=== PATIENT | male | born 1940 | race Caucasian/White ===

== ENCOUNTER 2017-02-03 05:20 | Inpatient (IN) | payer MEDICARE ==
[~2017-02-03] VITALS: Ht 172.7 cm; Wt 83.3 kg
[2017-02-03] VITALS (19 sets, daily range): BP systolic 92–137; BP diastolic 51–78; PULSE 80–165; RESP 16–36; TEMP 97.7–102.8; O2SAT 93–100
[~2017-02-03 05:20] MED LIST: ACET325S8 PEG; ALBU0.63 NEB; ARIC10TA G-TUBE; CLAR10TA7 GT; ENOX30P SQ; MUPI2%T TOP; MYCO200S GT; NAME10TA GT; NYSTT TOPICAL; PRED20 PO; PROBCAP4 G-TUBE; PYRI60 GT; RANI150 GT; RANI150UDC PO; TAB-TAB G-TUBE; TERB1%T TOP; VIMP200T PEG; VITA500C G-TUBE
[2017-02-03] MEDS ORDERED: SODIUM CHLOR 0.9% 1000 ML INJ 1,000 ML IV ONE ×3 (05:26)
[2017-02-03] MEDS ORDERED: VANCOMYCIN INJ 1,500 MG in SODIUM CHLORID 0.9% 500 ML INJ 500 ML IV STA (05:26)
[2017-02-03] MEDS ORDERED: CEFEPIME INJ 2,000 MG in SODIUM CHLORIDE 0.9% INJ 100 ML IV STA (05:26)
--- NOTE | 2017-02-03 05:43 | PD ---
HPI Chief Complaint: Respiratory Symptoms Time Seen by Provider: 05:26 Travel History International Travel<30 days: No Contact w/Intl Traveler<30days: No Traveled to known affect area: No History of Present Illness HPI 76 yo M arrives by EMS 2/2 dyspnea. EMS notes tachycardia and fever. Patient has a history of myasthenia gravis, dementia, seizure disorder, chronic pain, and has a tracheostomy and PEG tube. Upon arrival to the ER a pulse of 160 with a blood pressure 130/80, respiratory rate of 30 with some dyspnea observed. Sepsis workup initiated. The patient has a DNR. [facility] Past Medical History Arthritis: Yes (back) Asthma: No Autoimmune Disease: Yes (MYASTHENIA GRAVIS) Anxiety: No Depression: No Heart Rhythm Problems: No Cancer: No Cardiovascular Problems: Yes High Cholesterol: No Chemotherapy: No Chest Pain: No Congestive Heart Failure: No COPD: No Cerebrovascular Accident: No Dementia: Yes (APHASIA DEMENTIA) Diabetes: No Diminished Hearing: No Endocrine: No GERD: Yes Genitourinary: Yes (RECURRENT UTI) Hiatal Hernia: Yes Hypertension: Yes Immune Disorder: No Implanted Vascular Access Dvce: No Kidney Stones: No Musculoskeletal: Yes (SPINAL FX-CHRONIC, BROKEN RIGHT FEMUR) Neurologic: Yes (MYASTHENIA GRAVIS, DEMENTIA, SEIZURES) Reproductive: No Respiratory: Yes (TRACH) Migraines: No Pneumonia: Yes Radiation Therapy: No Renal Failure: No Seizures: Yes Sickle Cell Disease: No Sleep Apnea: Yes Thyroid Disease: No Ulcer: No Past Surgical History Abdominal Surgery: Yes (Hernia, PEG TUBE PLACEMENT) AICD: No Arteriovenous Shunt: No Body Medical Devices: PEG TUBE Cardiac Surgery: No Ear Surgery: No Endocrine Surgery: No Eye Surgery: No Genitourinary Surgery: No Insulin Pump: No Joint Replacement: No Oral Surgery: Yes (Tooth extractions) Pacemaker: No Thoracic Surgery: No Tonsillectomy: Yes Other Surgery: Yes (HIP REPAIR 2013, HERNIA REPAIR 1955, SKIN GRAFTING CHILD ) Social History Alcohol Use: No Tobacco Use: No Substance Use: No Allergies-Medications (Allergen,Severity, Reaction): Coded Allergies: acetaminophen (Unverified Allergy, Severe, SENDS PT INTO MYASTHNIA GRAVIS CRISIS, 02/03/17) hydrocodone (Unverified Allergy, Severe, SENDS PT INTO MYASTHNIA GRAVIS CRISIS, 02/03/17) thiopental (Unverified Allergy, Severe, Shortness of Breath, 02/03/17) SODIUM PENTOTHAL diatrizoate meglumine (Unverified Allergy, Unknown, 02/03/17) gadobenic acid (Unverified Allergy, Unknown, 02/03/17) gadodiamide (Unverified Allergy, Unknown, 02/03/17) gadoteridol (Unverified Allergy, Unknown, 02/03/17) haloperidol (Unverified Allergy, Unknown, 02/03/17) iodixanol (Unverified Allergy, Unknown, 02/03/17) iohexol (Unverified Allergy, Unknown, 02/03/17) onion (Unverified Allergy, Unknown, 02/03/17) risperidone (Unverified Allergy, Unknown, 02/03/17) Iodinated Contrast- Oral and IV Dye (Unverified Adverse Reaction, Severe, Anaphylaxis, 02/03/17) bee venom protein (honey bee) (Unverified Adverse Reaction, Severe, Anaphylaxis, 02/03/17) ciprofloxacin (Unverified Adverse Reaction, Severe, Anaphylaxis, 02/03/17) neomycin (Unverified Adverse Reaction, Severe, Anaphylaxis, 02/03/17) phenytoin (Unverified Adverse Reaction, Severe, Anaphylaxis, 02/03/17) tobramycin (Unverified Adverse Reaction, Severe, Respiratory Failure, ) *MDRO Multi-Drug Resistant Organism (Unverified Adverse Reaction, Unknown , 08/22/15) MRSA (sputum) - 08/10/14 & 08/04/15. ESBL+Klebsiella Pneu (sputum-08/2015) gentamicin (Unverified Adverse Reaction, Unknown, 02/03/17) lithium (Unverified Adverse Reaction, Unknown, 02/03/17) onabotulinumtoxinA (Unverified Adverse Reaction, Unknown, 02/03/17) timolol (Unverified Adverse Reaction, Unknown, 02/03/17) verapamil (Unverified Adverse Reaction, Unknown, 02/03/17) Reported Meds & Prescriptions Reported Meds & Active Scripts Active Reported Zinc Oxide (Zinc Oxide (Topical)) 20 % Oin 10 % Tylenol (Acetaminophen) 325 Mg Tab 650 Mg PO Q6H PRN Tylenol (Acetaminophen) 325 Mg Tab 650 Mg G-TUBE Q6H PRN Triamcinolone Topical (Triamcinolone Acetonide) 0.1 % Oint 1 Applic TOPICAL BID Pyridostigmine (Pyridostigmine [place]) 60 Mg Tab 60 Mg PO Q6HR Multiple Vitamin 1 Tab 1 Tab G-TUBE DAILY Namenda (Memantine) 10 Mg Tab 10 Mg G-TUBE BID Mycophenolate Liq (Mycophenolate Mofetil) 200 Mg/Ml Susp 500 Mg PO TID Miconazole Topical 2% Cream 1 Applic TOPICAL BID Allergy Relief (Loratadine) 10 Mg Tab 10 Mg G-TUBE DAILY Levsin-SL (Hyoscyamine Sulfate) 0.125 Mg Subl 0.125 Mg SL Q4H Levothyroxine (Levothyroxine Sodium) 50 Mcg Tab 50 Mcg G-TUBE DAILY Vimpat (Lacosamide) 200 Mg Tab 200 Mg G-TUBE DAILY Duoneb (Ipratropium-Albuterol Neb) 0.5-2.5 Mg/3 Ml Neb 1 Nebule INH Q4HR NEB Famotidine 10 Mg Tab 10 Mg PO DAILY Duoneb (Ipratropium-Albuterol Neb) 0.5-2.5 Mg/3 Ml Neb 1 Nebule INH Q6HR NEB Chlorhexidine Gluconate (Mouth) Liq (Chlorhexidine Gluconate) 0.12% Soln 15 Ml SWISH-SPIT BID Artificial Tears Opth Oint (White Petrolatum-Mineral Oil Opth Oint 83-15%) 83-15 % Oint 1 Applic EACH EYE Q6HR Pull down lower eyelid & apply 1/4 inch to inside of eyelid. Aricept (Donepezil) 23 Mg Tab 10 Mg G-TUBE HS Do not split, crushed or chewed. Review of Systems ROS Limitations: Clinical Condition Physical Exam Narrative GENERAL: 76-year-old male chronically ill unresponsive margins very distress SKIN: The lower back and sacrum is clean and intact without evidence of pressure wound. The heels are clean and intact. HEAD: Atraumatic. Normocephalic. EYES: Pupils equal and round. No scleral icterus. No injection or drainage. ENT: These membranes are dry. NECK: Trachea midline. No JVD. Tracheostomy in place no cellulitis about site of insertion. CARDIOVASCULAR: Tachycardia. Rate about 160 RESPIRATORY: Tracheostomy. Minimal dyspnea. Lung sounds are present bilaterally GASTROINTESTINAL: Abdomen is soft. There is a PEG tube without signs of infection. MUSCULOSKELETAL: Extremities without clubbing, cyanosis, or edema. No obvious deformities. NEUROLOGICAL: Patient is nonverbal. There is some grimacing to noxious stimulus however neuro status is otherwise poor PSYCHIATRIC: Unable to assess. Data Data Last Documented VS Vital Signs Date Time Temp Pulse Resp B/P (MAP) Pulse Ox O2 Delivery O2 Flow Rate FiO2 02/03/17 06:50 97 50 02/03/17 06:46 99.1 36 T-piece 15.00 02/03/17 06:01 80 Orders Orders Sepsis Workup Initiated (02/03/17 ) Electrocardiogram (02/03/17 05:26) Complete Blood Count With Diff (02/03/17 05:) Comprehensive Metabolic Panel (02/03/17 05:) Prothrombin Time / Inr (Pt) (02/03/17 05:26) Act Partial Throm Time (Ptt) (02/03/17 05:26) Lactic Acid Sepsis Protocol (02/03/17 05:26) Magnesium (Mg) (02/03/17 05:26) Phosphorus (Po4) (02/03/17 05:26) Ckmb (Isoenzyme) Profile (02/03/17 05:26) Troponin I (02/03/17 05:26) Urinalysis - C+S If Indicated (02/03/17 05:26) Blood Culture (02/03/17 05:26) Sputum Culture And Gram Stain (02/03/17 05:26) Chest, Single Ap (02/03/17 05:26) Arterial Blood Gas (Abg) (02/03/17 05:26) Blood Glucose (02/03/17 05:26) Ecg Monitoring (02/03/17 05:26) Iv Access Insert/Monitor (02/03/17 05:26) Cath For Specimen (02/03/17 05:26) Oximetry (02/03/17 05:26) Oxygen Administration (02/03/17 05:26) Vancomycin Inj (Vancomycin Inj) (02/03/17 05:26) Cefepime Inj (Maxipime Inj) (02/03/17 05:26) Azithromycin Inj (Zithromax Inj) (02/03/17 05:26) Sodium Chlor 0.9% 1000 Ml Inj (Ns 1000 M (02/03/17 05:26) Sodium Chlor 0.9% 1000 Ml Inj (Ns 1000 M (02/03/17 05:26) Sodium Chlor 0.9% 1000 Ml Inj (Ns 1000 M (02/03/17 05:26) Diltiazem Inj (Cardizem Inj) (02/03/17 05:45) Albuterol-Ipratropium Neb (Duoneb Neb) (02/03/17 06:15) Methylprednisolone So Succ Inj (Solumedr (02/03/17 06:15) CKMB (02/03/17 05:39) CKMB% (02/03/17 05:39) Piperacil-Tazo 3.375 Gm Premix (Zosyn 3. (02/03/17 06:45) Resp Ventilation- Volume (02/03/17 ) Admit Order (Ed Use Only) (02/03/17 ) Aids Nurse / Telemetry ANI.Q8H (02/03/17 07:07) Vital Signs (Adult) Q4H (02/03/17 07:07) Diet Npo (02/03/17 Breakfast) Activity Bed Rest (02/03/17 07:07) Notify Dr: Other (02/03/17 07:07) Labs Laboratory Tests Test 02/03/17 05:39 02/03/17 05:50 02/03/17 05:55 02/03/17 06:25 Blood Urea Nitrogen 34 MG/DL Creatinine 1.65 MG/DL Random Glucose 99 MG/DL Total Protein 7.8 GM/DL Albumin 3.0 GM/DL Calcium Level 9.1 MG/DL Phosphorus Level 2.2 MG/DL Magnesium Level 2.6 MG/DL Alkaline Phosphatase 165 U/L Aspartate Amino Transf (AST/SGOT) 24 U/L Alanine Aminotransferase (ALT/SGPT) 25 U/L Total Bilirubin 0.4 MG/DL Sodium Level 147 MEQ/L Potassium Level 4.8 MEQ/L Chloride Level 113 MEQ/L Carbon Dioxide Level 26.6 MEQ/L Anion Gap 7 MEQ/L Estimat Glomerular Filtration Rate 41 ML/MIN Lactic Acid Level 2.6 mmol/L Total Creatine Kinase 230 U/L Creatine Kinase MB 1.9 NG/ML Troponin I 0.61 NG/ML Urine Color YELLOW Urine Turbidity CLEAR Urine pH 6.0 Urine Specific [place] 1.025 Urine Protein 100 mg/dL Urine Glucose (UA) NEG mg/dL Urine Ketones NEG mg/dL Urine Occult Blood TRACE Urine Nitrite NEG Urine Bilirubin NEG Urine Urobilinogen LESS THAN 2.0 MG/DL Urine Leukocyte Esterase NEG Urine RBC 16 /hpf Urine WBC 3 /hpf Urine Squamous Epithelial Cells 1 /hpf Urine Hyaline Casts 3 /lpf Urine Mucus FEW /lpf Microscopic Urinalysis Comment CATH-CULT NOT IND Blood Gas Puncture Site LT FOOT Blood Gas Patient Temperature 98.6 Blood Gas HCO3 26 mmol/L Blood Gas Base Excess 1.7 mmol/L Blood Gas Oxygen Saturation 91 % Arterial Blood pH 7.43 Arterial Blood Partial Pressure CO2 39 mmHg Arterial Blood Partial Pressure O2 63 mmHG Arterial Blood Oxygen Content 17.4 Vol % Arterial Blood Carboxyhemoglobin 1.7 % Arterial Blood Methemoglobin 0.4 % Blood Gas Hemoglobin 13.6 G/DL Oxygen Delivery Device T-TUBE Blood Gas Inspired Oxygen 50 % White Blood Count 17.6 TH/MM3 Red Blood Count 4.90 MIL/MM3 Hemoglobin 12.8 GM/DL Hematocrit 40.6 % Mean Corpuscular Volume 83.0 FL Mean Corpuscular Hemoglobin 26.1 PG Mean Corpuscular Hemoglobin Concent 31.4 % Red Cell Distribution Width 18.5 % Platelet Count 280 TH/MM3 Mean Platelet Volume 10.7 FL Neutrophils (%) (Auto) 80.8 % Lymphocytes (%) (Auto) 8.8 % Monocytes (%) (Auto) 9.1 % Eosinophils (%) (Auto) 0.6 % Basophils (%) (Auto) 0.7 % Neutrophils # (Auto) 14.2 TH/MM3 Lymphocytes # (Auto) 1.5 TH/MM3 Monocytes # (Auto) 1.6 TH/MM3 Eosinophils # (Auto) 0.1 TH/MM3 Basophils # (Auto) 0.1 TH/MM3 CBC Comment DIFF FINAL Differential Comment Prothrombin Time 12.0 SEC Prothromb Time International Ratio 1.1 RATIO Activated Partial Thromboplast Time 35.5 SEC [facility] Medical Decision Making Medical Screen Exam Complete: Yes Emergency Medical Condition: Yes Medical Record Reviewed: Yes Differential Diagnosis Sepsis, severe sepsis, myasthenic crisis, multiorgan failure, metabolic disarray Narrative Course Sepsis workup started with 3 L saline transfused. Troponin of 0.65 is noted and considered most in keeping with tachycardia at a rate of 160. The patient received 20 mg of IV diltiazem and HR decreased from 160 to 80s. The arrived and the ensuing conversation revealed that yesterday the patient was normal yesterday until noon at which time she left. She received a phone call this morning stating that he had a fast heart rate and difficulty breathing and for that reason was sent to the ER. CBC & BMP Diagram 02/03/17 05:39 Total Protein 7.8, Albumin 3.0 L, Calcium Level 9.1, Phosphorus Level 2.2 L, Magnesium Level 2.6 H, Alkaline Phosphatase 165 H, Aspartate Amino Transf (AST/ SGOT) 24, Alanine Aminotransferase (ALT/SGPT) 25, Total Bilirubin 0.4 02/03/17 06:25 IM admission septic shock. Zosyn started 3L NS started PT is DNI/DNR however requests vent at bedside which has been started, she states no CPR if asystole d/w Dr Quiles for record changer assembler service Critical Care Narrative Aggregate critical care time was 40 minutes. Time to perform other separately billable procedures was not included in the critical care time. My time did not include minutes spent treating any other patients simultaneously or on activities that did not directly contribute to the patient's treatment. The services I provided to this patient were to treat and/or prevent clinically significant deterioration that could result in: Septic shock, cardiopulmonary arrest I provided critical care services requiring my management, as noted below: Chart data review, documentation time, medication orders and management, vital sign assessments/reviewing monitor data, ordering and reviewing lab tests, ordering and interpreting/reviewing x-rays and diagnostic studies, care of the patient and discussion of the patient with the admitting physicians. Sepsis Criteria SIRS Criteria (2 or more): Temp > 100.9 or < 96.8, WBC > 22434, < 4000 or > 10 % bands Severe Sepsis (+one): Lactate >2 Diagnosis Primary Impression: Pneumonia Qualified Codes: J18.9 - Pneumonia, unspecified organism Additional Impression: Severe sepsis Admitting Information Admitting Physician Requests: it Mark Morris MD Feb 03, 2017 05:43
[2017-02-03] MEDS ORDERED: DILTIAZEM HCL 25 MG/5 ML VIAL IV ONE (05:45)
[2017-02-03] MEDS: AZITHROMYCIN INJ 500 MG in SODIUM CHLOR 0.9% 250 ML INJ 250 ML IV STA ×2 (05:46→06:30)
[2017-02-03 06:07] LABS: BLOOD GAS BASE EXCESS 1.7 mmol/L (-2-2); BLOOD GAS CARBOXYHEMOGLOBIN 1.7 % (0-4); BLOOD GAS HCO3 26 mmol/L (22-26); BLOOD GAS METHEMOGLOBIN 0.4 % (0-2); BLOOD GAS O2 HGB SATURATION 91 % (90-100); BLOOD GAS OXYGEN CONTENT 17.4 Vol % (12.0-20.0); BLOOD GAS PCO2 39 mmHg (38-42); BLOOD GAS PO2 63 mmHG (61-120); BLOOD GAS TOTAL HGB 13.6 G/DL (12.0-16.0); CRITICAL VALUE NO; FIO2 50 %; OXYGEN DEVICE T-TUBE; TEMP CORR TO 98.6
[2017-02-03 06:08] LABS: DRAW SITE LT FOOT; NUMBER OF ARTERIAL PUNCTURES 1; STAT YES
--- NOTE | 2017-02-03 06:13 | RADRPT ---
EXAM DATE/TIME: 02/03/2017 05:55 [facility] COMPARISON: CHEST SINGLE AP, August 24, 2015, 3:02. INDICATIONS : Shortness of breath. MEDICAL HISTORY : Hypertension. SURGICAL HISTORY : Tracheostomy. ENCOUNTER: Initial ACUITY: 1 day PAIN SCORE: 0/10 LOCATION: Bilateral chest FINDINGS: Patchy air space opacities are seen of the left lung. Right lung appears reasonably clear. No large e ffusion seen on either side. No pneumothorax. Heart size stable, upper limits of normal. Tracheostomy tube again noted. CONCLUSION: Patchy pneumonia on the left. Gabo Meza MD on February 03, 2017 at 6:10 Board Certified Radiologist. This report was verified electronically.
[2017-02-03] MEDS ORDERED: methylPREDNISolone SOD SUCC 125 MG/2 ML VIAL IV PUSH ONE (06:15)
[2017-02-03] MEDS ORDERED: RESP: ALBUTEROL 2.5 MG/IPRATROPIUM 0.5 MG NEB (SCH) INH ONE (06:15)
[2017-02-03 06:19] LABS: BLOOD, URINE TRACE (NEG); COMMENT (UR) CATH-CULT NOT IND; CULTURE IF INDICATED CATH CULTURE NOT IND; GLUCOSE,URINE NEG (NEG); HYALINE CAST, URINE 3 /lpf (RARE); KETONE, URINE NEG (NEG); MUCUS URINE FEW /lpf (OCC); NITRITE,URINE NEG (NEG); SQUAMOUS EPITHELIAL CELL URINE 1 /hpf (0-5); URINE COLOR YELLOW (YELLW/STRAW)
[2017-02-03 06:29] LABS: ALKALINE PHOSPHATASE 165 U/L (45-117); CREATINE KINASE 230 U/L (39-308); TOTAL BILIRUBIN ADULT 0.4 MG/DL (0.2-1.0)
[2017-02-03 06:31] LABS: ALT (GPT) 25 U/L (12-78); ANION GAP 7 MEQ/L (5-15); AST (GOT) 24 U/L (15-37); BICARBONATE 26.6 MEQ/L (21.0-32.0); BLOOD UREA NITROGEN 34 MG/DL (7-18); CHLORIDE 113 MEQ/L (98-107); GLOMERULAR FILTRATION RATE 41 ML/MIN (>89); MAGNESIUM 2.6 MG/DL (1.5-2.5); POTASSIUM 4.8 MEQ/L (3.5-5.1); SODIUM (NA) 147 MEQ/L (136-145)
[2017-02-03] MEDS ORDERED: PIPERACIL-TAZO 3.375 GM PREMIX 50 ML IV ONE (06:45)
[2017-02-03 06:47] LABS: AUTOMATED NEUTROPHIL # 14.2 TH/MM3 (1.8-7.7); BASOPHIL # 0.1 TH/MM3 (0-0.2); BASOPHIL % 0.7 % (0.0-2.0); EOSINOPHIL # 0.1 TH/MM3 (0-0.4); EOSINOPHIL % 0.6 % (0.0-4.0); HEMATOCRIT 40.6 % (39.0-51.0); HEMO FLAGS DIFF FINAL; LYMPH % 8.8 % (9.0-44.0); LYMPHOCYTE # 1.5 TH/MM3 (1.0-4.8); MEAN CORPUSCULAR HEMOGLOBIN 26.1 PG (27.0-34.0); MEAN CORPUSCULAR HGB CONC 31.4 % (32.0-36.0); MONO % 9.1 % (0.0-8.0); NEUT % 80.8 % (16.0-70.0); PLATELET COUNT 280 TH/MM3 (150-450); RED CELL DISTRIBUTION WIDTH 18.5 % (11.6-17.2); WHITE BLOOD COUNT 17.6 TH/MM3 (4.0-11.0)
[2017-02-03 06:48] LABS: CKMB 1.9 NG/ML (0.5-3.6)
[2017-02-03 06:59] LABS: APTT (PATIENT) 35.5 SEC (24.3-30.1); INTERNATIONAL NORMALIZED RATIO 1.1 RATIO
[2017-02-03] MEDS ORDERED: MYCO1SUS PO (07:08)
[2017-02-03] MEDS ORDERED: TRIAM.1%T TOPICAL (07:08)
[2017-02-03] MEDS ORDERED: LORA-650 G-TUBE (07:08)
[2017-02-03] MEDS ORDERED: WHIT15OI EACH EYE (07:08)
[2017-02-03] MEDS ORDERED: LEVS0.124 SL (07:08)
[2017-02-03] MEDS ORDERED: PYRI60 PO (07:08)
[2017-02-03] MEDS ORDERED: ZINC20OI (07:08)
[2017-02-03] MEDS ORDERED: LEVO50TA4 G-TUBE (07:08)
[2017-02-03] MEDS ORDERED: MULTTAB67 G-TUBE (07:08)
[2017-02-03] MEDS ORDERED: NAME10TA G-TUBE (07:08)
[2017-02-03] MEDS ORDERED: FAMO1TAB30 PO (07:08)
[2017-02-03] MEDS ORDERED: VIMP200T G-TUBE (07:08)
[2017-02-03] MEDS ORDERED: MICO2CRE34 TOPICAL (07:08)
[2017-02-03] MEDS ORDERED: CHLO.12%30 SWISH-SPIT (07:08)
[2017-02-03] MEDS ORDERED: IPRASOL INH ×2 (07:08)
[2017-02-03] MEDS ORDERED: TYLE325T PO (07:08)
[2017-02-03] MEDS ORDERED: TYLE325T G-TUBE (07:08)
[2017-02-03] MEDS ORDERED: ARIC23TA G-TUBE (07:08)
[2017-02-03] MEDS: INSULIN NovoLIN REGULAR SUPPLEMENTAL SCALE SQ SCH ×5 (07:15→23:15)
[2017-02-03] MEDS ORDERED: GLUCAGON 1 MG/ML VIAL OTHER PRN (07:15)
[2017-02-03] MEDS ORDERED: CHLORHEXIDINE GLUCONATE 2 % 1 PACK (2 CLOTHS) TOP PRN (07:15)
[2017-02-03] MEDS ORDERED: ASPIRIN 325 MG TAB PO ONE (07:15)
[2017-02-03] MEDS ORDERED: MISCELLANEOUS NURSING INFORMATION XX SCH (07:15)
[2017-02-03] MEDS ORDERED: DEXTROSE 50% IN WATER 50 ML VIAL(D50) IV PUSH PRN (07:15)
[2017-02-03] MEDS ORDERED: RESP: ALBUTEROL 2.5 MG/IPRATROPIUM 0.5 MG NEB (PRN) INH (07:15)
[2017-02-03 07:56] LABS: LACTIC ACID GHOST NOT REPORTABLE
[2017-02-03] MEDS: DEXT 5%-NACL 0.9% 1000 ML INJ 1,000 ML IV SCH ×2 (08:22→18:53)
[2017-02-03] MEDS: HEPARIN SODIUM - SQ 10,000 UNITS/ML VIAL SQ SCH ×2 (08:23→20:44)
[2017-02-03] MEDS: FAMOTIDINE 20 MG/2 ML VIAL IV PUSH SCH ×2 (09:00→20:44)
[2017-02-03] MEDS: LEVOTHYROXINE SODIUM 50 MCG TAB G-TUBE SCH (09:15)
[2017-02-03] MEDS ORDERED: LINEZOLID 600 MG PREMIX 300 ML IV SCH (09:30)
[2017-02-03] MEDS: LINEZOLID 600 MG PREMIX 300 ML IV SCH ×2 (10:00→20:44)
--- NOTE | 2017-02-03 11:02 | MH ---
cc: GLENDA FAULKNER M.D. DATE OF ADMISSION: 02/03/2017 DATE OF : 1940 ADMITTING DIAGNOSIS: The patient is a 76 year old male with past medical history of myasthenia gravis, dementia, seizure disorder, chronic respiratory failure with previous tracheostomy and percutaneous endoscopic gastrostomy placement. The patient presented to [facility] from local nursing facility for tachycardia and fevers. On arrival he had a temperature of 102.8, in addition the patient was tachycardic and tachypneic. His laboratory data was significant for leukocytosis with a white blood count of 17.6 mild lactic acidemia, lactic acid level 2.6 and acute kidney injury with creatinine level of 1.65. Chest x-ray in the emergency room showed patchy pneumonia on the left. In the emergency department the patient was given three liters of crystalloids in addition to cefepime, Solu-Medrol, bronchodilator treatment. Arterial blood gas was preformed on TP's. Which showed a pH of 7.43, co2 39, pao2 63, bicarbonate 26-91%. He was placed on electrical and radio mock up mechanic ventilation. Most of the history was obtained by reviewing the medical records as the patient is nonverbal. He also has history of methicillin-resistant Staphylococcus aureus and pseudomonas and pneumonia last year. The patient was do not resuscitate from local [facility]. PAST MEDICAL HISTORY: Significant for myasthenia Gravis with dementia, fever disorder, chronic respiratory failure. PAST SURGICAL HISTORY: Previous percutaneous endoscopic gastrostomy tube placement. Previous hip repair 2013. SOCIAL HISTORY: Nonsmoker, nondrinker, he is a resident of nursing facility. ALLERGIES VERAPAMIL VANCOMYCIN ATENOLOL GENTAMICIN LITHIUM RISPERIDONE [place] MEDICATIONS: Reported medications include 1. Aricept 2. Pyridostigmine 3. Duoneb 4. Namenda 5. Levothyroxine 6. Zinc oxide 7. Multivitamins REVIEW OF SYSTEMS As per history of present illness, the rest of the review of systems is unobtainable as the patient is nonverbal. PHYSICAL EXAMINATION: IN GENERAL: A 76 year-old male with chronic respiratory failure, on mechanical ventilation. VITAL SIGNS: Temperature 102.8, pulse 91, blood pressure 153/63. Saturation 98%. Vent setting assist control ventilation with 14, tidal volume 500, PEEP of 8, 100% FIO2. HEAD, EYES, EARS, NOSE, AND THROAT: Atraumatic, normocephalic, Pupils equal, round, reactive to light and accommodation, extraocular muscles intact. Conjunctiva is pink, nonicteric, sclera. Oral mucosa is within normal limits. NECK: Supple, no jugular venous distention, adenopathy, or thyromegaly, trachea is in place. CARDIOVASCULAR SYSTEM: Regular rate and rhythm, normal S1, S2, no murmurs, rubs or gallops noted. PULMONARY: Bilateral equal entry with coarse breath sound at the left base. ABDOMEN: The abdomen is soft, nontender, no distention, positive bowel sounds, percutaneous endoscopic gastrostomy tube in place. EXTREMITIES: No clubbing, cyanosis or edema. NEUROLOGIC: Nonverbal. LABORATORY DATA: Sodium 147, potassium 4.8, chloride 113, co2 26, blood urea nitrogen 34, creatinine 1.65, glucose 99, lactic acid 2.6, total bilirubin 0.4, aspartate aminotransferase 24, ALT 25, alkaline phosphatase 165, troponin 0.61, with total creatine kinase 230. Albumin 3, white blood count 17.6, hemoglobin 12.8, hematocrit 40, platelet count of 280, INR 1.1 PT 12.0, PTT 35. RADIOGRAPHIC STUDIES: Chest x-ray in the emergency department showed patchy pneumonia on the left. Electrocardiogram; showed questionable supraventricular tachycardia at a rate of 165 beats per minute. IMPRESSION: 1. Acute on chronic respiratory failure. 2. Left sided pneumonia. 3. Leukocytosis. 4. Acute kidney injury. 5. Non-elevated troponin. 6. Mild lactic acidemia. 7. Previous trachea and percutaneous endoscopic gastrostomy tube placement. 8. History of Methicillin-resistant Staphylococcus aureus and pseudomonas pneumonia. 9. Dementia/seizure disorder. 10. History of myasthenia gravis. RECOMMENDATIONS: 1. Fentanyl infusion if needed for sedation. We will continue with Aricept 10 mg daily. 2. Pyridostigmine 60 mg q six hours. 3. Namenda 10 mg twice a day. 4. Monitor neurostatus closely. 5. Continue with ventilator support and maintain saturations above 92%. 6. Bronchodilators in the form of Duoneb q six hours. 7. <<8:11>> bundle. 8. Pulmonary toilet and tracheostomy. 9. Decreased FIO2 as tolerated. Check arterial blood gas. 10. Monitor heart rate and blood pressure closely and maintain MAP greater than 65 mmHg. The patient received three liters of crystalloids in the emergency department. Lactic acid level measured at 2.6. 11. Continue with IV fluids in the form of D5 and NS 84 ml per hour. We will monitor cardiac enzymes with troponins and we will obtain a 2 Dimensional echocardiogram to evaluate left ventricular function. We will give aspirin 325 mg p.o. times one. 12. Monitor renal function, intake and output, avoid nephrotoxins. Electrolyte replacement as needed. 13. IV fluids as stated above. 14. Place on Pepcid 20 mg IV q 12 hour for gastrointestinal prophylaxis. 15. Start tube feeds via percutaneous endoscopic gastrostomy tube Glucerna 1.5 with good rate of 45 ml per hour. 16. Continue with antibiotics in the form of Zosyn and add Zyvox. 17. Monitor for signs of infections which include fever and white blood count. Follow up on blood cultures and sputum culture which was preformed in the emergency department. We will obtain strep pneumonia and legionella urinary antigen. 18. Monitor CBC. 19. Sliding scale insulin with Accuchecks for glycemic control. We will check baseline thyroid stimulating hormone level and continue with Synthroid 50 mcg daily. 20. Gastrointestinal prophylaxis with Pepcid 20 mg q 12 hours and deep venous thrombosis prophylaxis with sequential compression devices and heparin subcutaneously. 21. We will place central line if indicated. 22.Further recommendations will be based on the hospital course. Critical care time 40 minutes excluding procedures. MD CARLTON Petersen/mark /9:11 AM /9:26 AM
[2017-02-03] MEDS: PIPERACIL-TAZO 3.375 GM PREMIX 50 ML IV SCH ×2 (13:50→18:29)
[2017-02-03] MEDS: PYRIDOSTIGMINE BROMIDE 60 MG TAB PO SCH ×2 (13:50→18:29)
[2017-02-03] MEDS: MEMANTINE HCL 10 MG TAB G-TUBE SCH ×2 (13:50→20:44)
[2017-02-03 15:30] LABS: BLOOD GAS BASE EXCESS -0.6 mmol/L (-2-2); BLOOD GAS CARBOXYHEMOGLOBIN 1.1 % (0-4); BLOOD GAS HCO3 24 mmol/L (22-26); BLOOD GAS METHEMOGLOBIN 0.9 % (0-2); BLOOD GAS O2 HGB SATURATION 96 % (90-100); BLOOD GAS OXYGEN CONTENT 16.8 Vol % (12.0-20.0); BLOOD GAS PCO2 39 mmHg (38-42); BLOOD GAS PO2 112 mmHg (61-120); BLOOD GAS TOTAL HGB 12.4 G/DL (12.0-16.0); CRITICAL VALUE NO; OXYGEN DEVICE VENTILATOR; TEMP CORR TO 98.6
[2017-02-03 15:35] LABS: DRAW SITE RT RADIAL; FIO2 50 %; NUMBER OF ARTERIAL PUNCTURES 1; STAT NO; ULNAR PULSE PRESENT; VENT SETTINGS AC14/500/PEEP8
[2017-02-03] MEDS: RESP: ALBUTEROL 2.5 MG/IPRATROPIUM 0.5 MG NEB (SCH) INH ×2 (17:16→20:00)
--- NOTE | 2017-02-03 18:32 | EKG ---
Date Performed: 02/03/2017 Time Performed: 05:32:37 PTAGE: 76 years EKG: Supraventricular tachycardia Abnormal R-wave progression, similar to the prior tracing PREVIOUS TRACING 08/04/15 Supraventricular tachycardia is new from the prior tracing. Cli nical correlation needed. DOCTOR: Vinod Garcia Interpretating Date/Time 02/03/2017 18:30:45
[2017-02-03] MEDS: DONEPEZIL HCL 5 MG TAB PO SCH (20:44)
[2017-02-04] VITALS (16 sets, daily range): BP systolic 101–164; BP diastolic 56–72; PULSE 81–96; RESP 12–20; TEMP 97–98; O2SAT 94–100
[2017-02-04] MEDS: PIPERACIL-TAZO 3.375 GM PREMIX 50 ML IV SCH ×4 (01:07→18:46)
[2017-02-04] MEDS: PYRIDOSTIGMINE BROMIDE 60 MG TAB PO SCH ×4 (01:07→18:45)
[2017-02-04] MEDS: INSULIN NovoLIN REGULAR SUPPLEMENTAL SCALE SQ SCH ×6 (03:15→23:15)
[2017-02-04] MEDS: RESP: ALBUTEROL 2.5 MG/IPRATROPIUM 0.5 MG NEB (SCH) INH ×2 (03:57→08:58)
[2017-02-04] MEDS: CHLORHEXIDINE GLUCONATE 2 % 1 PACK (2 CLOTHS) TOP SCH (04:00)
[2017-02-04] MEDS: LEVOTHYROXINE SODIUM 50 MCG TAB G-TUBE SCH (05:25)
[2017-02-04] MEDS: DEXT 5%-NACL 0.9% 1000 ML INJ 1,000 ML IV SCH (05:25)
[2017-02-04 05:50] LABS: AUTOMATED NEUTROPHIL # 11.4 TH/MM3 (1.8-7.7); BASOPHIL % 0.1 % (0.0-2.0); HEMATOCRIT 36.6 % (39.0-51.0); HEMO FLAGS DIFF FINAL; LYMPH % 5.6 % (9.0-44.0); LYMPHOCYTE # 0.7 TH/MM3 (1.0-4.8); MEAN CELL VOLUME 83.6 FL (80.0-100.0); MEAN CORPUSCULAR HEMOGLOBIN 26.1 PG (27.0-34.0); MEAN CORPUSCULAR HGB CONC 31.2 % (32.0-36.0); MONO % 6.9 % (0.0-8.0); NEUT % 87.4 % (16.0-70.0); PLATELET COUNT 205 TH/MM3 (150-450); RED BLOOD COUNT 4.38 MIL/MM3 (4.50-5.90); RED CELL DISTRIBUTION WIDTH 17.9 % (11.6-17.2)
[2017-02-04 06:16] LABS: ALKALINE PHOSPHATASE 100 U/L (45-117); ALT (GPT) 13 U/L (12-78); ANION GAP 8 MEQ/L (5-15); AST (GOT) 22 U/L (15-37); BICARBONATE 21.4 MEQ/L (21.0-32.0); BLOOD UREA NITROGEN 32 MG/DL (7-18); CHLORIDE 119 MEQ/L (98-107); GLOMERULAR FILTRATION RATE 55 ML/MIN (>89); POTASSIUM 3.9 MEQ/L (3.5-5.1); SODIUM (NA) 148 MEQ/L (136-145); TOTAL BILIRUBIN ADULT 0.3 MG/DL (0.2-1.0)
[2017-02-04] MEDS: HEPARIN SODIUM - SQ 10,000 UNITS/ML VIAL SQ SCH ×2 (07:43→20:00)
[2017-02-04] MEDS ORDERED: MAGNESIUM SULFATE INJ 2 GM in SODIUM CHLORIDE 0.9% INJ 96 ML IV PRN (07:45)
[2017-02-04] MEDS ORDERED: POTASSIUM CHLOR 20 MEQ PREMIX 100 ML IV PRN ×2 (07:45)
[2017-02-04] MEDS ORDERED: POTASSIUM PHOSPHATE INJ 30 MMOL in SODIUM CHLOR 0.9% 250 ML INJ 250 ML IV PRN (07:45)
[2017-02-04] MEDS ORDERED: POTASSIUM PHOSPHATE MONOBASIC 500 MG TAB PO PRN (07:45)
[2017-02-04] MEDS ORDERED: POTASSIUM PHOSPHATE MONOBASIC 500 MG TAB PO/TUBE PRN (07:45)
[2017-02-04] MEDS ORDERED: POTASSIUM CHLORIDE 25 MEQ EFFERVESCENT TAB PO PRN (07:45)
[2017-02-04] MEDS ORDERED: MAGNESIUM OXIDE 400 MG TAB PO PRN (07:45)
[2017-02-04] MEDS ORDERED: POTASSIUM CHLOR 40 MEQ PREMIX 100 ML IV-CENTRAL PRN ×2 (07:45)
[2017-02-04] MEDS ORDERED: MAGNESIUM SULFATE INJ 4 GM in SODIUM CHLORIDE 0.9% INJ 92 ML IV PRN (07:45)
--- NOTE | 2017-02-04 07:52 | HHI.CCPN ---
Subjective Remarks/Hospital Course The patient is a 76 year old male with past medical history of myasthenia gravis , dementia, seizure disorder, chronic respiratory failure with previous tracheostomy and percutaneous endoscopic gastrostomy placement. The patient presented to [facility] from local nursing facility for tachycardia and fevers. On arrival he had a temperature of 102.8, in addition the patient was tachycardic and tachypneic. His laboratory data was significant for leukocytosis with a white blood count of 17.6 mild lactic acidemia, lactic acid level 2.6 and acute kidney injury with creatinine level of 1.65. Chest x-ray in the emergency room showed patchy pneumonia on the left. In the emergency department the patient was given three liters of crystalloids in addition to cefepime, Solu-Medrol, bronchodilator treatment. Arterial blood gas was preformed on TP's. Which showed a pH of 7.43, co2 39, pao2 63, bicarbonate 26-91%. He was placed on mechanical repair worker ventilation. Most of the history was obtained by reviewing the medical records as the patient is nonverbal. He also has history of methicillin-resistant Staphylococcus aureus and pseudomonas and pneumonia last year. The patient was do not resuscitate from local [facility]. 02/04 No events overnight. On ventilator via trach. Afebrile. Objective Vital Signs Date Time Temp Pulse Resp B/P (MAP) Pulse Ox O2 Delivery O2 Flow Rate FiO2 02/04/17 04:22 100 40 02/04/17 03:08 98.0 85 20 105/57 (73) 02/03/17 07:54 CPAP 02/03/17 06:46 15.00 Intake and Output 02/04/17 02/04/17 02/05/17 08:00 16:00 00:00 Intake Total 1412 ml Output Total 400 ml Balance 1012 ml Result Diagram: 02/04/17 0453 02/04/17 0453 Other Results Laboratory Tests Test 02/03/17 09:15 02/03/17 09:52 02/03/17 13:16 02/03/17 15:22 Nasal Screen MRSA (PCR) MRSA NOT DETECTED Lactic Acid Level 2.8 mmol/L Troponin I 0.41 NG/ML Blood Gas Puncture Site RT RADIAL Blood Gas Patient Temperature 98.6 Blood Gas HCO3 24 mmol/L Blood Gas Base Excess -0.6 mmol/L Blood Gas Oxygen Saturation 96 % Arterial Blood pH 7.40 Arterial Blood Partial Pressure CO2 39 mmHg Arterial Blood Partial Pressure O2 112 mmHg Arterial Blood Oxygen Content 16.8 Vol % Arterial Blood Carboxyhemoglobin 1.1 % Arterial Blood Methemoglobin 0.9 % Blood Gas Hemoglobin 12.4 G/DL Oxygen Delivery Device VENTILATOR Blood Gas Ventilator Setting AC14/500/PEEP8 Blood Gas Inspired Oxygen 50 % Test 02/03/17 20:36 02/04/17 04:53 Troponin I 0.23 NG/ML White Blood Count 13.0 TH/MM3 Red Blood Count 4.38 MIL/MM3 Hemoglobin 11.4 GM/DL Hematocrit 36.6 % Mean Corpuscular Volume 83.6 FL Mean Corpuscular Hemoglobin 26.1 PG Mean Corpuscular Hemoglobin Concent 31.2 % Red Cell Distribution Width 17.9 % Platelet Count 205 TH/MM3 Mean Platelet Volume 10.6 FL Neutrophils (%) (Auto) 87.4 % Lymphocytes (%) (Auto) 5.6 % Monocytes (%) (Auto) 6.9 % Eosinophils (%) (Auto) 0.0 % Basophils (%) (Auto) 0.1 % Neutrophils # (Auto) 11.4 TH/MM3 Lymphocytes # (Auto) 0.7 TH/MM3 Monocytes # (Auto) 0.9 TH/MM3 Eosinophils # (Auto) 0.0 TH/MM3 Basophils # (Auto) 0.0 TH/MM3 CBC Comment DIFF FINAL Differential Comment Blood Urea Nitrogen 32 MG/DL Creatinine 1.27 MG/DL Random Glucose 110 MG/DL Total Protein 5.9 GM/DL Albumin 2.2 GM/DL Calcium Level 8.1 MG/DL Alkaline Phosphatase 100 U/L Aspartate Amino Transf (AST/SGOT) 22 U/L Alanine Aminotransferase (ALT/SGPT) 13 U/L Total Bilirubin 0.3 MG/DL Sodium Level 148 MEQ/L Potassium Level 3.9 MEQ/L Chloride Level 119 MEQ/L Carbon Dioxide Level 21.4 MEQ/L Anion Gap 8 MEQ/L Estimat Glomerular Filtration Rate 55 ML/MIN Imaging Last Impressions Chest X-Ray 02/03/17 0565 Signed Impressions: Service Date/Time: Friday, February 03, 2017 05:55 - CONCLUSION: Patchy pneumonia on the left. Gabo Meza MD Objective Remarks GENERAL: Patient remains on ventilator via trach. SKIN: Warm and dry. HEAD: Normocephalic. EYES: No scleral icterus. No injection or drainage. NECK: Supple, trachea midline. No JVD or lymphadenopathy. Trach in place CARDIOVASCULAR: Regular rate and rhythm without murmurs, gallops, or rubs. RESPIRATORY: Breath sounds equal bilaterally. No accessory muscle use. GASTROINTESTINAL: Abdomen soft, non-tender, nondistended. MUSCULOSKELETAL: No cyanosis, or edema. Contracted Neuro: On no sedation. Doesn't follow commands. A/P Assessment and Plan 1. Acute on chronic respiratory failure. 2. Left sided pneumonia. 3. Leukocytosis. 4. Acute kidney injury. 5. Mild-elevated troponin. 6. Mild lactic acidemia. 7. Previous trachea and percutaneous endoscopic gastrostomy tube placement. 8. History of Methicillin-resistant Staphylococcus aureus and pseudomonas pneumonia. 9. Dementia/seizure disorder. 10. History of myasthenia gravis. Plan Neuro: Fentanyl infusion if needed for sedation. On Aricept 10 mg daily., Pyridostigmine 60 mg q six hours. Namenda 10 mg twice a day. Monitor neurostatus closely. Consult neuro- Patient is known to Dr. Lazaro Wright: Continue with ventilator support and maintain sats >92%. Bronchodilators, ICU vent bundle. Pulmonary toilet and trach care CV: Monitor HR and BP and maintain MAP > 65 mmHg. Lactic acid level measured at 2.6. For 2D echo, mild elevated trop likely stress mediated . : Monitor renal function, intake and output, avoid nephrotoxins. Electrolyte replacement as needed. Change IVF D5W @75ml/hr, add Free water 250ml Q8 monitor sodium level. GI: On Pepcid 20 mg IV q 12 hour for Gl prophylaxis. Tube feeds via PEG tube- Glucerna 1.5 with gool rate of 45 ml per hour. ID: Continue abx ( Zyvox, Zosyn) Monitor for signs of infection( fever and WBC) WBC is trending down Follow up on blood and sputum culture Strep pneumonia and legionella urinary antigen negative Heme: Monitor CBC. Endo: SSI with Accuchecks for glycemic control. On Synthroid 50 mcg daily. TSH: 4.5 GI prophylaxis with Pepcid 20 mg q 12 hours and DVT s prophylaxis with SCDs and heparin SQ. Discussed with patient's yesterday 02/03 with patient's nurse (Rodriguez) re code status and she requested to make patient Alternate code( intubation only) She does not want and CPR/chest compression or cardiac resuscitation in case of cardiac arrest. [facility] also [facility] at the [facility] Level 3 Jose Cruz Ansari MD Feb 04, 2017 07:52
[2017-02-04] MEDS: LINEZOLID 600 MG PREMIX 300 ML IV SCH ×2 (09:28→22:00)
[2017-02-04] MEDS: MEMANTINE HCL 10 MG TAB G-TUBE SCH ×2 (09:28→21:00)
[2017-02-04] MEDS: FAMOTIDINE 20 MG/2 ML VIAL IV PUSH SCH ×2 (09:28→21:00)
[2017-02-04] MEDS: FREE WATER G-TUBE SCH ×3 (09:28→22:00)
[2017-02-04] MEDS: DEXTROSE 5% IN WATE 1000ML INJ 1,000 ML IV SCH ×2 (09:29→22:20)
[2017-02-04] MEDS: MYCOPHENOLATE MOFETIL 200 MG/ML 175 ML BOTTLE PO SCH ×3 (11:14→18:45)
--- NOTE | 2017-02-04 12:16 | ECHRPT ---
Indication: evaluate LV funcation CONCLUSIONS The left ventricular systolic function is normal with an estimated ejection fraction in the range of 55-60%. Wall thickness is measured at the upper limits of normal. Normal left ventricular size. There is trace tricuspid valve regurgitation. The estimated pulmonary arterial pressure is 22.8 mmHg. BP: 137 / 78 HR: 91 Rhythm: Sinus MEASUREMENTS (Male / Female) Normal Values Technical Quality:Technically difficult study 2D ECHO LV Diastolic Diameter PLAX 4.7 cm 4.2 - 5.9 / 3.9 - 5.3 cm LV Systolic Diameter PLAX 3.6 cm IVS Diastolic Thickness 1.1 cm 0.6 - 1.0 / 0.6 - 0.9 cm LVPW Diastolic Thickness 1.1 cm 0.6 - 1.0 / 0.6 - 0.9 cm LV Relative Wall Thickness 0.5 LVOT Diameter 1.8 cm M-MODE Aortic Root Diameter MM 2.9 cm LA Systolic Diameter MM 3.4 cm LA Ao Ratio MM 1.2 AV Cusp Separation MM 1.6 cm DOPPLER AV Peak Velocity 140.0 cm/s AV Peak Gradient 7.8 mmHg LVOT Peak Velocity 90.8 cm/s LVOT Peak Gradient 3.3 mmHg AV Area Cont Eq pk 1.7 cm Mitral E Point Velocity 67.1 cm/s Mitral A Point Velocity 78.0 cm/s Mitral E to A Ratio 0.9 LV E' Lateral Velocity 7.1 cm/s Mitral E to LV E' Lateral Ratio 9.4 LV E' Septal Velocity 6.7 cm/s Mitral E to LV E' Septal Ratio 10.0 TR Peak Velocity 179.0 cm/s TR Peak Gradient 12.8 mmHg Right Atrial Pressure 10.0 mmHg Pulmonary Artery Systolic Pressu 22.8 mmHg Right Ventricular Systolic Press 22.8 mmHg PV Peak Velocity 107.0 cm/s PV Peak Gradient 4.6 mmHg FINDINGS LEFT VENTRICLE The left ventricular systolic function is normal with an estimated ejection fraction in the range of 55-60%. Wall thickness is measured at the upper limits of normal. Normal left ventricular size. RIGHT VENTRICLE Normal right ventricular size and systolic function. LEFT ATRIUM The left atrial size is normal. RIGHT ATRIUM The right atrial size is normal. ATRIAL SEPTUM Normal atrial septal thickness without atrial level shunting by limited color doppler interrogation. AORTA The aortic root and proximal ascending aorta are normal in size on limited imaging. MITRAL VALVE Structurally normal mitral valve. No mitral valve stenosis or regurgitation. AORTIC VALVE Trileaflet aortic valve. No aortic valve stenosis or regurgitation. TRICUSPID VALVE There is trace tricuspid valve regurgitation. The estimated pulmonary arterial pressure is 22.8 mmHg. PULMONARY VALVE No pulmonary valve regurgitation or stenosis. VESSELS The inferior vena cava is normal in size. PERICARDIUM No pericardial effusion. Roldan Bolden MD, FACC (Electronically Signed) Final Date:04 February 2017 12:15
[2017-02-04] MEDS: RESP: ALBUTEROL 2.5 MG/IPRATROPIUM 0.5 MG NEB (SCH) NEB ×2 (15:24→19:55)
--- NOTE | 2017-02-04 16:04 | PD.CONS ---
History of Present Illness Service Neurology Consult Requested By [facility] Reason for Consult neuro eval Primary Care Physician Jose Mcpherson MD History of Present Illness 76 yo M admitted for resp distress. in the icu and found to have left pneumonia. he lives in a nh and is largely bedridden. has trach/peg. has severe dementia. pt unable to give any hx obtained from medical chart. The patient has a DNR. [facility] Past Medical History Arthritis: Yes (back) Asthma: No Autoimmune Disease: Yes (MYASTHENIA GRAVIS) Anxiety: No Depression: No Heart Rhythm Problems: No Cancer: No Cardiovascular Problems: Yes High Cholesterol: No Chemotherapy: No Chest Pain: No Congestive Heart Failure: No COPD: No Cerebrovascular Accident: No Dementia: Yes (APHASIA DEMENTIA) Diabetes: No Diminished Hearing: No Endocrine: No GERD: Yes Genitourinary: Yes (RECURRENT UTI) Hiatal Hernia: Yes Hypertension: Yes Immune Disorder: No Implanted Vascular Access Dvce: No Kidney Stones: No Musculoskeletal: Yes (SPINAL FX-CHRONIC, BROKEN RIGHT FEMUR) Neurologic: Yes (MYASTHENIA GRAVIS, DEMENTIA, SEIZURES) Reproductive: No Respiratory: Yes (TRACH) Migraines: No Pneumonia: Yes Radiation Therapy: No Renal Failure: No Seizures: Yes Sickle Cell Disease: No Sleep Apnea: Yes Thyroid Disease: No Ulcer: No Past Surgical History Abdominal Surgery: Yes (Hernia, PEG TUBE PLACEMENT) AICD: No Arteriovenous Shunt: No Body Medical Devices: PEG TUBE Cardiac Surgery: No Ear Surgery: No Endocrine Surgery: No Eye Surgery: No Genitourinary Surgery: No Insulin Pump: No Joint Replacement: No Oral Surgery: Yes (Tooth extractions) Pacemaker: No Thoracic Surgery: No Tonsillectomy: Yes Other Surgery: Yes (HIP REPAIR 2013, HERNIA REPAIR 1955, SKIN GRAFTING CHILD ) Social History Alcohol Use: No Tobacco Use: No Substance Use: No Allergies-Medications (Allergen,Severity, Reaction): Coded Allergies: acetaminophen (Unverified Allergy, Severe, SENDS PT INTO MYASTHNIA GRAVIS CRISIS, 02/03/17) hydrocodone (Unverified Allergy, Severe, SENDS PT INTO MYASTHNIA GRAVIS CRISIS, 02/03/17) thiopental (Unverified Allergy, Severe, Shortness of Breath, 02/03/17) SODIUM PENTOTHAL diatrizoate meglumine (Unverified Allergy, Unknown, 02/03/17) gadobenic acid (Unverified Allergy, Unknown, 02/03/17) gadodiamide (Unverified Allergy, Unknown, 02/03/17) gadoteridol (Unverified Allergy, Unknown, 02/03/17) haloperidol (Unverified Allergy, Unknown, 02/03/17) iodixanol (Unverified Allergy, Unknown, 02/03/17) iohexol (Unverified Allergy, Unknown, 02/03/17) onion (Unverified Allergy, Unknown, 02/03/17) risperidone (Unverified Allergy, Unknown, 02/03/17) Iodinated Contrast- Oral and IV Dye (Unverified Adverse Reaction, Severe, Anaphylaxis, 02/03/17) bee venom protein (honey bee) (Unverified Adverse Reaction, Severe, Anaphylaxis, 02/03/17) ciprofloxacin (Unverified Adverse Reaction, Severe, Anaphylaxis, 02/03/17) neomycin (Unverified Adverse Reaction, Severe, Anaphylaxis, 02/03/17) phenytoin (Unverified Adverse Reaction, Severe, Anaphylaxis, 02/03/17) tobramycin (Unverified Adverse Reaction, Severe, Respiratory Failure, ) *MDRO Multi-Drug Resistant Organism (Unverified Adverse Reaction, Unknown , 08/22/15) MRSA (sputum) - 08/10/14 & 08/04/15. ESBL+Klebsiella Pneu (sputum-08/2015) gentamicin (Unverified Adverse Reaction, Unknown, 02/03/17) lithium (Unverified Adverse Reaction, Unknown, 02/03/17) onabotulinumtoxinA (Unverified Adverse Reaction, Unknown, 02/03/17) timolol (Unverified Adverse Reaction, Unknown, 02/03/17) verapamil (Unverified Adverse Reaction, Unknown, 02/03/17) Reported Meds & Prescriptions Reported Meds & Active Scripts Active Reported Zinc Oxide (Zinc Oxide (Topical)) 20 % Oin 10 % Tylenol (Acetaminophen) 325 Mg Tab 650 Mg PO Q6H PRN Tylenol (Acetaminophen) 325 Mg Tab 650 Mg G-TUBE Q6H PRN Triamcinolone Topical (Triamcinolone Acetonide) 0.1 % Oint 1 Applic TOPICAL BID Pyridostigmine (Pyridostigmine [place]) 60 Mg Tab 60 Mg PO Q6HR Multiple Vitamin 1 Tab 1 Tab G-TUBE DAILY Namenda (Memantine) 10 Mg Tab 10 Mg G-TUBE BID Mycophenolate Liq (Mycophenolate Mofetil) 200 Mg/Ml Susp 500 Mg PO TID Miconazole Topical 2% Cream 1 Applic TOPICAL BID Allergy Relief (Loratadine) 10 Mg Tab 10 Mg G-TUBE DAILY Levsin-SL (Hyoscyamine Sulfate) 0.125 Mg Subl 0.125 Mg SL Q4H Levothyroxine (Levothyroxine Sodium) 50 Mcg Tab 50 Mcg G-TUBE DAILY Vimpat (Lacosamide) 200 Mg Tab 200 Mg G-TUBE DAILY Duoneb (Ipratropium-Albuterol Neb) 0.5-2.5 Mg/3 Ml Neb 1 Nebule INH Q4HR NEB Famotidine 10 Mg Tab 10 Mg PO DAILY Duoneb (Ipratropium-Albuterol Neb) 0.5-2.5 Mg/3 Ml Neb 1 Nebule INH Q6HR NEB Chlorhexidine Gluconate (Mouth) Liq (Chlorhexidine Gluconate) 0.12% Soln 15 Ml SWISH-SPIT BID Artificial Tears Opth Oint (White Petrolatum-Mineral Oil Opth Oint 83-15%) 83-15 % Oint 1 Applic EACH EYE Q6HR Pull down lower eyelid & apply 1/4 inch to inside of eyelid. Aricept (Donepezil) 23 Mg Tab 10 Mg G-TUBE HS Do not split, crushed or chewed. Review of Systems ROS Limitations: Clinical Condition Review of Systems All other ROS: ROS reviewed as documented in chart Past Family Social History Allergies: Coded Allergies: acetaminophen (Unverified Allergy, Severe, SENDS PT INTO MYASTHNIA GRAVIS CRISIS, 02/03/17) hydrocodone (Unverified Allergy, Severe, SENDS PT INTO MYASTHNIA GRAVIS CRISIS, 02/03/17) thiopental (Unverified Allergy, Severe, Shortness of Breath, 02/03/17) SODIUM PENTOTHAL diatrizoate meglumine (Unverified Allergy, Unknown, 02/03/17) gadobenic acid (Unverified Allergy, Unknown, 02/03/17) gadodiamide (Unverified Allergy, Unknown, 02/03/17) gadoteridol (Unverified Allergy, Unknown, 02/03/17) haloperidol (Unverified Allergy, Unknown, 02/03/17) iodixanol (Unverified Allergy, Unknown, 02/03/17) iohexol (Unverified Allergy, Unknown, 02/03/17) onion (Unverified Allergy, Unknown, 02/03/17) risperidone (Unverified Allergy, Unknown, 02/03/17) Iodinated Contrast- Oral and IV Dye (Unverified Adverse Reaction, Severe, Anaphylaxis, 02/03/17) bee venom protein (honey bee) (Unverified Adverse Reaction, Severe, Anaphylaxis, 02/03/17) ciprofloxacin (Unverified Adverse Reaction, Severe, Anaphylaxis, 02/03/17) neomycin (Unverified Adverse Reaction, Severe, Anaphylaxis, 02/03/17) phenytoin (Unverified Adverse Reaction, Severe, Anaphylaxis, 02/03/17) tobramycin (Unverified Adverse Reaction, Severe, Respiratory Failure, ) gentamicin (Unverified Adverse Reaction, Unknown, 02/03/17) lithium (Unverified Adverse Reaction, Unknown, 02/03/17) onabotulinumtoxinA (Unverified Adverse Reaction, Unknown, 02/03/17) timolol (Unverified Adverse Reaction, Unknown, 02/03/17) vancomycin (Unverified Adverse Reaction, Unknown, 02/03/17) verapamil (Unverified Adverse Reaction, Unknown, 02/03/17) Active Ordered Medications Current Medications Medications (Trade) Dose Ordered Sig/Maddie Route Start Time Stop Time Status Last Admin (Pepcid Inj) 10 mg Q12HR IV PUSH 02/03/17 09:00 02/04/17 09:28 (Duoneb Neb) 1 ampule Q2HR NEB PRN INH 02/03/17 07:15 (Heparin Inj) 5,000 units Q12H SQ 02/03/17 08:00 02/04/17 07:43 Miscellaneous Information 1 Q361D XX 02/03/17 07:15 (Chlorhexidine 2% Cloth) 3 pack Taper DAILY@04 TOP 02/04/17 04:00 01/31/18 03:59 02/04/17 04:00 (Chlorhexidine 2% Cloth) 3 pack UNSCH PRN TOP 02/03/17 07:15 Piperacillin Sod/ Tazobactam Sod 50 ml @ 100 mls/hr Q6H IV 02/03/17 13:00 02/04/17 13:29 (D50w (Vial) Inj) 50 ml UNSCH PRN IV PUSH 02/03/17 07:15 (Glucagon Inj) 1 mg UNSCH PRN OTHER 02/03/17 07:15 (NovoLIN R SUPPLEMENTAL SCALE) 1 Q4H SQ 02/03/17 07:15 02/03/17 15:15 Linezolid 300 ml @ 300 mls/hr Q12H IV 02/03/17 10:00 02/04/17 09:28 (Synthroid) 50 mcg DAILY@0600 G-TUBE 02/03/17 09:15 02/04/17 05:25 (Namenda) 10 mg BID G-TUBE 02/03/17 09:15 02/04/17 09:28 (Mestinon) 60 mg Q6HR PO 02/03/17 12:00 02/04/17 11:13 (Aricept) 10 mg HS PO 02/03/17 21:00 02/03/17 20:44 (Free Water) 250 ml Q8HR G-TUBE 02/04/17 09:30 02/04/17 13:29 Dextrose 1,000 ml @ 75 mls/hr [id number] IV 02/04/17 09:00 02/04/17 09:29 (Cellcept Liq) 500 mg TID PO 02/04/17 10:00 02/04/17 11:14 Potassium Chloride 100 ml @ 50 mls/hr Q2H PRN IV-CENTRAL 02/04/17 07:45 Potassium Chloride 100 ml @ 50 mls/hr Q2H PRN IV 02/04/17 07:45 (K-Lyte Cl Eff) 50 meq UNSCH PRN PO 02/04/17 07:45 Potassium Chloride 100 ml @ 25 mls/hr UNSCH PRN IV-CENTRAL 02/04/17 07:45 Potassium Chloride 100 ml @ 50 mls/hr Q2H PRN IV 02/04/17 07:45 Magnesium Sulfate 4 gm/Sodium Chloride 100 ml @ 50 mls/hr UNSCH PRN IV 02/04/17 07:45 (Mag-Ox) 800 mg UNSCH PRN PO 02/04/17 07:45 Magnesium Sulfate 2 gm/Sodium Chloride 100 ml @ 50 mls/hr UNSCH PRN IV 02/04/17 07:45 (K-Phos) 2,000 mg Q4H PRN PO 02/04/17 07:45 Sodium Phosphate 30 mmol/Sodium Chloride 250 ml @ 42 mls/hr UNSCH PRN IV 02/04/17 07:45 (K-Phos) 2,000 mg UNSCH PRN PO/TUBE 02/04/17 07:45 Potassium Phosphate 30 mmol/ Sodium Chloride 260 ml @ 42 mls/hr UNSCH PRN IV 02/04/17 07:45 (Duoneb Neb) 1 ampule Q6HR WHILE AWAKE NEB NEB 02/04/17 14:00 02/04/17 15:24 Exam I&O / VS 02/04/17 02/04/17 02/05/17 15:00 23:00 07:00 Intake Total 296 ml Balance 296 ml IV Total 296 ml Vital Signs Date Time Temp Pulse Resp B/P (MAP) Pulse Ox O2 Delivery O2 Flow Rate FiO2 02/04/17 15:53 97.4 85 14 108/56 (73) 100 02/04/17 15:32 100 40 02/04/17 12:00 97.0 91 12 101/57 (72) 94 02/04/17 10:59 96 40 02/04/17 10:59 40 02/04/17 09:05 100 40 02/04/17 04:22 100 40 02/04/17 03:08 98.0 85 20 105/57 (73) 100 02/04/17 01:19 100 40 02/03/17 23:08 98.0 94 20 95/51 (66) 02/03/17 23:00 92 02/03/17 20:00 93 40 02/03/17 19:08 97.8 84 21 118/66 (83) 94 02/03/17 17:49 100 40 02/03/17 17:16 100 50 General: Mild distress Cardiology: Normal rate Neurologic: Alert Exam Comments global aphasia, not following, trach ni place , eomi, generalized weakness but localizes to tactile, atrophy in distal limbs Review/Management Diagnosis/Plan: (1) Acute and chronic respiratory failure ICD Codes: J96.20 - Acute and chronic respiratory failure, unspecified whether with hypoxia or hypercapnia Status: Acute (2) Dementia ICD Codes: F03.90 - Dementia Status: Acute Plan: advanced bedridden status poor qol Dr. Willis will follow as needed over long weekend d/w ccm (3) Bilateral pulmonary infiltrates on chest x-ray ICD Codes: R91.8 - Bilateral pulmonary infiltrates on chest x-ray Status: Acute (4) Anxiety ICD Codes: F41.9 - Anxiety Status: Acute (5) Myasthenia gravis ICD Codes: G70.00 - Myasthenia gravis without (acute) exacerbation Status: Chronic Plan: on cellcept, mestinon Problem Qualifiers (1) Dementia: Edinson Uribe MD Feb 04, 2017 16:03
[2017-02-04] MEDS: DONEPEZIL HCL 5 MG TAB PO SCH (21:00)
[2017-02-05] VITALS (25 sets, daily range): BP systolic 96–134; BP diastolic 53–73; PULSE 75–93; RESP 0–25; TEMP 98.2–98.5; O2SAT 40–100
[2017-02-05] MEDS: PIPERACIL-TAZO 3.375 GM PREMIX 50 ML IV SCH ×4 (01:00→17:46)
[2017-02-05] MEDS: INSULIN NovoLIN REGULAR SUPPLEMENTAL SCALE SQ SCH ×6 (01:54→23:15)
[2017-02-05] MEDS: CHLORHEXIDINE GLUCONATE 2 % 1 PACK (2 CLOTHS) TOP SCH (04:00)
[2017-02-05] MEDS: FREE WATER G-TUBE SCH ×3 (04:55→22:00)
[2017-02-05] MEDS: LEVOTHYROXINE SODIUM 50 MCG TAB G-TUBE SCH (04:56)
[2017-02-05] MEDS: PYRIDOSTIGMINE BROMIDE 60 MG TAB PO SCH ×5 (04:56→22:55)
[2017-02-05 05:24] LABS: AUTOMATED NEUTROPHIL # 7.1 TH/MM3 (1.8-7.7); BASOPHIL # 0.1 TH/MM3 (0-0.2); BASOPHIL % 0.6 % (0.0-2.0); EOSINOPHIL # 0.1 TH/MM3 (0-0.4); HEMATOCRIT 33.9 % (39.0-51.0); HEMO FLAGS DIFF FINAL; LYMPH % 12.1 % (9.0-44.0); LYMPHOCYTE # 1.1 TH/MM3 (1.0-4.8); MEAN CELL VOLUME 81.7 FL (80.0-100.0); MEAN CORPUSCULAR HEMOGLOBIN 25.7 PG (27.0-34.0); MEAN CORPUSCULAR HGB CONC 31.5 % (32.0-36.0); NEUT % 80.3 % (16.0-70.0); PLATELET COUNT 209 TH/MM3 (150-450); RED BLOOD COUNT 4.14 MIL/MM3 (4.50-5.90); RED CELL DISTRIBUTION WIDTH 18.2 % (11.6-17.2); WHITE BLOOD COUNT 8.9 TH/MM3 (4.0-11.0)
[2017-02-05 05:49] LABS: BICARBONATE 25.7 MEQ/L (21.0-32.0); POTASSIUM 3.2 MEQ/L (3.5-5.1)
[2017-02-05] MEDS: RESP: ALBUTEROL 2.5 MG/IPRATROPIUM 0.5 MG NEB (SCH) NEB ×3 (08:31→20:17)
--- NOTE | 2017-02-05 08:35 | HHI.CCPN ---
Subjective Remarks/Hospital Course The patient is a 76 year old male with past medical history of myasthenia gravis , dementia, seizure disorder, chronic respiratory failure with previous tracheostomy and percutaneous endoscopic gastrostomy placement. The patient presented to [facility] from local nursing facility for tachycardia and fevers. On arrival he had a temperature of 102.8, in addition the patient was tachycardic and tachypneic. His laboratory data was significant for leukocytosis with a white blood count of 17.6 mild lactic acidemia, lactic acid level 2.6 and acute kidney injury with creatinine level of 1.65. Chest x-ray in the emergency room showed patchy pneumonia on the left. In the emergency department the patient was given three liters of crystalloids in addition to cefepime, Solu-Medrol, bronchodilator treatment. Arterial blood gas was preformed on TP's. Which showed a pH of 7.43, co2 39, pao2 63, bicarbonate 26-91%. He was placed on ambulance mechanic ventilation. Most of the history was obtained by reviewing the medical records as the patient is nonverbal. He also has history of methicillin-resistant Staphylococcus aureus and pseudomonas and pneumonia last year. The patient was do not resuscitate from local longterm. 02/04 No events overnight. On ventilator via trach. Afebrile. 02/05 Patient remains on ventilator via trach. Afebrile. On no sedation. Objective Vital Signs Date Time Temp Pulse Resp B/P (MAP) Pulse Ox O2 Delivery O2 Flow Rate FiO2 02/05/17 06:00 86 02/05/17 04:32 97 40 02/05/17 04:00 98.2 14 100/59 (73) 02/03/17 07:54 CPAP 02/03/17 06:46 15.00 Intake and Output 02/05/17 02/05/17 02/06/17 08:00 16:00 00:00 Intake Total 2012 ml Output Total 450 ml Balance 1562 ml Result Diagram: 02/05/17 0417 02/05/17 0417 Other Results Laboratory Tests Test 02/05/17 04:17 White Blood Count 8.9 TH/MM3 Red Blood Count 4.14 MIL/MM3 Hemoglobin 10.7 GM/DL Hematocrit 33.9 % Mean Corpuscular Volume 81.7 FL Mean Corpuscular Hemoglobin 25.7 PG Mean Corpuscular Hemoglobin Concent 31.5 % Red Cell Distribution Width 18.2 % Platelet Count 209 TH/MM3 Mean Platelet Volume 10.4 FL Neutrophils (%) (Auto) 80.3 % Lymphocytes (%) (Auto) 12.1 % Monocytes (%) (Auto) 6.0 % Eosinophils (%) (Auto) 1.0 % Basophils (%) (Auto) 0.6 % Neutrophils # (Auto) 7.1 TH/MM3 Lymphocytes # (Auto) 1.1 TH/MM3 Monocytes # (Auto) 0.5 TH/MM3 Eosinophils # (Auto) 0.1 TH/MM3 Basophils # (Auto) 0.1 TH/MM3 CBC Comment DIFF FINAL Differential Comment Blood Urea Nitrogen 24 MG/DL Creatinine 1.14 MG/DL Random Glucose 88 MG/DL Calcium Level 7.8 MG/DL Sodium Level 143 MEQ/L Potassium Level 3.2 MEQ/L Chloride Level 112 MEQ/L Carbon Dioxide Level 25.7 MEQ/L Anion Gap 5 MEQ/L Estimat Glomerular Filtration Rate 63 ML/MIN Imaging Last Impressions Chest X-Ray 02/03/17 0526 Signed Impressions: Service Date/Time: Friday, February 03, 2017 05:55 - CONCLUSION: Patchy pneumonia on the left. Gabo eMza MD Objective Remarks GENERAL: Patient remains on ventilator via trach. SKIN: Warm and dry. HEAD: Normocephalic. EYES: No scleral icterus. No injection or drainage. NECK: Supple, trachea midline. No JVD or lymphadenopathy. Trach in place CARDIOVASCULAR: Regular rate and rhythm without murmurs, gallops, or rubs. RESPIRATORY: Breath sounds equal bilaterally. No accessory muscle use. GASTROINTESTINAL: Abdomen soft, non-tender, nondistended. MUSCULOSKELETAL: No cyanosis, or edema. Contracted Neuro: On no sedation. Doesn't follow commands. A/P Assessment and Plan 1. Acute on chronic respiratory failure. 2. Left sided pneumonia. 3. Leukocytosis. 4. Acute kidney injury. 5. Mild-elevated troponin. 6. Mild lactic acidemia. 7. Previous trachea and percutaneous endoscopic gastrostomy tube placement. 8. History of Methicillin-resistant Staphylococcus aureus and pseudomonas pneumonia. 9. Dementia/seizure disorder. 10. History of myasthenia gravis. Plan Neuro: Fentanyl infusion if needed for sedation. On Aricept 10 mg daily., Pyridostigmine 60 mg q six hours. Namenda 10 mg twice a day, Cellcept Monitor neurostatus closely. Neuro is following- Dr. Longoria Pulm: Continue with ventilator support and maintain sats >92%. Bronchodilators, ICU vent bundle. Pulmonary toilet and trach care. SBT daily as cally. CV: Monitor HR and BP and maintain MAP > 65 mmHg. Lactic acid level measured at 2.6. Echo showed EF 55-60% : Monitor renal function, intake and output, avoid nephrotoxins. Electrolyte replacement as needed. On Free water 250ml Q8 monitor sodium level. d/c IVF. Will need K replacement. Check Mag, Phos levels. GI: On Pepcid 20 mg IV q 12 hour for Gl prophylaxis. Tube feeds via PEG tube- Glucerna 1.5 with gool rate of 45 ml per hour. ID: Continue abx ( Zyvox, Zosyn) . Monitor for signs of infection( fever and WBC ) WBC is trending down BC 02/03 Staph Epi, GPC.. likely contaminant. 02/04 BC: NGTD Follow up on blood and sputum culture Strep pneumonia and legionella urinary antigen negative Heme: Monitor CBC. Endo: SSI with Accuchecks for glycemic control. On Synthroid 50 mcg daily. TSH: 4.5 GI prophylaxis with Pepcid 20 mg q 12 hours and DVT s prophylaxis with SCDs and heparin SQ. Discussed with patient's yesterday 02/03 with patient's nurse (Rodriguez) re code status and she requested to make patient Alternate code( intubation only) She does not want and CPR/chest compression or cardiac resuscitation in case of cardiac arrest. Patient was also DNR at the longterm. Level 3 Jose Cruz Ansari MD Feb 05, 2017 08:35
[2017-02-05] MEDS: LINEZOLID 600 MG PREMIX 300 ML IV SCH ×2 (08:40→22:55)
[2017-02-05] MEDS: HEPARIN SODIUM - SQ 10,000 UNITS/ML VIAL SQ SCH ×2 (08:40→20:03)
[2017-02-05] MEDS: MEMANTINE HCL 10 MG TAB G-TUBE SCH ×2 (08:40→20:02)
[2017-02-05] MEDS: MYCOPHENOLATE MOFETIL 200 MG/ML 175 ML BOTTLE PO SCH ×3 (08:40→17:45)
[2017-02-05] MEDS: FAMOTIDINE 20 MG/2 ML VIAL IV PUSH SCH ×2 (08:40→20:03)
--- NOTE | 2017-02-05 08:51 | HHI.PR ---
Review/Management Diagnosis/Plan: (1) Acute and chronic respiratory failure ICD Codes: J96.20 - Acute and chronic respiratory failure, unspecified whether with hypoxia or hypercapnia Status: Acute Plan: on iv abx tx ccm following ?palliative care (2) Dementia ICD Codes: F03.90 - Dementia Status: Acute Plan: advanced bedridden status poor qol d/w ccm (3) Bilateral pulmonary infiltrates on chest x-ray ICD Codes: R91.8 - Bilateral pulmonary infiltrates on chest x-ray Status: Acute (4) Anxiety ICD Codes: F41.9 - Anxiety Status: Acute (5) Myasthenia gravis ICD Codes: G70.00 - Myasthenia gravis without (acute) exacerbation Status: Chronic Plan: on cellcept, mestinon pt is bedbound and demented at baseline. was asking about ivig. i told her i did not think it would help. call Dr. Willis if needed over weekend; otherwise neuro sign off poor QOL x years for this patient Subjective Subjective Comments No acute events reported Active Medications Current Medications Medications (Trade) Dose Ordered Sig/Maddie Route Start Time Stop Time Status Last Admin (Pepcid Inj) 10 mg Q12HR IV PUSH 02/03/17 09:00 02/05/17 08:40 (Duoneb Neb) 1 ampule Q2HR NEB PRN INH 02/03/17 07:15 (Heparin Inj) 5,000 units Q12H SQ 02/03/17 08:00 02/05/17 08:40 Miscellaneous Information 1 Q361D XX 02/03/17 07:15 (Chlorhexidine 2% Cloth) 3 pack Taper DAILY@04 TOP 02/04/17 04:00 01/31/18 03:59 02/05/17 04:00 (Chlorhexidine 2% Cloth) 3 pack UNSCH PRN TOP 02/03/17 07:15 Piperacillin Sod/ Tazobactam Sod 50 ml @ 100 mls/hr Q6H IV 02/03/17 13:00 02/05/17 04:58 (D50w (Vial) Inj) 50 ml UNSCH PRN IV PUSH 02/03/17 07:15 (Glucagon Inj) 1 mg UNSCH PRN OTHER 02/03/17 07:15 (NovoLIN R SUPPLEMENTAL SCALE) 1 Q4H SQ 02/03/17 07:15 02/03/17 15:15 Linezolid 300 ml @ 300 mls/hr Q12H IV 02/03/17 10:00 02/05/17 08:40 (Synthroid) 50 mcg DAILY@0600 G-TUBE 02/03/17 09:15 02/05/17 04:56 (Namenda) 10 mg BID G-TUBE 02/03/17 09:15 02/05/17 08:40 (Mestinon) 60 mg Q6HR PO 02/03/17 12:00 02/05/17 04:56 (Aricept) 10 mg HS PO 02/03/17 21:00 02/04/17 21:00 (Free Water) 250 ml Q8HR G-TUBE 02/04/17 09:30 02/05/17 04:55 (Cellcept Liq) 500 mg TID PO 02/04/17 10:00 02/05/17 08:40 Potassium Chloride 100 ml @ 50 mls/hr Q2H PRN IV-CENTRAL 02/04/17 07:45 Potassium Chloride 100 ml @ 50 mls/hr Q2H PRN IV 02/04/17 07:45 (K-Lyte Cl Eff) 50 meq UNSCH PRN PO 02/04/17 07:45 Potassium Chloride 100 ml @ 25 mls/hr UNSCH PRN IV-CENTRAL 02/04/17 07:45 Potassium Chloride 100 ml @ 50 mls/hr Q2H PRN IV 02/04/17 07:45 Magnesium Sulfate 4 gm/Sodium Chloride 100 ml @ 50 mls/hr UNSCH PRN IV 02/04/17 07:45 (Mag-Ox) 800 mg UNSCH PRN PO 02/04/17 07:45 Magnesium Sulfate 2 gm/Sodium Chloride 100 ml @ 50 mls/hr UNSCH PRN IV 02/04/17 07:45 (K-Phos) 2,000 mg Q4H PRN PO 02/04/17 07:45 Sodium Phosphate 30 mmol/Sodium Chloride 250 ml @ 42 mls/hr UNSCH PRN IV 02/04/17 07:45 (K-Phos) 2,000 mg UNSCH PRN PO/TUBE 02/04/17 07:45 Potassium Phosphate 30 mmol/ Sodium Chloride 260 ml @ 42 mls/hr UNSCH PRN IV 02/04/17 07:45 (Duoneb Neb) 1 ampule Q6HR WHILE AWAKE [facility] 02/04/17 14:00 02/05/17 08:31 Allergies Allergies Coded Allergies acetaminophen (Unverified Allergy, Severe, SENDS PT INTO MYASTHNIA GRAVIS CRISIS, 02/03/17) hydrocodone (Unverified Allergy, Severe, SENDS PT INTO MYASTHNIA GRAVIS CRISIS , 02/03/17) thiopental (Unverified Allergy, Severe, Shortness of Breath, 02/03/17) diatrizoate meglumine (Unverified Allergy, Unknown, 02/03/17) gadobenic acid (Unverified Allergy, Unknown, 02/03/17) gadodiamide (Unverified Allergy, Unknown, 02/03/17) gadoteridol (Unverified Allergy, Unknown, 02/03/17) haloperidol (Unverified Allergy, Unknown, 02/03/17) iodixanol (Unverified Allergy, Unknown, 02/03/17) iohexol (Unverified Allergy, Unknown, 02/03/17) onion (Unverified Allergy, Unknown, 02/03/17) risperidone (Unverified Allergy, Unknown, 02/03/17) Iodinated Contrast- Oral and IV Dye (Unverified Adverse Reaction, Severe, Anaphylaxis, 02/03/17) bee venom protein (honey bee) (Unverified Adverse Reaction, Severe, Anaphylaxis, 02/03/17) ciprofloxacin (Unverified Adverse Reaction, Severe, Anaphylaxis, 02/03/17) neomycin (Unverified Adverse Reaction, Severe, Anaphylaxis, 02/03/17) phenytoin (Unverified Adverse Reaction, Severe, Anaphylaxis, 02/03/17) tobramycin (Unverified Adverse Reaction, Severe, Respiratory Failure, 02/03/17 ) gentamicin (Unverified Adverse Reaction, Unknown, 02/03/17) lithium (Unverified Adverse Reaction, Unknown, 02/03/17) onabotulinumtoxinA (Unverified Adverse Reaction, Unknown, 02/03/17) timolol (Unverified Adverse Reaction, Unknown, 02/03/17) vancomycin (Unverified Adverse Reaction, Unknown, 02/03/17) verapamil (Unverified Adverse Reaction, Unknown, 02/03/17) Review of Systems All other ROS: ROS reviewed as documented in chart Exam I&O / VS 02/05/17 02/05/17 02/06/17 15:00 23:00 07:00 Intake Total 243 ml Balance 243 ml IV Total 243 ml Vital Signs Date Time Temp Pulse Resp B/P (MAP) Pulse Ox O2 Delivery O2 Flow Rate FiO2 02/05/17 08:31 95 40 02/05/17 06:00 86 02/05/17 04:32 97 40 02/05/17 04:00 76 02/05/17 04:00 98.2 76 14 100/59 (73) 97 02/05/17 02:00 83 02/05/17 01:12 100 40 02/05/17 00:00 98.2 84 14 111/62 (78) 97 02/05/17 00:00 84 02/04/17 22:00 84 02/04/17 20:00 88 02/04/17 20:00 97.7 88 17 114/60 (78) 94 02/04/17 19:56 94 40 02/04/17 18:00 96 02/04/17 16:00 97.4 92 15 164/72 (102) 100 02/04/17 16:00 92 02/04/17 15:53 97.4 85 14 108/56 (73) 100 02/04/17 15:32 100 40 02/04/17 14:00 93 02/04/17 12:00 91 02/04/17 12:00 97.0 91 12 101/57 (72) 94 02/04/17 10:59 96 40 02/04/17 10:59 40 02/04/17 10:00 81 02/04/17 09:05 100 40 General: Mild distress Cardiology: Normal rate Neurologic: Alert Exam Comments global aphasia, not following, trach in place , eomi, generalized weakness with minimal withdrawal, atrophy in distal limbs Objective Micro and Labs Laboratory Tests Test 02/05/17 04:17 White Blood Count 8.9 Red Blood Count 4.14 Hemoglobin 10.7 Hematocrit 33.9 Mean Corpuscular Volume 81.7 Mean Corpuscular Hemoglobin 25.7 Mean Corpuscular Hemoglobin Concent 31.5 Red Cell Distribution Width 18.2 Platelet Count 209 Mean Platelet Volume 10.4 Neutrophils (%) (Auto) 80.3 Lymphocytes (%) (Auto) 12.1 Monocytes (%) (Auto) 6.0 Eosinophils (%) (Auto) 1.0 Basophils (%) (Auto) 0.6 Neutrophils # (Auto) 7.1 Lymphocytes # (Auto) 1.1 Monocytes # (Auto) 0.5 Eosinophils # (Auto) 0.1 Basophils # (Auto) 0.1 CBC Comment DIFF FINAL Differential Comment Blood Urea Nitrogen 24 Creatinine 1.14 Random Glucose 88 Calcium Level 7.8 Sodium Level 143 Potassium Level 3.2 Chloride Level 112 Carbon Dioxide Level 25.7 Anion Gap 5 Estimat Glomerular Filtration Rate 63 Date/Time Source Procedure Growth Status 02/04/17 11:25 Blood Peripheral Aerobic Blood Culture Pending Received 02/04/17 11:25 Blood Peripheral Anaerobic Blood Culture Pending Received 02/03/17 05:39 Sputum Endotracheal Gram Stain - Final Resulted 02/03/17 05:39 Sputum Endotracheal Sputum Culture - Preliminary IMMATURE GROWTH - REINCUBATE Resulted 02/03/17 05:50 Urine Catheterized Urine Legionella Antigen - Final PRESUMPTIVE NEGATIVE FOR LEGIONELLA P... Complete 02/03/17 05:50 Urine Catheterized Urine Streptococcus pneumoniae Antigen (M - Final PRESUMPTIVE NEGATIVE FOR STREPTOCOCCU... Complete Problem Qualifiers (1) Dementia: Edinson Uribe MD Feb 05, 2017 08:51
--- NOTE | 2017-02-05 11:39 | MB ---
cc: Carol GRIFFIN M.D. DATE OF CONSULTATION: 02/04/2017 REASON FOR CONSULTATION Respiratory failure and tracheostomy management. HISTORY OF PRESENT ILLNESS This is a 76-year-old man with a prior history of myasthenia gravis, has had multiple admissions to the hospital and has had a chronic trache in place. The patient has a history of seizure disorder, chronic respiratory failure, dementia, myasthenia and [facility]% FIO2. He was having some fevers up to 102 degrees, tachypneic, tachycardic and thus was brought to the emergency room. In the ER he was noted to be having an elevated white count and a lactic acid level with a creatinine of over 1.5 and a chest x-ray showed a patchy infiltrate in the left lung field. He was admitted to the ICU and was placed on ventilator support and IV Solu-Medrol as well as antibiotic therapy including cefepime IV and Levaquin IV. The patient is presently down to PEEP of 8 and FIO2 of 40% and he is awake and mildly tachypneic and his O2 sats are around 95%. Tracheal secretions were yellowish. There was no bleeding from the trache site and his fever has subsided. PAST MEDICAL HISTORY Past history has included history of: 1. Dementia. 2. Chronic respiratory failure. 3. Myasthenia gravis. 4. Respiratory failure with tracheostomy placement and PEG tube placement. 5. Hip repair in 2013. HABITS The patient does not smoke. No history of alcohol use. He lives at [facility]. ALLERGIES VANCOMYCIN, VERAPAMIL, GENTAMICIN, LITHIUM, RISPERIDONE, HALDOL, ATENOLOL. MEDICATIONS Med list included: 1. Aricept. 2. DuoNeb Nebs q.i.d. 3. Levothyroxine. 4. Namenda. 5. Multivitamins. 6. Pyridostigmine. REVIEW OF SYSTEMS The patient is on ventilator support and has dementia. FAMILY HISTORY Noncontributory. PHYSICAL EXAMINATION GENERAL: This is an elderly man, moderately obese, laying flat. He is awake but does not respond to any commands. His face is flushed. VITAL SIGNS: His blood pressure is 148/70, pulse is 90, respirations are 22, temperature 99.5. HEENT: Head is normocephalic. Pupils are reactive. Sclerae are clear. Tongue was coated. Throat has few secretions. Nose and ears have no inflammation. NECK: Supple. No venous distension. Trache site has a few secretions. No lymphadenopathy. CHEST: Decreased excursions with occasional crackles over the left lower lung field and wheezes scattered. HEART: Heart sounds are regular, S1-S2. No murmur. No S3. ABDOMEN: The abdomen is obese, protuberant with a PEG tube in place. Bowel sounds are active. EXTREMITIES: Contracture of the extremities, edema and skin wound in dependent areas. Peripheral pulses are diminished. The patient does not move his extremities voluntarily. RECTAL: Exam is deferred. IMPRESSION 1. Acute respiratory failure. 2. Sepsis with pneumonia. 3. Acute kidney injury with dehydration. 4. Dementia. 5. History of myasthenia gravis. 6. History of MRSA and Pseudomonas pneumonias. 7. Status post tracheostomy and PEG tube placement. PLAN The patient will be weaned down to PEEP of 5 and FIO2 of 35% and a pressure support of 10. The patient will be continued on antibiotic coverage including cefepime and Levaquin and Zyvox, nebulized DuoNeb solution added q.6 hours. Pulmonary toilet with tracheal suctioning and lavage to be done to clear secretions. The cultures from the trache, blood and urine are pending. The patient will be continued on IV fluids for hydration and tube feedings have been started to goal rate of 55 ccs. The patient will have a repeat chest x-ray performed. If he is clinically stable on C-PAP in the a.m., attempts will be made to wean him to T-bar at 40%. Thank you Dr. Ansari for this consultation. Gabo Griffin MD JSTAS/CORINA /10:35 AM /11:07 AM
[2017-02-05] MEDS: DONEPEZIL HCL 5 MG TAB PO SCH (20:02)
[2017-02-05 20:16] LABS: POTASSIUM 3.9 MEQ/L (3.5-5.1)
[2017-02-06] VITALS (25 sets, daily range): BP systolic 91–114; BP diastolic 56–70; PULSE 80–89; RESP 14–24; TEMP 98–99.8; O2SAT 90–99
[2017-02-06] MEDS: PIPERACIL-TAZO 3.375 GM PREMIX 50 ML IV SCH ×5 (02:49→23:19)
[2017-02-06] MEDS: CHLORHEXIDINE GLUCONATE 2 % 1 PACK (2 CLOTHS) TOP SCH (02:49)
[2017-02-06] MEDS: INSULIN NovoLIN REGULAR SUPPLEMENTAL SCALE SQ SCH ×4 (03:15→19:00)
[2017-02-06] MEDS: LEVOTHYROXINE SODIUM 50 MCG TAB G-TUBE SCH (05:52)
[2017-02-06] MEDS: PYRIDOSTIGMINE BROMIDE 60 MG TAB PO SCH ×4 (05:52→23:19)
[2017-02-06] MEDS: FREE WATER G-TUBE SCH ×3 (06:00→20:23)
--- NOTE | 2017-02-06 07:27 | HHI.CCPN ---
Subjective Remarks/Hospital Course The patient is a 76 year old male with past medical history of myasthenia gravis , dementia, seizure disorder, chronic respiratory failure with previous tracheostomy and percutaneous endoscopic gastrostomy placement. The patient presented to [facility] from local nursing facility for tachycardia and fevers. On arrival he had a temperature of 102.8, in addition the patient was tachycardic and tachypneic. His laboratory data was significant for leukocytosis with a white blood count of 17.6 mild lactic acidemia, lactic acid level 2.6 and acute kidney injury with creatinine level of 1.65. Chest x-ray in the emergency room showed patchy pneumonia on the left. In the emergency department the patient was given three liters of crystalloids in addition to cefepime, Solu-Medrol, bronchodilator treatment. Arterial blood gas was preformed on TP's. Which showed a pH of 7.43, co2 39, pao2 63, bicarbonate 26-91%. He was placed on superintendent mechanical ventilation. Most of the history was obtained by reviewing the medical records as the patient is nonverbal. He also has history of methicillin-resistant Staphylococcus aureus and pseudomonas and pneumonia last year. The patient was do not resuscitate from local half-way. 02/04 No events overnight. On ventilator via trach. Afebrile. 02/05 Patient remains on ventilator via trach. Afebrile. On no sedation. 02/06 No events overnight. Afebrile. Tolerated CPAP all day yesterday. Objective Vital Signs Date Time Temp Pulse Resp B/P (MAP) Pulse Ox O2 Delivery O2 Flow Rate FiO2 02/06/17 04:00 40 02/06/17 03:41 93 02/06/17 02:00 84 02/06/17 00:00 98.8 21 102/59 (73) 02/03/17 07:54 CPAP 02/03/17 06:46 15.00 Intake and Output 02/06/17 02/06/17 02/06/17 07:59 15:59 23:59 Intake Total 1452 ml Output Total 1600 ml Balance -148 ml Result Diagram: 02/05/177 02/05/171924 Other Results Laboratory Tests Test 02/05/17 19:25 Potassium Level 3.9 MEQ/L Phosphorus Level 2.1 MG/DL Imaging Last Impressions Chest X-Ray 02/03/17 0567 Signed Impressions: Service Date/Time: Friday, February 03, 2017 05:55 - CONCLUSION: Patchy pneumonia on the left. Gabo Meza MD Objective Remarks GENERAL: Patient remains on ventilator via trach. SKIN: Warm and dry. HEAD: Normocephalic. EYES: No scleral icterus. No injection or drainage. NECK: Supple, trachea midline. No JVD or lymphadenopathy. Trach in place CARDIOVASCULAR: Regular rate and rhythm without murmurs, gallops, or rubs. RESPIRATORY: Breath sounds equal bilaterally. No accessory muscle use. GASTROINTESTINAL: Abdomen soft, non-tender, nondistended. MUSCULOSKELETAL: No cyanosis, or edema. Contracted Neuro: On no sedation. Doesn't follow commands. A/P Assessment and Plan 1. Acute on chronic respiratory failure. 2. Left sided pneumonia. 3. Leukocytosis. 4. Acute kidney injury. 5. Mild-elevated troponin. 6. Mild lactic acidemia. 7. Previous trachea and percutaneous endoscopic gastrostomy tube placement. 8. History of Methicillin-resistant Staphylococcus aureus and pseudomonas pneumonia. 9. Dementia/seizure disorder. 10. History of myasthenia gravis. Plan Neuro: Fentanyl infusion if needed for sedation. On Aricept 10 mg daily., Pyridostigmine 60 mg q six hours. Namenda 10 mg twice a day, Cellcept Monitor neurostatus closely. Neuro is following- Dr. Longoria Pulm: Continue with ventilator support and maintain sats >92%. Bronchodilators, ICU vent bundle.Check CXR Pulmonary toilet and trach care. SBT/TP's daily as cally. CV: Monitor HR and BP and maintain MAP > 65 mmHg. Lactic acid level measured at 2.6. Echo showed EF 55-60% : Monitor renal function, intake and output, avoid nephrotoxins. Electrolyte replacement as needed. On Free water 250ml Q8 monitor sodium level. Follow up on labs GI: On Pepcid 20 mg IV q 12 hour for Gl prophylaxis. Tube feeds via PEG tube- Glucerna 1.5 @ 45 ml per hour. ID: Continue abx ( Zyvox, Zosyn) . Monitor for signs of infection( fever and WBC ) WBC is trending down Sputum cx: Pseudomonas species, Beta strep not Group A. BC 02/03 Staph Epi, GPC.. likely contaminant. 02/04 BC: NGTD Strep pneumonia and legionella urinary antigen negative Heme: Monitor CBC. Endo: SSI with Accuchecks for glycemic control. On Synthroid 50 mcg daily. TSH: 4.5 GI prophylaxis with Pepcid 20 mg q 12 hours and DVT s prophylaxis with SCDs and heparin SQ. Discussed with patient's yesterday 02/03 with patient's nurse (Rodriguez) re code status and she requested to make patient Alternate code( intubation only) She does not want and CPR/chest compression or cardiac resuscitation in case of cardiac arrest. Patient was also DNR at the half-way. Level 3 Jose Cruz Ansari MD Feb 06, 2017 07:27
[2017-02-06 07:58] LABS: AUTOMATED NEUTROPHIL # 6.6 TH/MM3 (1.8-7.7); BASOPHIL # 0.1 TH/MM3 (0-0.2); BASOPHIL % 0.7 % (0.0-2.0); EOSINOPHIL # 0.5 TH/MM3 (0-0.4); EOSINOPHIL % 5.1 % (0.0-4.0); HEMATOCRIT 35.7 % (39.0-51.0); HEMO FLAGS DIFF FINAL; LYMPH % 11.9 % (9.0-44.0); LYMPHOCYTE # 1.1 TH/MM3 (1.0-4.8); MEAN CELL VOLUME 81.7 FL (80.0-100.0); MEAN CORPUSCULAR HEMOGLOBIN 25.8 PG (27.0-34.0); MEAN CORPUSCULAR HGB CONC 31.6 % (32.0-36.0); MONO % 7.6 % (0.0-8.0); NEUT % 74.7 % (16.0-70.0); PLATELET COUNT 213 TH/MM3 (150-450); RED BLOOD COUNT 4.37 MIL/MM3 (4.50-5.90); RED CELL DISTRIBUTION WIDTH 18.4 % (11.6-17.2); WHITE BLOOD COUNT 8.9 TH/MM3 (4.0-11.0)
--- NOTE | 2017-02-06 08:03 | RADRPT ---
EXAM DATE/TIME: 02/06/2017 07:38 [place] COMPARISON: CHEST SINGLE AP, February 03, 2017, 5:55. INDICATIONS : Short of breath. MEDICAL HISTORY : Hypertension. SURGICAL HISTORY : Tracheostomy. ENCOUNTER: Subsequent ACUITY: 4 - 6 days PAIN SCORE: 0/10 LOCATION: Bilateral chest FINDINGS: Stable tracheostomy with continued low lung volumes. Persistent airspace disease in the left lower mitali ng zone. Cardiomediastinal contours are stable. Remainder of exam is unchanged. CONCLUSION: 1. Continued low lung volumes with stable left lower lobe airspace disease. Joni Reina MD on February 06, 2017 at 8:01 Board Certified Radiologist. This report was verified electronically.
[2017-02-06 08:26] LABS: MAGNESIUM 2.1 MG/DL (1.5-2.5); POTASSIUM 3.8 MEQ/L (3.5-5.1)
[2017-02-06] MEDS: LINEZOLID 600 MG PREMIX 300 ML IV SCH ×2 (08:46→20:22)
[2017-02-06] MEDS: FAMOTIDINE 20 MG/2 ML VIAL IV PUSH SCH ×2 (08:46→20:23)
[2017-02-06] MEDS: HEPARIN SODIUM - SQ 10,000 UNITS/ML VIAL SQ SCH ×2 (08:46→20:22)
[2017-02-06] MEDS: MYCOPHENOLATE MOFETIL 200 MG/ML 175 ML BOTTLE PO SCH ×3 (08:46→17:14)
[2017-02-06] MEDS: MEMANTINE HCL 10 MG TAB G-TUBE SCH ×2 (08:46→20:23)
[2017-02-06] MEDS: RESP: ALBUTEROL 2.5 MG/IPRATROPIUM 0.5 MG NEB (SCH) NEB ×3 (09:03→19:31)
[2017-02-06] MEDS: SODIUM PHOSPHATE INJ 30 MMOL in SODIUM CHLOR 0.9% 250 ML INJ 240 ML IV PRN (10:26)
[2017-02-06] MEDS: DONEPEZIL HCL 5 MG TAB PO SCH (20:23)
[2017-02-07] VITALS (26 sets, daily range): BP systolic 89–135; BP diastolic 54–72; PULSE 81–101; RESP 12–34; TEMP 97.4–99.8; O2SAT 88–98
[2017-02-07] MEDS: INSULIN NovoLIN REGULAR SUPPLEMENTAL SCALE SQ SCH ×4 (01:01→17:52)
[2017-02-07] MEDS: CHLORHEXIDINE GLUCONATE 2 % 1 PACK (2 CLOTHS) TOP SCH (03:39)
[2017-02-07] MEDS: PIPERACIL-TAZO 3.375 GM PREMIX 50 ML IV SCH ×2 (05:51→12:07)
[2017-02-07] MEDS: PYRIDOSTIGMINE BROMIDE 60 MG TAB PO SCH ×3 (05:52→17:18)
[2017-02-07] MEDS: LEVOTHYROXINE SODIUM 50 MCG TAB G-TUBE SCH (05:52)
[2017-02-07] MEDS: FREE WATER G-TUBE SCH (05:52)
[2017-02-07 06:45] LABS: AUTOMATED NEUTROPHIL # 10.1 TH/MM3 (1.8-7.7); BASOPHIL # 0.1 TH/MM3 (0-0.2); BASOPHIL % 0.5 % (0.0-2.0); EOSINOPHIL # 0.5 TH/MM3 (0-0.4); HEMATOCRIT 35.1 % (39.0-51.0); HEMO FLAGS DIFF FINAL; LYMPH % 6.7 % (9.0-44.0); LYMPHOCYTE # 0.8 TH/MM3 (1.0-4.8); MEAN CELL VOLUME 81.8 FL (80.0-100.0); MEAN CORPUSCULAR HGB CONC 31.8 % (32.0-36.0); MONO % 5.2 % (0.0-8.0); NEUT % 83.6 % (16.0-70.0); PLATELET COUNT 190 TH/MM3 (150-450); RED CELL DISTRIBUTION WIDTH 18.5 % (11.6-17.2); WHITE BLOOD COUNT 12.1 TH/MM3 (4.0-11.0)
[2017-02-07 07:16] LABS: POTASSIUM 3.8 MEQ/L (3.5-5.1)
[2017-02-07] MEDS: RESP: ALBUTEROL 2.5 MG/IPRATROPIUM 0.5 MG NEB (SCH) NEB ×3 (08:05→20:51)
[2017-02-07] MEDS: MYCOPHENOLATE MOFETIL 200 MG/ML 175 ML BOTTLE PO SCH ×3 (08:41→17:18)
[2017-02-07] MEDS: HEPARIN SODIUM - SQ 10,000 UNITS/ML VIAL SQ SCH (08:41)
[2017-02-07] MEDS: MEMANTINE HCL 10 MG TAB G-TUBE SCH (08:41)
[2017-02-07] MEDS: FAMOTIDINE 20 MG/2 ML VIAL IV PUSH SCH (08:41)
--- NOTE | 2017-02-07 08:52 | HHI.CCPN ---
Subjective Remarks/Hospital Course The patient is a 76 year old male with past medical history of myasthenia gravis , dementia, seizure disorder, chronic respiratory failure with previous tracheostomy and percutaneous endoscopic gastrostomy placement. The patient presented to [facility] from local nursing facility for tachycardia and fevers. On arrival he had a temperature of 102.8, in addition the patient was tachycardic and tachypneic. His laboratory data was significant for leukocytosis with a white blood count of 17.6 mild lactic acidemia, lactic acid level 2.6 and acute kidney injury with creatinine level of 1.65. Chest x-ray in the emergency room showed patchy pneumonia on the left. In the emergency department the patient was given three liters of crystalloids in addition to cefepime, Solu-Medrol, bronchodilator treatment. Arterial blood gas was preformed on TP's. Which showed a pH of 7.43, co2 39, pao2 63, bicarbonate 26-91%. He was placed on lead mechanic ventilation. Most of the history was obtained by reviewing the medical records as the patient is nonverbal. He also has history of methicillin-resistant Staphylococcus aureus and pseudomonas and pneumonia last year. The patient was do not resuscitate from local detention. 02/04 No events overnight. On ventilator via trach. Afebrile. 02/05 Patient remains on ventilator via trach. Afebrile. On no sedation. 02/06 No events overnight. Afebrile. Tolerated CPAP all day yesterday. 02/07 No events overnight. Afebrile. Objective Vital Signs Date Time Temp Pulse Resp B/P (MAP) Pulse Ox O2 Delivery O2 Flow Rate FiO2 02/07/17 08:06 91 60 02/07/17 04:00 97.4 99 14 97/54 (68) 02/03/17 07:54 CPAP Intake and Output 02/07/17 02/07/17 02/08/17 08:00 16:00 00:00 Intake Total 746 ml Output Total 875 ml Balance -129 ml Result Diagram: 02/07/17 0500 02/07/17 0500 Other Results Laboratory Tests Test 02/07/17 05:00 White Blood Count 12.1 TH/MM3 Red Blood Count 4.30 MIL/MM3 Hemoglobin 11.2 GM/DL Hematocrit 35.1 % Mean Corpuscular Volume 81.8 FL Mean Corpuscular Hemoglobin 26.0 PG Mean Corpuscular Hemoglobin Concent 31.8 % Red Cell Distribution Width 18.5 % Platelet Count 190 TH/MM3 Mean Platelet Volume 10.8 FL Neutrophils (%) (Auto) 83.6 % Lymphocytes (%) (Auto) 6.7 % Monocytes (%) (Auto) 5.2 % Eosinophils (%) (Auto) 4.0 % Basophils (%) (Auto) 0.5 % Neutrophils # (Auto) 10.1 TH/MM3 Lymphocytes # (Auto) 0.8 TH/MM3 Monocytes # (Auto) 0.6 TH/MM3 Eosinophils # (Auto) 0.5 TH/MM3 Basophils # (Auto) 0.1 TH/MM3 CBC Comment DIFF FINAL Differential Comment Blood Urea Nitrogen 17 MG/DL Creatinine 1.25 MG/DL Random Glucose 81 MG/DL Calcium Level 8.0 MG/DL Phosphorus Level 1.7 MG/DL Magnesium Level 2.0 MG/DL Sodium Level 141 MEQ/L Potassium Level 3.8 MEQ/L Chloride Level 110 MEQ/L Carbon Dioxide Level 26.0 MEQ/L Anion Gap 5 MEQ/L Estimat Glomerular Filtration Rate 56 ML/MIN Imaging Last Impressions Chest X-Ray 02/06/17 0000 Signed Impressions: Service Date/Time: Monday, February 06, 2017 07:38 - CONCLUSION: 1. Continued low lung volumes with stable left lower lobe airspace disease. Joni Reina MD Objective Remarks GENERAL: Patient remains on ventilator via trach. SKIN: Warm and dry. HEAD: Normocephalic. EYES: No scleral icterus. No injection or drainage. NECK: Supple, trachea midline. No JVD or lymphadenopathy. Trach in place CARDIOVASCULAR: Regular rate and rhythm without murmurs, gallops, or rubs. RESPIRATORY: Breath sounds equal bilaterally. No accessory muscle use. GASTROINTESTINAL: Abdomen soft, non-tender, nondistended. MUSCULOSKELETAL: No cyanosis, or edema. Contracted Neuro: On no sedation. Doesn't follow commands. A/P Assessment and Plan 1. Acute on chronic respiratory failure. 2. Left sided pneumonia. 3. Leukocytosis. 4. Acute kidney injury. 5. Mild-elevated troponin. 6. Mild lactic acidemia. 7. Previous trachea and percutaneous endoscopic gastrostomy tube placement. 8. History of Methicillin-resistant Staphylococcus aureus and pseudomonas pneumonia. 9. Dementia/seizure disorder. 10. History of myasthenia gravis. Plan Neuro: Fentanyl infusion if needed for sedation. On Aricept 10 mg daily., Pyridostigmine 60 mg q six hours. Namenda 10 mg twice a day, CellCept Monitor neurostatus closely. Neuro is following- Dr. Longoria Pulm: Continue with ventilator support and maintain sats >92%. Bronchodilators, ICU vent bundle Pulmonary toilet and trach care. SBT/TP's daily as cally. CV: Monitor HR and BP and maintain MAP > 65 mmHg. Lactic acid level measured at 2.6. Echo showed EF 55-60% : Monitor renal function, intake and output, avoid nephrotoxins. Electrolyte replacement as needed. Will need Phos replacement today . GI: On Pepcid 20 mg IV q 12 hour for Gl prophylaxis. Tube feeds via PEG tube- Glucerna 1.5 @ 45 ml per hour. ID: Continue abx ( Zyvox, Zosyn) . Monitor for signs of infection( fever and WBC ) ID eval. Sputum cx 02/03 : Pseudomonas species, Beta strep not Group A. Sputum cx: 02/05: Pseudomonas BC 02/03 Staph Epi, GPC.. likely contaminant. 02/04 BC: NGTD Strep pneumonia and legionella urinary antigen negative Heme: Monitor CBC. Endo: SSI with Accuchecks for glycemic control. On Synthroid 50 mcg daily. TSH: 4.5 GI prophylaxis with Pepcid 20 mg q 12 hours and DVT s prophylaxis with SCDs and heparin SQ. Discussed with patient's yesterday 02/03 with patient's nurse (Rodriguez) re code status and she requested to make patient Alternate code( intubation only) She does not want and CPR/chest compression or cardiac resuscitation in case of cardiac arrest. Patient was also DNR at the detention. Level 3 Jose Cruz Ansari MD Feb 07, 2017 08:52
[2017-02-07] MEDS: SODIUM PHOSPHATE INJ 30 MMOL in SODIUM CHLOR 0.9% 250 ML INJ 240 ML IV PRN (08:55)
[2017-02-07] MEDS: LINEZOLID 600 MG PREMIX 300 ML IV SCH (11:13)
--- NOTE | 2017-02-07 16:11 | MB ---
cc: GIUSEPPE TURPIN MD DATE OF CONSULTATION 02/07/[address] Ansari REASON FOR CONSULTATION Pneumonia. Chronic respiratory failure. HISTORY OF PRESENT ILLNESS This is a 76-year-old white male with history of myasthenia gravis. The patient was seen in the emergency department after he was brought in with fever and tachycardia. He was intubated and is currently on the ventilator. The patient has a tracheostomy and also PEG. He had mild lactic acidemia on admission. Cultures of the sputum grew Pseudomonas aeruginosa and beta strep not group A on 02/03. Blood cultures had two different coag-negative staph. The patient is on IV antibiotics. Repeat culture of the sputum was performed on 02/05 and came back with Pseudomonas aeruginosa. The patient is currently not verbally responsive. He is somnolent. His is at bedside. She reports to me that he looks better than when he came in. The patient has not been ambulatory because of myasthenia gravis. He has not ambulated for the past year and a half. He is afebrile. His white blood cell count is 12.1 today. Admission white count was 17.6. He is not currently coughing and he has a small amount of light sputum suctioned. Information is obtained from the medical record and the patient's since the patient is not able to communicate. He is currently on the ventilator. PAST MEDICAL HISTORY Dementia, chronic respiratory failure. Myasthenia gravis, history of tracheostomy, history of hip repair. Multiple antibiotic allergies. Seizure disorder, history of tonsillectomy, history of hernia repair. ALLERGIES CIPROFLOXACIN, TOBRAMYCIN, DILANTIN, NEOMYCIN, LITHIUM, BOTULINUM TOXIN A, TIMOLOL, VANCOMYCIN, VERAPAMIL, RISPERIDONE, IOHEXOL, IODIXANOL, HALOPERIDOL, GADOTERIDOL, GADODIAMIDE, DIATRIZOATE MEGLUMINE, THIOPENTAL, HYDROCODONE, ACETAMINOPHEN IODINATED CONTRAST. MEDICATIONS 1. Piperacillin/tazobactam. 2. Linezolid. 3. Mestinon. 4. Aricept. 5. Synthroid. 6. Namenda. 7. Potassium. 8. Magnesium Oxide. 9. Pepcid. 10. CellCept. 11. Insulin. SOCIAL HISTORY The patient is . No tobacco. No alcohol. No illicit drugs. FAMILY HISTORY Noncontributory. REVIEW OF SYSTEMS The review of systems unable to obtain. PHYSICAL EXAMINATION GENERAL: This is a well-developed male who is resting in bed and appears comfortable. He is somnolent. No acute distress. VITALS: Temperature 97.9. BP 135/72, heart rate 86, respirations per ventilator. HEENT: The head is atraumatic. The extraocular movements cannot be fully assessed and the patient cannot cooperate. The sclerae without icterus. Oropharynx slightly dry mucosa without lesions. NECK: Supple. No adenopathy. Tracheostomy in place. HEART: Regular S1-S2 without murmurs. LUNGS: Rhonchi at both bases. ABDOMEN: Bowel sounds diminished, soft, no tenderness appreciated. RECTAL: Not performed. EXTREMITIES: No clubbing or cyanosis or edema. SKIN: No rash. NEURO: Unable to fully assess. LABORATORY DATA WBC 12.1, platelets 190, hemoglobin 11.2, 83% neutrophils, creatinine 1.25, BUN 17, sodium 141. IMAGING STUDIES Chest x-ray shows stable left lower lobe airspace disease. Previous chest x-ray on February 03 showed patchy pneumonia on the left. IMPRESSION 1. Pneumonia due to Pseudomonas. 2. Previous blood cultures with coag negative staph likely contaminant. 3. Myasthenia gravis. 4. Chronic respiratory failure. 5. Multiple antibiotic allergies. RECOMMENDATIONS 1. Continue piperacillin/tazobactam. 2. Discontinue linezolid. 3. Follow up on the sputum culture, bacterial identification and sensitivity. 4. Monitor temperature. 5. Monitor white blood cell count. 6. Monitor clinical status. Thank you for this consultation. I will follow the patient's progress and will make further recommendations upon followup if necessary. Giuseppe Turpin MD FD/MARCELO /2:35 PM /3:54 PM BARRY
[2017-02-07] MEDS: PIPERACIL-TAZO 4.5 GM PREMIX 100 ML IV SCH (17:43)
[2017-02-08] VITALS (22 sets, daily range): BP systolic 94–117; BP diastolic 53–69; PULSE 78–98; RESP 13–29; TEMP 98.6–100; O2SAT 91–97
[2017-02-08] MEDS: INSULIN NovoLIN REGULAR SUPPLEMENTAL SCALE SQ SCH ×4 (01:15→18:32)
[2017-02-08] MEDS: PIPERACIL-TAZO 4.5 GM PREMIX 100 ML IV SCH ×4 (01:49→17:26)
[2017-02-08] MEDS: DONEPEZIL HCL 5 MG TAB PO SCH ×2 (01:50→20:17)
[2017-02-08] MEDS: PYRIDOSTIGMINE BROMIDE 60 MG TAB PO SCH ×4 (01:50→17:26)
[2017-02-08] MEDS: MEMANTINE HCL 10 MG TAB G-TUBE SCH ×3 (01:50→20:18)
[2017-02-08] MEDS: FAMOTIDINE 20 MG/2 ML VIAL IV PUSH SCH ×3 (01:51→20:17)
[2017-02-08] MEDS: CHLORHEXIDINE GLUCONATE 2 % 1 PACK (2 CLOTHS) TOP SCH (01:51)
[2017-02-08] MEDS: HEPARIN SODIUM - SQ 10,000 UNITS/ML VIAL SQ SCH ×3 (01:51→20:17)
[2017-02-08] MEDS: LEVOTHYROXINE SODIUM 50 MCG TAB G-TUBE SCH (06:16)
[2017-02-08 06:56] LABS: AUTOMATED NEUTROPHIL # 10.6 TH/MM3 (1.8-7.7); BASOPHIL % 0.3 % (0.0-2.0); EOSINOPHIL # 0.6 TH/MM3 (0-0.4); EOSINOPHIL % 4.7 % (0.0-4.0); HEMATOCRIT 35.2 % (39.0-51.0); HEMO FLAGS DIFF FINAL; LYMPH % 6.5 % (9.0-44.0); LYMPHOCYTE # 0.8 TH/MM3 (1.0-4.8); MEAN CELL VOLUME 82.3 FL (80.0-100.0); MEAN CORPUSCULAR HEMOGLOBIN 26.1 PG (27.0-34.0); MEAN CORPUSCULAR HGB CONC 31.7 % (32.0-36.0); MONO % 5.8 % (0.0-8.0); NEUT % 82.7 % (16.0-70.0); PLATELET COUNT 213 TH/MM3 (150-450); RED BLOOD COUNT 4.27 MIL/MM3 (4.50-5.90); WHITE BLOOD COUNT 12.8 TH/MM3 (4.0-11.0)
[2017-02-08 07:02] LABS: BICARBONATE 24.9 MEQ/L (21.0-32.0); MAGNESIUM 2.3 MG/DL (1.5-2.5)
[2017-02-08] MEDS: RESP: ALBUTEROL 2.5 MG/IPRATROPIUM 0.5 MG NEB (SCH) NEB ×3 (07:21→19:47)
[2017-02-08] MEDS: MYCOPHENOLATE MOFETIL 200 MG/ML 175 ML BOTTLE PO SCH ×3 (08:09→17:26)
[2017-02-08] MEDS: SODIUM PHOSPHATE INJ 30 MMOL in SODIUM CHLOR 0.9% 250 ML INJ 240 ML IV PRN (09:01)
[2017-02-08] MEDS ORDERED: BUMETANIDE INJ 1 MG/4 ML VIAL IV PUSH ONE (10:15)
--- NOTE | 2017-02-08 10:21 | HHI.CCPN ---
Subjective Remarks/Hospital Course The patient is a 76 year old male with past medical history of myasthenia gravis , dementia, seizure disorder, chronic respiratory failure with previous tracheostomy and percutaneous endoscopic gastrostomy placement. The patient presented to [facility] from local nursing facility for tachycardia and fevers. On arrival he had a temperature of 102.8, in addition the patient was tachycardic and tachypneic. His laboratory data was significant for leukocytosis with a white blood count of 17.6 mild lactic acidemia, lactic acid level 2.6 and acute kidney injury with creatinine level of 1.65. Chest x-ray in the emergency room showed patchy pneumonia on the left. In the emergency department the patient was given three liters of crystalloids in addition to cefepime, Solu-Medrol, bronchodilator treatment. Arterial blood gas was preformed on TP's. Which showed a pH of 7.43, co2 39, pao2 63, bicarbonate 26-91%. He was placed on scale mechanic ventilation. Most of the history was obtained by reviewing the medical records as the patient is nonverbal. He also has history of methicillin-resistant Staphylococcus aureus and pseudomonas and pneumonia last year. The patient was do not resuscitate from local detention. 02/04 No events overnight. On ventilator via trach. Afebrile. 02/05 Patient remains on ventilator via trach. Afebrile. On no sedation. 02/06 No events overnight. Afebrile. Tolerated CPAP all day yesterday. 02/07 No events overnight. Afebrile. 02/08 No events overnight. T;100.0 at 8 am. Having liquid stools. Objective Vital Signs Date Time Temp Pulse Resp B/P (MAP) Pulse Ox O2 Delivery O2 Flow Rate FiO2 02/08/17 10:00 92 02/08/17 09:00 13 112/64 (80) 95 02/08/17 08:00 55 02/08/17 08:00 100.0 Intake and Output 02/08/17 02/08/17 02/09/17 08:00 16:00 00:00 Intake Total 700 ml Output Total 600 ml Balance 100 ml Result Diagram: 02/08/1717 02/08/1717 Other Results Laboratory Tests Test 02/08/17 05:17 White Blood Count 12.8 TH/MM3 Red Blood Count 4.27 MIL/MM3 Hemoglobin 11.1 GM/DL Hematocrit 35.2 % Mean Corpuscular Volume 82.3 FL Mean Corpuscular Hemoglobin 26.1 PG Mean Corpuscular Hemoglobin Concent 31.7 % Red Cell Distribution Width 18.0 % Platelet Count 213 TH/MM3 Mean Platelet Volume 11.2 FL Neutrophils (%) (Auto) 82.7 % Lymphocytes (%) (Auto) 6.5 % Monocytes (%) (Auto) 5.8 % Eosinophils (%) (Auto) 4.7 % Basophils (%) (Auto) 0.3 % Neutrophils # (Auto) 10.6 TH/MM3 Lymphocytes # (Auto) 0.8 TH/MM3 Monocytes # (Auto) 0.7 TH/MM3 Eosinophils # (Auto) 0.6 TH/MM3 Basophils # (Auto) 0.0 TH/MM3 CBC Comment DIFF FINAL Differential Comment Blood Urea Nitrogen 16 MG/DL Creatinine 1.21 MG/DL Random Glucose 81 MG/DL Calcium Level 8.3 MG/DL Phosphorus Level 2.2 MG/DL Magnesium Level 2.3 MG/DL Sodium Level 141 MEQ/L Potassium Level 4.0 MEQ/L Chloride Level 109 MEQ/L Carbon Dioxide Level 24.9 MEQ/L Anion Gap 7 MEQ/L Estimat Glomerular Filtration Rate 58 ML/MIN Imaging Last Impressions Chest X-Ray 02/06/17 0000 Signed Impressions: Service Date/Time: Monday, February 06, 2017 07:38 - CONCLUSION: 1. Continued low lung volumes with stable left lower lobe airspace disease. Joni Reina MD Objective Remarks GENERAL: Patient remains on ventilator via trach. SKIN: Warm and dry. HEAD: Normocephalic. EYES: No scleral icterus. No injection or drainage. NECK: Supple, trachea midline. No JVD or lymphadenopathy. Trach in place CARDIOVASCULAR: Regular rate and rhythm without murmurs, gallops, or rubs. RESPIRATORY: Breath sounds equal bilaterally. No accessory muscle use. GASTROINTESTINAL: Abdomen soft, non-tender, nondistended. MUSCULOSKELETAL: No cyanosis, or edema. Contracted Neuro: On no sedation. Doesn't follow commands. A/P Assessment and Plan 1. Acute on chronic respiratory failure. 2. Left sided pneumonia. 3. Leukocytosis. 4. Acute kidney injury. 5. Mild-elevated troponin. 6. Mild lactic acidemia. 7. Previous trachea and percutaneous endoscopic gastrostomy tube placement. 8. History of Methicillin-resistant Staphylococcus aureus and pseudomonas pneumonia. 9. Dementia/seizure disorder. 10. History of myasthenia gravis. Plan Neuro: Fentanyl infusion if needed for sedation. On Aricept 10 mg daily., Pyridostigmine 60 mg q six hours. Namenda 10 mg twice a day, CellCept Monitor neurostatus closely. Neuro is following- Dr. Longoria Pulm: Continue with ventilator support and maintain sats >92%. Bronchodilators, ICU vent bundle Pulmonary toilet and trach care. SBT/TP's daily as cally. CV: Monitor HR and BP and maintain MAP > 65 mmHg. Lactic acid level measured at 2.6. Echo showed EF 55-60% : Monitor renal function, intake and output, avoid nephrotoxins. Electrolyte replacement as needed. Diurese with Bumex 1mg x1. needs Phos replacement. . GI: On Pepcid 20 mg IV q 12 hour for Gl prophylaxis. Tube feeds via PEG tube- Change TF- Jevity 1.5 with goal rate 45 ml per hour. ID: Continue abx ( Zosyn) . Monitor for signs of infection( fever and WBC) ID is following Check C-diff PCR Sputum cx 02/03 : Pseudomonas species, Beta strep not Group A. Sputum cx: 02/05: Pseudomonas BC 02/03 Staph Epi, GPC.. likely contaminant. 02/04 BC: NGTD Strep pneumonia and legionella urinary antigen negative Heme: Monitor CBC. Endo: SSI with Accuchecks for glycemic control. On Synthroid 50 mcg daily. TSH: 4.5 GI prophylaxis with Pepcid 20 mg q 12 hours and DVT s prophylaxis with SCDs and heparin SQ. Discussed with patient's yesterday 02/03 with patient's nurse (Rodriguez) re code status and she requested to make patient Alternate code( intubation only) She does not want and CPR/chest compression or cardiac resuscitation in case of cardiac arrest. Patient was also DNR at the detention. Level 3 Jose Cruz Ansari MD Feb 08, 2017 10:21
--- NOTE | 2017-02-08 11:33 | HHI.IDPN ---
Note Infectious Disease Note Patient has eyes open. Appears alert. Non verbal. On CPAP. Afebrile. RN reports thick green secretions. RN reports diarrhea. New sputum culture has Resistant pseudomonas. (S) to Levaquin and aminoglycosides. reports that he cannot take many antibiotics because of effects on diaphragm muscles and affecting breathing. 76-year-old white male with history of myasthenia gravis. The patient was seen in the emergency department after he was brought in with fever and tachycardia. He was intubated and is currently on the ventilator. The patient has a tracheostomy and also PEG. He had mild lactic acidemia on admission. Cultures of the sputum grew Pseudomonas aeruginosa and beta strep not group A on 02/03. PAST MEDICAL HISTORY Dementia, chronic respiratory failure. Myasthenia gravis, history of tracheostomy, history of hip repair. Multiple antibiotic allergies. Seizure disorder, history of tonsillectomy, history of hernia repair. ALLERGIES CIPROFLOXACIN, TOBRAMYCIN, DILANTIN, NEOMYCIN, LITHIUM, BOTULINUM TOXIN A, TIMOLOL, VANCOMYCIN, VERAPAMIL, RISPERIDONE, IOHEXOL, IODIXANOL, HALOPERIDOL, GADOTERIDOL, GADODIAMIDE, DIATRIZOATE MEGLUMINE, THIOPENTAL, HYDROCODONE, ACETAMINOPHEN IODINATED CONTRAST. MEDICATIONS Piperacillin/tazobactam. Current Medications Medications (Trade) Dose Ordered Sig/Maddie Route PRN Reason Start Time Stop Time Status Last Admin Dose Admin Albuterol/ Ipratropium (Duoneb Neb) 1 ampule Q2HR NEB PRN INH WHEEZING 02/03/17 07:15 Heparin Sodium (Porcine) (Heparin Inj) 5,000 units Q12H SQ 02/03/17 08:00 02/08/17 08:09 Miscellaneous Information 1 Q361D XX 02/03/17 07:15 Chlorhexidine Gluconate (Chlorhexidine 2% Cloth) 3 pack Taper DAILY@04 TOP 02/04/17 04:00 01/31/18 03:59 02/08/17 01:51 Chlorhexidine Gluconate (Chlorhexidine 2% Cloth) 3 pack UNSCH PRN [facility] 02/03/17 07:15 Dextrose (D50w (Vial) Inj) 50 ml UNSCH PRN IV PUSH HYPOGLYCEMIA-SEE COMMENTS 02/03/17 07:15 Glucagon (Glucagon Inj) 1 mg UNSCH PRN OTHER HYPOGLYCEMIA-SEE COMMENTS 02/03/17 07:15 Levothyroxine Sodium (Synthroid) 50 mcg DAILY@0600 G-TUBE 02/03/17 09:15 02/08/17 06:16 Memantine (Namenda) 10 mg BID G-TUBE 02/03/17 09:15 02/08/17 08:09 Pyridostigmine [place] (Mestinon) 60 mg Q6HR PO 02/03/17 12:00 02/08/17 06:16 Donepezil HCl (Aricept) 10 mg HS PO 02/03/17 21:00 02/08/17 01:50 Mycophenolate Mofetil (Cellcept Liq) 500 mg TID PO 02/04/17 10:00 02/08/17 08:09 Potassium Chloride 100 ml @ 50 mls/hr Q2H PRN IV-CENTRAL For Potassium 2.8 - 3.2 mEq/L 02/04/17 07:45 Potassium Chloride 100 ml @ 50 mls/hr Q2H PRN IV For Potassium 2.8 - 3.2 mEq/L 02/04/17 07:45 Potassium Bicarb/ Potassium Chloride (K-Lyte Cl Eff) 50 meq UNSCH PRN PO For Potassium 3.3 - 3.5 mEq/L 02/04/17 07:45 Potassium Chloride 100 ml @ 25 mls/hr UNSCH PRN IV-CENTRAL For Potassium 3.3 - 3.5 mEq/L 02/04/17 07:45 Potassium Chloride 100 ml @ 50 mls/hr Q2H PRN IV For Potassium 3.3 - 3.5 mEq/L 02/04/17 07:45 Magnesium Sulfate 4 gm/Sodium Chloride 100 ml @ 50 mls/hr UNSCH PRN IV For Magnesium 0.9 - 1.1 mg/dL 02/04/17 07:45 Magnesium Oxide (Mag-Ox) 800 mg UNSCH PRN PO For Magnesium 1.2 - 1.6 mg/dL 02/04/17 07:45 Magnesium Sulfate 2 gm/Sodium Chloride 100 ml @ 50 mls/hr UNSCH PRN IV For Magnesium 1.2 - 1.6 mg/dL 02/04/17 07:45 Potassium Phosphate (K-Phos) 2,000 mg Q4H PRN PO For Phosphorus < 2.5 mg/dL 02/04/17 07:45 Sodium Phosphate 30 mmol/Sodium Chloride 250 ml @ 42 mls/hr UNSCH PRN IV For Phosphorus < 2.5 mg/dL 02/04/17 07:45 02/08/17 09:01 Potassium Phosphate (K-Phos) 2,000 mg UNSCH PRN PO/TUBE SEE LABEL COMMENTS 02/04/17 07:45 Potassium Phosphate 30 mmol/ Sodium Chloride 260 ml @ 42 mls/hr UNSCH PRN IV SEE LABEL COMMENTS 02/04/17 07:45 02/05/17 09:29 Albuterol/ Ipratropium (Duoneb Neb) 1 ampule Q6HR WHILE AWAKE NEB NEB 02/04/17 14:00 02/08/17 07:21 Famotidine (Pepcid Inj) 20 mg Q12HR IV PUSH 02/05/17 21:00 02/08/17 08:09 Insulin Human Regular (NovoLIN R SUPPLEMENTAL SCALE) 1 Q6H SQ 02/06/17 13:15 Piperacillin Sod/ Tazobactam Sod 100 ml @ 200 mls/hr Q6H IV 02/07/17 18:00 02/08/17 06:16 SOCIAL HISTORY The patient is . No tobacco. No alcohol. No illicit drugs. OBJECTIVE: Vital Signs Date Time Temp Pulse Resp B/P (MAP) Pulse Ox O2 Delivery O2 Flow Rate FiO2 02/08/17 10:00 92 02/08/17 09:00 90 13 112/64 (80) 95 02/08/17 08:00 55 02/08/17 08:00 100.0 90 14 108/56 (73) 92 02/08/17 08:00 90 02/08/17 07:22 55 02/08/17 07:22 92 55 02/08/17 07:20 55 02/08/17 07:00 98 27 115/62 (79) 96 02/08/17 06:00 78 02/08/17 04:28 94 60 02/08/17 04:00 89 02/08/17 04:00 60 02/08/17 04:00 98.9 89 24 107/60 (76) 95 02/08/17 02:00 86 02/08/17 00:00 81 02/08/17 00:00 60 02/08/17 00:00 98.6 81 18 99/56 (70) 94 02/07/17 23:34 94 60 02/07/17 22:00 90 02/07/17 20:52 94 60 02/07/17 20:00 98.8 84 22 99/56 (70) 94 02/07/17 20:00 84 02/07/17 20:00 60 02/07/17 18:16 86 02/07/17 16:33 87 02/07/17 16:33 50 02/07/17 16:28 99.8 96 31 111/62 (78) 91 02/07/17 16:00 92 31 89/62 (71) 90 02/07/17 15:14 93 50 02/07/17 15:00 88 33 100/55 (70) 89 02/07/17 14:00 97 32 135/72 (93) 97 02/07/17 14:00 82 02/07/17 13:06 93 55 02/07/17 13:00 85 25 101/56 (71) 88 02/07/17 12:08 97.9 02/07/17 12:00 55 02/07/17 12:00 101 34 109/60 (76) 93 02/07/17 12:00 81 Laboratory Tests Test 02/07/17 05:00 02/08/17 05:17 White Blood Count 12.1 TH/MM3 12.8 TH/MM3 Red Blood Count 4.30 MIL/MM3 4.27 MIL/MM3 Hemoglobin 11.2 GM/DL 11.1 GM/DL Hematocrit 35.1 % 35.2 % Mean Corpuscular Volume 81.8 FL 82.3 FL Mean Corpuscular Hemoglobin 26.0 PG 26.1 PG Mean Corpuscular Hemoglobin Concent 31.8 % 31.7 % Red Cell Distribution Width 18.5 % 18.0 % Platelet Count 190 TH/MM3 213 TH/MM3 Mean Platelet Volume 10.8 FL 11.2 FL Neutrophils (%) (Auto) 83.6 % 82.7 % Lymphocytes (%) (Auto) 6.7 % 6.5 % Monocytes (%) (Auto) 5.2 % 5.8 % Eosinophils (%) (Auto) 4.0 % 4.7 % Basophils (%) (Auto) 0.5 % 0.3 % Neutrophils # (Auto) 10.1 TH/MM3 10.6 TH/MM3 Lymphocytes # (Auto) 0.8 TH/MM3 0.8 TH/MM3 Monocytes # (Auto) 0.6 TH/MM3 0.7 TH/MM3 Eosinophils # (Auto) 0.5 TH/MM3 0.6 TH/MM3 Basophils # (Auto) 0.1 TH/MM3 0.0 TH/MM3 CBC Comment DIFF FINAL DIFF FINAL Differential Comment Laboratory Tests Test 02/07/17 05:00 02/08/17 05:17 Blood Urea Nitrogen 17 MG/DL 16 MG/DL Creatinine 1.25 MG/DL 1.21 MG/DL Random Glucose 81 MG/DL 81 MG/DL Calcium Level 8.0 MG/DL 8.3 MG/DL Phosphorus Level 1.7 MG/DL 2.2 MG/DL Magnesium Level 2.0 MG/DL 2.3 MG/DL Sodium Level 141 MEQ/L 141 MEQ/L Potassium Level 3.8 MEQ/L 4.0 MEQ/L Chloride Level 110 MEQ/L 109 MEQ/L Carbon Dioxide Level 26.0 MEQ/L 24.9 MEQ/L Anion Gap 5 MEQ/L 7 MEQ/L Estimat Glomerular Filtration Rate 56 ML/MIN 58 ML/MIN Chest X-Ray 02/06/17 0000 Signed Impressions: Service Date/Time: Monday, February 06, 2017 07:38 - CONCLUSION: 1. Continued low lung volumes with stable left lower lobe airspace disease. Joni Reina MD PHYSICAL EXAMINATION GENERAL: No acute distress. HEENT: The head is atraumatic. The extraocular movements cannot be fully assessed and the patient cannot cooperate. The sclerae without icterus. Oropharynx slightly dry mucosa without lesions. NECK: Supple. No adenopathy. Tracheostomy in place. HEART: Regular S1-S2 without murmurs. LUNGS: Bilateral rhonchi. ABDOMEN: Bowel sounds diminished, soft, no tenderness appreciated. EXTREMITIES: No clubbing or cyanosis or edema. SKIN: No rash. NEURO: Unable to fully assess. IMPRESSION 1. Pneumonia due to Pseudomonas. Fairly resistant organism. 2. Previous blood cultures with coag negative staph likely contaminant. 3. Myasthenia gravis. 4. Chronic respiratory failure. 5. Multiple antibiotic allergies. RECOMMENDATIONS 1. Continue piperacillin/tazobactam. 2. Start Levaquin IV and monitor clinical status and ventilation. Patient already on the vent and therefore can be monitored. I have asked the micro lab to test additional antibiotics for sensitivity. 3. Monitor temperature. 4. Monitor white blood cell count. 5. Monitor c diff PCR which has been sent. 6. Monitor clinical status. D/W RN. Christopher Livingston MD Feb 08, 2017 11:33
[2017-02-08 12:45] LABS: C. DIFF EPI 027 PRESUMPTIVE NEGATIVE (NEGATIVE)
[2017-02-08] MEDS: LEVOFLOXACIN 750 MG PREMIX INJ 150 ML IV SCH (12:45)
[2017-02-09] VITALS (18 sets, daily range): BP systolic 95–134; BP diastolic 54–68; PULSE 73–89; RESP 4–31; TEMP 98.3–98.9; O2SAT 92–99
[2017-02-09] MEDS: PYRIDOSTIGMINE BROMIDE 60 MG TAB PO SCH ×4 (00:57→17:36)
[2017-02-09] MEDS: PIPERACIL-TAZO 4.5 GM PREMIX 100 ML IV SCH ×4 (00:57→17:36)
[2017-02-09] MEDS: INSULIN NovoLIN REGULAR SUPPLEMENTAL SCALE SQ SCH ×4 (01:15→19:15)
[2017-02-09] MEDS: CHLORHEXIDINE GLUCONATE 2 % 1 PACK (2 CLOTHS) TOP SCH (04:00)
[2017-02-09] MEDS: LEVOTHYROXINE SODIUM 50 MCG TAB G-TUBE SCH (04:37)
[2017-02-09 06:43] LABS: AUTOMATED NEUTROPHIL # 8.4 TH/MM3 (1.8-7.7); BASOPHIL # 0.1 TH/MM3 (0-0.2); BASOPHIL % 0.6 % (0.0-2.0); EOSINOPHIL # 0.7 TH/MM3 (0-0.4); EOSINOPHIL % 6.2 % (0.0-4.0); HEMATOCRIT 36.1 % (39.0-51.0); HEMO FLAGS DIFF FINAL; LYMPH % 7.8 % (9.0-44.0); LYMPHOCYTE # 0.8 TH/MM3 (1.0-4.8); MEAN CELL VOLUME 82.5 FL (80.0-100.0); MEAN CORPUSCULAR HEMOGLOBIN 26.3 PG (27.0-34.0); MEAN CORPUSCULAR HGB CONC 31.8 % (32.0-36.0); MONO % 7.7 % (0.0-8.0); NEUT % 77.7 % (16.0-70.0); PLATELET COUNT 218 TH/MM3 (150-450); RED BLOOD COUNT 4.37 MIL/MM3 (4.50-5.90); WHITE BLOOD COUNT 10.8 TH/MM3 (4.0-11.0)
[2017-02-09 06:55] LABS: BICARBONATE 29.7 MEQ/L (21.0-32.0); POTASSIUM 3.8 MEQ/L (3.5-5.1)
[2017-02-09] MEDS: HEPARIN SODIUM - SQ 10,000 UNITS/ML VIAL SQ SCH ×2 (08:45→21:57)
[2017-02-09] MEDS: MEMANTINE HCL 10 MG TAB G-TUBE SCH ×2 (08:45→21:58)
[2017-02-09] MEDS: MYCOPHENOLATE MOFETIL 200 MG/ML 175 ML BOTTLE PO SCH ×3 (08:45→17:37)
[2017-02-09] MEDS: FAMOTIDINE 20 MG/2 ML VIAL IV PUSH SCH ×2 (08:45→21:58)
[2017-02-09] MEDS: RESP: ALBUTEROL 2.5 MG/IPRATROPIUM 0.5 MG NEB (SCH) NEB ×3 (09:15→20:18)
--- NOTE | 2017-02-09 09:47 | HHI.CCPN ---
Subjective Remarks/Hospital Course The patient is a 76 year old male with past medical history of myasthenia gravis , dementia, seizure disorder, chronic respiratory failure with previous tracheostomy and percutaneous endoscopic gastrostomy placement. The patient presented to [facility] from local nursing facility for tachycardia and fevers. On arrival he had a temperature of 102.8, in addition the patient was tachycardic and tachypneic. His laboratory data was significant for leukocytosis with a white blood count of 17.6 mild lactic acidemia, lactic acid level 2.6 and acute kidney injury with creatinine level of 1.65. Chest x-ray in the emergency room showed patchy pneumonia on the left. In the emergency department the patient was given three liters of crystalloids in addition to cefepime, Solu-Medrol, bronchodilator treatment. Arterial blood gas was preformed on TP's. Which showed a pH of 7.43, co2 39, pao2 63, bicarbonate 26-91%. He was placed on computer mechanic ventilation. Most of the history was obtained by reviewing the medical records as the patient is nonverbal. He also has history of methicillin-resistant Staphylococcus aureus and pseudomonas and pneumonia last year. The patient was do not resuscitate from local halfway. 02/04 No events overnight. On ventilator via trach. Afebrile. 02/05 Patient remains on ventilator via trach. Afebrile. On no sedation. 02/06 No events overnight. Afebrile. Tolerated CPAP all day yesterday. 02/07 No events overnight. Afebrile. 02/08 No events overnight. T;100.0 at 8 am. Having liquid stools. 02/09 Patient remains on ventilator via trach. T:100.0 yesterday Objective Vital Signs Date Time Temp Pulse Resp B/P (MAP) Pulse Ox O2 Delivery O2 Flow Rate FiO2 02/09/17 06:00 80 02/09/17 04:58 92 55 02/09/17 04:00 98.6 31 134/68 (90) 02/08/17 21:00 Bi-Pap Intake and Output 02/09/17 02/09/17 02/10/17 08:00 16:00 00:00 Intake Total 960 ml Output Total 700 ml Balance 260 ml Result Diagram: 02/09/17 0540 02/09/17 0540 Other Results Laboratory Tests Test 02/08/17 11:00 02/09/17 05:40 Stool C. difficile Toxin (PCR) NEGATIVE Stl C. difficile Toxin Epiderm 027 PRESUMPTIVE NEGATIVE White Blood Count 10.8 TH/MM3 Red Blood Count 4.37 MIL/MM3 Hemoglobin 11.5 GM/DL Hematocrit 36.1 % Mean Corpuscular Volume 82.5 FL Mean Corpuscular Hemoglobin 26.3 PG Mean Corpuscular Hemoglobin Concent 31.8 % Red Cell Distribution Width 18.0 % Platelet Count 218 TH/MM3 Mean Platelet Volume 10.6 FL Neutrophils (%) (Auto) 77.7 % Lymphocytes (%) (Auto) 7.8 % Monocytes (%) (Auto) 7.7 % Eosinophils (%) (Auto) 6.2 % Basophils (%) (Auto) 0.6 % Neutrophils # (Auto) 8.4 TH/MM3 Lymphocytes # (Auto) 0.8 TH/MM3 Monocytes # (Auto) 0.8 TH/MM3 Eosinophils # (Auto) 0.7 TH/MM3 Basophils # (Auto) 0.1 TH/MM3 CBC Comment DIFF FINAL Differential Comment Blood Urea Nitrogen 15 MG/DL Creatinine 1.27 MG/DL Random Glucose 83 MG/DL Calcium Level 8.2 MG/DL Phosphorus Level 1.9 MG/DL Sodium Level 141 MEQ/L Potassium Level 3.8 MEQ/L Chloride Level 107 MEQ/L Carbon Dioxide Level 29.7 MEQ/L Anion Gap 4 MEQ/L Estimat Glomerular Filtration Rate 55 ML/MIN Imaging Last Impressions Chest X-Ray 02/06/17 0000 Signed Impressions: Service Date/Time: Monday, February 06, 2017 07:38 - CONCLUSION: 1. Continued low lung volumes with stable left lower lobe airspace disease. Joni Reina MD Objective Remarks GENERAL: Patient remains on ventilator via trach. SKIN: Warm and dry. HEAD: Normocephalic. EYES: No scleral icterus. No injection or drainage. NECK: Supple, trachea midline. No JVD or lymphadenopathy. Trach in place CARDIOVASCULAR: Regular rate and rhythm without murmurs, gallops, or rubs. RESPIRATORY: Breath sounds equal bilaterally. No accessory muscle use. GASTROINTESTINAL: Abdomen soft, non-tender, nondistended. MUSCULOSKELETAL: No cyanosis, or edema. Contracted Neuro: On no sedation. Doesn't follow commands. A/P Assessment and Plan 1. Acute on chronic respiratory failure. 2. Left sided pneumonia. 3. Leukocytosis. 4. Acute kidney injury. 5. Mild-elevated troponin. 6. Mild lactic acidemia. 7. Previous trachea and percutaneous endoscopic gastrostomy tube placement. 8. History of Methicillin-resistant Staphylococcus aureus and pseudomonas pneumonia. 9. Dementia/seizure disorder. 10. History of myasthenia gravis. Plan Neuro:On Aricept 10 mg daily., Pyridostigmine 60 mg q six hours. Namenda 10 mg twice a day, CellCept Monitor neuro status closely. Neuro is following- Dr. Longoria Pulm: Continue with ventilator support and maintain sats >92%. Bronchodilators, ICU vent bundle. Check CXR Pulmonary toilet and trach care. SBT/TP's daily as cally. CV: Monitor HR and BP and maintain MAP > 65 mmHg. Lactic acid level measured at 2.6. Echo showed EF 55-60% : Monitor renal function, intake and output, avoid nephrotoxins. Electrolyte replacement as needed. Will need Phos replacement. . GI: On Pepcid 20 mg IV q 12 hour for Gl prophylaxis. Tube feeds via PEG tube- Change TF- Jevity 1.5 with goal rate 45 ml per hour. ID: Continue abx ( Zosyn, Levaquin) . Monitor for signs of infection( fever and WBC) ID is following C-diff PCR negative 02/08 Sputum cx 02/03 : Pseudomonas species, Beta strep not Group A. Sputum cx: 02/05: Pseudomonas BC 02/03 Staph Epi, GPC.. likely contaminant. 02/04 BC: NGTD Strep pneumonia and legionella urinary antigen negative Heme: Monitor CBC. Endo: SSI with Accuchecks for glycemic control. On Synthroid 50 mcg daily. TSH: 4.5 GI prophylaxis with Pepcid 20 mg q 12 hours and DVT s prophylaxis with SCDs and heparin SQ. Discussed with patient's yesterday 02/03 with patient's nurse (Rodriguez) re code status and she requested to make patient Alternate code( intubation only) She does not want and CPR/chest compression or cardiac resuscitation in case of cardiac arrest. Patient was also DNR at the halfway. Level 3 Jose Cruz Ansari MD Feb 09, 2017 09:47
--- NOTE | 2017-02-09 10:58 | RADRPT ---
EXAM DATE/TIME: 02/09/2017 10:33 [facility] COMPARISON: CHEST SINGLE AP, February 06, 2017, 7:38. INDICATIONS : Short of breath. MEDICAL HISTORY : Hypertension. SURGICAL HISTORY : Tracheostomy. ENCOUNTER: Subsequent ACUITY: 1 week PAIN SCORE: Non-responsive. LOCATION: Bilateral chest FINDINGS: Increasing consolidation is left base. Right lung clear. Compensated cardiomegaly. CONCLUSION: Increasing consolidative changes left base. Jorje Chi MD FACR on February 09, 2017 at 10:56 Board Certified Radiologist. This report was verified electronically.
[2017-02-09] MEDS: LEVOFLOXACIN 750 MG PREMIX INJ 150 ML IV SCH (12:27)
--- NOTE | 2017-02-09 12:54 | HHI.IDPN ---
Note Infectious Disease Note Patient has eyes open. Appears alert. Non verbal. Remains on CPAP. Afebrile. RN reports thick plasencia secretions. RN reports diarrhea. C. difficile negative. New sputum culture has Resistant pseudomonas. (S) to Levaquin and aminoglycosides. reports that he cannot take many antibiotics because of effects on diaphragm muscles and affecting breathing. 76-year-old white male with history of myasthenia gravis. The patient was seen in the emergency department after he was brought in with fever and tachycardia. He was intubated and is currently on the ventilator. The patient has a tracheostomy and also PEG. He had mild lactic acidemia on admission. Cultures of the sputum grew Pseudomonas aeruginosa and beta strep not group A on 02/03. PAST MEDICAL HISTORY Dementia, chronic respiratory failure. Myasthenia gravis, history of tracheostomy, history of hip repair. Multiple antibiotic allergies. Seizure disorder, history of tonsillectomy, history of hernia repair. ALLERGIES CIPROFLOXACIN, TOBRAMYCIN, DILANTIN, NEOMYCIN, LITHIUM, BOTULINUM TOXIN A, TIMOLOL, VANCOMYCIN, VERAPAMIL, RISPERIDONE, IOHEXOL, IODIXANOL, HALOPERIDOL, GADOTERIDOL, GADODIAMIDE, DIATRIZOATE MEGLUMINE, THIOPENTAL, HYDROCODONE, ACETAMINOPHEN IODINATED CONTRAST. MEDICATIONS Piperacillin/tazobactam. Levaquin SOCIAL HISTORY The patient is . No tobacco. No alcohol. No illicit drugs. OBJECTIVE: Vital Signs Date Time Temp Pulse Resp B/P (MAP) Pulse Ox O2 Delivery O2 Flow Rate FiO2 02/08/17 10:00 92 02/08/17 09:00 90 13 112/64 (80) 95 02/08/17 08:00 55 02/08/17 08:00 100.0 90 14 108/56 (73) 92 02/08/17 08:00 90 02/08/17 07:22 55 02/08/17 07:22 92 55 02/08/17 07:20 55 02/08/17 07:00 98 27 115/62 (79) 96 02/08/17 06:00 78 02/08/17 04:28 94 60 02/08/17 04:00 89 02/08/17 04:00 60 02/08/17 04:00 98.9 89 24 107/60 (76) 95 02/08/17 02:00 86 02/08/17 00:00 81 02/08/17 00:00 60 02/08/17 00:00 98.6 81 18 99/56 (70) 94 02/07/17 23:34 94 60 02/07/17 22:00 90 02/07/17 20:52 94 60 02/07/17 20:00 98.8 84 22 99/56 (70) 94 02/07/17 20:00 84 02/07/17 20:00 60 02/07/17 18:16 86 02/07/17 16:33 87 02/07/17 16:33 50 02/07/17 16:28 99.8 96 31 111/62 (78) 91 02/07/17 16:00 92 31 89/62 (71) 90 02/07/17 15:14 93 50 02/07/17 15:00 88 33 100/55 (70) 89 02/07/17 14:00 97 32 135/72 (93) 97 02/07/17 14:00 82 02/07/17 13:06 93 55 02/07/17 13:00 85 25 101/56 (71) 88 02/07/17 12:08 97.9 02/07/17 12:00 55 02/07/17 12:00 101 34 109/60 (76) 93 02/07/17 12:00 81 Laboratory Tests Test 02/08/17 05:17 02/09/17 05:40 White Blood Count 12.8 TH/MM3 10.8 TH/MM3 Red Blood Count 4.27 MIL/MM3 4.37 MIL/MM3 Hemoglobin 11.1 GM/DL 11.5 GM/DL Hematocrit 35.2 % 36.1 % Mean Corpuscular Volume 82.3 FL 82.5 FL Mean Corpuscular Hemoglobin 26.1 PG 26.3 PG Mean Corpuscular Hemoglobin Concent 31.7 % 31.8 % Red Cell Distribution Width 18.0 % 18.0 % Platelet Count 213 TH/MM3 218 TH/MM3 Mean Platelet Volume 11.2 FL 10.6 FL Neutrophils (%) (Auto) 82.7 % 77.7 % Lymphocytes (%) (Auto) 6.5 % 7.8 % Monocytes (%) (Auto) 5.8 % 7.7 % Eosinophils (%) (Auto) 4.7 % 6.2 % Basophils (%) (Auto) 0.3 % 0.6 % Neutrophils # (Auto) 10.6 TH/MM3 8.4 TH/MM3 Lymphocytes # (Auto) 0.8 TH/MM3 0.8 TH/MM3 Monocytes # (Auto) 0.7 TH/MM3 0.8 TH/MM3 Eosinophils # (Auto) 0.6 TH/MM3 0.7 TH/MM3 Basophils # (Auto) 0.0 TH/MM3 0.1 TH/MM3 CBC Comment DIFF FINAL DIFF FINAL Differential Comment Laboratory Tests Test 02/08/17 05:17 02/09/17 05:40 Blood Urea Nitrogen 16 MG/DL 15 MG/DL Creatinine 1.21 MG/DL 1.27 MG/DL Random Glucose 81 MG/DL 83 MG/DL Calcium Level 8.3 MG/DL 8.2 MG/DL Phosphorus Level 2.2 MG/DL 1.9 MG/DL Magnesium Level 2.3 MG/DL Sodium Level 141 MEQ/L 141 MEQ/L Potassium Level 4.0 MEQ/L 3.8 MEQ/L Chloride Level 109 MEQ/L 107 MEQ/L Carbon Dioxide Level 24.9 MEQ/L 29.7 MEQ/L Anion Gap 7 MEQ/L 4 MEQ/L Estimat Glomerular Filtration Rate 58 ML/MIN 55 ML/MIN Chest X-Ray 02/06/17 0000 Signed Impressions: Service Date/Time: Monday, February 06, 2017 07:38 - CONCLUSION: 1. Continued low lung volumes with stable left lower lobe airspace disease. Joni Reina MD PHYSICAL EXAMINATION GENERAL: No acute distress. HEENT: The head is atraumatic. No icterus. Oropharynx slightly dry mucosa without lesions. NECK: Supple. No adenopathy. Tracheostomy in place. HEART: Regular S1-S2 without murmurs. LUNGS: Basilar rhonchi. Decreased breath sounds. ABDOMEN: Bowel sounds diminished, soft, no tenderness appreciated. EXTREMITIES: No clubbing or cyanosis or edema. SKIN: No rash. NEURO: Unable to fully assess. IMPRESSION 1. Pneumonia due to Pseudomonas. Fairly resistant organism. 2. Previous blood cultures with coag negative staph likely contaminant. 3. Myasthenia gravis. 4. Chronic respiratory failure. 5. Multiple antibiotic allergies. RECOMMENDATIONS 1. Continue piperacillin/tazobactam. 2. Continue Levaquin IV and monitor clinical status and ventilation. Patient already on the vent and therefore can be monitored. I have asked the micro lab to test additional antibiotics for sensitivity. 3. Monitor temperature. 4. Monitor white blood cell count. 5. Monitor clinical status. D/W RN and . Christopher Livingston MD Feb 09, 2017 12:54
--- NOTE | 2017-02-09 15:46 | RADRPT ---
EXAM DATE/TIME: 02/09/2017 14:59 [facility] COMPARISON: US ARM LEFT VENOUS DOPPLER, August 11, 2014, 12:54. INDICATIONS : Left pleural effusion. MEDICAL HISTORY : Myashtenia gravis. Dementia. Seizures. Hernia. Cardiac disorders. SURGICAL HISTORY : Tonsillectomy. PEG tube placement. Hip surgery. Hernia repair. ENCOUNTER: [facility] ACUITY: 1 day PAIN SCORE: Nonresponsive. LOCATION: Left chest MEASUREMENTS: SKIN TO PARIETAL PLEURA: Inadequate fluid SKIN TO MAX SAFE DEPTH: Inadequate fluid ESTIMATED FLUID VOLUME: 0 cc FLUID COMPOSITION: Inadequate fluid FINDINGS: No marking was performed. CONCLUSION: There is no left pleural effusion. Mark Chi MD on February 09, 2017 at 15:44 Board Certified Radiologist. This report was verified electronically.
--- NOTE | 2017-02-09 18:42 | HHI.PR ---
Subjective Remarks Awake and on A/C rate 14, FIO2 50 %. Was more SOB last PM. Objective Vital Signs Date Time Temp Pulse Resp B/P (MAP) Pulse Ox O2 Delivery O2 Flow Rate FiO2 02/09/17 18:00 77 02/09/17 16:00 50 02/09/17 16:00 76 02/09/17 16:00 98.7 76 7 96/54 (68) 94 02/09/17 15:54 97 50 02/09/17 14:00 73 02/09/17 12:00 98.9 79 10 98/57 (71) 96 02/09/17 12:00 79 02/09/17 12:00 50 02/09/17 11:54 98 50 02/09/17 10:00 84 02/09/17 08:00 84 02/09/17 08:00 98.3 84 25 110/62 (78) 93 02/09/17 08:00 55 02/09/17 06:00 80 02/09/17 04:58 92 55 02/09/17 04:00 55 02/09/17 04:00 89 02/09/17 04:00 98.6 89 31 134/68 (90) 92 02/09/17 02:00 80 02/09/17 00:29 97 55 02/09/17 00:00 98.4 83 22 95/56 (69) 94 02/09/17 00:00 55 02/09/17 00:00 83 02/08/17 22:00 83 02/08/17 21:00 89 Bi-Pap 55 02/08/17 20:00 86 02/08/17 20:00 55 02/08/17 20:00 98.6 86 22 94/53 (67) 94 02/08/17 19:47 94 55 I/O 02/08/17 02/08/17 02/08/17 02/09/17 02/09/17 02/09/17 07:00 15:00 23:00 07:00 15:00 23:00 Intake Total 600 ml 350 ml 587 ml 960 ml Output Total 600 ml 1800 ml 700 ml Balance 0 ml 350 ml -1213 ml 260 ml IV Total 100 ml 350 ml 200 ml Tube Feeding 500 ml 487 ml 510 ml Other 100 ml 250 ml Output Urine Total 600 ml 1800 ml 700 ml # Bowel Movements 3 4 1 Result Diagram: 02/09/17 0540 02/09/1740 Objective Remarks GENERAL: This is an elderly man, moderately obese, laying flat. He is awake but does not respond to any commands. HEENT: Head is normocephalic. Pupils are reactive. Sclerae are clear. Tongue was coated. Throat has secretions. Nose and ears have no inflammation. NECK: Supple. No venous distension. Trache site has a few secretions. No lymphadenopathy. CHEST: Decreased excursions with occasional crackles over the left lower lung field and wheezes scattered. HEART: Heart sounds are regular, S1-S2. No murmur. No S3. ABDOMEN: The abdomen is obese, protuberant with a PEG tube in place. Bowel sounds are active. EXTREMITIES: Contracture of the extremities, edema and skin wound in dependent areas. Peripheral pulses are diminished. The patient does not move his extremities voluntarily. RECTAL: Exam is deferred. Assessment and Plan Assessment and Plan IMPRESSION 1. Acute respiratory failure. 2. Sepsis with pneumonia. 3. Acute kidney injury with dehydration. 4. Dementia. 5. History of myasthenia gravis. 6. History of MRSA and Pseudomonas pneumonias. 7. Status post tracheostomy and PEG tube placement. Plan : 1. Wean Fio2 t 45 %, A/C to 12. 2. Continue antibiotics for Sepsis. 3. Nebs qid , Duoneb. 4. Tube feeds at 50 CC. 5. CXR,CBC,BMP in am. 6. Will try on CPAP if stable in am. Carol Griffin MD Feb 09, 2017 18:42
[2017-02-09] MEDS: SODIUM PHOSPHATE INJ 30 MMOL in SODIUM CHLOR 0.9% 250 ML INJ 240 ML IV PRN (18:52)
[2017-02-09] MEDS: DONEPEZIL HCL 5 MG TAB PO SCH (21:00)
[2017-02-10] VITALS (17 sets, daily range): BP systolic 110–121; BP diastolic 60–78; PULSE 82–95; RESP 12–26; TEMP 98.4–99.2; O2SAT 92–98
[2017-02-10] MEDS: INSULIN NovoLIN REGULAR SUPPLEMENTAL SCALE SQ SCH ×4 (01:15→19:15)
[2017-02-10] MEDS: PIPERACIL-TAZO 4.5 GM PREMIX 100 ML IV SCH ×4 (01:17→17:17)
[2017-02-10] MEDS: PYRIDOSTIGMINE BROMIDE 60 MG TAB PO SCH ×4 (01:17→17:17)
[2017-02-10] MEDS: CHLORHEXIDINE GLUCONATE 2 % 1 PACK (2 CLOTHS) TOP SCH (05:00)
[2017-02-10 05:19] LABS: AUTOMATED NEUTROPHIL # 6.5 TH/MM3 (1.8-7.7); BASOPHIL # 0.1 TH/MM3 (0-0.2); BASOPHIL % 0.6 % (0.0-2.0); EOSINOPHIL # 0.5 TH/MM3 (0-0.4); EOSINOPHIL % 5.7 % (0.0-4.0); HEMO FLAGS DIFF FINAL; LYMPH % 10.4 % (9.0-44.0); LYMPHOCYTE # 0.9 TH/MM3 (1.0-4.8); MEAN CELL VOLUME 81.2 FL (80.0-100.0); MEAN CORPUSCULAR HEMOGLOBIN 26.4 PG (27.0-34.0); MEAN CORPUSCULAR HGB CONC 32.5 % (32.0-36.0); NEUT % 74.3 % (16.0-70.0); PLATELET COUNT 216 TH/MM3 (150-450); RED BLOOD COUNT 4.32 MIL/MM3 (4.50-5.90); RED CELL DISTRIBUTION WIDTH 18.5 % (11.6-17.2); WHITE BLOOD COUNT 8.8 TH/MM3 (4.0-11.0)
[2017-02-10 05:45] LABS: BICARBONATE 27.5 MEQ/L (21.0-32.0); MAGNESIUM 2.2 MG/DL (1.5-2.5); POTASSIUM 3.8 MEQ/L (3.5-5.1)
[2017-02-10] MEDS: LEVOTHYROXINE SODIUM 50 MCG TAB G-TUBE SCH (06:08)
[2017-02-10] MEDS: SODIUM PHOSPHATE INJ 30 MMOL in SODIUM CHLOR 0.9% 250 ML INJ 240 ML IV PRN (06:08)
[2017-02-10] MEDS: RESP: ALBUTEROL 2.5 MG/IPRATROPIUM 0.5 MG NEB (SCH) NEB ×3 (07:54→20:28)
--- NOTE | 2017-02-10 08:42 | HHI.CCPN ---
Subjective Remarks/Hospital Course The patient is a 76 year old male with past medical history of myasthenia gravis , dementia, seizure disorder, chronic respiratory failure with previous tracheostomy and percutaneous endoscopic gastrostomy placement. The patient presented to [facility] from local nursing facility for tachycardia and fevers. On arrival he had a temperature of 102.8, in addition the patient was tachycardic and tachypneic. His laboratory data was significant for leukocytosis with a white blood count of 17.6 mild lactic acidemia, lactic acid level 2.6 and acute kidney injury with creatinine level of 1.65. Chest x-ray in the emergency room showed patchy pneumonia on the left. In the emergency department the patient was given three liters of crystalloids in addition to cefepime, Solu-Medrol, bronchodilator treatment. Arterial blood gas was preformed on TP's. Which showed a pH of 7.43, co2 39, pao2 63, bicarbonate 26-91%. He was placed on electrical line mechanic ventilation. Most of the history was obtained by reviewing the medical records as the patient is nonverbal. He also has history of methicillin-resistant Staphylococcus aureus and pseudomonas and pneumonia last year. The patient was do not resuscitate from local senior living. 02/04 No events overnight. On ventilator via trach. Afebrile. 02/05 Patient remains on ventilator via trach. Afebrile. On no sedation. 02/06 No events overnight. Afebrile. Tolerated CPAP all day yesterday. 02/07 No events overnight. Afebrile. 02/08 No events overnight. T;100.0 at 8 am. Having liquid stools. 02/09 Patient remains on ventilator via trach. T:100.0 yesterday 02/10 No events overnight. Afebrile. Objective Vital Signs Date Time Temp Pulse Resp B/P (MAP) Pulse Ox O2 Delivery O2 Flow Rate FiO2 02/10/17 07:55 93 45 02/10/17 06:00 87 02/10/17 04:00 98.6 26 121/69 (86) 02/08/17 21:00 Bi-Pap Intake and Output 02/10/17 02/10/17 02/11/17 08:00 16:00 00:00 Intake Total 758 ml Output Total 925 ml Balance -167 ml Result Diagram: 02/10/17 0435 02/10/17 0435 Other Results Laboratory Tests Test 02/10/17 04:35 White Blood Count 8.8 TH/MM3 Red Blood Count 4.32 MIL/MM3 Hemoglobin 11.4 GM/DL Hematocrit 35.0 % Mean Corpuscular Volume 81.2 FL Mean Corpuscular Hemoglobin 26.4 PG Mean Corpuscular Hemoglobin Concent 32.5 % Red Cell Distribution Width 18.5 % Platelet Count 216 TH/MM3 Mean Platelet Volume 10.0 FL Neutrophils (%) (Auto) 74.3 % Lymphocytes (%) (Auto) 10.4 % Monocytes (%) (Auto) 9.0 % Eosinophils (%) (Auto) 5.7 % Basophils (%) (Auto) 0.6 % Neutrophils # (Auto) 6.5 TH/MM3 Lymphocytes # (Auto) 0.9 TH/MM3 Monocytes # (Auto) 0.8 TH/MM3 Eosinophils # (Auto) 0.5 TH/MM3 Basophils # (Auto) 0.1 TH/MM3 CBC Comment DIFF FINAL Differential Comment Blood Urea Nitrogen 13 MG/DL Creatinine 1.32 MG/DL Random Glucose 103 MG/DL Calcium Level 8.3 MG/DL Phosphorus Level 2.6 MG/DL Magnesium Level 2.2 MG/DL Sodium Level 143 MEQ/L Potassium Level 3.8 MEQ/L Chloride Level 109 MEQ/L Carbon Dioxide Level 27.5 MEQ/L Anion Gap 7 MEQ/L Estimat Glomerular Filtration Rate 53 ML/MIN Imaging Last Impressions Chest X-Ray 02/09/17 0000 Signed Impressions: Service Date/Time: Thursday, February 09, 2017 10:33 - CONCLUSION: Increasing consolidative changes left base. Jorje Chi MD FACR Chest Ultrasound 02/09/17 0000 Signed Impressions: Service Date/Time: Thursday, February 09, 2017 14:59 - CONCLUSION: There is no left pleural effusion. Mark Chi MD Objective Remarks GENERAL: Patient remains on ventilator via trach. SKIN: Warm and dry. HEAD: Normocephalic. EYES: No scleral icterus. No injection or drainage. NECK: Supple, trachea midline. No JVD or lymphadenopathy. Trach in place CARDIOVASCULAR: Regular rate and rhythm without murmurs, gallops, or rubs. RESPIRATORY: Breath sounds equal bilaterally. No accessory muscle use. GASTROINTESTINAL: Abdomen soft, non-tender, nondistended. MUSCULOSKELETAL: No cyanosis, or edema. Contracted Neuro: On no sedation. Doesn't follow commands. A/P Assessment and Plan 1. Acute on chronic respiratory failure. 2. Left sided pneumonia. 3. Leukocytosis. 4. Acute kidney injury. 5. Mild-elevated troponin. 6. Mild lactic acidemia. 7. Previous trachea and percutaneous endoscopic gastrostomy tube placement. 8. History of Methicillin-resistant Staphylococcus aureus and pseudomonas pneumonia. 9. Dementia/seizure disorder. 10. History of myasthenia gravis. Plan Neuro:On Aricept 10 mg daily., Pyridostigmine 60 mg q six hours. Namenda 10 mg twice a day, CellCept Monitor neuro status closely. Neuro is following- Dr. Longoria Pulm: Continue with ventilator support and maintain sats >92%. Bronchodilators, ICU vent bundle. Pulmonary toilet and trach care. SBT/TP's daily as cally. CV: Monitor HR and BP and maintain MAP > 65 mmHg. Lactic acid level measured at 2.6. Echo showed EF 55-60% : Monitor renal function, intake and output, avoid nephrotoxins. Electrolyte replacement as needed. . GI: On Pepcid 20 mg IV q 12 hour for Gl prophylaxis. Tube feeds via PEG tube- TF- Jevity 1.5 @ 45 ml per hour. ID: Continue abx ( Zosyn, Levaquin) . Monitor for signs of infection( fever and WBC) ID is following, check sputum cx today C-diff PCR negative 02/08 Sputum cx 02/03 : Pseudomonas species, Beta strep not Group A. Sputum cx: 02/05: Pseudomonas - resistant org BC 02/03 Staph Epi, GPC.. likely contaminant. 02/04 BC: NGTD Strep pneumonia and legionella urinary antigen negative Heme: Monitor CBC. Endo: SSI with Accuchecks for glycemic control. On Synthroid 50 mcg daily. TSH: 4.5 GI prophylaxis with Pepcid 20 mg q 12 hours and DVT s prophylaxis with SCDs and heparin SQ. Discussed with patient's on 02/03 with patient's nurse (Rodriguez) re code status and she requested to make patient Alternate code( intubation only) She does not want and CPR/chest compression or cardiac resuscitation in case of cardiac arrest. Patient was also DNR at the senior living. Level 3 Jose Cruz Ansari MD Feb 10, 2017 08:42
[2017-02-10] MEDS: MYCOPHENOLATE MOFETIL 200 MG/ML 175 ML BOTTLE PO SCH ×3 (08:46→17:18)
[2017-02-10] MEDS: HEPARIN SODIUM - SQ 10,000 UNITS/ML VIAL SQ SCH ×2 (08:46→20:58)
[2017-02-10] MEDS: MEMANTINE HCL 10 MG TAB G-TUBE SCH ×2 (08:47→20:58)
--- NOTE | 2017-02-10 11:11 | HHI.IDPN ---
Note Infectious Disease Note Patient has eyes open. Non verbal. On Ventilator. Afebrile. RN reports thick green secretions. C diff negative. Tolerating Levaquin. Repeat sputum culture pending. 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 (S) to Levaquin and aminoglycosides. reports that he cannot take many antibiotics because of effects on diaphragm muscles and affecting breathing. 76-year-old white male with history of myasthenia gravis. The patient was seen in the emergency department after he was brought in with fever and tachycardia. He was intubated and is currently on the ventilator. The patient has a tracheostomy and also PEG. He had mild lactic acidemia on admission. Cultures of the sputum grew Pseudomonas aeruginosa and beta strep not group A on 02/03. PAST MEDICAL HISTORY Dementia, chronic respiratory failure. Myasthenia gravis, history of tracheostomy, history of hip repair. Multiple antibiotic allergies. Seizure disorder, history of tonsillectomy, history of hernia repair. ALLERGIES CIPROFLOXACIN, TOBRAMYCIN, DILANTIN, NEOMYCIN, LITHIUM, BOTULINUM TOXIN A, TIMOLOL, VANCOMYCIN, VERAPAMIL, RISPERIDONE, IOHEXOL, IODIXANOL, HALOPERIDOL, GADOTERIDOL, GADODIAMIDE, DIATRIZOATE MEGLUMINE, THIOPENTAL, HYDROCODONE, ACETAMINOPHEN IODINATED CONTRAST. MEDICATIONS Piperacillin/tazobactam. Levaquin. Current Medications Medications (Trade) Dose Ordered Sig/Maddie Route PRN Reason Start Time Stop Time Status Last Admin Dose Admin Albuterol/ Ipratropium (Duoneb Neb) 1 ampule Q2HR NEB PRN INH WHEEZING 02/03/17 07:15 Heparin Sodium (Porcine) (Heparin Inj) 5,000 units Q12H SQ 02/03/17 08:00 02/10/17 08:46 Miscellaneous Information 1 Q361D XX 02/03/17 07:15 Chlorhexidine Gluconate (Chlorhexidine 2% Cloth) Taper DAILY@04 TOP 02/04/17 04:00 01/31/18 03:59 02/10/17 05:00 Chlorhexidine Gluconate (Chlorhexidine 2% Cloth) 3 pack UNSCH PRN [facility] 02/03/17 07:15 Dextrose (D50w (Vial) Inj) 50 ml UNSCH PRN IV PUSH HYPOGLYCEMIA-SEE COMMENTS 02/03/17 07:15 Glucagon (Glucagon Inj) 1 mg UNSCH PRN OTHER HYPOGLYCEMIA-SEE COMMENTS 02/03/17 07:15 Levothyroxine Sodium (Synthroid) 50 mcg DAILY@0600 G-TUBE 02/03/17 09:15 02/10/17 06:08 Memantine (Namenda) 10 mg BID G-TUBE 02/03/17 09:15 02/10/17 08:47 Pyridostigmine [place] (Mestinon) 60 mg Q6HR PO 02/03/17 12:00 02/10/17 06:08 Mycophenolate Mofetil (Cellcept Liq) 500 mg TID PO 02/04/17 10:00 02/10/17 08:46 Potassium Chloride 100 ml @ 50 mls/hr Q2H PRN IV-CENTRAL For Potassium 2.8 - 3.2 mEq/L 02/04/17 07:45 Potassium Chloride 100 ml @ 50 mls/hr Q2H PRN IV For Potassium 2.8 - 3.2 mEq/L 02/04/17 07:45 Potassium Bicarb/ Potassium Chloride (K-Lyte Cl Eff) 50 meq UNSCH PRN PO For Potassium 3.3 - 3.5 mEq/L 02/04/17 07:45 Potassium Chloride 100 ml @ 25 mls/hr UNSCH PRN IV-CENTRAL For Potassium 3.3 - 3.5 mEq/L 02/04/17 07:45 Potassium Chloride 100 ml @ 50 mls/hr Q2H PRN IV For Potassium 3.3 - 3.5 mEq/L 02/04/17 07:45 Magnesium Sulfate 4 gm/Sodium Chloride 100 ml @ 50 mls/hr UNSCH PRN IV For Magnesium 0.9 - 1.1 mg/dL 02/04/17 07:45 Magnesium Oxide (Mag-Ox) 800 mg UNSCH PRN PO For Magnesium 1.2 - 1.6 mg/dL 02/04/17 07:45 Magnesium Sulfate 2 gm/Sodium Chloride 100 ml @ 50 mls/hr UNSCH PRN IV For Magnesium 1.2 - 1.6 mg/dL 02/04/17 07:45 Potassium Phosphate (K-Phos) 2,000 mg Q4H PRN PO For Phosphorus < 2.5 mg/dL 02/04/17 07:45 Sodium Phosphate 30 mmol/Sodium Chloride 250 ml @ 42 mls/hr UNSCH PRN IV For Phosphorus < 2.5 mg/dL 02/04/17 07:45 02/09/17 18:52 Potassium Phosphate (K-Phos) 2,000 mg UNSCH PRN PO/TUBE SEE LABEL COMMENTS 02/04/17 07:45 Potassium Phosphate 30 mmol/ Sodium Chloride 260 ml @ 42 mls/hr UNSCH PRN IV SEE LABEL COMMENTS 02/04/17 07:45 02/05/17 09:29 Famotidine (Pepcid Inj) 20 mg Q12HR IV PUSH 02/05/17 21:00 02/09/17 21:58 Insulin Human Regular (NovoLIN R SUPPLEMENTAL SCALE) 1 Q6H SQ 02/06/17 13:15 Piperacillin Sod/ Tazobactam Sod 100 ml @ 200 mls/hr Q6H IV 02/07/17 18:00 02/10/17 06:08 Levofloxacin/ Dextrose 150 ml @ 100 mls/hr Q24H IV 02/08/17 13:00 02/09/17 12:27 Albuterol/ Ipratropium (Duoneb Neb) 1 ampule Q6HR WHILE AWAKE NEB NEB 02/08/17 14:00 02/10/17 07:54 SOCIAL HISTORY The patient is . No tobacco. No alcohol. No illicit drugs. OBJECTIVE: Vital Signs Date Time Temp Pulse Resp B/P (MAP) Pulse Ox O2 Delivery O2 Flow Rate FiO2 02/10/17 09:12 45 02/10/17 08:00 99.2 90 25 113/62 (79) 98 02/10/17 08:00 50 02/10/17 07:55 93 45 02/10/17 06:00 87 02/10/17 04:37 95 50 02/10/17 04:00 88 02/10/17 04:00 98.6 88 26 121/69 (86) 95 02/10/17 04:00 50 02/10/17 02:00 90 02/10/17 00:00 82 02/10/17 00:00 50 02/10/17 00:00 98.5 82 12 113/63 (80) 95 02/09/17 23:48 99 50 02/09/17 22:00 79 02/09/17 20:19 93 50 02/09/17 20:00 50 02/09/17 20:00 98.7 76 4 106/61 (76) 95 02/09/17 20:00 76 02/09/17 18:00 77 02/09/17 16:00 50 02/09/17 16:00 76 02/09/17 16:00 98.7 76 7 96/54 (68) 94 02/09/17 15:54 97 50 02/09/17 14:00 73 02/09/17 12:00 98.9 79 10 98/57 (71) 96 02/09/17 12:00 79 02/09/17 12:00 50 02/09/17 11:54 98 50 Laboratory Tests Test 02/09/17 05:40 02/10/17 04:35 White Blood Count 10.8 TH/MM3 8.8 TH/MM3 Red Blood Count 4.37 MIL/MM3 4.32 MIL/MM3 Hemoglobin 11.5 GM/DL 11.4 GM/DL Hematocrit 36.1 % 35.0 % Mean Corpuscular Volume 82.5 FL 81.2 FL Mean Corpuscular Hemoglobin 26.3 PG 26.4 PG Mean Corpuscular Hemoglobin Concent 31.8 % 32.5 % Red Cell Distribution Width 18.0 % 18.5 % Platelet Count 218 TH/MM3 216 TH/MM3 Mean Platelet Volume 10.6 FL 10.0 FL Neutrophils (%) (Auto) 77.7 % 74.3 % Lymphocytes (%) (Auto) 7.8 % 10.4 % Monocytes (%) (Auto) 7.7 % 9.0 % Eosinophils (%) (Auto) 6.2 % 5.7 % Basophils (%) (Auto) 0.6 % 0.6 % Neutrophils # (Auto) 8.4 TH/MM3 6.5 TH/MM3 Lymphocytes # (Auto) 0.8 TH/MM3 0.9 TH/MM3 Monocytes # (Auto) 0.8 TH/MM3 0.8 TH/MM3 Eosinophils # (Auto) 0.7 TH/MM3 0.5 TH/MM3 Basophils # (Auto) 0.1 TH/MM3 0.1 TH/MM3 CBC Comment DIFF FINAL DIFF FINAL Differential Comment Laboratory Tests Test 02/09/17 05:40 02/10/17 04:35 Blood Urea Nitrogen 15 MG/DL 13 MG/DL Creatinine 1.27 MG/DL 1.32 MG/DL Random Glucose 83 MG/DL 103 MG/DL Calcium Level 8.2 MG/DL 8.3 MG/DL Phosphorus Level 1.9 MG/DL 2.6 MG/DL Sodium Level 141 MEQ/L 143 MEQ/L Potassium Level 3.8 MEQ/L 3.8 MEQ/L Chloride Level 107 MEQ/L 109 MEQ/L Carbon Dioxide Level 29.7 MEQ/L 27.5 MEQ/L Anion Gap 4 MEQ/L 7 MEQ/L Estimat Glomerular Filtration Rate 55 ML/MIN 53 ML/MIN Magnesium Level 2.2 MG/DL Microbiology Date/Time Source Procedure Growth Status 02/10/17 09:00 Sputum Endotracheal Gram Stain Pending Received 02/10/17 09:00 Sputum Endotracheal Sputum Culture Pending Received IMAGING: Chest X-Ray 02/09/17 0000 Signed Impressions: Service Date/Time: Thursday, February 09, 2017 10:33 - CONCLUSION: Increasing consolidative changes left base. Jorje Chi MD FACR Chest Ultrasound 02/09/17 0000 Signed Impressions: Service Date/Time: Thursday, February 09, 2017 14:59 - CONCLUSION: There is no left pleural effusion. Mark Chi MD Chest X-Ray 02/06/17 0000 Signed Impressions: Service Date/Time: Monday, February 06, 2017 07:38 - CONCLUSION: 1. Continued low lung volumes with stable left lower lobe airspace disease. Joni Reina MD PHYSICAL EXAMINATION GENERAL: No acute distress. HEENT: The head is atraumatic. The extraocular movements cannot be fully assessed and the patient cannot cooperate. The sclerae without icterus. Oropharynx slightly dry mucosa without lesions. NECK: Supple. No adenopathy. Tracheostomy in place. HEART: Regular S1-S2 without murmurs. LUNGS: Bilateral rhonchi. ABDOMEN: Bowel sounds diminished, soft, no tenderness. EXTREMITIES: No clubbing or cyanosis or edema. SKIN: No rash. NEURO: Unable to fully assess. IMPRESSION 1. Pneumonia due to Pseudomonas. Fairly resistant organism. Repeat sputum culture pending. 2. Previous blood cultures with coag negative staph likely contaminant. 3. Myasthenia gravis. 4. Chronic respiratory failure. 5. Multiple antibiotic allergies. RECOMMENDATIONS 1. Continue piperacillin/tazobactam. 2. Continue Levaquin IV and monitor clinical status and ventilation. Patient already on the vent and therefore can be monitored.Will await new sputum culture result before making antibiotic changes. 3. Monitor temperature. 4. Monitor white blood cell count. 5. Monitor clinical status. D/W RN. Christopher Livingston MD Feb 10, 2017 11:11
--- NOTE | 2017-02-10 11:51 | HHI.PR ---
Subjective Remarks Awake and on A/C rate 12, FIO2 50 %. Tolerates feeds. On Antibiotics per ID. Objective Vital Signs Date Time Temp Pulse Resp B/P (MAP) Pulse Ox O2 Delivery O2 Flow Rate FiO2 02/10/17 09:12 45 02/10/17 08:00 99.2 90 25 113/62 (79) 98 02/10/17 08:00 50 02/10/17 07:55 93 45 02/10/17 06:00 87 02/10/17 04:37 95 50 02/10/17 04:00 88 02/10/17 04:00 98.6 88 26 121/69 (86) 95 02/10/17 04:00 50 02/10/17 02:00 90 02/10/17 00:00 82 02/10/17 00:00 50 02/10/17 00:00 98.5 82 12 113/63 (80) 95 02/09/17 23:48 99 50 02/09/17 22:00 79 02/09/17 20:19 93 50 02/09/17 20:00 50 02/09/17 20:00 98.7 76 4 106/61 (76) 95 02/09/17 20:00 76 02/09/17 18:00 77 02/09/17 16:00 50 02/09/17 16:00 76 02/09/17 16:00 98.7 76 7 96/54 (68) 94 02/09/17 15:54 97 50 02/09/17 14:00 73 02/09/17 12:00 98.9 79 10 98/57 (71) 96 02/09/17 12:00 79 02/09/17 12:00 50 02/09/17 11:54 98 50 I/O 02/09/17 02/09/17 02/09/17 02/10/17 02/10/17 02/10/17 07:00 15:00 23:00 07:00 15:00 23:00 Intake Total 960 ml 250 ml 850 ml 758 ml Output Total 700 ml 900 ml 925 ml Balance 260 ml 250 ml -50 ml -167 ml IV Total 200 ml 250 ml 100 ml Tube Feeding 510 ml 500 ml 508 ml Other 250 ml 250 ml 250 ml Output Urine Total 700 ml 900 ml 925 ml # Bowel Movements 1 2 1 Result Diagram: 02/10/175 02/10/17 0435 Objective Remarks GENERAL: This is an elderly man, moderately obese, laying flat. He is awake but does not respond to any commands. HEENT: Head is normocephalic. Pupils are reactive. Sclerae are clear. Tongue was coated. Throat has secretions. Nose and ears have no inflammation. NECK: Supple. No venous distension. Trach site has a few secretions. No lymphadenopathy. CHEST: Decreased excursions with occasional crackles over the left lower lung field and wheezes scattered. HEART: Heart sounds are regular, S1-S2. No murmur. No S3. ABDOMEN: The abdomen is obese, protuberant with a PEG tube in place. Bowel sounds are active. EXTREMITIES: Contracture of the extremities,1 + edema and skin wounds in dependent areas. Peripheral pulses are diminished. The patient does not move his extremities voluntarily. RECTAL: Exam is deferred. Assessment and Plan Assessment and Plan IMPRESSION 1. Acute respiratory failure. 2. Sepsis with pneumonia. 3. Acute kidney injury with dehydration. 4. Dementia. 5. History of myasthenia gravis. 6. History of MRSA and Pseudomonas pneumonias. 7. Status post tracheostomy and PEG tube placement. Plan : 1. Wean Fio2 to 45 %, A/C at rate 12. 2. Continue antibiotics for Sepsis. 3. Nebs qid , Duoneb. 4. Tube feeds at 50 CC. 5. CBC,BMP in am. 6. Will try on CPAP daily. 7. PT evaluation. Carol Griffin MD Feb 10, 2017 11:51
[2017-02-10] MEDS: FAMOTIDINE 20 MG/2 ML VIAL IV PUSH SCH ×2 (11:54→20:58)
[2017-02-10] MEDS: LEVOFLOXACIN 750 MG PREMIX INJ 150 ML IV SCH (11:57)
[2017-02-11] VITALS (20 sets, daily range): BP systolic 103–142; BP diastolic 55–97; PULSE 74–101; RESP 12–26; TEMP 98–100.1; O2SAT 90–96
[2017-02-11] MEDS: PIPERACIL-TAZO 4.5 GM PREMIX 100 ML IV SCH ×3 (00:51→11:34)
[2017-02-11] MEDS: PYRIDOSTIGMINE BROMIDE 60 MG TAB PO SCH ×4 (00:51→18:29)
[2017-02-11] MEDS: INSULIN NovoLIN REGULAR SUPPLEMENTAL SCALE SQ SCH ×4 (01:15→19:15)
[2017-02-11] MEDS: CHLORHEXIDINE GLUCONATE 2 % 1 PACK (2 CLOTHS) TOP SCH (04:49)
[2017-02-11] MEDS: LEVOTHYROXINE SODIUM 50 MCG TAB G-TUBE SCH (06:26)
[2017-02-11 06:54] LABS: AUTOMATED NEUTROPHIL # 6.6 TH/MM3 (1.8-7.7); BASOPHIL % 0.5 % (0.0-2.0); EOSINOPHIL # 0.4 TH/MM3 (0-0.4); EOSINOPHIL % 4.7 % (0.0-4.0); HEMO FLAGS DIFF FINAL; LYMPH % 10.5 % (9.0-44.0); LYMPHOCYTE # 0.9 TH/MM3 (1.0-4.8); MEAN CELL VOLUME 82.2 FL (80.0-100.0); MEAN CORPUSCULAR HEMOGLOBIN 26.5 PG (27.0-34.0); MEAN CORPUSCULAR HGB CONC 32.2 % (32.0-36.0); MONO % 9.1 % (0.0-8.0); NEUT % 75.2 % (16.0-70.0); PLATELET COUNT 237 TH/MM3 (150-450); RED BLOOD COUNT 4.37 MIL/MM3 (4.50-5.90); RED CELL DISTRIBUTION WIDTH 18.6 % (11.6-17.2); WHITE BLOOD COUNT 8.7 TH/MM3 (4.0-11.0)
[2017-02-11 07:15] LABS: BICARBONATE 24.6 MEQ/L (21.0-32.0); POTASSIUM 3.8 MEQ/L (3.5-5.1)
[2017-02-11] MEDS: RESP: ALBUTEROL 2.5 MG/IPRATROPIUM 0.5 MG NEB (SCH) NEB ×3 (07:47→20:20)
[2017-02-11] MEDS: MYCOPHENOLATE MOFETIL 200 MG/ML 175 ML BOTTLE PO SCH ×3 (09:18→18:00)
[2017-02-11] MEDS: MEMANTINE HCL 10 MG TAB G-TUBE SCH ×2 (09:18→21:43)
[2017-02-11] MEDS: FAMOTIDINE 20 MG/2 ML VIAL IV PUSH SCH ×2 (09:19→21:43)
[2017-02-11] MEDS: HEPARIN SODIUM - SQ 10,000 UNITS/ML VIAL SQ SCH ×2 (09:19→21:43)
--- NOTE | 2017-02-11 11:43 | HHI.IDPN ---
Note Infectious Disease Note Patient had 2 hours of CPAP today and became tachycardic. Non verbal. On Ventilator. Temp of 100. RN reports thick green secretions. Repeat sputum culture pending. 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 (S) to Levaquin and aminoglycosides. reports that he cannot take many antibiotics because of effects on diaphragm muscles and affecting breathing. 76-year-old white male with history of myasthenia gravis. The patient was seen in the emergency department after he was brought in with fever and tachycardia. He was intubated and is currently on the ventilator. The patient has a tracheostomy and also PEG. He had mild lactic acidemia on admission. Cultures of the sputum grew Pseudomonas aeruginosa and beta strep not group A on 02/03. PAST MEDICAL HISTORY Dementia, chronic respiratory failure. Myasthenia gravis, history of tracheostomy, history of hip repair. Multiple antibiotic allergies. Seizure disorder, history of tonsillectomy, history of hernia repair. ALLERGIES CIPROFLOXACIN, TOBRAMYCIN, DILANTIN, NEOMYCIN, LITHIUM, BOTULINUM TOXIN A, TIMOLOL, VANCOMYCIN, VERAPAMIL, RISPERIDONE, IOHEXOL, IODIXANOL, HALOPERIDOL, GADOTERIDOL, GADODIAMIDE, DIATRIZOATE MEGLUMINE, THIOPENTAL, HYDROCODONE, ACETAMINOPHEN IODINATED CONTRAST. MEDICATIONS Current Medications Medications (Trade) Dose Ordered Sig/Maddie Route PRN Reason Start Time Stop Time Status Last Admin Dose Admin Albuterol/ Ipratropium (Duoneb Neb) 1 ampule Q2HR NEB PRN INH WHEEZING 02/03/17 07:15 Heparin Sodium (Porcine) (Heparin Inj) 5,000 units Q12H SQ 02/03/17 08:00 02/11/17 09:19 Miscellaneous Information 1 Q361D XX 02/03/17 07:15 Chlorhexidine Gluconate (Chlorhexidine 2% Cloth) Taper DAILY@04 TOP 02/04/17 04:00 01/31/18 03:59 02/11/17 04:49 Chlorhexidine Gluconate (Chlorhexidine 2% Cloth) 3 pack UNSCH PRN [facility] 02/03/17 07:15 Dextrose (D50w (Vial) Inj) 50 ml UNSCH PRN IV PUSH HYPOGLYCEMIA-SEE COMMENTS 02/03/17 07:15 Glucagon (Glucagon Inj) 1 mg UNSCH PRN OTHER HYPOGLYCEMIA-SEE COMMENTS 02/03/17 07:15 Levothyroxine Sodium (Synthroid) 50 mcg DAILY@0600 G-TUBE 02/03/17 09:15 02/11/17 06:26 Memantine (Namenda) 10 mg BID G-TUBE 02/03/17 09:15 02/11/17 09:18 Pyridostigmine [place] (Mestinon) 60 mg Q6HR PO 02/03/17 12:00 02/11/17 06:26 Mycophenolate Mofetil (Cellcept Liq) 500 mg TID PO 02/04/17 10:00 02/11/17 09:18 Potassium Chloride 100 ml @ 50 mls/hr Q2H PRN IV-CENTRAL For Potassium 2.8 - 3.2 mEq/L 02/04/17 07:45 Potassium Chloride 100 ml @ 50 mls/hr Q2H PRN IV For Potassium 2.8 - 3.2 mEq/L 02/04/17 07:45 Potassium Bicarb/ Potassium Chloride (K-Lyte Cl Eff) 50 meq UNSCH PRN PO For Potassium 3.3 - 3.5 mEq/L 02/04/17 07:45 Potassium Chloride 100 ml @ 25 mls/hr UNSCH PRN IV-CENTRAL For Potassium 3.3 - 3.5 mEq/L 02/04/17 07:45 Potassium Chloride 100 ml @ 50 mls/hr Q2H PRN IV For Potassium 3.3 - 3.5 mEq/L 02/04/17 07:45 Magnesium Sulfate 4 gm/Sodium Chloride 100 ml @ 50 mls/hr UNSCH PRN IV For Magnesium 0.9 - 1.1 mg/dL 02/04/17 07:45 Magnesium Oxide (Mag-Ox) 800 mg UNSCH PRN PO For Magnesium 1.2 - 1.6 mg/dL 02/04/17 07:45 Magnesium Sulfate 2 gm/Sodium Chloride 100 ml @ 50 mls/hr UNSCH PRN IV For Magnesium 1.2 - 1.6 mg/dL 02/04/17 07:45 Potassium Phosphate (K-Phos) 2,000 mg Q4H PRN PO For Phosphorus < 2.5 mg/dL 02/04/17 07:45 Sodium Phosphate 30 mmol/Sodium Chloride 250 ml @ 42 mls/hr UNSCH PRN IV For Phosphorus < 2.5 mg/dL 02/04/17 07:45 02/09/17 18:52 Potassium Phosphate (K-Phos) 2,000 mg UNSCH PRN PO/TUBE SEE LABEL COMMENTS 02/04/17 07:45 Potassium Phosphate 30 mmol/ Sodium Chloride 260 ml @ 42 mls/hr UNSCH PRN IV SEE LABEL COMMENTS 02/04/17 07:45 02/05/17 09:29 Famotidine (Pepcid Inj) 20 mg Q12HR IV PUSH 02/05/17 21:00 02/11/17 09:19 Insulin Human Regular (NovoLIN R SUPPLEMENTAL SCALE) 1 Q6H SQ 02/06/17 13:15 Piperacillin Sod/ Tazobactam Sod 100 ml @ 200 mls/hr Q6H IV 02/07/17 18:00 02/11/17 06:26 Levofloxacin/ Dextrose 150 ml @ 100 mls/hr Q24H IV 02/08/17 13:00 02/10/17 11:57 Albuterol/ Ipratropium (Duoneb Neb) 1 ampule Q6HR WHILE AWAKE NEB NEB 02/08/17 14:00 02/11/17 07:47 SOCIAL HISTORY The patient is . No tobacco. No alcohol. No illicit drugs. OBJECTIVE: Vital Signs Date Time Temp Pulse Resp B/P (MAP) Pulse Ox O2 Delivery O2 Flow Rate FiO2 02/11/17 11:19 92 45 02/11/17 11:00 91 02/11/17 11:00 91 13 112/64 (80) 95 02/11/17 10:00 89 13 110/59 (76) 92 02/11/17 10:00 89 02/11/17 09:00 101 26 142/97 (112) 96 02/11/17 09:00 101 02/11/17 08:00 89 02/11/17 08:00 45 02/11/17 08:00 100.1 89 18 115/62 (79) 90 02/11/17 07:45 93 45 02/11/17 06:00 86 02/11/17 04:22 93 50 02/11/17 04:00 50 02/11/17 04:00 99.0 88 20 108/62 (77) 93 02/11/17 04:00 88 02/11/17 02:00 91 02/11/17 00:38 95 50 02/11/17 00:00 50 02/11/17 00:00 94 02/11/17 00:00 98.6 94 23 127/69 (88) 93 02/10/17 22:00 95 02/10/17 20:32 94 50 02/10/17 20:00 90 02/10/17 20:00 50 02/10/17 20:00 98.7 90 21 110/60 (77) 92 02/10/17 18:00 92 02/10/17 16:00 98.4 90 17 120/66 (84) 94 02/10/17 16:00 50 02/10/17 16:00 90 02/10/17 15:41 96 50 02/10/17 14:00 91 02/10/17 12:19 93 50 02/10/17 12:00 99.1 93 26 110/78 (89) 95 02/10/17 12:00 50 02/10/17 12:00 93 Laboratory Tests Test 02/10/17 04:35 02/11/17 05:22 White Blood Count 8.8 TH/MM3 8.7 TH/MM3 Red Blood Count 4.32 MIL/MM3 4.37 MIL/MM3 Hemoglobin 11.4 GM/DL 11.6 GM/DL Hematocrit 35.0 % 36.0 % Mean Corpuscular Volume 81.2 FL 82.2 FL Mean Corpuscular Hemoglobin 26.4 PG 26.5 PG Mean Corpuscular Hemoglobin Concent 32.5 % 32.2 % Red Cell Distribution Width 18.5 % 18.6 % Platelet Count 216 TH/MM3 237 TH/MM3 Mean Platelet Volume 10.0 FL 9.8 FL Neutrophils (%) (Auto) 74.3 % 75.2 % Lymphocytes (%) (Auto) 10.4 % 10.5 % Monocytes (%) (Auto) 9.0 % 9.1 % Eosinophils (%) (Auto) 5.7 % 4.7 % Basophils (%) (Auto) 0.6 % 0.5 % Neutrophils # (Auto) 6.5 TH/MM3 6.6 TH/MM3 Lymphocytes # (Auto) 0.9 TH/MM3 0.9 TH/MM3 Monocytes # (Auto) 0.8 TH/MM3 0.8 TH/MM3 Eosinophils # (Auto) 0.5 TH/MM3 0.4 TH/MM3 Basophils # (Auto) 0.1 TH/MM3 0.0 TH/MM3 CBC Comment DIFF FINAL DIFF FINAL Differential Comment Laboratory Tests Test 02/10/17 04:35 02/11/17 05:32 Blood Urea Nitrogen 13 MG/DL 13 MG/DL Creatinine 1.32 MG/DL 1.34 MG/DL Random Glucose 103 MG/DL 101 MG/DL Calcium Level 8.3 MG/DL 8.6 MG/DL Phosphorus Level 2.6 MG/DL Magnesium Level 2.2 MG/DL Sodium Level 143 MEQ/L 142 MEQ/L Potassium Level 3.8 MEQ/L 3.8 MEQ/L Chloride Level 109 MEQ/L 110 MEQ/L Carbon Dioxide Level 27.5 MEQ/L 24.6 MEQ/L Anion Gap 7 MEQ/L 7 MEQ/L Estimat Glomerular Filtration Rate 53 ML/MIN 52 ML/MIN Microbiology Date/Time Source Procedure Growth Status 02/10/17 09:00 Sputum Endotracheal Gram Stain - Final Resulted 02/10/17 09:00 Sputum Endotracheal Sputum Culture Pending Resulted Microbiology Date/Time Source Procedure Growth Status 02/10/17 09:00 Sputum Endotracheal Gram Stain Pending Received 02/10/17 09:00 Sputum Endotracheal Sputum Culture Pending Received IMAGING: Chest X-Ray 02/09/17 0000 Signed Impressions: Service Date/Time: Thursday, February 09, 2017 10:33 - CONCLUSION: Increasing consolidative changes left base. Jorje Chi MD FACR Chest Ultrasound 02/09/17 0000 Signed Impressions: Service Date/Time: Thursday, February 09, 2017 14:59 - CONCLUSION: There is no left pleural effusion. Mark Chi MD Chest X-Ray 02/06/17 0000 Signed Impressions: Service Date/Time: Monday, February 06, 2017 07:38 - CONCLUSION: 1. Continued low lung volumes with stable left lower lobe airspace disease. Joni Reina MD PHYSICAL EXAMINATION GENERAL: No acute distress. HEENT: The head is atraumatic. The extraocular movements cannot be fully assessed and the patient cannot cooperate. The sclerae without icterus. Oropharynx slightly dry mucosa without lesions. NECK: Supple. No adenopathy. Tracheostomy in place. HEART: Regular S1-S2 without murmurs. LUNGS: Bilateral rhonchi same. ABDOMEN: Bowel sounds diminished, soft, no tenderness. EXTREMITIES: No clubbing or cyanosis or edema. SKIN: No rash. NEURO: Unable to fully assess. IMPRESSION 1. Pneumonia due to Pseudomonas. Fairly resistant organism. Repeat sputum culture pending. Per discussion with micro the organism has appearance of pseudomonas. 2. Previous blood cultures with coag negative staph likely contaminant. 3. Myasthenia gravis. 4. Chronic respiratory failure. 5. Multiple antibiotic allergies. RECOMMENDATIONS 1. Stop piperacillin/tazobactam. 2. Stop Levaquin. ? wether it is affecting his respiratory status. 3. Start Avycaz. Previous organism tested sensitive to Avycaz. 4. Follow the sputum culture. 4. Monitor temperature. 5. Monitor white blood cell count. 6. Monitor clinical status. D/W RN. Christopher Livingston MD Feb 11, 2017 11:43
--- NOTE | 2017-02-11 13:15 | HHI.CCPN ---
Subjective Remarks/Hospital Course The patient is a 76 year old male with past medical history of myasthenia gravis , dementia, seizure disorder, chronic respiratory failure with previous tracheostomy and percutaneous endoscopic gastrostomy placement. The patient presented to [facility] from local nursing facility for tachycardia and fevers. On arrival he had a temperature of 102.8, in addition the patient was tachycardic and tachypneic. His laboratory data was significant for leukocytosis with a white blood count of 17.6 mild lactic acidemia, lactic acid level 2.6 and acute kidney injury with creatinine level of 1.65. Chest x-ray in the emergency room showed patchy pneumonia on the left. In the emergency department the patient was given three liters of crystalloids in addition to cefepime, Solu-Medrol, bronchodilator treatment. Arterial blood gas was preformed on TP's. Which showed a pH of 7.43, co2 39, pao2 63, bicarbonate 26-91%. 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 Most of the history was obtained by reviewing the medical records as the patient is nonverbal. He also has history of methicillin-resistant Staphylococcus aureus and pseudomonas and pneumonia last year. The patient was do not resuscitate from local half-way. 02/04 No events overnight. On ventilator via trach. Afebrile. 02/05 Patient remains on ventilator via trach. Afebrile. On no sedation. 02/06 No events overnight. Afebrile. Tolerated CPAP all day yesterday. 02/07 No events overnight. Afebrile. 02/08 No events overnight. T;100.0 at 8 am. Having liquid stools. 02/09 Patient remains on ventilator via trach. T:100.0 yesterday 02/10 No events overnight. Afebrile. 02/11: On full vent support now. Low grade fever. On Avycaz per ID. at bedside Objective Vital Signs Date Time Temp Pulse Resp B/P (MAP) Pulse Ox O2 Delivery O2 Flow Rate FiO2 02/11/17 11:19 92 45 02/11/17 11:00 91 02/11/17 11:00 13 112/64 (80) 02/11/17 08:00 100.1 02/08/17 21:00 Bi-Pap Intake and Output 02/11/17 02/11/17 02/12/17 08:00 16:00 00:00 Intake Total 655 ml Output Total 200 ml Balance 455 ml Result Diagram: 02/11/17 0522 02/11/17 0532 Imaging Last Impressions Chest X-Ray 02/09/17 0000 Signed Impressions: Service Date/Time: Thursday, February 09, 2017 10:33 - CONCLUSION: Increasing consolidative changes left base. Jorje Chi MD FACR Chest Ultrasound 02/09/17 0000 Signed Impressions: Service Date/Time: Thursday, February 09, 2017 14:59 - CONCLUSION: There is no left pleural effusion. Mark Chi MD Objective Remarks GENERAL: Patient remains on ventilator via trach. SKIN: Warm and dry. HEAD: Normocephalic. EYES: No scleral icterus. No injection or drainage. NECK: Supple, trachea midline. No JVD or lymphadenopathy. Trach in place CARDIOVASCULAR: Regular rate and rhythm without murmurs, gallops, or rubs. RESPIRATORY: Breath sounds equal bilaterally. No accessory muscle use. GASTROINTESTINAL: Abdomen soft, non-tender, nondistended. MUSCULOSKELETAL: No cyanosis, or edema. Contracted Neuro: On no sedation. Doesn't follow commands. A/P Assessment and Plan 1. Acute on chronic respiratory failure. 2. Left sided pneumonia. 3. Leukocytosis. 4. Acute kidney injury. 5. Mild-elevated troponin. 6. Mild lactic acidemia. 7. Previous trachea and percutaneous endoscopic gastrostomy tube placement. 8. History of Methicillin-resistant Staphylococcus aureus and pseudomonas pneumonia. 9. Dementia/seizure disorder. 10. History of myasthenia gravis. Plan Neuro: On Aricept 10 mg daily., Pyridostigmine 60 mg q six hours. Namenda 10 mg twice a day, CellCept Monitor neuro status closely. Neuro is following- Dr. Longoria Pulm: Continue with ventilator support and maintain sats >92%. Bronchodilators, ICU vent bundle. Pulmonary toilet and trach care. SBT/TP's daily as cally. CV: Monitor HR and BP and maintain MAP > 65 mmHg. Lactic acid level measured at 2.6. Echo showed EF 55-60% : Monitor renal function, intake and output, avoid nephrotoxins. Electrolyte replacement as needed. GI: On Pepcid 20 mg IV q 12 hour for Gl prophylaxis. Tube feeds via PEG tube- TF- Jevity 1.5 @ 45 ml per hour. ID: Continue abx ( Avycaz per ID) . Monitor for signs of infection( fever and WBC) ID is following, check sputum cx today C-diff PCR negative 02/08 Sputum cx 02/03 : Pseudomonas species, Beta strep not Group A. Sputum cx: 02/05: Pseudomonas - resistant org BC 02/03 Staph Epi, GPC.. likely contaminant. 02/04 BC: NGTD Strep pneumonia and legionella urinary antigen negative Heme: Monitor CBC. Endo: SSI with Accuchecks for glycemic control. On Synthroid 50 mcg daily. TSH: 4.5 GI prophylaxis with Pepcid 20 mg q 12 hours and DVT s prophylaxis with SCDs and heparin SQ. Discussed with patient's on 02/03 with patient's nurse (Rodriguez) re code status and she requested to make patient Alternate code( intubation only) She does not want and CPR/chest compression or cardiac resuscitation in case of cardiac arrest. Patient was also DNR at the half-way. Level2 Patience Ayon MD Feb 11, 2017 13:14
[2017-02-11] MEDS: cefTAZidime/AVIBACTAM INJ 2.5 GM in SODIUM CHLORIDE 0.9% INJ 50 ML IV SCH ×2 (14:02→21:43)
--- NOTE | 2017-02-11 17:18 | HHI.PR ---
Subjective Remarks Awake and on A/C rate 12, FIO2 45 %. Has some edema of arms. Tolerates feeds. On Antibiotics per ID. Objective Vital Signs Date Time Temp Pulse Resp B/P (MAP) Pulse Ox O2 Delivery O2 Flow Rate FiO2 02/11/17 16:00 45 02/11/17 16:00 84 02/11/17 16:00 84 24 103/61 (75) 91 02/11/17 15:02 93 45 02/11/17 14:00 91 02/11/17 13:00 90 02/11/17 13:00 90 12 108/55 (72) 92 02/11/17 12:00 45 02/11/17 12:00 93 02/11/17 12:00 98.8 93 23 118/58 (78) 92 02/11/17 11:19 92 45 02/11/17 11:00 91 02/11/17 11:00 91 13 112/64 (80) 95 02/11/17 10:00 89 13 110/59 (76) 92 02/11/17 10:00 89 02/11/17 09:00 101 26 142/97 (112) 96 02/11/17 09:00 101 02/11/17 08:00 89 02/11/17 08:00 45 02/11/17 08:00 100.1 89 18 115/62 (79) 90 02/11/17 07:45 93 45 02/11/17 06:00 86 02/11/17 04:22 93 50 02/11/17 04:00 50 02/11/17 04:00 99.0 88 20 108/62 (77) 93 02/11/17 04:00 88 02/11/17 02:00 91 02/11/17 00:38 95 50 02/11/17 00:00 50 02/11/17 00:00 94 02/11/17 00:00 98.6 94 23 127/69 (88) 93 02/10/17 22:00 95 02/10/17 20:32 94 50 02/10/17 20:00 90 02/10/17 20:00 50 02/10/17 20:00 98.7 90 21 110/60 (77) 92 02/10/17 18:00 92 I/O 11/28/17 11/28/02/10/17 02/11/17 02/11/17 02/11/17 07:00 15:00 23:00 07:00 15:00 23:00 Intake Total 758 ml 250 ml 761 ml 655 ml 100 ml Output Total 925 ml 775 ml 200 ml Balance -167 ml 250 ml -14 ml 455 ml 100 ml IV Total 250 ml 100 ml 100 ml 100 ml Tube Feeding 508 ml 411 ml 555 ml Other 250 ml 250 ml Output Urine Total 925 ml 775 ml 200 ml # Voids 1 # Bowel Movements 1 0 1 Result Diagram: 02/11/1752102/11/17 0532 Objective Remarks GENERAL: This is an elderly man, moderately obese, laying flat. He is awake but does not respond to any commands. HEENT: Head is normocephalic. Pupils are reactive. Sclerae are clear. Tongue was coated. Throat has secretions. Nose and ears have no inflammation. NECK: Supple. No venous distension. Trach site has a few secretions. No lymphadenopathy. CHEST: Decreased excursions with occasional crackles over the lower lung fuetnes and wheezes scattered. HEART: Heart sounds are regular, S1-S2. No murmur. No S3. ABDOMEN: The abdomen is obese, protuberant with a PEG tube in place. Bowel sounds are active. EXTREMITIES: Contracture of the extremities,1 + edema and skin wounds in dependent areas. Peripheral pulses are diminished. 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 RECTAL: Exam is deferred. Assessment and Plan Assessment and Plan IMPRESSION 1. Acute respiratory failure. 2. Sepsis with pneumonia. 3. Acute kidney injury with dehydration. 4. Dementia. 5. History of myasthenia gravis. 6. History of MRSA and Pseudomonas pneumonias. 7. Status post tracheostomy and PEG tube placement. Plan : 1. Wean Fio2 to 40 %, A/C at rate 12. 2. Continue antibiotics for Sepsis. 3. Nebs qid , Duoneb. 4. Tube feeds at 50 CC. 5. CBC,CXR BMP in am. 6. Cont to try on CPAP daily. 7. PT evaluation. Carol Griffin MD Feb 11, 2017 17:18
[2017-02-12] VITALS (23 sets, daily range): BP systolic 114–150; BP diastolic 58–78; PULSE 68–111; RESP 17–28; TEMP 97.9–99.5; O2SAT 88–97
[2017-02-12] MEDS: PYRIDOSTIGMINE BROMIDE 60 MG TAB PO SCH ×4 (01:40→18:11)
[2017-02-12] MEDS: CHLORHEXIDINE GLUCONATE 2 % 1 PACK (2 CLOTHS) TOP SCH (04:00)
--- NOTE | 2017-02-12 05:40 | RADRPT ---
EXAM DATE/TIME: 02/12/2017 03:57 [place] COMPARISON: CHEST SINGLE AP, February 09, 2017, 10:33. INDICATIONS : Shortness of breath, possible pulmonary disease. MEDICAL HISTORY : Hypertension. Dementia SURGICAL HISTORY : Tracheostomy ENCOUNTER: Subsequent ACUITY: 1 week PAIN SCORE: Non-responsive. LOCATION: Bilateral chest FINDINGS: The tracheostomy tube is in good position. There is increased density at the left base. There is silh ouetting the left hemidiaphragm. The right lung is grossly clear. The left heart border is silhouette d. CONCLUSION: Left base consolidation or atelectasis. Gabo Davis MD on February 12, 2017 at 5:38 Board Certified Radiologist. This report was verified electronically.
[2017-02-12] MEDS: cefTAZidime/AVIBACTAM INJ 2.5 GM in SODIUM CHLORIDE 0.9% INJ 50 ML IV SCH ×3 (05:44→15:22)
[2017-02-12] MEDS: LEVOTHYROXINE SODIUM 50 MCG TAB G-TUBE SCH (05:44)
[2017-02-12 06:54] LABS: AUTOMATED NEUTROPHIL # 6.7 TH/MM3 (1.8-7.7); BASOPHIL % 0.4 % (0.0-2.0); EOSINOPHIL # 0.4 TH/MM3 (0-0.4); EOSINOPHIL % 4.5 % (0.0-4.0); HEMATOCRIT 36.1 % (39.0-51.0); HEMO FLAGS DIFF FINAL; LYMPHOCYTE # 0.9 TH/MM3 (1.0-4.8); MEAN CELL VOLUME 81.9 FL (80.0-100.0); MEAN CORPUSCULAR HEMOGLOBIN 26.3 PG (27.0-34.0); MEAN CORPUSCULAR HGB CONC 32.1 % (32.0-36.0); MONO % 7.9 % (0.0-8.0); NEUT % 77.2 % (16.0-70.0); PLATELET COUNT 237 TH/MM3 (150-450); RED BLOOD COUNT 4.41 MIL/MM3 (4.50-5.90); RED CELL DISTRIBUTION WIDTH 18.6 % (11.6-17.2); WHITE BLOOD COUNT 8.7 TH/MM3 (4.0-11.0)
[2017-02-12 07:12] LABS: ANION GAP 4 MEQ/L (5-15); AST (GOT) 10 U/L (15-37); BICARBONATE 28.2 MEQ/L (21.0-32.0); BLOOD UREA NITROGEN 14 MG/DL (7-18); CHLORIDE 110 MEQ/L (98-107); GLOMERULAR FILTRATION RATE 58 ML/MIN (>89); POTASSIUM 4.2 MEQ/L (3.5-5.1); SODIUM (NA) 142 MEQ/L (136-145)
[2017-02-12] MEDS: INSULIN NovoLIN REGULAR SUPPLEMENTAL SCALE SQ SCH ×3 (07:15→19:15)
[2017-02-12 07:17] LABS: ALKALINE PHOSPHATASE 69 U/L (45-117); ALT (GPT) 15 U/L (12-78); TOTAL BILIRUBIN ADULT 0.2 MG/DL (0.2-1.0)
[2017-02-12] MEDS: RESP: ALBUTEROL 2.5 MG/IPRATROPIUM 0.5 MG NEB (SCH) NEB ×2 (07:50→12:10)
[2017-02-12] MEDS: HEPARIN SODIUM - SQ 10,000 UNITS/ML VIAL SQ SCH (08:00)
[2017-02-12] MEDS: MYCOPHENOLATE MOFETIL 200 MG/ML 175 ML BOTTLE PO SCH ×3 (08:23→18:00)
[2017-02-12] MEDS: MEMANTINE HCL 10 MG TAB G-TUBE SCH ×2 (08:23→21:15)
[2017-02-12] MEDS: FAMOTIDINE 20 MG/2 ML VIAL IV PUSH SCH ×2 (08:23→21:15)
--- NOTE | 2017-02-12 11:23 | HHI.IDPN ---
Note Infectious Disease Note Patient on the vent. Non verbal. Afebrile. New sputum culture has pseudomonas. reports that he cannot take many antibiotics because of effects on diaphragm muscles and affecting breathing. 76-year-old white male with history of myasthenia gravis. The patient was seen in the emergency department after he was brought in with fever and tachycardia. He was intubated and is currently on the ventilator. The patient has a tracheostomy and also PEG. He had mild lactic acidemia on admission. Cultures of the sputum grew Pseudomonas aeruginosa and beta strep not group A on 02/03. PAST MEDICAL HISTORY Dementia, chronic respiratory failure. Myasthenia gravis, history of tracheostomy, history of hip repair. Multiple antibiotic allergies. Seizure disorder, history of tonsillectomy, history of hernia repair. ALLERGIES CIPROFLOXACIN, TOBRAMYCIN, DILANTIN, NEOMYCIN, LITHIUM, BOTULINUM TOXIN A, TIMOLOL, VANCOMYCIN, VERAPAMIL, RISPERIDONE, IOHEXOL, IODIXANOL, HALOPERIDOL, GADOTERIDOL, GADODIAMIDE, DIATRIZOATE MEGLUMINE, THIOPENTAL, HYDROCODONE, ACETAMINOPHEN IODINATED CONTRAST. MEDICATIONS Current Medications Medications (Trade) Dose Ordered Sig/Maddie Route PRN Reason Start Time Stop Time Status Last Admin Dose Admin Albuterol/ Ipratropium (Duoneb Neb) 1 ampule Q2HR NEB PRN INH WHEEZING 02/03/17 07:15 Heparin Sodium (Porcine) (Heparin Inj) 5,000 units Q12H SQ 02/03/17 08:00 02/11/17 21:43 Miscellaneous Information 1 Q361D XX 02/03/17 07:15 Chlorhexidine Gluconate (Chlorhexidine 2% Cloth) Taper DAILY@04 TOP 02/04/17 04:00 01/31/18 03:59 02/11/17 04:49 Chlorhexidine Gluconate (Chlorhexidine 2% Cloth) 3 pack UNSCH PRN TOP HYGIENIC CARE 02/03/17 07:15 Dextrose (D50w (Vial) Inj) 50 ml UNSCH PRN IV PUSH HYPOGLYCEMIA-SEE COMMENTS 02/03/17 07:15 Glucagon (Glucagon Inj) 1 mg UNSCH PRN OTHER HYPOGLYCEMIA-SEE COMMENTS 02/03/17 07:15 Levothyroxine Sodium (Synthroid) 50 mcg DAILY@0600 G-TUBE 02/03/17 09:15 02/12/17 05:44 Memantine (Namenda) 10 mg BID G-TUBE 02/03/17 09:15 02/12/17 08:23 Pyridostigmine [place] (Mestinon) 60 mg Q6HR PO 02/03/17 12:00 02/12/17 05:44 Mycophenolate Mofetil (Cellcept Liq) 500 mg TID PO 02/04/17 10:00 02/12/17 08:23 Potassium Chloride 100 ml @ 50 mls/hr Q2H PRN IV-CENTRAL For Potassium 2.8 - 3.2 mEq/L 02/04/17 07:45 Potassium Chloride 100 ml @ 50 mls/hr Q2H PRN IV For Potassium 2.8 - 3.2 mEq/L 02/04/17 07:45 Potassium Bicarb/ Potassium Chloride (K-Lyte Cl Eff) 50 meq UNSCH PRN PO For Potassium 3.3 - 3.5 mEq/L 02/04/17 07:45 Potassium Chloride 100 ml @ 25 mls/hr UNSCH PRN IV-CENTRAL For Potassium 3.3 - 3.5 mEq/L 02/04/17 07:45 Potassium Chloride 100 ml @ 50 mls/hr Q2H PRN IV For Potassium 3.3 - 3.5 mEq/L 02/04/17 07:45 Magnesium Sulfate 4 gm/Sodium Chloride 100 ml @ 50 mls/hr UNSCH PRN IV For Magnesium 0.9 - 1.1 mg/dL 02/04/17 07:45 Magnesium Oxide (Mag-Ox) 800 mg UNSCH PRN PO For Magnesium 1.2 - 1.6 mg/dL 02/04/17 07:45 Magnesium Sulfate 2 gm/Sodium Chloride 100 ml @ 50 mls/hr UNSCH PRN IV For Magnesium 1.2 - 1.6 mg/dL 02/04/17 07:45 Potassium Phosphate (K-Phos) 2,000 mg Q4H PRN PO For Phosphorus < 2.5 mg/dL 02/04/17 07:45 Sodium Phosphate 30 mmol/Sodium Chloride 250 ml @ 42 mls/hr UNSCH PRN IV For Phosphorus < 2.5 mg/dL 02/04/17 07:45 02/09/17 18:52 Potassium Phosphate (K-Phos) 2,000 mg UNSCH PRN PO/TUBE SEE LABEL COMMENTS 02/04/17 07:45 Potassium Phosphate 30 mmol/ Sodium Chloride 260 ml @ 42 mls/hr UNSCH PRN IV SEE LABEL COMMENTS 02/04/17 07:45 02/05/17 09:29 Famotidine (Pepcid Inj) 20 mg Q12HR IV PUSH 02/05/17 21:00 02/12/17 08:23 Insulin Human Regular (NovoLIN R SUPPLEMENTAL SCALE) 1 Q6H SQ 02/06/17 13:15 Albuterol/ Ipratropium (Duoneb Neb) 1 ampule Q6HR WHILE AWAKE NEB NEB 02/08/17 14:00 02/12/17 07:50 Ceftazidime/ Avibactam 2.5 gm/ Sodium Chloride 50 ml @ 25 mls/hr Q8H IV 02/11/17 13:00 02/12/17 16:00 02/12/17 05:44 Ceftolozane/ Tazobactam 1500 mg/Sodium Chloride 100 ml @ 100 mls/hr Q8H IV 02/12/17 21:00 SOCIAL HISTORY The patient is . No tobacco. No alcohol. No illicit drugs. OBJECTIVE: Vital Signs Date Time Temp Pulse Resp B/P (MAP) Pulse Ox O2 Delivery O2 Flow Rate FiO2 02/11/17 11:19 92 45 02/11/17 11:00 91 02/11/17 11:00 91 13 112/64 (80) 95 02/11/17 10:00 89 13 110/59 (76) 92 02/11/17 10:00 89 02/11/17 09:00 101 26 142/97 (112) 96 02/11/17 09:00 101 02/11/17 08:00 89 02/11/17 08:00 45 02/11/17 08:00 100.1 89 18 115/62 (79) 90 02/11/17 07:45 93 45 02/11/17 06:00 86 02/11/17 04:22 93 50 02/11/17 04:00 50 02/11/17 04:00 99.0 88 20 108/62 (77) 93 02/11/17 04:00 88 02/11/17 02:00 91 02/11/17 00:38 95 50 02/11/17 00:00 50 02/11/17 00:00 94 02/11/17 00:00 98.6 94 23 127/69 (88) 93 02/10/17 22:00 95 02/10/17 20:32 94 50 02/10/17 20:00 90 02/10/17 20:00 50 02/10/17 20:00 98.7 90 21 110/60 (77) 92 02/10/17 18:00 92 02/10/17 16:00 98.4 90 17 120/66 (84) 94 02/10/17 16:00 50 02/10/17 16:00 90 02/10/17 15:41 96 50 02/10/17 14:00 91 02/10/17 12:19 93 50 02/10/17 12:00 99.1 93 26 110/78 (89) 95 02/10/17 12:00 50 02/10/17 12:00 93 Laboratory Tests Test 02/11/17 05:22 02/12/17 06:13 White Blood Count 8.7 TH/MM3 8.7 TH/MM3 Red Blood Count 4.37 MIL/MM3 4.41 MIL/MM3 Hemoglobin 11.6 GM/DL 11.6 GM/DL Hematocrit 36.0 % 36.1 % Mean Corpuscular Volume 82.2 FL 81.9 FL Mean Corpuscular Hemoglobin 26.5 PG 26.3 PG Mean Corpuscular Hemoglobin Concent 32.2 % 32.1 % Red Cell Distribution Width 18.6 % 18.6 % Platelet Count 237 TH/MM3 237 TH/MM3 Mean Platelet Volume 9.8 FL 9.2 FL Neutrophils (%) (Auto) 75.2 % 77.2 % Lymphocytes (%) (Auto) 10.5 % 10.0 % Monocytes (%) (Auto) 9.1 % 7.9 % Eosinophils (%) (Auto) 4.7 % 4.5 % Basophils (%) (Auto) 0.5 % 0.4 % Neutrophils # (Auto) 6.6 TH/MM3 6.7 TH/MM3 Lymphocytes # (Auto) 0.9 TH/MM3 0.9 TH/MM3 Monocytes # (Auto) 0.8 TH/MM3 0.7 TH/MM3 Eosinophils # (Auto) 0.4 TH/MM3 0.4 TH/MM3 Basophils # (Auto) 0.0 TH/MM3 0.0 TH/MM3 CBC Comment DIFF FINAL DIFF FINAL Differential Comment Laboratory Tests Test 02/11/17 05:32 02/12/17 06:13 Blood Urea Nitrogen 13 MG/DL 14 MG/DL Creatinine 1.34 MG/DL 1.21 MG/DL Random Glucose 101 MG/DL 90 MG/DL Calcium Level 8.6 MG/DL 8.5 MG/DL Sodium Level 142 MEQ/L 142 MEQ/L Potassium Level 3.8 MEQ/L 4.2 MEQ/L Chloride Level 110 MEQ/L 110 MEQ/L Carbon Dioxide Level 24.6 MEQ/L 28.2 MEQ/L Anion Gap 7 MEQ/L 4 MEQ/L Estimat Glomerular Filtration Rate 52 ML/MIN 58 ML/MIN Total Protein 6.2 GM/DL Albumin 2.3 GM/DL Alkaline Phosphatase 69 U/L Aspartate Amino Transf (AST/SGOT) 10 U/L Alanine Aminotransferase (ALT/SGPT) 15 U/L Total Bilirubin 0.2 MG/DL Microbiology Date/Time Source Procedure Growth Status 02/10/17 09:00 Sputum Endotracheal Gram Stain - Final Resulted 02/10/17 09:00 Sputum Culture - Preliminary Pseudomonas Species Resulted IMAGING: Chest X-Ray 02/12/17 0600 Signed Impressions: Service Date/Time: January 03:57 - CONCLUSION: Left base consolidation or atelectasis. Gabo Davis MD Chest X-Ray 02/09/17 0000 Signed Impressions: Service Date/Time: Thursday, February 09, 2017 10:33 - CONCLUSION: Increasing consolidative changes left base. Jorje Chi MD FACR Chest Ultrasound 02/09/17 0000 Signed Impressions: Service Date/Time: Thursday, February 09, 2017 14:59 - CONCLUSION: There is no left pleural effusion. Mark Chi MD Chest X-Ray 02/06/17 0000 Signed Impressions: Service Date/Time: Monday, February 06, 2017 07:38 - CONCLUSION: 1. Continued low lung volumes with stable left lower lobe airspace disease. Joni Reina MD PHYSICAL EXAMINATION GENERAL: No acute distress. HEENT: The head is atraumatic. The extraocular movements cannot be fully assessed and the patient cannot cooperate. No icterus. Oropharynx slightly dry mucosa without lesions. NECK: Supple. No adenopathy. Tracheostomy in place. HEART: Regular S1-S2 without murmurs. LUNGS: Bilateral rhonchi. ABDOMEN: (+) Bowel sounds, soft, no tenderness. EXTREMITIES: No clubbing or cyanosis or edema. SKIN: No rash. NEURO: Unable to fully assess. IMPRESSION 1. Pneumonia due to Pseudomonas. Fairly resistant organism. Repeat sputum culture has pseudomonas. Sensitivity pending. 2. Previous blood cultures with coag negative staph likely contaminant. 3. Myasthenia gravis. 4. Chronic respiratory failure. 5. Multiple antibiotic allergies. RECOMMENDATIONS 1. Continue Zerbaxa. Started today. 2. Stop Avycaz. (Per ASP less effective.) 3. Follow the sputum culture. 4. Monitor temperature. 5. Monitor clinical status. Christopher Livingston MD Feb 12, 2017 11:23
--- NOTE | 2017-02-12 13:01 | HHI.PR ---
Subjective Remarks Awake and on A/C rate 12, FIO2 50 %. Was congested this am. Tolerates feeds. On Antibiotics per ID. Objective Vital Signs Date Time Temp Pulse Resp B/P (MAP) Pulse Ox O2 Delivery O2 Flow Rate FiO2 02/12/17 12:07 95 55 02/12/17 12:00 45 02/12/17 12:00 97 27 93 02/12/17 10:00 109 27 89 02/12/17 10:00 109 02/12/17 09:24 107 02/12/17 09:24 107 28 114/58 (76) 88 02/12/17 09:00 99 17 93 02/12/17 09:00 99 02/12/17 08:00 45 02/12/17 08:00 73 02/12/17 08:00 97.9 73 21 116/59 (78) 93 02/12/17 07:50 92 45 02/12/17 06:00 84 02/12/17 06:00 45 02/12/17 04:00 98.9 84 27 141/78 (99) 97 02/12/17 04:00 94 45 02/12/17 02:00 68 02/12/17 00:15 94 45 02/12/17 00:00 45 02/12/17 00:00 99.5 81 18 150/71 (97) 93 02/12/17 00:00 81 02/11/17 20:16 93 45 02/11/17 20:00 98.0 74 15 108/65 (79) 02/11/17 20:00 45 02/11/17 18:00 80 02/11/17 16:00 45 02/11/17 16:00 84 02/11/17 16:00 84 24 103/61 (75) 91 02/11/17 15:02 93 45 02/11/17 14:00 91 I/O 02/11/17 02/11/17 02/11/17 02/12/17 02/12/17 02/12/17 07:00 15:00 23:00 07:00 15:00 23:00 Intake Total 655 ml 100 ml 885 ml 53 ml Output Total 200 ml 400 ml Balance 455 ml 100 ml 485 ml 53 ml IV Total 100 ml 100 ml 105 ml 53 ml Tube Feeding 555 ml 480 ml Other 300 ml Output Urine Total 200 ml 400 ml # Voids 1 3 # Bowel Movements 1 4 Result Diagram: 02/12/1761202/12/17612 Objective Remarks GENERAL: This is an elderly man, moderately obese, laying flat. He is awake but does not respond to any commands. HEENT: Head is normocephalic. Pupils are reactive. Sclerae are clear. Tongue was coated. Throat has secretions. Nose and ears have no inflammation. NECK: Supple. No venous distension. Trach site clear No lymphadenopathy. CHEST: Decreased excursions with occasional crackles over the lower lung fuentes and wheezes scattered. HEART: Heart sounds are regular, S1-S2. No murmur. No S3. ABDOMEN: The abdomen is obese, protuberant with a PEG tube in place. Bowel sounds are active. EXTREMITIES: Contracture of the extremities,1 + edema and skin wounds in dependent areas. Peripheral pulses are diminished. 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 RECTAL: Exam is deferred. Assessment and Plan Assessment and Plan IMPRESSION 1. Acute respiratory failure. 2. Sepsis with pneumonia. 3. Acute kidney injury with dehydration. 4. Dementia. 5. History of myasthenia gravis. 6. History of MRSA and Pseudomonas pneumonias. 7. Status post tracheostomy and PEG tube placement. Plan : 1. Wean Fio2 to 40 %, A/C at rate 12. 2. Continue antibiotics for Sepsis. 3. Nebs qid , Duoneb. 4. Tube feeds at 55 CC. 5. CBC, BMP in am. 6. Cont to try on CPAP for 2 hrs daily. 7. PT evaluation. Carol Griffin MD Feb 12, 2017 13:01
--- NOTE | 2017-02-12 14:01 | HHI.CCPN ---
Subjective Remarks/Hospital Course The patient is a 76 year old male with past medical history of myasthenia gravis , dementia, seizure disorder, chronic respiratory failure with previous tracheostomy and percutaneous endoscopic gastrostomy placement. The patient presented to [facility] from local nursing facility for tachycardia and fevers. On arrival he had a temperature of 102.8, in addition the patient was tachycardic and tachypneic. His laboratory data was significant for leukocytosis with a white blood count of 17.6 mild lactic acidemia, lactic acid level 2.6 and acute kidney injury with creatinine level of 1.65. Chest x-ray in the emergency room showed patchy pneumonia on the left. In the emergency department the patient was given three liters of crystalloids in addition to cefepime, Solu-Medrol, bronchodilator treatment. Arterial blood gas was preformed on TP's. Which showed a pH of 7.43, co2 39, pao2 63, bicarbonate 26-91%. 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 Most of the history was obtained by reviewing the medical records as the patient is nonverbal. He also has history of methicillin-resistant Staphylococcus aureus and pseudomonas and pneumonia last year. The patient was do not resuscitate from local [facility]. 02/04 No events overnight. On ventilator via trach. Afebrile. 02/05 Patient remains on ventilator via trach. Afebrile. On no sedation. 02/06 No events overnight. Afebrile. Tolerated CPAP all day yesterday. 02/07 No events overnight. Afebrile. 02/08 No events overnight. T;100.0 at 8 am. Having liquid stools. 02/09 Patient remains on ventilator via trach. T:100.0 yesterday 02/10 No events overnight. Afebrile. 02/11: On full vent support now. Low grade fever. On Avycaz per ID. at bedside 02/12: Clinically worsening with increasing oxygen requirement desaturating with 55% FiO2. I have increase PEEP to 10 and titrate oxygen as needed. The sputum Pseudomonas resistant to cefepime and Zosyn, ID has started Zerbaxa today Objective Vital Signs Date Time Temp Pulse Resp B/P (MAP) Pulse Ox O2 Delivery O2 Flow Rate FiO2 02/12/17 12:07 95 55 02/12/17 12:00 97 27 02/12/17 09:24 114/58 (76) 02/12/17 08:00 97.9 02/08/17 21:00 Bi-Pap Intake and Output 02/12/17 02/12/17 02/13/17 08:00 16:00 00:00 Intake Total 53 ml Balance 53 ml Result Diagram: 02/12/17 0613 02/12/17 0613 Imaging Last Impressions Chest X-Ray 02/09/17 0000 Signed Impressions: Service Date/Time: Thursday, February 09, 2017 10:33 - CONCLUSION: Increasing consolidative changes left base. Jorje Chi MD FACR Chest Ultrasound 02/09/17 0000 Signed Impressions: Service Date/Time: Thursday, February 09, 2017 14:59 - CONCLUSION: There is no left pleural effusion. Mark Chi MD Objective Remarks GENERAL: Patient remains on ventilator via trach. Increasing oxygen requirement SKIN: Warm and dry. HEAD: Normocephalic. EYES: No scleral icterus. No injection or drainage. NECK: Supple, trachea midline. No JVD or lymphadenopathy. Trach in place CARDIOVASCULAR: Regular rate and rhythm without murmurs, gallops, or rubs. RESPIRATORY: Breath sounds equal bilaterally, diminished at the bases. No accessory muscle use. GASTROINTESTINAL: Abdomen soft, non-tender, nondistended. MUSCULOSKELETAL: No cyanosis, or edema. Contracted Neuro: On no sedation. Doesn't follow commands. No Spontaneous moments noted A/P Assessment and Plan 1. Acute on chronic respiratory failure. 2. Left sided pneumonia with resistant Pseudomonas 3. Severe sepsis 4. Acute kidney injury. 5. Mild-elevated troponin. 6. Mild lactic acidemia. 7. Previous trachea and percutaneous endoscopic gastrostomy tube placement. 8. History of Methicillin-resistant Staphylococcus aureus and pseudomonas pneumonia. 9. Dementia/seizure disorder. 10. History of myasthenia gravis. Plan Neuro: On Aricept 10 mg daily., Pyridostigmine 60 mg q six hours. Namenda 10 mg twice a day, CellCept Monitor neuro status closely. Neuro is following- Dr. Longoria Pulm: Continue with ventilator support and maintain sats >92%. Bronchodilators, ICU vent bundle. PEEP Increased attempted to maintain oxygen saturation. Severe hypoxia is due to multidrug-resistant Pseudomonas pneumonia Pulmonary toilet and trach care. SBT/TP's daily as cally. CV: Monitor HR and BP and maintain MAP > 65 mmHg. Lactic acid level measured at 2.6. Echo showed EF 55-60% : Monitor renal function, intake and output, avoid nephrotoxins. Electrolyte replacement as needed. GI: On Pepcid 20 mg IV q 12 hour for Gl prophylaxis. Tube feeds via PEG tube- TF- Jevity 1.5 @ 45 ml per hour. ID: Avycaz DCd and Zerbaxa started per ID antibiogram C-diff PCR negative 02/08 Sputum cx 02/03 : Pseudomonas species, Beta strep not Group A. Sputum cx: 02/05: Pseudomonas - resistant org Sputum 02/10 Pseudomonas sensitivities pending BC 02/03 Staph Epi, Staph hominis. likely contaminant. 02/04 BC: NGTD Strep pneumonia and legionella urinary antigen negative Heme: Monitor CBC. Endo: SSI with Accuchecks for glycemic control. On Synthroid 50 mcg daily. TSH: 4.5 GI prophylaxis with Pepcid 20 mg q 12 hours and DVT s prophylaxis with SCDs and heparin SQ. Discussed with patient's on 02/03 with patient's nurse (Rodriguez) re code status and she requested to make patient Alternate code( intubation only) She does not want and CPR/chest compression or cardiac resuscitation in case of cardiac arrest. Patient was also DNR at the prison. CCT 35: Patients clinical condition is worsening with severe hypoxemic respiratory failure. FiO2 was increased to 55% and PEEP increased to 10. Worsening seems to be secondary to persistent Pseudomonas pneumonia Patience Ayon MD Feb 12, 2017 14:01
[2017-02-12] MEDS: CEFTOLOZANE TAZOBACTAM IV SCH ×2 (21:16)
[2017-02-12] MEDS: NS IV SCH ×2 (21:16)
[2017-02-13] VITALS (17 sets, daily range): BP systolic 108–128; BP diastolic 55–68; PULSE 60–84; RESP 15–26; TEMP 98–100; O2SAT 90–98
[2017-02-13] MEDS: INSULIN NovoLIN REGULAR SUPPLEMENTAL SCALE SQ SCH ×4 (01:15→20:43)
[2017-02-13] MEDS: PYRIDOSTIGMINE BROMIDE 60 MG TAB PO SCH ×4 (01:54→17:24)
--- NOTE | 2017-02-13 03:43 | RADRPT ---
EXAM DATE/TIME: 02/13/2017 02:22 [facility] COMPARISON: CHEST SINGLE AP, February 09, 2017, 10:33CHEST SINGLE AP, February 12, 2017, 3:57. INDICATIONS : Evaluate for pneumonia- Respiratopry failure MEDICAL HISTORY : Hypertension. SURGICAL HISTORY : Tracheostomy ENCOUNTER: Subsequent ACUITY: 2 days PAIN SCORE: Non-responsive. LOCATION: Bilateral chest FINDINGS: Portable AP view of the chest demonstrates a normal-sized cardiac silhouette. Tracheostomy remains pr esent. Patient is rotated and underinflated and there is airspace consolidation at the left lung base . No pneumothorax or definite effusion is identified. Bones and soft tissues demonstrate no acute fin ding. CONCLUSION: Stable chest x-ray with left basilar opacity likely representing airspace consolidation. Gabo Kirby MD on February 13, 2017 at 3:40 Board Certified Radiologist. This report was verified electronically.
[2017-02-13] MEDS: CHLORHEXIDINE GLUCONATE 2 % 1 PACK (2 CLOTHS) TOP SCH (04:00)
[2017-02-13] MEDS: NS IV SCH ×6 (06:11→20:43)
[2017-02-13] MEDS: CEFTOLOZANE TAZOBACTAM IV SCH ×6 (06:11→20:43)
[2017-02-13] MEDS: LEVOTHYROXINE SODIUM 50 MCG TAB G-TUBE SCH (06:12)
[2017-02-13] MEDS: MYCOPHENOLATE MOFETIL 200 MG/ML 175 ML BOTTLE PO SCH ×3 (07:59→17:24)
[2017-02-13] MEDS: MEMANTINE HCL 10 MG TAB G-TUBE SCH ×2 (08:00→20:43)
[2017-02-13] MEDS: FAMOTIDINE 20 MG/2 ML VIAL IV PUSH SCH (08:00)
[2017-02-13] MEDS: HEPARIN SODIUM - SQ 10,000 UNITS/ML VIAL SQ SCH ×2 (12:21→20:43)
--- NOTE | 2017-02-13 16:14 | HHI.IDPN ---
Subjective Subjective Remarks ID x cover for Dr Streeter chart was reviewed 76 yo male with myastenia gravis and chronic resp failure, dementia he has MDRO PSAE Antibiotics Zerbaxa Allergies: Coded Allergies: hydrocodone (Unverified Allergy, Severe, SENDS PT INTO MYASTHNIA GRAVIS CRISIS, 02/03/17) thiopental (Unverified Allergy, Severe, Shortness of Breath, 02/03/17) SODIUM PENTOTHAL diatrizoate meglumine (Unverified Allergy, Unknown, 02/03/17) gadobenic acid (Unverified Allergy, Unknown, 02/03/17) gadodiamide (Unverified Allergy, Unknown, 02/03/17) gadoteridol (Unverified Allergy, Unknown, 02/03/17) haloperidol (Unverified Allergy, Unknown, 02/03/17) iodixanol (Unverified Allergy, Unknown, 02/03/17) iohexol (Unverified Allergy, Unknown, 02/03/17) onion (Unverified Allergy, Unknown, 02/03/17) risperidone (Unverified Allergy, Unknown, 02/03/17) Iodinated Contrast- Oral and IV Dye (Unverified Adverse Reaction, Severe, Anaphylaxis, 02/03/17) bee venom protein (honey bee) (Unverified Adverse Reaction, Severe, Anaphylaxis, 02/03/17) ciprofloxacin (Unverified Adverse Reaction, Severe, Anaphylaxis, 02/03/17) neomycin (Unverified Adverse Reaction, Severe, Anaphylaxis, 02/03/17) phenytoin (Unverified Adverse Reaction, Severe, Anaphylaxis, 02/03/17) tobramycin (Unverified Adverse Reaction, Severe, Respiratory Failure, ) acetaminophen (Unverified Adverse Reaction, Unknown, SENDS PT INTO MYASTHNIA GRAVIS CRISIS, 02/08/17) gentamicin (Unverified Adverse Reaction, Unknown, 02/03/17) lithium (Unverified Adverse Reaction, Unknown, 02/03/17) onabotulinumtoxinA (Unverified Adverse Reaction, Unknown, 02/03/17) timolol (Unverified Adverse Reaction, Unknown, 02/03/17) vancomycin (Unverified Adverse Reaction, Unknown, 02/03/17) verapamil (Unverified Adverse Reaction, Unknown, 02/03/17) Objective . Vital Signs Date Time Temp Pulse Resp B/P (MAP) Pulse Ox O2 Delivery O2 Flow Rate FiO2 02/13/17 14:00 75 02/13/17 12:13 91 50 02/13/17 12:00 98.8 80 17 111/55 (73) 92 02/13/17 12:00 50 02/13/17 12:00 80 02/13/17 10:00 82 02/13/17 08:00 50 02/13/17 08:00 80 02/13/17 08:00 100.0 80 20 124/68 (86) 90 02/13/17 07:32 90 50 02/13/17 06:00 78 02/13/17 04:15 97 50 02/13/17 04:00 79 02/13/17 04:00 99.2 79 20 117/64 (81) 92 02/13/17 04:00 50 02/13/17 02:00 75 02/13/17 00:00 50 02/13/17 00:00 76 02/13/17 00:00 99.5 76 26 116/60 (78) 98 02/12/17 23:37 96 50 02/12/17 22:00 88 02/12/17 20:00 88 02/12/17 20:00 98.1 70 18 130/68 (88) 97 02/12/17 20:00 50 02/12/17 19:02 95 50 02/12/17 18:06 101 02/12/17 18:00 101 . Laboratory Tests Test 02/12/17 06:13 White Blood Count 8.7 TH/MM3 Red Blood Count 4.41 MIL/MM3 Hemoglobin 11.6 GM/DL Hematocrit 36.1 % Mean Corpuscular Volume 81.9 FL Mean Corpuscular Hemoglobin 26.3 PG Mean Corpuscular Hemoglobin Concent 32.1 % Red Cell Distribution Width 18.6 % Platelet Count 237 TH/MM3 Mean Platelet Volume 9.2 FL Neutrophils (%) (Auto) 77.2 % Lymphocytes (%) (Auto) 10.0 % Monocytes (%) (Auto) 7.9 % Eosinophils (%) (Auto) 4.5 % Basophils (%) (Auto) 0.4 % Neutrophils # (Auto) 6.7 TH/MM3 Lymphocytes # (Auto) 0.9 TH/MM3 Monocytes # (Auto) 0.7 TH/MM3 Eosinophils # (Auto) 0.4 TH/MM3 Basophils # (Auto) 0.0 TH/MM3 CBC Comment DIFF FINAL Differential Comment Laboratory Tests Test 02/12/17 06:13 Blood Urea Nitrogen 14 MG/DL Creatinine 1.21 MG/DL Random Glucose 90 MG/DL Total Protein 6.2 GM/DL Albumin 2.3 GM/DL Calcium Level 8.5 MG/DL Alkaline Phosphatase 69 U/L Aspartate Amino Transf (AST/SGOT) 10 U/L Alanine Aminotransferase (ALT/SGPT) 15 U/L Total Bilirubin 0.2 MG/DL Sodium Level 142 MEQ/L Potassium Level 4.2 MEQ/L Chloride Level 110 MEQ/L Carbon Dioxide Level 28.2 MEQ/L Anion Gap 4 MEQ/L Estimat Glomerular Filtration Rate 58 ML/MIN Imaging Last Impressions Chest X-Ray 02/13/17 0600 Signed Impressions: Service Date/Time: Monday, February 13, 2017 02:22 - CONCLUSION: Stable chest x-ray with left basilar opacity likely representing airspace consolidation. Gabo Kirby MD Chest Ultrasound 02/09/17 0000 Signed Impressions: Service Date/Time: Thursday, February 09, 2017 14:59 - CONCLUSION: There is no left pleural effusion. Mark Chi MD Physical Exam GENERAL: No acute distress. HEENT: The head is atraumatic. The extraocular movements cannot be fully assessed and the patient cannot cooperate. No icterus. Oropharynx slightly dry mucosa without lesions. NECK: Supple. No adenopathy. Tracheostomy in place with some sputum in it HEART: Regular S1-S2 without murmurs. LUNGS: Bilateral rhonchi. ABDOMEN: (+) Bowel sounds, soft, no tenderness. EXTREMITIES: No clubbing or cyanosis or edema. SKIN: No rash. NEURO: opens eyes; not following commands, not moving spontaneously Assessment & Plan Remarks IMPRESSION 1. Pneumonia due to Pseudomonas, MDRO growing 2nd GNB - Zerbaxa ADRIAN is < 2 Repeat sputum culture has pseudomonas. Sensitivity pending. 2. Previous blood cultures with coag negative staph likely contaminant. 3. Myasthenia gravis. 4. Chronic respiratory failure. 5. Multiple antibiotic allergies. RECOMMENDATIONS 1. Continue Zerbaxa. Started today. 2. Follow the sputum culture, 2nd GNB Hilda Cerda RN, MD Feb 13, 2017 16:14
--- NOTE | 2017-02-13 16:50 | HHI.CCPN ---
Subjective Remarks/Hospital Course The patient is a 76 year old male with past medical history of myasthenia gravis , dementia, seizure disorder, chronic respiratory failure with previous tracheostomy and percutaneous endoscopic gastrostomy placement. The patient presented to [facility] from local nursing facility for tachycardia and fevers. On arrival he had a temperature of 102.8, in addition the patient was tachycardic and tachypneic. His laboratory data was significant for leukocytosis with a white blood count of 17.6 mild lactic acidemia, lactic acid level 2.6 and acute kidney injury with creatinine level of 1.65. Chest x-ray in the emergency room showed patchy pneumonia on the left. In the emergency department the patient was given three liters of crystalloids in addition to cefepime, Solu-Medrol, bronchodilator treatment. Arterial blood gas was preformed on TP's. Which showed a pH of 7.43, co2 39, pao2 63, bicarbonate 26-91%. 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 Most of the history was obtained by reviewing the medical records as the patient is nonverbal. He also has history of methicillin-resistant Staphylococcus aureus and pseudomonas and pneumonia last year. The patient was do not res[facility]citate from local [facility]. 02/04 No events overnight. On ventilator via trach. Afebrile. 02/05 Patient remains on ventilator via trach. Afebrile. On no sedation. 02/06 No events overnight. Afebrile. Tolerated CPAP all day yesterday. 02/07 No events overnight. Afebrile. 02/08 No events overnight. T;100.0 at 8 am. Having liquid stools. 02/09 Patient remains on ventilator via trach. T:100.0 yesterday 02/10 No events overnight. Afebrile. 02/11: On full vent support now. Low grade fever. On Avycaz per ID. at bedside 02/12: Clinically worsening with increasing oxygen requirement desaturating with 55% FiO2. I have increase PEEP to 10 and titrate oxygen as needed. The sputum Pseudomonas resistant to cefepime and Zosyn, ID has started Zerbaxa today Subjective 02/13: Currently appears comfortable. On FiO2 55%. PEEP of 10. Timing tube feeds. Positive BM off bowel regimen. Squeezes left hand to command. Tmax 100. Objective Vital Signs Date Time Temp Pulse Resp B/P (MAP) Pulse Ox O2 Delivery O2 Flow Rate FiO2 02/13/17 16:00 50 02/13/17 16:00 75 02/13/17 12:13 91 02/13/17 12:00 98.8 17 111/55 (73) Intake and Output 02/13/17 02/13/17 02/14/17 08:00 16:00 00:00 Intake Total 700 ml 100 ml Balance 700 ml 100 ml Result Diagram: 02/12/17 0613 02/12/17 0613 Other Results Microbiology Date/Time Source Procedure Growth Status 02/04/17 11:25 Blood Peripheral Aerobic Blood Culture - Final NO GROWTH IN 5 DAYS Complete 02/04/17 11:25 Blood Peripheral Anaerobic Blood Culture - Final NO GROWTH IN 5 DAYS Complete 02/10/17 09:00 Sputum Endotracheal Gram Stain - Final Resulted 02/10/17 09:00 Sputum Culture - Preliminary Pseudomonas Aeruginosa Gram Negative Marcos Resulted 02/03/17 05:50 Urine Catheterized Urine Legionella Antigen - Final PRESUMPTIVE NEGATIVE FOR LEGIONELLA P... Complete 02/03/17 05:50 Urine Catheterized Urine Streptococcus pneumoniae Antigen (M - Final PRESUMPTIVE NEGATIVE FOR STREPTOCOCCU... Complete Imaging Last Impressions Chest X-Ray 02/13/17 0600 Signed Impressions: Service Date/Time: Monday, February 13, 2017 02:22 - CONCLUSION: Stable chest x-ray with left basilar opacity likely representing airspace consolidation. Gabo Kirby MD Chest Ultrasound 02/09/17 0000 Signed Impressions: Service Date/Time: Thursday, February 09, 2017 14:59 - CONCLUSION: There is no left pleural effusion. Mark Chi MD Objective Remarks GENERAL: 36-year-old male, critically ill currently on ventilator via tracheostomy SKIN: Warm and dry. HEAD: Normocephalic. EYES: No scleral icterus. No injection or drainage. NECK: Supple, trachea midline. No JVD or lymphadenopathy. Trach in place seen dry and intact CARDIOVASCULAR: Regular rate and rhythm without murmurs, gallops, or rubs. RESPIRATORY: Breath sounds equal bilaterally, diminished at the bases. No accessory muscle use. GASTROINTESTINAL: Abdomen soft, non-tender, nondistended. MUSCULOSKELETAL: No cyanosis, or edema. Contracted Neuro: On no sedation. Doesn't follow commands. No Spontaneous moments noted A/P Assessment and Plan Neuro/Psych: Myasthenia gravis Dementia Seizure disorder NOS On Pyridostigmine 60 mg q six hours. memantine 10 mg twice a day, mycophenolate mofetil 500 mg 3 times Monitor neuro status closely. Neuro is following- Dr. Longoria Pulm: Acute on chronic respiratory failure. Left sided pneumonia with multidrug resistant Pseudomonas aeruginosa PRVC 16/550/1.2/ Ventilator bundle Albuterol/ipratropium aerosols every 6 hours with albuterol aerosols every 2 hours. Dyspnea No spontaneous breathing trials until PEEP decreased Follow-up on chest x-ray in a.m. Dr. Griffin, pulmonology following CV: Mild-elevated troponin. Resolved lactic acidemia. Monitor HR and BP and maintain MAP > 65 mmHg. Lactic acid level measured at 2.6. Echo showed EF 55-60% /FEN/RENAL: Monitor renal function, intake and output, avoid nephrotoxins. Electrolyte replacement as needed. GI: On lansoprazole resolved 30 mg every 24 hour for Gl prophylaxis. Tube feeds via PEG tube- TF- Jevity 1.5 @ 65 ml per hour. ID: Pseudomonas pneumonia Avycaz DCd and ceftolozane/tazobactam 50 mg every 8 hours started per ID antibiogram C-diff PCR negative 02/08 Sputum cx 02/03 : Pseudomonas species, Beta strep not Group A. Sputum cx: 02/05: Pseudomonas - resistant org Sputum 02/10 Pseudomonas sensitivities pending BC 02/03 Staph Epi, Staph hominis. likely contaminant. 02/04 BC: NGTD Strep pneumonia and legionella urinary antigen negative Heme: Does not meet requirements for blood transfusion Monitor CBC. Endo: Hypothyroidism SSI with Accuchecks for glycemic control twice a day. On levothyroxine 50 mcg daily. TSH: 4.5 MSK History of spinal fracture/fracture of hip PT evaluate to for contractures GI prophylaxis with lansoprazole resolved 30 mg daily and DVT s prophylaxis with SCDs and heparin SQ. Level II follow-up Erlin Zuleta MD Feb 13, 2017 16:50
--- NOTE | 2017-02-13 18:01 | HHI.PR ---
Subjective Remarks Awake and on A/C rate 12, FIO2 50 %. Has less secretions and no fever. Tolerates feeds. On Antibiotics per ID. 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 Objective Vital Signs Date Time Temp Pulse Resp B/P (MAP) Pulse Ox O2 Delivery O2 Flow Rate FiO2 02/13/17 16:53 91 55 02/13/17 16:00 50 02/13/17 16:00 75 02/13/17 14:00 75 02/13/17 12:13 91 50 02/13/17 12:00 98.8 80 17 111/55 (73) 92 02/13/17 12:00 50 02/13/17 12:00 80 02/13/17 10:00 82 02/13/17 08:00 50 02/13/17 08:00 80 02/13/17 08:00 100.0 80 20 124/68 (86) 90 02/13/17 07:32 90 50 02/13/17 06:00 78 02/13/17 04:15 97 50 02/13/17 04:00 79 02/13/17 04:00 99.2 79 20 117/64 (81) 92 02/13/17 04:00 50 02/13/17 02:00 75 02/13/17 00:00 50 02/13/17 00:00 76 02/13/17 00:00 99.5 76 26 116/60 (78) 98 02/12/17 23:37 96 50 02/12/17 22:00 88 02/12/17 20:00 88 02/12/17 20:00 98.1 70 18 130/68 (88) 97 02/12/17 20:00 50 02/12/17 19:02 95 50 02/12/17 18:06 101 02/12/17 18:00 101 I/O 02/12/17 02/12/17 02/12/17 02/13/17 02/13/17 02/13/17 07:00 15:00 23:00 07:00 15:00 23:00 Intake Total 53 ml 100 ml 600 ml 200 ml Balance 53 ml 100 ml 600 ml 200 ml IV Total 53 ml 100 ml 100 ml 200 ml Tube Feeding 500 ml # Voids 2 # Bowel Movements 1 Result Diagram: 02/12/1761202/12/17612 Objective Remarks GENERAL: This is an elderly man, moderately obese, awake but does not respond to any commands. HEENT: Head is normocephalic. Pupils are reactive. Sclerae are clear. Tongue was coated. Throat clear. Nose and ears have no inflammation. NECK: Supple. No venous distension. Trach site clear No lymphadenopathy. CHEST: Decreased excursions with occasional crackles over the lower lung fuentes and wheezes scattered. HEART: Heart sounds are regular, S1-S2. No murmur. No S3. ABDOMEN: The abdomen is obese, protuberant with a PEG tube in place. Bowel sounds are active. EXTREMITIES: Contracture of the extremities,1 + edema . Peripheral pulses are diminished. 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 RECTAL: Exam is deferred. Assessment and Plan Assessment and Plan IMPRESSION 1. Acute respiratory failure. 2. Sepsis with pneumonia. 3. Acute kidney injury with dehydration. 4. Dementia. 5. History of myasthenia gravis. 6. History of MRSA and Pseudomonas pneumonias. 7. Status post tracheostomy and PEG tube placement. Plan : 1. Wean Fio2 to 50 %, A/C at PEEP to +8, rate 12. 2. Continue antibiotics for Sepsis. 3. Nebs qid , Duoneb. 4. Tube feeds at 55 CC. 5. Chest X ray in am 6. Cont to try on CPAP for 2 hrs daily. 7. PT evaluation. Carol Griffin MD Feb 13, 2017 18:01
[2017-02-13] MEDS: RESP: ALBUTEROL 2.5 MG/IPRATROPIUM 0.5 MG NEB (SCH) NEB (19:50)
[2017-02-14] VITALS (17 sets, daily range): BP systolic 104–133; BP diastolic 57–73; PULSE 62–91; RESP 16–19; TEMP 97.9–99.6; O2SAT 91–96
[2017-02-14] MEDS: PYRIDOSTIGMINE BROMIDE 60 MG TAB PO SCH ×4 (00:40→18:17)
[2017-02-14] MEDS: CHLORHEXIDINE GLUCONATE 2 % 1 PACK (2 CLOTHS) TOP SCH (04:00)
[2017-02-14] MEDS: RESP: ALBUTEROL 2.5 MG/IPRATROPIUM 0.5 MG NEB (SCH) NEB ×4 (04:00→21:06)
[2017-02-14 05:13] LABS: AUTOMATED NEUTROPHIL # 6.8 TH/MM3 (1.8-7.7); BASOPHIL # 0.1 TH/MM3 (0-0.2); BASOPHIL % 0.6 % (0.0-2.0); EOSINOPHIL # 0.4 TH/MM3 (0-0.4); HEMATOCRIT 35.2 % (39.0-51.0); HEMO FLAGS DIFF FINAL; LYMPH % 13.9 % (9.0-44.0); LYMPHOCYTE # 1.3 TH/MM3 (1.0-4.8); MEAN CELL VOLUME 82.4 FL (80.0-100.0); MEAN CORPUSCULAR HEMOGLOBIN 26.2 PG (27.0-34.0); MEAN CORPUSCULAR HGB CONC 31.8 % (32.0-36.0); MONO % 8.1 % (0.0-8.0); NEUT % 73.4 % (16.0-70.0); PLATELET COUNT 222 TH/MM3 (150-450); RED BLOOD COUNT 4.27 MIL/MM3 (4.50-5.90); RED CELL DISTRIBUTION WIDTH 18.2 % (11.6-17.2); WHITE BLOOD COUNT 9.3 TH/MM3 (4.0-11.0)
[2017-02-14] MEDS: CEFTOLOZANE TAZOBACTAM IV SCH ×6 (05:15→20:13)
[2017-02-14] MEDS: NS IV SCH ×6 (05:15→20:13)
[2017-02-14] MEDS: LEVOTHYROXINE SODIUM 50 MCG TAB G-TUBE SCH (05:15)
[2017-02-14 05:37] LABS: ANION GAP 6 MEQ/L (5-15); AST (GOT) 12 U/L (15-37); BICARBONATE 28.3 MEQ/L (21.0-32.0); BLOOD UREA NITROGEN 16 MG/DL (7-18); CHLORIDE 109 MEQ/L (98-107); GLOMERULAR FILTRATION RATE 61 ML/MIN (>89); MAGNESIUM 2.3 MG/DL (1.5-2.5); POTASSIUM 4.2 MEQ/L (3.5-5.1); SODIUM (NA) 143 MEQ/L (136-145)
[2017-02-14 05:38] LABS: ALT (GPT) 10 U/L (12-78)
[2017-02-14 05:40] LABS: ALKALINE PHOSPHATASE 72 U/L (45-117); TOTAL BILIRUBIN ADULT 0.2 MG/DL (0.2-1.0)
[2017-02-14 05:42] LABS: CREATINE KINASE 38 U/L (39-308)
--- NOTE | 2017-02-14 06:34 | RADRPT ---
EXAM DATE/TIME: 02/14/2017 03:57 [facility] COMPARISON: CHEST SINGLE AP, February 13, 2017, 2:22. INDICATIONS : Shortness of breath, possible pulmonary disease. MEDICAL HISTORY : Hypertension. SURGICAL HISTORY : Tracheostomy ENCOUNTER: Subsequent ACUITY: 1 week PAIN SCORE: Non-responsive. LOCATION: Bilateral chest FINDINGS: Portable AP view of the chest demonstrates a normal-sized cardiac silhouette. Tracheostomy is present . Lungs are underinflated. There is airspace consolidation in the left lower lung zone. No pneumothor ax or pleural effusion is appreciated. CONCLUSION: Stable chest x-ray with left basilar airspace consolidation. Gabo Kirby MD on February 14, 2017 at 6:32 Board Certified Radiologist. This report was verified electronically.
[2017-02-14] MEDS: INSULIN NovoLIN REGULAR SUPPLEMENTAL SCALE SQ SCH ×2 (08:54→20:14)
[2017-02-14] MEDS: HEPARIN SODIUM - SQ 10,000 UNITS/ML VIAL SQ SCH ×2 (08:55→20:14)
[2017-02-14] MEDS: MEMANTINE HCL 10 MG TAB G-TUBE SCH ×2 (08:55→20:14)
[2017-02-14] MEDS: LANSOPRAZOLE SOLUTAB 30 MG TAB NG SCH (08:55)
--- NOTE | 2017-02-14 10:55 | HHI.CCPN ---
Subjective Remarks/Hospital Course The patient is a 76 year old male with past medical history of myasthenia gravis , dementia, seizure disorder, chronic respiratory failure with previous tracheostomy and percutaneous endoscopic gastrostomy placement. The patient presented to [facility] from local nursing facility for tachycardia and fevers. On arrival he had a temperature of 102.8, in addition the patient was tachycardic and tachypneic. His laboratory data was significant for leukocytosis with a white blood count of 17.6 mild lactic acidemia, lactic acid level 2.6 and acute kidney injury with creatinine level of 1.65. Chest x-ray in the emergency room showed patchy pneumonia on the left. In the emergency department the patient was given three liters of crystalloids in addition to cefepime, Solu-Medrol, bronchodilator treatment. Arterial blood gas was preformed on TP's. Which showed a pH of 7.43, co2 39, pao2 63, bicarbonate 26-91%. He was placed on toll mechanic ventilation. Most of the history was obtained by reviewing the medical records as the patient is nonverbal. He also has history of methicillin-resistant Staphylococcus aureus and pseudomonas and pneumonia last year. The patient was do not resuscitate from local senior care. 02/04 No events overnight. On ventilator via trach. Afebrile. 02/05 Patient remains on ventilator via trach. Afebrile. On no sedation. 02/06 No events overnight. Afebrile. Tolerated CPAP all day yesterday. 02/07 No events overnight. Afebrile. 02/08 No events overnight. T;100.0 at 8 am. Having liquid stools. 02/09 Patient remains on ventilator via trach. T:100.0 yesterday 02/10 No events overnight. Afebrile. 02/11: On full vent support now. Low grade fever. On Avycaz per ID. at bedside 02/12: Clinically worsening with increasing oxygen requirement desaturating with 55% FiO2. I have increase PEEP to 10 and titrate oxygen as needed. The sputum Pseudomonas resistant to cefepime and Zosyn, ID has started Zerbaxa today 02/13: Currently appears comfortable. On FiO2 55%. PEEP of 10. Timing tube feeds. Positive BM off bowel regimen. Squeezes left hand to command. Tmax 100. Subjective 02/14: FiO2 up to 60%. PEEP of 10. Tube feeds at 50 Cc an hour. Positive BM. requesting holding mycophenolate as "Dr. Willis always holds this "while hospitalized. Objective Vital Signs Date Time Temp Pulse Resp B/P (MAP) Pulse Ox O2 Delivery O2 Flow Rate FiO2 02/14/17 08:00 88 02/14/17 08:00 99.6 19 123/66 (85) 91 02/14/17 08:00 70 Intake and Output 02/14/17 02/14/17 02/15/17 08:00 16:00 00:00 Intake Total 627 ml Output Total 450 ml Balance 177 ml Result Diagram: 02/14/17 0440 02/14/17 0440 Other Results Microbiology Date/Time Source Procedure Growth Status 02/04/17 11:25 Blood Peripheral Aerobic Blood Culture - Final NO GROWTH IN 5 DAYS Complete 02/04/17 11:25 Blood Peripheral Anaerobic Blood Culture - Final NO GROWTH IN 5 DAYS Complete 02/10/17 09:00 Sputum Endotracheal Gram Stain - Final Resulted 02/10/17 09:00 Sputum Culture - Preliminary Pseudomonas Aeruginosa Gram Negative Marcos Resulted 02/03/17 05:50 Urine Catheterized Urine Legionella Antigen - Final PRESUMPTIVE NEGATIVE FOR LEGIONELLA P... Complete 02/03/17 05:50 Urine Catheterized Urine Streptococcus pneumoniae Antigen (M - Final PRESUMPTIVE NEGATIVE FOR STREPTOCOCCU... Complete Imaging Last Impressions Chest X-Ray 02/14/17 0600 Signed Impressions: Service Date/Time: Tuesday, February 14, 2017 03:57 - CONCLUSION: Stable chest x-ray with left basilar airspace consolidation. Gabo Kirby MD Chest Ultrasound 02/09/17 0000 Signed Impressions: Service Date/Time: Thursday, February 09, 2017 14:59 - CONCLUSION: There is no left pleural effusion. Mark Chi MD Objective Remarks GENERAL: 36-year-old male, critically ill currently on ventilator via tracheostomy SKIN: Warm and dry. HEAD: Normocephalic. EYES: No scleral icterus. No injection or drainage. NECK: Supple, trachea midline. No JVD or lymphadenopathy. Trach in place seen dry and intact CARDIOVASCULAR: Regular rate and rhythm without murmurs, gallops, or rubs. RESPIRATORY: Breath sounds equal bilaterally, diminished at the bases. No accessory muscle use. GASTROINTESTINAL: Abdomen soft, non-tender, nondistended. PEG tube is clean dry and intact.erythema MUSCULOSKELETAL: Trace bilateral lower extremity edema. Contracted Neuro: On no sedation. Doesn't follow commands. Squeezes hand especially left hand not to command A/P Assessment and Plan Neuro/Psych: Myasthenia gravis Dementia Seizure disorder NOS On Pyridostigmine 60 mg q six hours. memantine 10 mg twice a day, mycophenolate mofetil 500 mg 3 times Holding mycophenolate for 's request temporarily Monitor neuro status closely. Neuro is following- Dr. Longoria Pulm: Acute on chronic respiratory failure. Left sided pneumonia with multidrug resistant Pseudomonas aeruginosa [facility] 16/550/1.2/ Ventilator bundle Albuterol/ipratropium aerosols every 6 hours with albuterol aerosols every 2 hours. Dyspnea No spontaneous breathing trials until PEEP decreased Follow-up on chest x-ray in a.m. revealed stable left lower lobe infiltrate 02/14 Dr. Griffin, pulmonology following CV: Mild-elevated troponin. Resolved lactic acidemia. Monitor HR and BP and maintain MAP > 65 mmHg. Lactic acid level measured at 2.6. Echo showed EF 55-60% /FEN/RENAL: Monitor renal function, intake and output, avoid nephrotoxins. Electrolyte replacement as needed. GI: Hypoalbuminemia On lansoprazole 30 mg every 24 hour for Gl prophylaxis. Tube feeds via PEG tube- TF- Jevity 1.5 @ 65 ml per hour. Currently at 50 cc an hour ID: Pseudomonas pneumonia Avycaz DCd and ceftolozane/tazobactam 1500 mg every 8 hours started per ID antibiogram C-diff PCR negative 02/08 Sputum cx 02/03 : Pseudomonas species, Beta strep not Group A. Sputum cx: 02/05: Pseudomonas - resistant org Sputum 02/10 Pseudomonas sensitivities pending BC 02/03 Staph Epi, Staph hominis. likely contaminant. 02/04 BC: NGTD Strep pneumonia and legionella urinary antigen negative Heme: Normocytic anemia Does not meet requirements for blood transfusion Monitor CBC. Endo: Hypothyroidism SSI with Accuchecks for glycemic control twice a day. On levothyroxine 50 mcg daily. TSH: 4.5 MSK History of spinal fracture/fracture of hip PT evaluate to for contractures GI prophylaxis with lansoprazole resolved 30 mg daily and DVT s prophylaxis with SCDs and heparin SQ. Level II follow-up Erlin Zuleta MD Feb 14, 2017 10:55
[2017-02-14 11:00] LABS: BLOOD GAS BASE EXCESS 3.3 mmol/L (-2-2); BLOOD GAS CARBOXYHEMOGLOBIN 0.9 % (0-4); BLOOD GAS HCO3 27 mmol/L (22-26); BLOOD GAS O2 HGB SATURATION 93 % (90-100); BLOOD GAS OXYGEN CONTENT 14.4 Vol % (12.0-20.0); BLOOD GAS PCO2 41 mmHg (38-42); BLOOD GAS PO2 71 mmHg (61-120); CRITICAL VALUE NO; OXYGEN DEVICE VENTILATOR; TEMP CORR TO 98.6
[2017-02-14] MEDS ORDERED: FUROSEMIDE 20 MG/2 ML VIAL IV PUSH ONE (11:00)
[2017-02-14] MEDS ORDERED: POTASSIUM PHOSPHATE INJ 15 MMOL in SODIUM CHLORIDE 0.9% INJ 150 ML IV ONE (11:00)
[2017-02-14 11:01] LABS: DRAW SITE RT RADIAL; FIO2 70 %; NUMBER OF ARTERIAL PUNCTURES 1; STAT NO; ULNAR PULSE PRESENT; VENT SETTINGS PRVC/AC
[2017-02-14] MEDS: RESP: SODIUM CHLORIDE 3% 4 ML NEB NEB SCH ×2 (15:52→21:07)
[2017-02-14] MEDS: ACETAMINOPHEN 325 MG/10.15 ML UDC PEG PRN (16:20)
--- NOTE | 2017-02-14 17:23 | HHI.PR ---
Subjective Remarks alert requires fio2 70% was 40% yesterdayCXRAY UNCHANGED fio2 Objective Vital Signs Date Time Temp Pulse Resp B/P (MAP) Pulse Ox O2 Delivery O2 Flow Rate FiO2 02/14/17 16:00 70 02/14/17 16:00 99.6 70 16 124/57 (79) 92 02/14/17 16:00 92 70 02/14/17 16:00 91 02/14/17 14:00 73 02/14/17 13:10 70 02/14/17 12:18 92 70 02/14/17 12:00 70 02/14/17 12:00 99.3 85 17 133/73 (93) 92 02/14/17 12:00 85 02/14/17 10:00 84 02/14/17 08:00 88 02/14/17 08:00 99.6 88 19 123/66 (85) 91 02/14/17 08:00 70 02/14/17 07:28 94 70 02/14/17 06:00 89 02/14/17 04:01 91 65 02/14/17 04:00 98.6 89 16 113/58 (76) 91 02/14/17 04:00 77 02/14/17 04:00 65 02/14/17 02:00 62 02/14/17 01:11 93 65 02/14/17 00:00 97.9 86 17 120/57 (78) 95 02/14/17 00:00 86 02/14/17 00:00 65 02/13/17 22:00 84 02/13/17 20:00 76 02/13/17 20:00 65 02/13/17 20:00 98.0 76 16 128/68 (88) 90 02/13/17 19:50 90 55 02/13/17 18:00 74 I/O 02/13/17 02/13/17 02/13/17 02/14/17 02/14/17 02/14/17 07:00 15:00 23:00 07:00 15:00 23:00 Intake Total 600 ml 200 ml 672 ml 627 ml Output Total 450 ml Balance 600 ml 200 ml 672 ml 177 ml IV Total 100 ml 200 ml 100 ml 100 ml Tube Feeding 500 ml 332 ml 447 ml Other 240 ml 80 ml Output Urine Total 450 ml # Voids 2 2 # Bowel Movements 1 2 1 Result Diagram: 02/14/1743902/14/17439 Objective Remarks GENERAL: SKIN: Warm and dry. HEAD: Atraumatic. Normocephalic. EYES: Pupils equal and round. No scleral icterus. No injection or drainage. ENT: No nasal bleeding or discharge. Mucous membranes pink and moist. NECK: Trachea midline. No JVD. TRACH IN PLACE CARDIOVASCULAR: Regular rate and rhythm. RESPIRATORY: No accessory muscle use. Clear to auscultation. Breath sounds equal bilaterally. GASTROINTESTINAL: Abdomen soft, non-tender, nondistended. Hepatic and splenic margins not palpable. MUSCULOSKELETAL: Extremities without clubbing, cyanosis, or edema. No obvious deformities. NEUROLOGICAL: Awake and alert. No obvious cranial nerve deficits. Motor grossly within normal limits. Five out of 5 muscle strength in the arms and legs. Normal speech. PSYCHIATRIC: Appropriate mood and affect; insight and judgment normal. Assessment and Plan Assessment and Plan RESPIRATORY FAILURE PNEUMONIA MYASTHENIA GRAVIS PLAN O2 NEEDED CTA CHEST R/O PE FOR WORSENING HYPOXIA CONTINUE ANTIBX PULM TOILET BRONCHOSCOPY IF NEEDED Gloria Castro MD Feb 14, 2017 17:23
--- NOTE | 2017-02-14 22:04 | RADRPT ---
EXAM DATE/TIME: 02/14/2017 19:44 [facility] COMPARISON: No previous studies available for comparison. INDICATIONS : Bilateral leg swelling. MEDICAL HISTORY : Hypertension. Glasses. Dementia. Seizures. Syncope. Sleep apnea. Hiatal hernia. Urinary tract infec tion. Arthritis. C-diff. MRSA. SURGICAL HISTORY : Tonsillectomy. Tooth extractions. PEG tube placement. Hip surgery. ENCOUNTER: Initial ACUITY: 1 day PAIN SCORE: Non-responsive LOCATION: Bilateral legs. TECHNIQUE: Venous ultrasound of the left and right leg was performed from the inguinal ligament to the proximal calf. Real-time, color Doppler and spectral tracing, compression and augmentation techniques were us ed. FINDINGS: RIGHT LEG: There is normal compressibility of the deep venous system from the inguinal region to the proximal ca lf. No echogenic clot is seen in the lumen of the common femoral, femoral, popliteal, and posterior tibial veins. There is a normal response of the venous system to proximal and distal augmentation an d respiration. LEFT LEG: There is normal compressibility of the deep venous system from the inguinal region to the proximal ca lf. No echogenic clot is seen in the lumen of the common femoral, femoral, popliteal, and posterior tibial veins. There is a normal response of the venous system to proximal and distal augmentation an d respiration. CONCLUSION: No venous thrombosis of either lower extremity. Gabo Meza MD on February 14, 2017 at 22:02 Board Certified Radiologist. This report was verified electronically.
[2017-02-15] VITALS (19 sets, daily range): BP systolic 107–116; BP diastolic 61–67; PULSE 82–92; RESP 16–17; TEMP 98.5–100; O2SAT 91–96
[2017-02-15] MEDS: PYRIDOSTIGMINE BROMIDE 60 MG TAB PO SCH ×5 (00:06→23:01)
[2017-02-15] MEDS: CHLORHEXIDINE GLUCONATE 2 % 1 PACK (2 CLOTHS) TOP SCH (04:00)
[2017-02-15] MEDS: CEFTOLOZANE TAZOBACTAM IV SCH ×6 (04:40→21:09)
[2017-02-15] MEDS: NS IV SCH ×6 (04:40→21:09)
[2017-02-15] MEDS: LEVOTHYROXINE SODIUM 50 MCG TAB G-TUBE SCH (04:41)
[2017-02-15] MEDS: RESP: ALBUTEROL 2.5 MG/IPRATROPIUM 0.5 MG NEB (SCH) NEB ×4 (05:25→21:47)
[2017-02-15] MEDS: RESP: SODIUM CHLORIDE 3% 4 ML NEB NEB SCH ×4 (05:25→21:47)
--- NOTE | 2017-02-15 05:28 | RADRPT ---
EXAM DATE/TIME: 02/15/2017 04:17 [facility] COMPARISON: CHEST SINGLE AP, February 14, 2017, 3:57. INDICATIONS : Shortness of breath, possible pulmonary disease. MEDICAL HISTORY : Hypertension. SURGICAL HISTORY : Tracheostomy ENCOUNTER: Subsequent ACUITY: 1 week PAIN SCORE: Non-responsive. LOCATION: Bilateral chest FINDINGS: Portable AP view of the chest demonstrates a normal-sized cardiac silhouette. A tracheostomy is prese nt. There is a stable left basilar pleural-parenchymal opacity. No pneumothorax is visualized. There is atelectasis at the right lung base. CONCLUSION: Stable chest x-ray with left basilar airspace opacity and possible small effusion. Gabo Kirby MD on February 15, 2017 at 5:26 Board Certified Radiologist. This report was verified electronically.
[2017-02-15 06:22] LABS: AUTOMATED NEUTROPHIL # 10.1 TH/MM3 (1.8-7.7); BASOPHIL % 0.3 % (0.0-2.0); EOSINOPHIL # 0.3 TH/MM3 (0-0.4); EOSINOPHIL % 2.4 % (0.0-4.0); HEMATOCRIT 34.3 % (39.0-51.0); HEMO FLAGS DIFF FINAL; LYMPH % 8.6 % (9.0-44.0); MEAN CELL VOLUME 81.6 FL (80.0-100.0); MEAN CORPUSCULAR HEMOGLOBIN 25.8 PG (27.0-34.0); MEAN CORPUSCULAR HGB CONC 31.6 % (32.0-36.0); MONO % 5.7 % (0.0-8.0); PLATELET COUNT 252 TH/MM3 (150-450); RED BLOOD COUNT 4.21 MIL/MM3 (4.50-5.90); RED CELL DISTRIBUTION WIDTH 18.4 % (11.6-17.2); WHITE BLOOD COUNT 12.1 TH/MM3 (4.0-11.0)
[2017-02-15 06:59] LABS: ALT (GPT) 13 U/L (12-78); ANION GAP 8 MEQ/L (5-15); AST (GOT) 7 U/L (15-37); BICARBONATE 26.1 MEQ/L (21.0-32.0); BLOOD UREA NITROGEN 17 MG/DL (7-18); CHLORIDE 110 MEQ/L (98-107); GLOMERULAR FILTRATION RATE 65 ML/MIN (>89); MAGNESIUM 2.2 MG/DL (1.5-2.5); POTASSIUM 3.9 MEQ/L (3.5-5.1); SODIUM (NA) 144 MEQ/L (136-145)
[2017-02-15 07:02] LABS: ALKALINE PHOSPHATASE 80 U/L (45-117); TOTAL BILIRUBIN ADULT 0.2 MG/DL (0.2-1.0)
[2017-02-15] MEDS: INSULIN NovoLIN REGULAR SUPPLEMENTAL SCALE SQ SCH ×2 (07:58→21:00)
[2017-02-15] MEDS: LANSOPRAZOLE SOLUTAB 30 MG TAB NG SCH (07:58)
[2017-02-15] MEDS: HEPARIN SODIUM - SQ 10,000 UNITS/ML VIAL SQ SCH ×2 (07:59→21:09)
[2017-02-15] MEDS: MEMANTINE HCL 10 MG TAB G-TUBE SCH ×2 (07:59→21:09)
--- NOTE | 2017-02-15 13:34 | HHI.PR ---
Subjective Remarks alert NO DISTRESS FIO2 O.5 fio2 Objective Vital Signs Date Time Temp Pulse Resp B/P (MAP) Pulse Ox O2 Delivery O2 Flow Rate FiO2 02/15/17 12:56 94 50 02/15/17 12:00 50 02/15/17 12:00 82 02/15/17 12:00 99.6 85 16 107/61 (76) 93 02/15/17 10:32 95 50 02/15/17 10:00 88 02/15/17 08:39 93 50 02/15/17 08:00 50 02/15/17 08:00 100.0 92 16 109/63 (78) 96 02/15/17 08:00 92 02/15/17 06:00 87 02/15/17 05:25 92 50 02/15/17 04:00 99.1 89 17 114/63 (80) 95 02/15/17 04:00 89 02/15/17 04:00 50 02/15/17 02:00 85 02/15/17 01:21 92 50 02/15/17 00:00 50 02/15/17 00:00 82 02/15/17 00:00 98.5 82 16 107/62 (77) 94 02/14/17 22:00 81 02/14/17 21:07 93 50 02/14/17 20:00 98.8 64 16 104/57 (73) 96 02/14/17 20:00 50 02/14/17 20:00 64 02/14/17 18:00 84 02/14/17 16:00 70 02/14/17 16:00 99.6 70 16 124/57 (79) 92 02/14/17 16:00 92 70 02/14/17 16:00 91 02/14/17 14:00 73 I/O 02/14/17 02/14/17 02/14/17 02/15/17 02/15/17 02/15/17 07:00 15:00 23:00 07:00 15:00 23:00 Intake Total 627 ml 100 ml 764 ml 566 ml Output Total 450 ml Balance 177 ml 100 ml 764 ml 566 ml IV Total 100 ml 100 ml 155 ml Tube Feeding 447 ml 509 ml 486 ml Other 80 ml 100 ml 80 ml Output Urine Total 450 ml # Voids 4 3 # Bowel Movements 1 2 2 Result Diagram: 02/15/17 0506 02/15/17 0506 Objective Remarks GENERAL: SKIN: Warm and dry. HEAD: Atraumatic. Normocephalic. EYES: Pupils equal and round. No scleral icterus. No injection or drainage. ENT: No nasal bleeding or discharge. Mucous membranes pink and moist. NECK: Trachea midline. No JVD. TRACH IN PLACE CARDIOVASCULAR: Regular rate and rhythm. RESPIRATORY: No accessory muscle use. Clear to auscultation. Breath sounds equal bilaterally. GASTROINTESTINAL: Abdomen soft, non-tender, nondistended. Hepatic and splenic margins not palpable. MUSCULOSKELETAL: Extremities without clubbing, cyanosis, or edema. No obvious deformities. NEUROLOGICAL: Awake and alert. No obvious cranial nerve deficits. Motor grossly within normal limits. Five out of 5 muscle strength in the arms and legs. Normal speech. PSYCHIATRIC: Appropriate mood and affect; insight and judgment normal. Assessment and Plan Assessment and Plan RESPIRATORY FAILURE PNEUMONIA MYASTHENIA GRAVIS PLAN O2 NEEDED CTA CHEST CANCELLED , LOW SAT TECHNICAL CONTINUE ANTIBX PULM TOILET BRONCHOSCOPY IF NEEDED Gloria Castro MD Feb 15, 2017 13:34
[2017-02-15] MEDS: ACETAMINOPHEN 325 MG/10.15 ML UDC PEG PRN (14:51)
--- NOTE | 2017-02-15 15:08 | HHI.IDPN ---
Subjective Subjective Remarks ID x cover for Dr Streeter chart was reviewed 76 yo male with myastenia gravis and chronic resp failure, dementia he has MDRO PSAE pt remains on vent + having low grade fever, WBC up to 12 K mycophenolic acid on hold Antibiotics Zerbaxa Allergies: Coded Allergies: hydrocodone (Unverified Allergy, Severe, SENDS PT INTO MYASTHNIA GRAVIS CRISIS, 02/03/17) thiopental (Unverified Allergy, Severe, Shortness of Breath, 02/03/17) SODIUM PENTOTHAL diatrizoate meglumine (Unverified Allergy, Unknown, 02/03/17) gadobenic acid (Unverified Allergy, Unknown, 02/03/17) gadodiamide (Unverified Allergy, Unknown, 02/03/17) gadoteridol (Unverified Allergy, Unknown, 02/03/17) haloperidol (Unverified Allergy, Unknown, 02/03/17) iodixanol (Unverified Allergy, Unknown, 02/03/17) iohexol (Unverified Allergy, Unknown, 02/03/17) onion (Unverified Allergy, Unknown, 02/03/17) risperidone (Unverified Allergy, Unknown, 02/03/17) Iodinated Contrast- Oral and IV Dye (Unverified Adverse Reaction, Severe, Anaphylaxis, 02/03/17) bee venom protein (honey bee) (Unverified Adverse Reaction, Severe, Anaphylaxis, 02/03/17) ciprofloxacin (Unverified Adverse Reaction, Severe, Anaphylaxis, 02/03/17) neomycin (Unverified Adverse Reaction, Severe, Anaphylaxis, 02/03/17) phenytoin (Unverified Adverse Reaction, Severe, Anaphylaxis, 02/03/17) tobramycin (Unverified Adverse Reaction, Severe, Respiratory Failure, ) acetaminophen (Unverified Adverse Reaction, Unknown, SENDS PT INTO MYASTHNIA GRAVIS CRISIS, 02/08/17) gentamicin (Unverified Adverse Reaction, Unknown, 02/03/17) lithium (Unverified Adverse Reaction, Unknown, 02/03/17) onabotulinumtoxinA (Unverified Adverse Reaction, Unknown, 02/03/17) timolol (Unverified Adverse Reaction, Unknown, 02/03/17) vancomycin (Unverified Adverse Reaction, Unknown, 02/03/17) verapamil (Unverified Adverse Reaction, Unknown, 02/03/17) Objective . Vital Signs Date Time Temp Pulse Resp B/P (MAP) Pulse Ox O2 Delivery O2 Flow Rate FiO2 02/15/17 12:56 94 50 02/15/17 12:00 50 02/15/17 12:00 82 02/15/17 12:00 99.6 85 16 107/61 (76) 93 02/15/17 10:32 95 50 02/15/17 10:00 88 02/15/17 08:39 93 50 02/15/17 08:00 50 02/15/17 08:00 100.0 92 16 109/63 (78) 96 02/15/17 08:00 92 02/15/17 06:00 87 02/15/17 05:25 92 50 02/15/17 04:00 99.1 89 17 114/63 (80) 95 02/15/17 04:00 89 02/15/17 04:00 50 02/15/17 02:00 85 02/15/17 01:21 92 50 02/15/17 00:00 50 02/15/17 00:00 82 02/15/17 00:00 98.5 82 16 107/62 (77) 94 02/14/17 22:00 81 02/14/17 21:07 93 50 02/14/17 20:00 98.8 64 16 104/57 (73) 96 02/14/17 20:00 50 02/14/17 20:00 64 02/14/17 18:00 84 02/14/17 16:00 70 02/14/17 16:00 99.6 70 16 124/57 (79) 92 02/14/17 16:00 92 70 02/14/17 16:00 91 . Laboratory Tests Test 02/14/17 04:40 02/15/17 05:06 White Blood Count 9.3 TH/MM3 12.1 TH/MM3 Red Blood Count 4.27 MIL/MM3 4.21 MIL/MM3 Hemoglobin 11.2 GM/DL 10.9 GM/DL Hematocrit 35.2 % 34.3 % Mean Corpuscular Volume 82.4 FL 81.6 FL Mean Corpuscular Hemoglobin 26.2 PG 25.8 PG Mean Corpuscular Hemoglobin Concent 31.8 % 31.6 % Red Cell Distribution Width 18.2 % 18.4 % Platelet Count 222 TH/MM3 252 TH/MM3 Mean Platelet Volume 9.2 FL 9.4 FL Neutrophils (%) (Auto) 73.4 % 83.0 % Lymphocytes (%) (Auto) 13.9 % 8.6 % Monocytes (%) (Auto) 8.1 % 5.7 % Eosinophils (%) (Auto) 4.0 % 2.4 % Basophils (%) (Auto) 0.6 % 0.3 % Neutrophils # (Auto) 6.8 TH/MM3 10.1 TH/MM3 Lymphocytes # (Auto) 1.3 TH/MM3 1.0 TH/MM3 Monocytes # (Auto) 0.7 TH/MM3 0.7 TH/MM3 Eosinophils # (Auto) 0.4 TH/MM3 0.3 TH/MM3 Basophils # (Auto) 0.1 TH/MM3 0.0 TH/MM3 CBC Comment DIFF FINAL DIFF FINAL Differential Comment Laboratory Tests Test 02/14/17 04:40 02/15/17 05:06 Blood Urea Nitrogen 16 MG/DL 17 MG/DL Creatinine 1.17 MG/DL 1.10 MG/DL Random Glucose 101 MG/DL 77 MG/DL Total Protein 6.2 GM/DL 6.6 GM/DL Albumin 2.2 GM/DL 2.3 GM/DL Calcium Level 8.6 MG/DL 8.5 MG/DL Phosphorus Level 1.9 MG/DL 2.2 MG/DL Magnesium Level 2.3 MG/DL 2.2 MG/DL Alkaline Phosphatase 72 U/L 80 U/L Aspartate Amino Transf (AST/SGOT) 12 U/L 7 U/L Alanine Aminotransferase (ALT/SGPT) 10 U/L 13 U/L Total Bilirubin 0.2 MG/DL 0.2 MG/DL Sodium Level 143 MEQ/L 144 MEQ/L Potassium Level 4.2 MEQ/L 3.9 MEQ/L Chloride Level 109 MEQ/L 110 MEQ/L Carbon Dioxide Level 28.3 MEQ/L 26.1 MEQ/L Anion Gap 6 MEQ/L 8 MEQ/L Estimat Glomerular Filtration Rate 61 ML/MIN 65 ML/MIN Total Creatine Kinase 38 U/L Imaging Last Impressions Chest X-Ray 02/15/17 0600 Signed Impressions: Service Date/Time: Wednesday, February 15, 2017 04:17 - CONCLUSION: Stable chest x-ray with left basilar airspace opacity and possible small effusion. Gabo Kirby MD Lower Extremity Ultrasound 02/14/17 0000 Signed Impressions: Service Date/Time: Tuesday, February 14, 2017 19:44 - CONCLUSION: No venous thrombosis of either lower extremity. Gabo Meza MD Chest Ultrasound 02/09/17 0000 Signed Impressions: Service Date/Time: Thursday, February 09, 2017 14:59 - CONCLUSION: There is no left pleural effusion. Mark Chi MD Physical Exam GENERAL: No acute distress. HEENT: The head is atraumatic. The extraocular movements cannot be fully assessed and the patient cannot cooperate. No icterus. Oropharynx slightly dry mucosa without lesions. NECK: Supple. No adenopathy. Tracheostomy in place with some sputum in it HEART: Regular S1-S2 without murmurs. LUNGS: Bilateral rhonchi. ABDOMEN: (+) Bowel sounds, soft, no tenderness. EXTREMITIES: No clubbing or cyanosis or edema. SKIN: No rash. NEURO: opens eyes; not following commands, not moving spontaneously Assessment & Plan Remarks IMPRESSION 1. Pneumonia due to Pseudomonas, MDRO growing 2nd GNB: Steno malt - not a candidate for levaquin 2/2 miastenia and R to ceftaz - Zerbaxa ADRIAN is < 2 Repeat sputum culture has pseudomonas. Sensitivity pending. 2. Previous blood cultures with coag negative staph likely contaminant. 3. Myasthenia gravis. Immunosuppresed - just got of mycopheolic acid 4. Chronic respiratory failure. 5. Multiple antibiotic allergies. RECOMMENDATIONS 1. Continue Zerbaxa. 2. add Bactrim 15 mg/kg daily of TMP component dw Hilda Russo MD Feb 15, 2017 15:08
--- NOTE | 2017-02-15 17:53 | HHI.CCPN ---
Subjective Remarks/Hospital Course The patient is a 76 year old male with past medical history of myasthenia gravis , dementia, seizure disorder, chronic respiratory failure with previous tracheostomy and percutaneous endoscopic gastrostomy placement. The patient presented to [facility] from local nursing facility for tachycardia and fevers. On arrival he had a temperature of 102.8, in addition the patient was tachycardic and tachypneic. His laboratory data was significant for leukocytosis with a white blood count of 17.6 mild lactic acidemia, lactic acid level 2.6 and acute kidney injury with creatinine level of 1.65. Chest x-ray in the emergency room showed patchy pneumonia on the left. In the emergency department the patient was given three liters of crystalloids in addition to cefepime, Solu-Medrol, bronchodilator treatment. Arterial blood gas was preformed on TP's. Which showed a pH of 7.43, co2 39, pao2 63, bicarbonate 26-91%. 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 Most of the history was obtained by reviewing the medical records as the patient is nonverbal. He also has history of methicillin-resistant Staphylococcus aureus and pseudomonas and pneumonia last year. The patient was do not resuscitate from local detention. 02/04 No events overnight. On ventilator via trach. Afebrile. 02/05 Patient remains on ventilator via trach. Afebrile. On no sedation. 02/06 No events overnight. Afebrile. Tolerated CPAP all day yesterday. 02/07 No events overnight. Afebrile. 02/08 No events overnight. T;100.0 at 8 am. Having liquid stools. 02/09 Patient remains on ventilator via trach. T:100.0 yesterday 02/10 No events overnight. Afebrile. 02/11: On full vent support now. Low grade fever. On Avycaz per ID. at bedside 02/12: Clinically worsening with increasing oxygen requirement desaturating with 55% FiO2. I have increase PEEP to 10 and titrate oxygen as needed. The sputum Pseudomonas resistant to cefepime and Zosyn, ID has started Zerbaxa today 02/13: Currently appears comfortable. On FiO2 55%. PEEP of 10. Timing tube feeds. Positive BM off bowel regimen. Squeezes left hand to command. Tmax 100. Subjective 02/14: FiO2 up to 60%. PEEP of 10. Tube feeds at 50 cc an hour. Positive BM. requesting holding mycophenolate as "Dr. Willis always holds this "while hospitalized. 02/15: Afebrile. No acute events overnight. still has PEEP 10, with FIO2 .60%. Objective Vital Signs Date Time Temp Pulse Resp B/P (MAP) Pulse Ox O2 Delivery O2 Flow Rate FiO2 02/15/17 16:54 95 50 02/15/17 16:00 84 02/15/17 16:00 99.5 16 116/64 (81) Intake and Output 02/15/17 02/15/17 02/16/17 08:00 16:00 00:00 Intake Total 566 ml Balance 566 ml Result Diagram: 02/15/17 0506 02/15/17 0506 Imaging Last Impressions Chest X-Ray 02/14/17 0600 Signed Impressions: Service Date/Time: Tuesday, February 14, 2017 03:57 - CONCLUSION: Stable chest x-ray with left basilar airspace consolidation. Gabo Kirby MD Chest Ultrasound 02/09/17 0000 Signed Impressions: Service Date/Time: Thursday, February 09, 2017 14:59 - CONCLUSION: There is no left pleural effusion. Mark Chi MD Objective Remarks GENERAL: 36-year-old male, critically ill currently on ventilator via tracheostomy SKIN: Warm and dry. HEAD: Normocephalic. EYES: No scleral icterus. No injection or drainage. NECK: Supple, trachea midline. No JVD or lymphadenopathy. Trach in place seen dry and intact CARDIOVASCULAR: Regular rate and rhythm without murmurs, gallops, or rubs. RESPIRATORY: Breath sounds equal bilaterally, diminished at the bases. No accessory muscle use. GASTROINTESTINAL: Abdomen soft, non-tender, nondistended. PEG tube is clean dry and intact.erythema MUSCULOSKELETAL: Trace bilateral lower extremity edema. Contracted Neuro: On no sedation. Doesn't follow commands. Squeezes hand especially left hand not to command A/P Assessment and Plan Neuro/Psych: Myasthenia gravis Dementia Seizure disorder NOS On Pyridostigmine 60 mg q six hours. memantine 10 mg twice a day, mycophenolate mofetil 500 mg 3 times Holding mycophenolate for 's request temporarily Monitor neuro status closely. Neuro is following- Dr. Garewal Pulm: Acute on chronic respiratory failure. Left sided pneumonia with multidrug resistant Pseudomonas aeruginosa PRV 16/550/1.2/ Ventilator bundle Albuterol/ipratropium aerosols every 6 hours with albuterol aerosols every 2 hours. Dyspnea No spontaneous breathing trials until PEEP decreased Follow-up on chest x-ray in a.m. revealed stable left lower lobe infiltrate 02/14 Dr. Griffin, pulmonology following CV: Mild-elevated troponin. Resolved lactic acidemia. Monitor HR and BP and maintain MAP > 65 mmHg. Lactic acid level measured at 2.6. Echo showed EF 55-60% /FEN/RENAL: Monitor renal function, intake and output, avoid nephrotoxins. Electrolyte replacement as needed. GI: Hypoalbuminemia On lansoprazole 30 mg every 24 hour for Gl prophylaxis. Tube feeds via PEG tube- TF- Jevity 1.5 @ 65 ml per hour. Currently at 50 cc an hour ID: Pseudomonas pneumonia Avycaz DCd and ceftolozane/tazobactam 1500 mg every 8 hours started per ID antibiogram C-diff PCR negative 02/08 Sputum cx 02/03 : Pseudomonas species, Beta strep not Group A. Sputum cx: 02/05: Pseudomonas - resistant org Sputum 02/10 Pseudomonas sensitivities pending BC 02/03 Staph Epi, Staph hominis. likely contaminant. 02/04 BC: NGTD Strep pneumonia and legionella urinary antigen negative Heme: Normocytic anemia Does not meet requirements for blood transfusion Monitor CBC. Endo: Hypothyroidism SSI with Accuchecks for glycemic control twice a day. On levothyroxine 50 mcg daily. TSH: 4.5 MSK History of spinal fracture/fracture of hip PT evaluate to for contractures GI prophylaxis with lansoprazole resolved 30 mg daily and DVT s prophylaxis with SCDs and heparin SQ. Level 2 follow-up Physician Mattie Causey MD Feb 15, 2017 17:53
[2017-02-15] MEDS: SODIUM PHOSPHATE INJ 30 MMOL in SODIUM CHLOR 0.9% 250 ML INJ 240 ML IV PRN (18:15)
[2017-02-15] MEDS: SULFAMETHOXAZOLE-TRIMETHOPRIM DS 800-160 MG TAB PO SCH (22:21)
[2017-02-16] VITALS (17 sets, daily range): BP systolic 99–145; BP diastolic 55–92; PULSE 92–115; RESP 16–17; TEMP 98.3–100.7; O2SAT 91–96
[2017-02-16] MEDS: CHLORHEXIDINE GLUCONATE 2 % 1 PACK (2 CLOTHS) TOP SCH (04:00)
[2017-02-16] MEDS: RESP: SODIUM CHLORIDE 3% 4 ML NEB NEB SCH ×4 (04:20→19:59)
[2017-02-16] MEDS: RESP: ALBUTEROL 2.5 MG/IPRATROPIUM 0.5 MG NEB (SCH) NEB ×4 (04:20→19:59)
[2017-02-16] MEDS: NS IV SCH ×6 (04:54→20:35)
[2017-02-16] MEDS: CEFTOLOZANE TAZOBACTAM IV SCH ×6 (04:54→20:35)
[2017-02-16] MEDS: SULFAMETHOXAZOLE-TRIMETHOPRIM DS 800-160 MG TAB PO SCH ×3 (05:00→20:36)
[2017-02-16] MEDS: LEVOTHYROXINE SODIUM 50 MCG TAB G-TUBE SCH (05:00)
[2017-02-16] MEDS: PYRIDOSTIGMINE BROMIDE 60 MG TAB PO SCH ×3 (05:00→17:26)
[2017-02-16] MEDS: HEPARIN SODIUM - SQ 10,000 UNITS/ML VIAL SQ SCH ×2 (08:15→20:35)
[2017-02-16] MEDS: LANSOPRAZOLE SOLUTAB 30 MG TAB NG SCH (08:16)
[2017-02-16] MEDS: MEMANTINE HCL 10 MG TAB G-TUBE SCH ×2 (08:16→20:35)
[2017-02-16] MEDS: INSULIN NovoLIN REGULAR SUPPLEMENTAL SCALE SQ SCH ×2 (08:28→21:00)
[2017-02-16] MEDS: ACETAMINOPHEN 325 MG/10.15 ML UDC PEG PRN ×2 (09:43→15:16)
--- NOTE | 2017-02-16 11:12 | HHI.IDPN ---
Subjective Subjective Remarks ID x cover for Dr Livingston chart was reviewed 76 yo male with myastenia gravis and chronic resp failure, dementia he has MDRO PSAE pt remains on vent cont having low grade fever, WBC up to 12 K mycophenolic acid on hold Antibiotics Zerbaxa TS Allergies: Coded Allergies: hydrocodone (Unverified Allergy, Severe, SENDS PT INTO MYASTHNIA GRAVIS CRISIS, 02/03/17) thiopental (Unverified Allergy, Severe, Shortness of Breath, 02/03/17) SODIUM PENTOTHAL diatrizoate meglumine (Unverified Allergy, Unknown, 02/03/17) gadobenic acid (Unverified Allergy, Unknown, 02/03/17) gadodiamide (Unverified Allergy, Unknown, 02/03/17) gadoteridol (Unverified Allergy, Unknown, 02/03/17) haloperidol (Unverified Allergy, Unknown, 02/03/17) iodixanol (Unverified Allergy, Unknown, 02/03/17) iohexol (Unverified Allergy, Unknown, 02/03/17) onion (Unverified Allergy, Unknown, 02/03/17) risperidone (Unverified Allergy, Unknown, 02/03/17) Iodinated Contrast- Oral and IV Dye (Unverified Adverse Reaction, Severe, Anaphylaxis, 02/03/17) bee venom protein (honey bee) (Unverified Adverse Reaction, Severe, Anaphylaxis, 02/03/17) ciprofloxacin (Unverified Adverse Reaction, Severe, Anaphylaxis, 02/03/17) neomycin (Unverified Adverse Reaction, Severe, Anaphylaxis, 02/03/17) phenytoin (Unverified Adverse Reaction, Severe, Anaphylaxis, 02/03/17) tobramycin (Unverified Adverse Reaction, Severe, Respiratory Failure, ) acetaminophen (Unverified Adverse Reaction, Unknown, SENDS PT INTO MYASTHNIA GRAVIS CRISIS, 02/08/17) gentamicin (Unverified Adverse Reaction, Unknown, 02/03/17) lithium (Unverified Adverse Reaction, Unknown, 02/03/17) onabotulinumtoxinA (Unverified Adverse Reaction, Unknown, 02/03/17) timolol (Unverified Adverse Reaction, Unknown, 02/03/17) vancomycin (Unverified Adverse Reaction, Unknown, 02/03/17) verapamil (Unverified Adverse Reaction, Unknown, 02/03/17) Objective . Vital Signs Date Time Temp Pulse Resp B/P (MAP) Pulse Ox O2 Delivery O2 Flow Rate FiO2 02/16/17 09:33 92 45 02/16/17 06:00 109 02/16/17 04:18 92 45 02/16/17 04:00 45 02/16/17 04:00 104 02/16/17 04:00 99.3 104 16 112/67 (82) 93 02/16/17 02:00 111 02/16/17 00:23 93 45 02/16/17 00:00 106 02/16/17 00:00 98.3 106 16 122/72 (89) 92 02/16/17 00:00 45 02/15/17 22:00 82 02/15/17 20:29 95 45 02/15/17 20:29 96 Ventilator 45 02/15/17 20:00 98.7 83 16 108/67 (81) 91 02/15/17 20:00 83 02/15/17 20:00 45 02/15/17 18:00 45 02/15/17 18:00 89 02/15/17 16:54 95 50 02/15/17 16:00 84 02/15/17 16:00 50 02/15/17 16:00 99.5 84 16 116/64 (81) 94 02/15/17 14:00 82 02/15/17 12:56 94 50 02/15/17 12:00 50 02/15/17 12:00 82 02/15/17 12:00 99.6 85 16 107/61 (76) 93 . Laboratory Tests Test 02/15/17 05:06 White Blood Count 12.1 TH/MM3 Red Blood Count 4.21 MIL/MM3 Hemoglobin 10.9 GM/DL Hematocrit 34.3 % Mean Corpuscular Volume 81.6 FL Mean Corpuscular Hemoglobin 25.8 PG Mean Corpuscular Hemoglobin Concent 31.6 % Red Cell Distribution Width 18.4 % Platelet Count 252 TH/MM3 Mean Platelet Volume 9.4 FL Neutrophils (%) (Auto) 83.0 % Lymphocytes (%) (Auto) 8.6 % Monocytes (%) (Auto) 5.7 % Eosinophils (%) (Auto) 2.4 % Basophils (%) (Auto) 0.3 % Neutrophils # (Auto) 10.1 TH/MM3 Lymphocytes # (Auto) 1.0 TH/MM3 Monocytes # (Auto) 0.7 TH/MM3 Eosinophils # (Auto) 0.3 TH/MM3 Basophils # (Auto) 0.0 TH/MM3 CBC Comment DIFF FINAL Differential Comment Laboratory Tests Test 02/15/17 05:06 Blood Urea Nitrogen 17 MG/DL Creatinine 1.10 MG/DL Random Glucose 77 MG/DL Total Protein 6.6 GM/DL Albumin 2.3 GM/DL Calcium Level 8.5 MG/DL Phosphorus Level 2.2 MG/DL Magnesium Level 2.2 MG/DL Alkaline Phosphatase 80 U/L Aspartate Amino Transf (AST/SGOT) 7 U/L Alanine Aminotransferase (ALT/SGPT) 13 U/L Total Bilirubin 0.2 MG/DL Sodium Level 144 MEQ/L Potassium Level 3.9 MEQ/L Chloride Level 110 MEQ/L Carbon Dioxide Level 26.1 MEQ/L Anion Gap 8 MEQ/L Estimat Glomerular Filtration Rate 65 ML/MIN Imaging Last Impressions Chest X-Ray 02/15/17 0600 Signed Impressions: Service Date/Time: Wednesday, February 15, 2017 04:17 - CONCLUSION: Stable chest x-ray with left basilar airspace opacity and possible small effusion. Gabo Kirby MD Lower Extremity Ultrasound 02/14/17 0000 Signed Impressions: Service Date/Time: Tuesday, February 14, 2017 19:44 - CONCLUSION: No venous thrombosis of either lower extremity. Gabo Meza MD Chest Ultrasound 02/09/17 0000 Signed Impressions: Service Date/Time: Thursday, February 09, 2017 14:59 - CONCLUSION: There is no left pleural effusion. Mark Chi MD Physical Exam GENERAL: No acute distress. HEENT: The head is atraumatic. Eyes closed No icterus. Oropharynx slightly dry mucosa without lesions. NECK: Supple. No adenopathy. Tracheostomy in place with some yellowish sputum in it HEART: Regular S1-S2 without murmurs. LUNGS: scattered bilateral rhonchi. ABDOMEN: (+) Bowel sounds, soft, no tenderness. EXTREMITIES: No clubbing or cyanosis + edema. SKIN: No rash. NEURO: opens eyes; not following commands, not moving spontaneously Assessment & Plan Remarks IMPRESSION 1. Pneumonia due to Pseudomonas, MDRO growing 2nd GNB: Steno malt - not a candidate for levaquin 2/2 miastenia and R to ceftaz - Zerbaxa ADRIAN is < 2 Repeat sputum culture has pseudomonas. Sensitivity pending. 2. Previous blood cultures with coag negative staph likely contaminant. 3. Myasthenia gravis. Immunosuppresed - just got of mycopheolic acid 4. Chronic respiratory failure. 5. Multiple antibiotic allergies. RECOMMENDATIONS 1. Continue Zerbaxa. 2. cont Bactrim 15 mg/kg daily of TMP component 3. fu WBC 4. fu clx dw pt's @ b/s Hilda Flores MD Feb 16, 2017 11:12
--- NOTE | 2017-02-16 12:39 | HHI.PR ---
Subjective Remarks Awake and on A/C rate 16, FIO2 45 %.On PEEP 12. Has less secretions and had a Rough weekend. Tolerates feeds. On Antibiotics per ID. Good plate drying machine tender bilaterally. Objective Vital Signs Date Time Temp Pulse Resp B/P (MAP) Pulse Ox O2 Delivery O2 Flow Rate FiO2 02/16/17 12:00 92 45 02/16/17 10:00 114 02/16/17 09:33 92 45 02/16/17 08:00 100.1 103 16 115/63 (80) 93 02/16/17 08:00 45 02/16/17 08:00 103 02/16/17 06:00 109 02/16/17 04:18 92 45 02/16/17 04:00 45 02/16/17 04:00 104 02/16/17 04:00 99.3 104 16 112/67 (82) 93 02/16/17 02:00 111 02/16/17 00:23 93 45 02/16/17 00:00 106 02/16/17 00:00 98.3 106 16 122/72 (89) 92 02/16/17 00:00 45 02/15/17 22:00 82 02/15/17 20:29 95 45 02/15/17 20:29 96 Ventilator 45 02/15/17 20:00 98.7 83 16 108/67 (81) 91 02/15/17 20:00 83 02/15/17 20:00 45 02/15/17 18:00 45 02/15/17 18:00 89 02/15/17 16:54 95 50 02/15/17 16:00 84 02/15/17 16:00 50 02/15/17 16:00 99.5 84 16 116/64 (81) 94 02/15/17 14:00 82 02/15/17 12:56 94 50 I/O 02/15/17 02/15/17 02/15/17 02/16/17 02/16/17 02/16/17 07:00 15:00 23:00 07:00 15:00 23:00 Intake Total 566 ml 947 ml 1132 ml Balance 566 ml 947 ml 1132 ml IV Total 100 ml 350 ml Tube Feeding 486 ml 747 ml 662 ml Other 80 ml 100 ml 120 ml # Voids 3 5 3 # Bowel Movements 2 2 2 Result Diagram: 12/3/17 0506 02/15/17 0506 Objective Remarks GENERAL: This is an elderly man, moderately obese, awake but does not respond to any commands. HEENT: Head is normocephalic. Pupils are reactive. Sclerae are clear. Tongue was coated. Throat clear. Nose and ears have no inflammation. NECK: Supple. No venous distension. Trach site clear No lymphadenopathy. CHEST: Decreased excursions with occasional crackles over the lower lung fuentes . HEART: Heart sounds are regular, S1-S2. No murmur. No S3. ABDOMEN: The abdomen is obese, protuberant with a PEG tube in place. Bowel sounds are active. EXTREMITIES: Contracture of the extremities,no edema . Peripheral pulses are diminished. The patient does not move his extremities well.Has a Good plate drying machine tender on both hands. RECTAL: Exam is deferred. Assessment and Plan Assessment and Plan IMPRESSION 1. Acute respiratory failure. 2. Sepsis with pneumonia. 3. Acute kidney injury with dehydration. 4. Dementia. 5. History of myasthenia gravis. 6. History of MRSA and Pseudomonas pneumonias. 7. Status post tracheostomy and PEG tube placement. Plan : 1. Wean Fio2 to 40 %, A/C at PEEP to +10, rate 16 2. Continue antibiotics for Sepsis. 3. Nebs qid , Duoneb. 4. Tube feeds at 55 CC. 5. CBC,BMP Chest X ray in am 6. CPAP trials daily. when PEEP <8. 7. PT evaluation. Carol Griffin MD Feb 16, 2017 12:39
--- NOTE | 2017-02-16 16:08 | ECHRPT ---
Indication: Pericardial Effusion CONCLUSIONS There is no pericardial effusion. BP: 114 / 63 HR: 80 Rhythm: Technical Quality: FINDINGS PERICARDIUM There is no pericardial effusion. Franco Lizarraga MD (Electronically Signed) Final Date:16 February 2017 16:07
--- NOTE | 2017-02-16 17:26 | HHI.CCPN ---
Subjective Remarks/Hospital Course The patient is a 76 year old male with past medical history of myasthenia gravis , dementia, seizure disorder, chronic respiratory failure with previous tracheostomy and percutaneous endoscopic gastrostomy placement. The patient presented to [facility] from local nursing facility for tachycardia and fevers. On arrival he had a temperature of 102.8, in addition the patient was tachycardic and tachypneic. His laboratory data was significant for leukocytosis with a white blood count of 17.6 mild lactic acidemia, lactic acid level 2.6 and acute kidney injury with creatinine level of 1.65. Chest x-ray in the emergency room showed patchy pneumonia on the left. In the emergency department the patient was given three liters of crystalloids in addition to cefepime, Solu-Medrol, bronchodilator treatment. Arterial blood gas was preformed on TP's. Which showed a pH of 7.43, co2 39, pao2 63, bicarbonate 26-91%. He was placed on outboard motors experimental mechanic ventilation. Most of the history was obtained by reviewing the medical records as the patient is nonverbal. He also has history of methicillin-resistant Staphylococcus aureus and pseudomonas and pneumonia last year. The patient was [facility] from local [facility]. 02/04 No events overnight. On ventilator via trach. Afebrile. 02/05 Patient remains on ventilator via trach. Afebrile. On no sedation. 02/06 No events overnight. Afebrile. Tolerated CPAP all day yesterday. 02/07 No events overnight. Afebrile. 02/08 No events overnight. T;100.0 at 8 am. Having liquid stools. 02/09 Patient remains on ventilator via trach. T:100.0 yesterday 02/10 No events overnight. Afebrile. 02/11: On full vent support now. Low grade fever. On Avycaz per ID. at bedside 02/12: Clinically worsening with increasing oxygen requirement desaturating with 55% FiO2. I have increase PEEP to 10 and titrate oxygen as needed. The sputum Pseudomonas resistant to cefepime and Zosyn, ID has started Zerbaxa today 02/13: Currently appears comfortable. On FiO2 55%. PEEP of 10. Timing tube feeds. Positive BM off bowel regimen. Squeezes left hand to command. Tmax 100. Subjective 02/14: FiO2 up to 60%. PEEP of 10. Tube feeds at 50 Cc an hour. Positive BM. requesting holding mycophenolate as "Dr. Willis always holds this "while hospitalized. 02/15: Afebrile. No acute events overnight. still has PEEP 10, with FIO2 .60%. 02/16: Afebrile. No acute events overnight. PEEP overnight to 12. Now currently decreased to 10. Objective Vital Signs Date Time Temp Pulse Resp B/P (MAP) Pulse Ox O2 Delivery O2 Flow Rate FiO2 02/16/17 16:00 45 02/16/17 16:00 115 02/16/17 16:00 100.7 17 107/55 (72) 91 02/15/17 20:29 Ventilator Intake and Output 02/16/17 02/16/17 02/17/17 08:00 16:00 00:00 Intake Total 1132 ml Balance 1132 ml Result Diagram: 02/15/17 0506 02/15/17 0506 Imaging Last Impressions Chest X-Ray 02/14/17 0600 Signed Impressions: Service Date/Time: Tuesday, February 14, 2017 03:57 - CONCLUSION: Stable chest x-ray with left basilar airspace consolidation. Gabo Kirby MD Chest Ultrasound 02/09/17 0000 Signed Impressions: Service Date/Time: Thursday, February 09, 2017 14:59 - CONCLUSION: There is no left pleural effusion. Mark Chi MD Objective Remarks GENERAL: 36-year-old male, critically ill currently on ventilator via tracheostomy SKIN: Warm and dry. HEAD: Normocephalic. EYES: No scleral icterus. No injection or drainage. NECK: Supple, trachea midline. No JVD or lymphadenopathy. Trach in place seen dry and intact CARDIOVASCULAR: Regular rate and rhythm without murmurs, gallops, or rubs. RESPIRATORY: Breath sounds equal bilaterally, diminished at the bases. No accessory muscle use. GASTROINTESTINAL: Abdomen soft, non-tender, nondistended. PEG tube is clean dry and intact.erythema MUSCULOSKELETAL: Trace bilateral lower extremity edema. Contracted Neuro: On no sedation. Doesn't follow commands. Squeezes hand especially left hand not to command A/P Assessment and Plan Neuro/Psych: Myasthenia gravis Dementia Seizure disorder NOS On Pyridostigmine 60 mg q six hours. memantine 10 mg twice a day, mycophenolate mofetil 500 mg 3 times Holding mycophenolate for 's request temporarily Monitor neuro status closely. Neuro is following- Dr. Longoria Pulm: Acute on chronic respiratory failure. Left sided pneumonia with multidrug resistant Pseudomonas aeruginosa [facility] 16/550/1.2/ Ventilator bundle Albuterol/ipratropium aerosols every 6 hours with albuterol aerosols every 2 hours. Dyspnea No spontaneous breathing trials until PEEP decreased Follow-up on chest x-ray in a.m. revealed stable left lower lobe infiltrate 02/14 Dr. Griffin, pulmonology following CV: Mild-elevated troponin. Resolved lactic acidemia. Monitor HR and BP and maintain MAP > 65 mmHg. Lactic acid level measured at 2.6. Echo showed EF 55-60% /FEN/RENAL: Monitor renal function, intake and output, avoid nephrotoxins. Electrolyte replacement as needed. GI: Hypoalbuminemia On lansoprazole 30 mg every 24 hour for Gl prophylaxis. Tube feeds via PEG tube- TF- Jevity 1.5 @ 65 ml per hour. Currently at 50 cc an hour ID: Pseudomonas pneumonia Avycaz DCd and ceftolozane/tazobactam 1500 mg every 8 hours started per ID antibiogram C-diff PCR negative 02/08 Sputum cx 02/03 : Pseudomonas species, Beta strep not Group A. Sputum cx: 02/05: Pseudomonas - resistant org Sputum 02/10 Pseudomonas sensitivities pending BC 02/03 Staph Epi, Staph hominis. likely contaminant. 02/04 BC: NGTD Strep pneumonia and legionella urinary antigen negative Heme: Normocytic anemia Does not meet requirements for blood transfusion Monitor CBC. Endo: Hypothyroidism SSI with Accuchecks for glycemic control twice a day. On levothyroxine 50 mcg daily. TSH: 4.5 MSK History of spinal fracture/fracture of hip PT evaluate to for contractures GI prophylaxis with lansoprazole resolved 30 mg daily and DVT s prophylaxis with SCDs and heparin SQ. Level 2 follow-up Physician Mattie Causey MD Feb 16, 2017 17:26
[2017-02-16 17:58] LABS: BLOOD GAS CARBOXYHEMOGLOBIN 1.2 % (0-4); BLOOD GAS HCO3 26 mmol/L (22-26); BLOOD GAS METHEMOGLOBIN 0.9 % (0-2); BLOOD GAS O2 HGB SATURATION 90 % (90-100); BLOOD GAS OXYGEN CONTENT 12.9 Vol % (12.0-20.0); BLOOD GAS PCO2 37 mmHg (38-42); BLOOD GAS PO2 64 mmHg (61-120); BLOOD GAS TOTAL HGB 10.2 G/DL (12.0-16.0); CRITICAL VALUE NO; OXYGEN DEVICE VENTILATOR; TEMP CORR TO 98.6
[2017-02-16 17:59] LABS: DRAW SITE RT RADIAL; FIO2 45 %; NUMBER OF ARTERIAL PUNCTURES 1; STAT NO; ULNAR PULSE PRESENT; VENT SETTINGS PRVC/AC 700/16
[2017-02-17] VITALS (18 sets, daily range): BP systolic 105–124; BP diastolic 59–66; PULSE 81–95; RESP 16–21; TEMP 98.9–100; O2SAT 89–95
[2017-02-17] MEDS: PYRIDOSTIGMINE BROMIDE 60 MG TAB PO SCH ×4 (00:28→17:29)
[2017-02-17] MEDS: CHLORHEXIDINE GLUCONATE 2 % 1 PACK (2 CLOTHS) TOP SCH (04:00)
[2017-02-17] MEDS: RESP: SODIUM CHLORIDE 3% 4 ML NEB NEB SCH ×4 (04:09→20:07)
[2017-02-17] MEDS: RESP: ALBUTEROL 2.5 MG/IPRATROPIUM 0.5 MG NEB (SCH) NEB ×4 (04:09→20:07)
[2017-02-17] MEDS: SULFAMETHOXAZOLE-TRIMETHOPRIM DS 800-160 MG TAB PO SCH ×2 (06:00→13:19)
[2017-02-17] MEDS: NS IV SCH ×6 (06:00→21:00)
[2017-02-17] MEDS: LEVOTHYROXINE SODIUM 50 MCG TAB G-TUBE SCH (06:00)
[2017-02-17] MEDS: CEFTOLOZANE TAZOBACTAM IV SCH ×6 (06:00→21:00)
[2017-02-17 07:02] LABS: AUTOMATED NEUTROPHIL # 9.3 TH/MM3 (1.8-7.7); BASOPHIL % 0.4 % (0.0-2.0); EOSINOPHIL # 0.4 TH/MM3 (0-0.4); EOSINOPHIL % 3.7 % (0.0-4.0); HEMO FLAGS DIFF FINAL; LYMPH % 8.5 % (9.0-44.0); MEAN CELL VOLUME 83.3 FL (80.0-100.0); MEAN CORPUSCULAR HEMOGLOBIN 26.1 PG (27.0-34.0); MEAN CORPUSCULAR HGB CONC 31.3 % (32.0-36.0); MONO % 6.5 % (0.0-8.0); NEUT % 80.9 % (16.0-70.0); PLATELET COUNT 248 TH/MM3 (150-450); RED BLOOD COUNT 3.97 MIL/MM3 (4.50-5.90); RED CELL DISTRIBUTION WIDTH 18.5 % (11.6-17.2); WHITE BLOOD COUNT 11.5 TH/MM3 (4.0-11.0)
[2017-02-17 07:33] LABS: BICARBONATE 27.9 MEQ/L (21.0-32.0); MAGNESIUM 2.1 MG/DL (1.5-2.5); POTASSIUM 4.7 MEQ/L (3.5-5.1)
[2017-02-17] MEDS: LANSOPRAZOLE SOLUTAB 30 MG TAB NG SCH (08:41)
[2017-02-17] MEDS: MEMANTINE HCL 10 MG TAB G-TUBE SCH ×2 (08:41→21:00)
[2017-02-17] MEDS: HEPARIN SODIUM - SQ 10,000 UNITS/ML VIAL SQ SCH ×2 (08:41→21:00)
[2017-02-17] MEDS: INSULIN NovoLIN REGULAR SUPPLEMENTAL SCALE SQ SCH ×2 (09:00→21:00)
[2017-02-17] MEDS: ACETAMINOPHEN 325 MG/10.15 ML UDC PEG PRN ×2 (13:19→17:29)
--- NOTE | 2017-02-17 17:48 | HHI.CCPN ---
Subjective Remarks/Hospital Course The patient is a 76 year old male with past medical history of myasthenia gravis , dementia, seizure disorder, chronic respiratory failure with previous tracheostomy and percutaneous endoscopic gastrostomy placement. The patient presented to [facility] from local nursing facility for tachycardia and fevers. On arrival he had a temperature of 102.8, in addition the patient was tachycardic and tachypneic. His laboratory data was significant for leukocytosis with a white blood count of 17.6 mild lactic acidemia, lactic acid level 2.6 and acute kidney injury with creatinine level of 1.65. Chest x-ray in the emergency room showed patchy pneumonia on the left. In the emergency department the patient was given three liters of crystalloids in addition to cefepime, Solu-Medrol, bronchodilator treatment. Arterial blood gas was preformed on TP's. Which showed a pH of 7.43, co2 39, pao2 63, bicarbonate 26-91%. 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 Most of the history was obtained by reviewing the medical records as the patient is nonverbal. He also has history of methicillin-resistant Staphylococcus aureus and pseudomonas and pneumonia last year. The patient was do not resuscitate from local shelter. 02/04 No events overnight. On ventilator via trach. Afebrile. 02/05 Patient remains on ventilator via trach. Afebrile. On no sedation. 02/06 No events overnight. Afebrile. Tolerated CPAP all day yesterday. 02/07 No events overnight. Afebrile. 02/08 No events overnight. T;100.0 at 8 am. Having liquid stools. 02/09 Patient remains on ventilator via trach. T:100.0 yesterday 02/10 No events overnight. Afebrile. 02/11: On full vent support now. Low grade fever. On Avycaz per ID. at bedside 02/12: Clinically worsening with increasing oxygen requirement desaturating with 55% FiO2. I have increase PEEP to 10 and titrate oxygen as needed. The sputum Pseudomonas resistant to cefepime and Zosyn, ID has started Zerbaxa today 02/13: Currently appears comfortable. On FiO2 55%. PEEP of 10. Timing tube feeds. Positive BM off bowel regimen. Squeezes left hand to command. Tmax 100. Subjective 02/14: FiO2 up to 60%. PEEP of 10. Tube feeds at 50 Cc an hour. Positive BM. requesting holding mycophenolate as "Dr. Willis always holds this "while hospitalized. 02/15: Afebrile. No acute events overnight. still has PEEP 10, with FIO2 .60%. 02/16: Afebrile. No acute events overnight. PEEP overnight to 12. Now currently decreased to 10. 02/17: Afebrile. Patient tolerated PEEP of 10, O2 saturation 93-94% Noted desquamating rash over entire back today, questionable secondary to antibiotics. Objective Vital Signs Date Time Temp Pulse Resp B/P (MAP) Pulse Ox O2 Delivery O2 Flow Rate FiO2 02/17/17 16:00 99.0 91 21 112/62 (79) 91 02/17/17 16:00 45 02/15/17 20:29 Ventilator Intake and Output 02/17/17 02/17/17 02/18/17 08:00 16:00 00:00 Intake Total 791 ml Output Total 400 ml Balance 391 ml Result Diagram: 02/17/17 0600 02/17/17 0542 Other Results Laboratory Tests Test 02/16/17 17:50 Blood Gas Puncture Site RT RADIAL Blood Gas Patient Temperature 98.6 Blood Gas HCO3 26 mmol/L (22-26) Blood Gas Base Excess 2.0 mmol/L (-2-2) Blood Gas Oxygen Saturation 90 % (90-100) Arterial Blood pH 7.45 (7.380-7.420) Arterial Blood Partial Pressure CO2 37 mmHg (38-42) Arterial Blood Partial Pressure O2 64 mmHg (61-120) Arterial Blood Oxygen Content 12.9 Vol % (12.0-20.0) Arterial Blood Carboxyhemoglobin 1.2 % (0-4) Arterial Blood Methemoglobin 0.9 % (0-2) Blood Gas Hemoglobin 10.2 G/DL (12.0-16.0) Oxygen Delivery Device VENTILATOR Blood Gas Ventilator Setting PRVC/AC 700/16 Blood Gas Inspired Oxygen 45 % Imaging Last Impressions Chest X-Ray 02/14/17 0600 Signed Impressions: Service Date/Time: Tuesday, February 14, 2017 03:57 - CONCLUSION: Stable chest x-ray with left basilar airspace consolidation. Gabo Kirby MD Chest Ultrasound 02/09/17 0000 Signed Impressions: Service Date/Time: Thursday, February 09, 2017 14:59 - CONCLUSION: There is no left pleural effusion. Mark Chi MD Objective Remarks GENERAL: 36-year-old male, critically ill currently on ventilator via tracheostomy SKIN: Warm and dry. Noted desquamating rash entire back reddened HEAD: Normocephalic. EYES: No scleral icterus. No injection or drainage. NECK: Supple, trachea midline. No JVD or lymphadenopathy. Trach in place seen dry and intact CARDIOVASCULAR: Regular rate and rhythm without murmurs, gallops, or rubs. RESPIRATORY: Breath sounds equal bilaterally, diminished at the bases. No accessory muscle use. GASTROINTESTINAL: Abdomen soft, non-tender, nondistended. PEG tube is clean dry and intact.erythema MUSCULOSKELETAL: Trace bilateral lower extremity edema. Contracted Neuro: On no sedation. Doesn't follow commands. Squeezes hand especially left hand not to command A/P Assessment and Plan Neuro/Psych: Myasthenia gravis Dementia Seizure disorder NOS On Pyridostigmine 60 mg q six hours. memantine 10 mg twice a day, mycophenolate mofetil 500 mg 3 times Holding mycophenolate for 's request temporarily Monitor neuro status closely. Neuro is following- Dr. Longoria Pulm: Acute on chronic respiratory failure. Left sided pneumonia with multidrug resistant Pseudomonas aeruginosa [facility] 16/550/1.2/ Ventilator bundle Albuterol/ipratropium aerosols every 6 hours with albuterol aerosols every 2 hours. Dyspnea No spontaneous breathing trials until PEEP decreased Follow-up on chest x-ray in a.m. revealed stable left lower lobe infiltrate 02/14 Dr. Griffin, pulmonology following CV: Mild-elevated troponin. Resolved lactic acidemia. Monitor HR and BP and maintain MAP > 65 mmHg. Lactic acid level measured at 2.6. Echo showed EF 55-60% /FEN/RENAL: Monitor renal function, intake and output, avoid nephrotoxins. Electrolyte replacement as needed. GI: Hypoalbuminemia On lansoprazole 30 mg every 24 hour for Gl prophylaxis. Tube feeds via PEG tube- TF- Jevity 1.5 @ 65 ml per hour. Currently at 50 cc an hour ID: Pseudomonas pneumonia Avycaz DCd and ceftolozane/tazobactam 1500 mg every 8 hours started per ID antibiogram C-diff PCR negative 02/08 Sputum cx 02/03 : Pseudomonas species, Beta strep not Group A. Sputum cx: 02/05: Pseudomonas - resistant org Sputum 02/10 Pseudomonas sensitivities pending BC 02/03 Staph Epi, Staph hominis. likely contaminant. 02/04 BC: NGTD Strep pneumonia and legionella urinary antigen negative Heme: Normocytic anemia Does not meet requirements for blood transfusion Monitor CBC. Endo: Hypothyroidism SSI with Accuchecks for glycemic control twice a day. On levothyroxine 50 mcg daily. TSH: 4.5 MSK History of spinal fracture/fracture of hip PT evaluate to for contractures 02/17 Skin rash entire back, possible fungus??, and contacted ID regarding simply antibiotic induced GI prophylaxis with lansoprazole resolved 30 mg daily and DVT s prophylaxis with SCDs and heparin SQ. Level 2 follow-up Physician Mattie Causey MD Feb 17, 2017 17:48
--- NOTE | 2017-02-17 18:04 | HHI.PR ---
Subjective Remarks Awake and on A/C rate 16, FIO2 45 %.On PEEP 10. Has less secretions .No fever Tolerates feeds. On Antibiotics per ID.Has a Rash on Back now. Good sweatband shaper bilaterally. Objective Vital Signs Date Time Temp Pulse Resp B/P (MAP) Pulse Ox O2 Delivery O2 Flow Rate FiO2 02/17/17 16:00 99.0 91 21 112/62 (79) 91 02/17/17 16:00 91 02/17/17 16:00 45 02/17/17 15:50 95 45 02/17/17 14:00 83 02/17/17 12:00 92 02/17/17 12:00 45 02/17/17 12:00 99.3 92 16 107/66 (80) 95 02/17/17 11:42 90 45 02/17/17 10:00 86 02/17/17 09:38 91 45 02/17/17 08:00 86 02/17/17 08:00 45 02/17/17 08:00 99.2 86 16 112/59 (76) 94 02/17/17 06:00 91 02/17/17 04:09 92 45 02/17/17 04:00 100.0 91 17 117/65 (82) 89 02/17/17 04:00 91 02/17/17 04:00 45 02/17/17 02:00 90 02/17/17 00:43 92 45 02/17/17 00:00 45 02/17/17 00:00 99.5 95 16 105/65 (78) 91 02/17/17 00:00 95 02/16/17 22:00 102 02/16/17 20:00 92 02/16/17 20:00 45 02/16/17 20:00 99.4 92 16 99/58 (72) 92 02/16/17 19:58 92 45 I/O 02/16/17 02/16/17 02/16/17 02/17/17 02/17/17 02/17/17 07:00 15:00 23:00 07:00 15:00 23:00 Intake Total 1132 ml 973 ml 791 ml Output Total 0 ml 400 ml Balance 1132 ml 973 ml 391 ml IV Total 350 ml Tube Feeding 662 ml 773 ml 671 ml Other 120 ml 200 ml 120 ml Output Urine Total 400 ml Tube Feeding Residual Discard 0 ml # Voids 3 3 4 # Bowel Movements 2 2 2 Result Diagram: 02/17/17 0600 02/17/17 0542 Objective Remarks GENERAL: This is an elderly man, moderately obese, awake but does not respond to any commands. HEENT: Head is normocephalic. Pupils are reactive. Sclerae are clear. Tongue was dry. Throat clear. Nose and ears have no inflammation. NECK: Supple. No venous distension. Trach site clear No lymphadenopathy. CHEST: Decreased excursions with occasional wheeze. HEART: Heart sounds are regular, S1-S2. No murmur. No S3. ABDOMEN: The abdomen is obese, protuberant with a PEG tube in place. Bowel sounds are active. EXTREMITIES: Contracture of the extremities,no edema . Peripheral pulses are diminished. The patient does not move his extremities well.Has a Good sweatband shaper on both hands. RECTAL: Exam is deferred. Assessment and Plan Assessment and Plan IMPRESSION 1. Chronic respiratory failure. 2. Sepsis with pneumonia. 3. Acute kidney injury with dehydration. 4. Dementia. 5. History of myasthenia gravis. 6. History of MRSA and Pseudomonas pneumonias. 7. Status post tracheostomy and PEG tube placement. Plan : 1. Wean Fio2 to 45 %, A/C at PEEP to +10, rate 16 2. Continue antibiotics for Sepsis. 3. Nebs qid , Duoneb. 4. Tube feeds at 55 CC. 5. CBC,BMP in am 6. CPAP trials daily. when PEEP <8. 7. PT evaluation. Carol Griffin MD Feb 17, 2017 18:04
--- NOTE | 2017-02-17 19:42 | HHI.IDPN ---
Note Infectious Disease Note Notes reviewed. Patient on the vent. Awake, Non verbal. Low grade fever. New desquamating rash on the back. reports that he cannot take many antibiotics because of effects on diaphragm muscles and affecting breathing. 76-year-old white male with history of myasthenia gravis. The patient was seen in the emergency department after he was brought in with fever and tachycardia. He was intubated and is currently on the ventilator. The patient has a tracheostomy and also PEG. He had mild lactic acidemia on admission. Cultures of the sputum grew Pseudomonas aeruginosa and beta strep not group A on 02/03. PAST MEDICAL HISTORY Dementia, chronic respiratory failure. Myasthenia gravis, history of tracheostomy, history of hip repair. Multiple antibiotic allergies. Seizure disorder, history of tonsillectomy, history of hernia repair. ALLERGIES CIPROFLOXACIN, TOBRAMYCIN, DILANTIN, NEOMYCIN, LITHIUM, BOTULINUM TOXIN A, TIMOLOL, VANCOMYCIN, VERAPAMIL, RISPERIDONE, IOHEXOL, IODIXANOL, HALOPERIDOL, GADOTERIDOL, GADODIAMIDE, DIATRIZOATE MEGLUMINE, THIOPENTAL, HYDROCODONE, ACETAMINOPHEN IODINATED CONTRAST. MEDICATIONS Current Medications Medications (Trade) Dose Ordered Sig/Maddie Route PRN Reason Start Time Stop Time Status Last Admin Dose Admin Heparin Sodium (Porcine) (Heparin Inj) 5,000 units Q12H SQ 02/03/17 08:00 02/17/17 08:41 Miscellaneous Information 1 Q361D XX 02/03/17 07:15 Chlorhexidine Gluconate (Chlorhexidine 2% Cloth) Taper DAILY@04 TOP 02/04/17 04:00 01/31/18 03:59 02/11/17 04:49 Chlorhexidine Gluconate (Chlorhexidine 2% Cloth) 3 pack UNSCH PRN [facility] 02/03/17 07:15 Dextrose (D50w (Vial) Inj) 50 ml UNSCH PRN IV PUSH HYPOGLYCEMIA-SEE COMMENTS 02/03/17 07:15 Glucagon (Glucagon Inj) 1 mg UNSCH PRN OTHER HYPOGLYCEMIA-SEE COMMENTS 02/03/17 07:15 Levothyroxine Sodium (Synthroid) 50 mcg DAILY@0600 G-TUBE 02/03/17 09:15 02/17/17 06:00 Memantine (Namenda) 10 mg BID G-TUBE 02/03/17 09:15 02/17/17 08:41 Pyridostigmine [place] (Mestinon) 60 mg Q6HR PO 02/03/17 12:00 02/17/17 17:29 Mycophenolate Mofetil (Cellcept Liq) 500 mg TID PO 02/04/17 10:00 Future Hold 02/13/17 17:24 Potassium Chloride 100 ml @ 50 mls/hr Q2H PRN IV-CENTRAL For Potassium 2.8 - 3.2 mEq/L 02/04/17 07:45 Potassium Chloride 100 ml @ 50 mls/hr Q2H PRN IV For Potassium 2.8 - 3.2 mEq/L 02/04/17 07:45 Potassium Bicarb/ Potassium Chloride (K-Lyte Cl Eff) 50 meq UNSCH PRN PO For Potassium 3.3 - 3.5 mEq/L 02/04/17 07:45 Potassium Chloride 100 ml @ 25 mls/hr UNSCH PRN IV-CENTRAL For Potassium 3.3 - 3.5 mEq/L 02/04/17 07:45 Potassium Chloride 100 ml @ 50 mls/hr Q2H PRN IV For Potassium 3.3 - 3.5 mEq/L 02/04/17 07:45 Magnesium Sulfate 4 gm/Sodium Chloride 100 ml @ 50 mls/hr UNSCH PRN IV For Magnesium 0.9 - 1.1 mg/dL 02/04/17 07:45 Magnesium Oxide (Mag-Ox) 800 mg UNSCH PRN PO For Magnesium 1.2 - 1.6 mg/dL 02/04/17 07:45 Magnesium Sulfate 2 gm/Sodium Chloride 100 ml @ 50 mls/hr UNSCH PRN IV For Magnesium 1.2 - 1.6 mg/dL 02/04/17 07:45 Potassium Phosphate (K-Phos) 2,000 mg Q4H PRN PO For Phosphorus < 2.5 mg/dL 02/04/17 07:45 Sodium Phosphate 30 mmol/Sodium Chloride 250 ml @ 42 mls/hr UNSCH PRN IV For Phosphorus < 2.5 mg/dL 02/04/17 07:45 02/15/17 18:15 Potassium Phosphate (K-Phos) 2,000 mg UNSCH PRN PO/TUBE SEE LABEL COMMENTS 02/04/17 07:45 Potassium Phosphate 30 mmol/ Sodium Chloride 260 ml @ 42 mls/hr UNSCH PRN IV SEE LABEL COMMENTS 02/04/17 07:45 02/05/17 09:29 Ceftolozane/ Tazobactam 1500 mg/Sodium Chloride 100 ml @ 100 mls/hr Q8H IV 02/12/17 21:00 02/17/17 11:45 Insulin Human Regular (NovoLIN R SUPPLEMENTAL SCALE) 1 BID SQ 02/13/17 21:00 Lansoprazole (Prevacid Odt) 30 mg DAILY NG 02/14/17 09:00 02/17/17 08:41 Albuterol/ Ipratropium (Duoneb Neb) 1 ampule Q6HR NEB NEB 02/13/17 22:00 02/17/17 14:37 Albuterol Sulfate (Albuterol Neb) 2.5 mg Q2HR NEB PRN NEB DYSPNEA 02/13/17 16:45 Sodium Chloride (Sodium Chloride 3% Neb) 2 ml Q6HR NEB NEB 02/14/17 16:00 02/19/17 15:59 02/17/17 14:37 Acetaminophen (Tylenol 325 Mg/ 10 ml Liq) 325 mg Q4H PRN PEG FEVER 02/14/17 14:30 02/17/17 17:29 Trimethoprim/ Sulfamethoxazole (Bactrim Ds 800-160 Mg) 2 tab Q8HR PO 02/15/17 22:00 02/17/17 13:19 SOCIAL HISTORY The patient is . No tobacco. No alcohol. No illicit drugs. OBJECTIVE: Vital Signs Date Time Temp Pulse Resp B/P (MAP) Pulse Ox O2 Delivery O2 Flow Rate FiO2 02/17/17 18:00 85 02/17/17 16:00 99.0 91 21 112/62 (79) 91 02/17/17 16:00 91 02/17/17 16:00 45 02/17/17 15:50 95 45 02/17/17 14:00 83 02/17/17 12:00 92 02/17/17 12:00 45 02/17/17 12:00 99.3 92 16 107/66 (80) 95 02/17/17 11:42 90 45 02/17/17 10:00 86 02/17/17 09:38 91 45 02/17/17 08:00 86 02/17/17 08:00 45 02/17/17 08:00 99.2 86 16 112/59 (76) 94 02/17/17 06:00 91 02/17/17 04:09 92 45 02/17/17 04:00 100.0 91 17 117/65 (82) 89 02/17/17 04:00 91 02/17/17 04:00 45 02/17/17 02:00 90 02/17/17 00:43 92 45 02/17/17 00:00 45 02/17/17 00:00 99.5 95 16 105/65 (78) 91 02/17/17 00:00 95 02/16/17 22:00 102 02/16/17 20:00 92 02/16/17 20:00 45 02/16/17 20:00 99.4 92 16 99/58 (72) 92 02/16/17 19:58 92 45 Laboratory Tests Test 02/17/17 06:00 White Blood Count 11.5 TH/MM3 Red Blood Count 3.97 MIL/MM3 Hemoglobin 10.3 GM/DL Hematocrit 33.0 % Mean Corpuscular Volume 83.3 FL Mean Corpuscular Hemoglobin 26.1 PG Mean Corpuscular Hemoglobin Concent 31.3 % Red Cell Distribution Width 18.5 % Platelet Count 248 TH/MM3 Mean Platelet Volume 9.7 FL Neutrophils (%) (Auto) 80.9 % Lymphocytes (%) (Auto) 8.5 % Monocytes (%) (Auto) 6.5 % Eosinophils (%) (Auto) 3.7 % Basophils (%) (Auto) 0.4 % Neutrophils # (Auto) 9.3 TH/MM3 Lymphocytes # (Auto) 1.0 TH/MM3 Monocytes # (Auto) 0.7 TH/MM3 Eosinophils # (Auto) 0.4 TH/MM3 Basophils # (Auto) 0.0 TH/MM3 CBC Comment DIFF FINAL Differential Comment Laboratory Tests Test 02/17/17 05:42 Blood Urea Nitrogen 18 MG/DL Creatinine 1.40 MG/DL Random Glucose 60 MG/DL Calcium Level 8.3 MG/DL Phosphorus Level 1.7 MG/DL Magnesium Level 2.1 MG/DL Sodium Level 144 MEQ/L Potassium Level 4.7 MEQ/L Chloride Level 110 MEQ/L Carbon Dioxide Level 27.9 MEQ/L Anion Gap 6 MEQ/L Estimat Glomerular Filtration Rate 49 ML/MIN Microbiology Date/Time Source Procedure Growth Status 02/16/17 14:30 Sputum Endotracheal Gram Stain - Final Resulted 02/16/17 14:30 Sputum Culture - Preliminary Gram Negative Marcos Resulted IMAGING: Chest X-Ray 02/12/17 0600 Signed Impressions: Service Date/Time: January 03:57 - CONCLUSION: Left base consolidation or atelectasis. Gabo Davis MD Chest X-Ray 02/09/17 0000 Signed Impressions: Service Date/Time: Thursday, February 09, 2017 10:33 - CONCLUSION: Increasing consolidative changes left base. Jorje Chi MD FACR Chest Ultrasound 02/09/17 0000 Signed Impressions: Service Date/Time: Thursday, February 09, 2017 14:59 - CONCLUSION: There is no left pleural effusion. Mark Chi MD Chest X-Ray 02/06/17 0000 Signed Impressions: Service Date/Time: Monday, February 06, 2017 07:38 - CONCLUSION: 1. Continued low lung volumes with stable left lower lobe airspace disease. Joni Reina MD PHYSICAL EXAMINATION GENERAL: No acute distress. HEENT: No icterus. Oropharynx slightly dry mucosa without lesions. NECK: Supple. No adenopathy. Tracheostomy in place. HEART: Regular S1-S2 without murmurs. LUNGS: Bilateral rhonchi same. ABDOMEN: (+) Bowel sounds, soft, no tenderness. EXTREMITIES: No clubbing or cyanosis or edema. SKIN: erythematous desquamating rash on the back NEURO: Unable to fully assess. IMPRESSION 1. Pneumonia due to Pseudomonas. Fairly resistant organism. Also Stenotrophomonas. 2. Previous blood cultures with coag negative staph likely contaminant. 3. Myasthenia gravis. 4. Chronic respiratory failure. 5. Multiple antibiotic allergies. 6. Rash most likely due to Bactrim. Very difficult situation to treat infection in this patient because of the myasthenia and immunosuppression(also now on cellcept) and resistant bacteria with limitation for antibiotics. Now with new rash likely from antibiotic. RECOMMENDATIONS 1. Continue Zerbaxa. 2. Stop Bactrim. 3. Follow the new sputum culture. 4. Monitor temperature. 5. Monitor clinical status. Christopher Livingston MD Feb 17, 2017 19:42
[2017-02-18] VITALS (19 sets, daily range): BP systolic 102–136; BP diastolic 56–69; PULSE 64–106; RESP 17–26; TEMP 98.8–101.5; O2SAT 90–96
[2017-02-18] MEDS: ACETAMINOPHEN 325 MG/10.15 ML UDC PEG PRN (01:54)
[2017-02-18] MEDS: PYRIDOSTIGMINE BROMIDE 60 MG TAB PO SCH ×5 (01:54→23:29)
[2017-02-18] MEDS: CHLORHEXIDINE GLUCONATE 2 % 1 PACK (2 CLOTHS) TOP SCH (03:26)
[2017-02-18] MEDS: RESP: ALBUTEROL 2.5 MG/3 ML NEB (PRN) NEB ×2 (03:30→22:53)
[2017-02-18] MEDS: RESP: SODIUM CHLORIDE 3% 4 ML NEB NEB SCH ×4 (03:30→22:54)
[2017-02-18] MEDS: LEVOTHYROXINE SODIUM 50 MCG TAB G-TUBE SCH (05:22)
[2017-02-18] MEDS: NS IV SCH ×6 (05:22→20:39)
[2017-02-18] MEDS: CEFTOLOZANE TAZOBACTAM IV SCH ×6 (05:22→20:39)
--- NOTE | 2017-02-18 05:32 | RADRPT ---
EXAM DATE/TIME: 02/18/2017 04:17 [place] COMPARISON: CHEST SINGLE AP, February 15, 2017, 4:17. INDICATIONS : Shortness of breath. MEDICAL HISTORY : Hypertension. SURGICAL HISTORY : Tracheostomy. ENCOUNTER: Subsequent ACUITY: 1 week PAIN SCORE: Non-responsive. LOCATION: Bilateral chest FINDINGS: A single view of the chest demonstrates the lungs to be symmetrically aerated without evidence of mas s, infiltrate or effusion. The study is Midinspiratory with crowding of the lung vasculature. The tra cheostomy tube remains in place. The cardiomediastinal contours are unremarkable. Osseous structures are intact. CONCLUSION: Midinspiratory exam with no acute cardiopulmonary disease. The left basilar airspace opacity appears improved. Franklin Vega MD on February 18, 2017 at 5:29 Board Certified Radiologist. This report was verified electronically.
[2017-02-18] MEDS: INSULIN NovoLIN REGULAR SUPPLEMENTAL SCALE SQ SCH ×2 (09:00→20:39)
[2017-02-18] MEDS: MEMANTINE HCL 10 MG TAB G-TUBE SCH ×2 (09:16→20:38)
[2017-02-18] MEDS: LANSOPRAZOLE SOLUTAB 30 MG TAB NG SCH (09:16)
[2017-02-18] MEDS: HEPARIN SODIUM - SQ 10,000 UNITS/ML VIAL SQ SCH ×2 (09:16→20:39)
--- NOTE | 2017-02-18 09:43 | PQ ---
Physician Query Response Document PATIENT: BRAYAN HAMILTON : 1940 ADMIT DATE: 02/03/2017 7:08 AM DISCH DATE: RESPONDING PROVIDER #: [email or web address] QUERY TEXT: Sepsis Query Based on your medical judgement, can you further CLARIFY the followiin. SEPSIS (SIRS due to an infection) 2. SEVERE SEPSIS with Organ Dysfunction 3. A localized Infection only 4. Another condition - please specify 5. Unable to determine - please explain. Depending on your selection above, please indicate one of the below if applicable: - Sepsis was PRESENT ON ADMISSION - Sepsis DEVELOPED AFTER ADMISSION PLEASE CALL [facility] @ [phone] FOR ASSISTANCE The patient's Clinical Indicators include: PER ER NOTE: Additional Impression: Severe sepsis PER PULMONARY CONSULT 02/04/17: 2. Sepsis with pneumonia. PER DR GUILLORY PROGRESS NOTE 02/12/17: 3. Severe sepsis Query created by: Dorothea Sexton on 02/17/2017 11:26 AM RESPONSE TEXT: Severe sepsis upon admission Electronically signed by: Mattie Vaca MD 02/18/2017 9:40 AM
--- NOTE | 2017-02-18 10:40 | HHI.IDPN ---
Note Infectious Disease Note Patient on the vent. Awake, Non verbal. Temp spike. 101. Copious thick plasencia secretions Desquamating rash on the back - Bactrim stopped. . 76-year-old white male with history of myasthenia gravis. The patient was seen in the emergency department after he was brought in with fever and tachycardia. He was intubated and is currently on the ventilator. The patient has a tracheostomy and also PEG. He had mild lactic acidemia on admission. Cultures of the sputum grew Pseudomonas aeruginosa and beta strep not group A on 02/03. PAST MEDICAL HISTORY Dementia, chronic respiratory failure. Myasthenia gravis, history of tracheostomy, history of hip repair. Multiple antibiotic allergies. Seizure disorder, history of tonsillectomy, history of hernia repair. ALLERGIES CIPROFLOXACIN, TOBRAMYCIN, DILANTIN, NEOMYCIN, LITHIUM, BOTULINUM TOXIN A, TIMOLOL, VANCOMYCIN, VERAPAMIL, RISPERIDONE, IOHEXOL, IODIXANOL, HALOPERIDOL, GADOTERIDOL, GADODIAMIDE, DIATRIZOATE MEGLUMINE, THIOPENTAL, HYDROCODONE, ACETAMINOPHEN IODINATED CONTRAST. ANTIBIOTICS: Zerbaxa. MEDICATIONS Current Medications Medications (Trade) Dose Ordered Sig/Maddie Route PRN Reason Start Time Stop Time Status Last Admin Dose Admin Heparin Sodium (Porcine) (Heparin Inj) 5,000 units Q12H SQ 02/03/17 08:00 02/18/17 09:16 Miscellaneous Information 1 Q361D XX 02/03/17 07:15 Chlorhexidine Gluconate (Chlorhexidine 2% Cloth) Taper DAILY@04 TOP 02/04/17 04:00 01/31/18 03:59 02/11/17 04:49 Chlorhexidine Gluconate (Chlorhexidine 2% Cloth) 3 pack UNSCH PRN [facility] 02/03/17 07:15 Dextrose (D50w (Vial) Inj) 50 ml UNSCH PRN IV PUSH HYPOGLYCEMIA-SEE COMMENTS 02/03/17 07:15 Glucagon (Glucagon Inj) 1 mg UNSCH PRN OTHER HYPOGLYCEMIA-SEE COMMENTS 02/03/17 07:15 Levothyroxine Sodium (Synthroid) 50 mcg DAILY@0600 G-TUBE 02/03/17 09:15 02/18/17 05:22 Memantine (Namenda) 10 mg BID G-TUBE 02/03/17 09:15 02/18/17 09:16 Pyridostigmine [place] (Mestinon) 60 mg Q6HR PO 02/03/17 12:00 02/18/17 05:22 Mycophenolate Mofetil (Cellcept Liq) 500 mg TID PO 02/04/17 10:00 Future Hold 02/13/17 17:24 Potassium Chloride 100 ml @ 50 mls/hr Q2H PRN IV-CENTRAL For Potassium 2.8 - 3.2 mEq/L 02/04/17 07:45 Potassium Chloride 100 ml @ 50 mls/hr Q2H PRN IV For Potassium 2.8 - 3.2 mEq/L 02/04/17 07:45 Potassium Bicarb/ Potassium Chloride (K-Lyte Cl Eff) 50 meq UNSCH PRN PO For Potassium 3.3 - 3.5 mEq/L 02/04/17 07:45 Potassium Chloride 100 ml @ 25 mls/hr UNSCH PRN IV-CENTRAL For Potassium 3.3 - 3.5 mEq/L 02/04/17 07:45 Potassium Chloride 100 ml @ 50 mls/hr Q2H PRN IV For Potassium 3.3 - 3.5 mEq/L 02/04/17 07:45 Magnesium Sulfate 4 gm/Sodium Chloride 100 ml @ 50 mls/hr UNSCH PRN IV For Magnesium 0.9 - 1.1 mg/dL 02/04/17 07:45 Magnesium Oxide (Mag-Ox) 800 mg UNSCH PRN PO For Magnesium 1.2 - 1.6 mg/dL 02/04/17 07:45 Magnesium Sulfate 2 gm/Sodium Chloride 100 ml @ 50 mls/hr UNSCH PRN IV For Magnesium 1.2 - 1.6 mg/dL 02/04/17 07:45 Potassium Phosphate (K-Phos) 2,000 mg Q4H PRN PO For Phosphorus < 2.5 mg/dL 02/04/17 07:45 Sodium Phosphate 30 mmol/Sodium Chloride 250 ml @ 42 mls/hr UNSCH PRN IV For Phosphorus < 2.5 mg/dL 02/04/17 07:45 02/15/17 18:15 Potassium Phosphate (K-Phos) 2,000 mg UNSCH PRN PO/TUBE SEE LABEL COMMENTS 02/04/17 07:45 Potassium Phosphate 30 mmol/ Sodium Chloride 260 ml @ 42 mls/hr UNSCH PRN IV SEE LABEL COMMENTS 02/04/17 07:45 02/05/17 09:29 Ceftolozane/ Tazobactam 1500 mg/Sodium Chloride 100 ml @ 100 mls/hr Q8H IV 02/12/17 21:00 02/18/17 05:22 Insulin Human Regular (NovoLIN R SUPPLEMENTAL SCALE) 1 BID SQ 02/13/17 21:00 Lansoprazole (Prevacid Odt) 30 mg DAILY NG 02/14/17 09:00 02/18/17 09:16 Albuterol Sulfate (Albuterol Neb) 2.5 mg Q2HR NEB PRN NEB DYSPNEA 02/13/17 16:45 02/18/17 03:30 Sodium Chloride (Sodium Chloride 3% Neb) 2 ml Q6HR NEB NEB 02/14/17 16:00 02/19/17 15:59 02/18/17 08:09 Acetaminophen (Tylenol 325 Mg/ 10 ml Liq) 325 mg Q4H PRN PEG FEVER 02/14/17 14:30 02/18/17 01:54 SOCIAL HISTORY The patient is . No tobacco. No alcohol. No illicit drugs. OBJECTIVE: Vital Signs Date Time Temp Pulse Resp B/P (MAP) Pulse Ox O2 Delivery O2 Flow Rate FiO2 02/18/17 10:02 93 45 02/18/17 10:00 87 02/18/17 08:11 96 45 02/18/17 08:00 45 02/18/17 08:00 88 02/18/17 08:00 101.5 88 17 111/67 (82) 93 02/18/17 06:00 87 02/18/17 04:06 94 45 02/18/17 04:00 96 02/18/17 04:00 99.9 96 26 136/63 (87) 95 02/18/17 04:00 45 02/18/17 02:00 106 02/18/17 01:19 93 45 02/18/17 00:00 99.7 96 18 134/67 (89) 92 02/18/17 00:00 45 02/18/17 00:00 96 02/17/17 22:00 92 40 02/17/17 22:00 95 02/17/17 20:06 95 45 02/17/17 20:00 81 02/17/17 20:00 98.9 81 18 124/63 (83) 92 02/17/17 20:00 45 02/17/17 18:00 85 02/17/17 16:00 99.0 91 21 112/62 (79) 91 02/17/17 16:00 91 02/17/17 16:00 45 02/17/17 15:50 95 45 02/17/17 14:00 83 02/17/17 12:00 92 02/17/17 12:00 45 02/17/17 12:00 99.3 92 16 107/66 (80) 95 02/17/17 11:42 90 45 Laboratory Tests Test 02/17/17 06:00 White Blood Count 11.5 TH/MM3 Red Blood Count 3.97 MIL/MM3 Hemoglobin 10.3 GM/DL Hematocrit 33.0 % Mean Corpuscular Volume 83.3 FL Mean Corpuscular Hemoglobin 26.1 PG Mean Corpuscular Hemoglobin Concent 31.3 % Red Cell Distribution Width 18.5 % Platelet Count 248 TH/MM3 Mean Platelet Volume 9.7 FL Neutrophils (%) (Auto) 80.9 % Lymphocytes (%) (Auto) 8.5 % Monocytes (%) (Auto) 6.5 % Eosinophils (%) (Auto) 3.7 % Basophils (%) (Auto) 0.4 % Neutrophils # (Auto) 9.3 TH/MM3 Lymphocytes # (Auto) 1.0 TH/MM3 Monocytes # (Auto) 0.7 TH/MM3 Eosinophils # (Auto) 0.4 TH/MM3 Basophils # (Auto) 0.0 TH/MM3 CBC Comment DIFF FINAL Differential Comment Laboratory Tests Test 02/17/17 05:42 Blood Urea Nitrogen 18 MG/DL Creatinine 1.40 MG/DL Random Glucose 60 MG/DL Calcium Level 8.3 MG/DL Phosphorus Level 1.7 MG/DL Magnesium Level 2.1 MG/DL Sodium Level 144 MEQ/L Potassium Level 4.7 MEQ/L Chloride Level 110 MEQ/L Carbon Dioxide Level 27.9 MEQ/L Anion Gap 6 MEQ/L Estimat Glomerular Filtration Rate 49 ML/MIN Microbiology Date/Time Source Procedure Growth Status 02/16/17 14:30 Sputum Endotracheal Gram Stain - Final Resulted 02/16/17 14:30 Sputum Culture - Preliminary Pseudomonas Aeruginosa Pseudomonas Aeruginosa Isol. 2 Resulted IMAGING: Chest X-Ray 02/18/17 0600 Signed Impressions: Service Date/Time: Saturday, February 18, 2017 04:17 - CONCLUSION: Midinspiratory exam with no acute cardiopulmonary disease. The left basilar airspace opacity appears improved. Franklin Vega MD Chest X-Ray 02/12/17 0600 Signed Impressions: Service Date/Time: January 03:57 - CONCLUSION: Left base consolidation or atelectasis. Gabo Davis MD Chest X-Ray 02/09/17 0000 Signed Impressions: Service Date/Time: Thursday, February 09, 2017 10:33 - CONCLUSION: Increasing consolidative changes left base. Jorje Chi MD FACR Chest Ultrasound 02/09/17 0000 Signed Impressions: Service Date/Time: Thursday, February 09, 2017 14:59 - CONCLUSION: There is no left pleural effusion. Mark Chi MD PHYSICAL EXAMINATION GENERAL: No acute distress. HEENT: No icterus. Oropharynx slightly dry mucosa without lesions. NECK: Supple. No adenopathy. Tracheostomy in place. HEART: Regular S1-S2 without murmurs. LUNGS: Coarse breath sounds. ABDOMEN: (+) Bowel sounds, soft, no tenderness. EXTREMITIES: No clubbing or cyanosis or edema. SKIN: erythematous desquamating rash on the back. NEURO: Unable to fully assess. IMPRESSION 1. Pneumonia due to Pseudomonas. Fairly resistant organism. Also Stenotrophomonas. 2. Previous blood cultures with coag negative staph likely contaminant. 3. Myasthenia gravis. 4. Chronic respiratory failure. 5. Multiple antibiotic allergies. 6. Rash most likely due to Bactrim. Very difficult situation to treat infection in this patient because of the myasthenia and immunosuppression(also now on cellcept) and resistant bacteria with limitation for antibiotics. Now with new rash likely from antibiotic. Bactrim stopped yesterday. RECOMMENDATIONS 1. Continue Zerbaxa. 2. Resume Levaquin. Patient on the vent and needs to be treated with additional antibiotic to which the pseudomonas is effective. 3. Monitor temperature. 4. Continue to monitor the rash. 5. Monitor clinical status. D/W . Christopher Livingston MD Feb 18, 2017 10:40
[2017-02-18] MEDS: LEVOFLOXACIN 500 MG PREMIX INJ 100 ML IV SCH (11:18)
--- NOTE | 2017-02-18 12:59 | HHI.PR ---
Subjective Remarks Awake and on A/C rate 16, FIO2 45 %.On PEEP 10. Has trach secretions .No fever Tolerates feeds. On Antibiotics per ID. Now on Levaquin.Has a Rash on Back . Objective Vital Signs Date Time Temp Pulse Resp B/P (MAP) Pulse Ox O2 Delivery O2 Flow Rate FiO2 02/18/17 12:00 45 02/18/17 12:00 82 02/18/17 12:00 100.1 84 18 125/59 (81) 94 02/18/17 10:02 93 45 02/18/17 10:00 87 02/18/17 08:11 96 45 02/18/17 08:00 45 02/18/17 08:00 88 02/18/17 08:00 101.5 88 17 111/67 (82) 93 02/18/17 06:00 87 02/18/17 04:06 94 45 02/18/17 04:00 96 02/18/17 04:00 99.9 96 26 136/63 (87) 95 02/18/17 04:00 45 02/18/17 02:00 106 02/18/17 01:19 93 45 02/18/17 00:00 99.7 96 18 134/67 (89) 92 02/18/17 00:00 45 02/18/17 00:00 96 02/17/17 22:00 92 40 02/17/17 22:00 95 02/17/17 20:06 95 45 02/17/17 20:00 81 02/17/17 20:00 98.9 81 18 124/63 (83) 92 02/17/17 20:00 45 02/17/17 18:00 85 02/17/17 16:00 99.0 91 21 112/62 (79) 91 02/17/17 16:00 91 02/17/17 16:00 45 02/17/17 15:50 95 45 02/17/17 14:00 83 I/O 02/17/17 02/17/17 02/17/17 02/18/17 02/18/17 02/18/17 07:00 15:00 23:00 07:00 15:00 23:00 Intake Total 791 ml 1145 ml 822 ml Output Total 400 ml 375 ml 400 ml Balance 391 ml 770 ml 422 ml IV Total 200 ml 100 ml Tube Feeding 671 ml 745 ml 722 ml Other 120 ml 200 ml Output Urine Total 400 ml 375 ml 400 ml # Voids 4 # Bowel Movements 2 1 1 Result Diagram: 02/17/17 0600 02/17/17 0542 Objective Remarks GENERAL: This is an elderly man, moderately obese, awake but does not respond to any commands. HEENT: Head is normocephalic. Pupils are reactive. Sclerae are clear. Tongue was dry. Throat clear. Nose and ears have no inflammation. NECK: Supple. No venous distension. Trach site clear No lymphadenopathy. CHEST: Decreased excursions with occasional wheeze.Few crackles. HEART: Heart sounds are regular, S1-S2. No murmur. No S3. ABDOMEN: The abdomen is obese, protuberant with a PEG tube in place. Bowel sounds are active. EXTREMITIES: Contracture of the extremities,no edema . Peripheral pulses are diminished. 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 RECTAL: Exam is deferred. Assessment and Plan Assessment and Plan IMPRESSION 1. Chronic respiratory failure. 2. Sepsis with pneumonia. 3. Acute kidney injury with dehydration. 4. Dementia. 5. History of myasthenia gravis. 6. History of MRSA and Pseudomonas pneumonias. 7. Status post tracheostomy and PEG tube placement. Plan : 1. Wean Fio2 to 45 %, A/C at PEEP to +8, rate 14 2. Continue antibiotics for Sepsis. 3. Nebs qid , Duoneb. 4. Tube feeds at 55 CC. 5. CX R, CBC in am 6. CPAP trials daily. when PEEP <8. 7. PT evaluation. Carol Griffin MD Feb 18, 2017 12:59
--- NOTE | 2017-02-18 18:26 | HHI.CCPN ---
Subjective Remarks/Hospital Course The patient is a 76 year old male with past medical history of myasthenia gravis , dementia, seizure disorder, chronic respiratory failure with previous tracheostomy and percutaneous endoscopic gastrostomy placement. The patient presented to [facility] [place] from local nursing facility for tachycardia and fevers. On arrival he had a temperature of 102.8, in addition the patient was tachycardic and tachypneic. His laboratory data was significant for leukocytosis with a white blood count of 17.6 mild lactic acidemia, lactic acid level 2.6 and acute kidney injury with creatinine level of 1.65. Chest x-ray in the emergency room showed patchy pneumonia on the left. In the emergency department the patient was given three liters of crystalloids in addition to cefepime, Solu-Medrol, bronchodilator treatment. Arterial blood gas was preformed on TP's. Which showed a pH of 7.43, co2 39, pao2 63, bicarbonate 26-91%. He was placed on sider mechanic ventilation. Most of the history was obtained by reviewing the medical records as the patient is nonverbal. He also has history of methicillin-resistant Staphylococcus aureus and pseudomonas and pneumonia last year. The patient was do not resuscitate from local snf. 02/04 No events overnight. On ventilator via trach. Afebrile. 02/05 Patient remains on ventilator via trach. Afebrile. On no sedation. 02/06 No events overnight. Afebrile. Tolerated CPAP all day yesterday. 02/07 No events overnight. Afebrile. 02/08 No events overnight. T;100.0 at 8 am. Having liquid stools. 02/09 Patient remains on ventilator via trach. T:100.0 yesterday 02/10 No events overnight. Afebrile. 02/11: On full vent support now. Low grade fever. On Avycaz per ID. at bedside 02/12: Clinically worsening with increasing oxygen requirement desaturating with 55% FiO2. I have increase PEEP to 10 and titrate oxygen as needed. The sputum Pseudomonas resistant to cefepime and Zosyn, ID has started Zerbaxa today 02/13: Currently appears comfortable. On FiO2 55%. PEEP of 10. Timing tube feeds. Positive BM off bowel regimen. Squeezes left hand to command. Tmax 100. Subjective 02/14: FiO2 up to 60%. PEEP of 10. Tube feeds at 50 Cc an hour. Positive BM. requesting holding mycophenolate as "Dr. Willis always holds this "while hospitalized. 02/15: Afebrile. No acute events overnight. still has PEEP 10, with FIO2 .60%. 02/16: Afebrile. No acute events overnight. PEEP overnight to 12. Now currently decreased to 10. 02/17: Afebrile. Patient tolerated PEEP of 10, O2 saturation 93-94% Noted desquamating rash over entire back today, questionable secondary to antibiotics. 02/18:TMax 101.0 Patient continues on Zerbaxa and Levaquin. Bactrim has been discontinued 04/17 desquamating rash on back. Objective Vital Signs Date Time Temp Pulse Resp B/P (MAP) Pulse Ox O2 Delivery O2 Flow Rate FiO2 02/18/17 18:00 64 02/18/17 16:25 90 45 02/18/17 16:00 99.9 17 130/69 (89) 02/15/17 20:29 Ventilator Intake and Output 02/18/17 02/18/17 02/19/17 08:00 16:00 00:00 Intake Total 822 ml 200 ml 968 ml Output Total 400 ml 650 ml Balance 422 ml 200 ml 318 ml Result Diagram: 02/17/17 0600 02/17/17 0542 Imaging Last Impressions Chest X-Ray 02/14/17 0600 Signed Impressions: Service Date/Time: Tuesday, February 14, 2017 03:57 - CONCLUSION: Stable chest x-ray with left basilar airspace consolidation. Gabo Kirby MD Chest Ultrasound 02/09/17 0000 Signed Impressions: Service Date/Time: Thursday, February 09, 2017 14:59 - CONCLUSION: There is no left pleural effusion. Mark Chi MD Objective Remarks GENERAL: 36-year-old male, critically ill currently on ventilator via tracheostomy SKIN: Warm and dry. Noted desquamating rash entire back reddened HEAD: Normocephalic. EYES: No scleral icterus. No injection or drainage. NECK: Supple, trachea midline. No JVD or lymphadenopathy. Trach in place seen dry and intact CARDIOVASCULAR: Regular rate and rhythm without murmurs, gallops, or rubs. RESPIRATORY: Breath sounds equal bilaterally, diminished at the bases. No accessory muscle use. GASTROINTESTINAL: Abdomen soft, non-tender, nondistended. PEG tube is clean dry and intact.erythema MUSCULOSKELETAL: Trace bilateral lower extremity edema. Contracted Neuro: On no sedation. Doesn't follow commands. Squeezes hand especially left hand not to command A/P Assessment and Plan Neuro/Psych: Myasthenia gravis Dementia Seizure disorder NOS On Pyridostigmine 60 mg q six hours. memantine 10 mg twice a day, mycophenolate mofetil 500 mg 3 times Holding mycophenolate for 's request temporarily Monitor neuro status closely. Neuro is following- Dr. Longoria Pulm: Acute on chronic respiratory failure. Left sided pneumonia with multidrug resistant Pseudomonas aeruginosa [facility] 16/550/1.2/ Ventilator bundle Albuterol/ipratropium aerosols every 6 hours with albuterol aerosols every 2 hours. Dyspnea No spontaneous breathing trials until PEEP decreased Follow-up on chest x-ray in a.m. revealed stable left lower lobe infiltrate 02/14 Dr. Griffin, pulmonology following PEEP decreased to 8 cm H20 CV: Mild-elevated troponin. Resolved lactic acidemia. Monitor HR and BP and maintain MAP > 65 mmHg. Initial Lactic acid level measured at 2.6. Echo showed EF 55-60% /FEN/RENAL: Monitor renal function, intake and output, avoid nephrotoxins. Electrolyte replacement as needed. GI: Hypoalbuminemia On lansoprazole 30 mg every 24 hour for Gl prophylaxis. Tube feeds via PEG tube- TF- Jevity 1.5 @ 65 ml per hour. Currently at 50 cc an hour ID: Pseudomonas pneumonia Avycaz DCd and ceftolozane/tazobactam 1500 mg every 8 hours started per ID antibiogram C-diff PCR negative 02/08 Sputum cx 02/03 : Pseudomonas species, Beta strep not Group A. Sputum cx: 02/05: Pseudomonas - resistant org Sputum 02/10 Pseudomonas sensitivities pending BC 02/03 Staph Epi, Staph hominis. likely contaminant. 02/04 BC: NGTD Strep pneumonia and legionella urinary antigen negative Heme: Normocytic anemia Does not meet requirements for blood transfusion Monitor CBC. Endo: Hypothyroidism SSI with Accuchecks for glycemic control twice a day. On levothyroxine 50 mcg daily. TSH: 4.5 MSK History of spinal fracture/fracture of hip PT evaluate to for contractures 02/17 Desquamating skin rash, Bactrim antibiotic induced most likely GI prophylaxis with lansoprazole resolved 30 mg daily and DVT s prophylaxis with SCDs and heparin SQ. Level 2 follow-up Physician Mattie Causey MD Feb 18, 2017 18:26
[2017-02-18] MEDS: NYSTATIN 100,000 U/GM PWD 15 GM BTL TOPICAL SCH (20:39)
[2017-02-19] VITALS (24 sets, daily range): BP systolic 104–142; BP diastolic 59–71; PULSE 75–96; RESP 15–30; TEMP 98.9–99.8; O2SAT 90–96
[2017-02-19] MEDS: CHLORHEXIDINE GLUCONATE 2 % 1 PACK (2 CLOTHS) TOP SCH (01:05)
[2017-02-19] MEDS: CEFTOLOZANE TAZOBACTAM IV SCH ×6 (04:26→22:02)
[2017-02-19] MEDS: NS IV SCH ×6 (04:26→22:02)
[2017-02-19] MEDS: RESP: ALBUTEROL 2.5 MG/3 ML NEB (PRN) NEB ×2 (05:00→08:20)
[2017-02-19] MEDS: RESP: SODIUM CHLORIDE 3% 4 ML NEB NEB SCH ×2 (05:01→08:20)
--- NOTE | 2017-02-19 05:45 | RADRPT ---
EXAM DATE/TIME: 02/19/2017 04:05 [facility] COMPARISON: CHEST SINGLE AP, February 18, 2017, 4:17. INDICATIONS : Shortness of breath, possible pulmonary disease. MEDICAL HISTORY : Hypertension. SURGICAL HISTORY : Tracheostomy ENCOUNTER: Subsequent ACUITY: 1 week PAIN SCORE: Non-responsive. LOCATION: Bilateral chest FINDINGS: A single AP semierect view the chest was obtained and again demonstrates a tracheostomy tube in place . The study remains Midinspiratory with crowding of the lung vasculature. There is mild patchy opacit y at the left lung base. The right lung remains clear. CONCLUSION: Mild patchy opacity remains at the left lung base. Franklin Vega MD on February 19, 2017 at 5:42 Board Certified Radiologist. This report was verified electronically.
[2017-02-19] MEDS: PYRIDOSTIGMINE BROMIDE 60 MG TAB PO SCH ×3 (05:58→17:20)
[2017-02-19] MEDS: LEVOTHYROXINE SODIUM 50 MCG TAB G-TUBE SCH (05:58)
[2017-02-19 07:33] LABS: AUTOMATED NEUTROPHIL # 6.9 TH/MM3 (1.8-7.7); BASOPHIL # 0.1 TH/MM3 (0-0.2); BASOPHIL % 0.9 % (0.0-2.0); EOSINOPHIL # 0.7 TH/MM3 (0-0.4); EOSINOPHIL % 7.3 % (0.0-4.0); HEMO FLAGS DIFF FINAL; LYMPH % 11.6 % (9.0-44.0); LYMPHOCYTE # 1.1 TH/MM3 (1.0-4.8); MEAN CELL VOLUME 81.9 FL (80.0-100.0); MEAN CORPUSCULAR HEMOGLOBIN 26.5 PG (27.0-34.0); MEAN CORPUSCULAR HGB CONC 32.3 % (32.0-36.0); MONO % 6.3 % (0.0-8.0); NEUT % 73.9 % (16.0-70.0); PLATELET COUNT 250 TH/MM3 (150-450); RED BLOOD COUNT 3.91 MIL/MM3 (4.50-5.90); RED CELL DISTRIBUTION WIDTH 18.3 % (11.6-17.2); WHITE BLOOD COUNT 9.4 TH/MM3 (4.0-11.0)
[2017-02-19 07:53] LABS: BICARBONATE 27.1 MEQ/L (21.0-32.0); MAGNESIUM 2.1 MG/DL (1.5-2.5); POTASSIUM 4.7 MEQ/L (3.5-5.1)
[2017-02-19] MEDS: LANSOPRAZOLE SOLUTAB 30 MG TAB NG SCH (08:36)
[2017-02-19] MEDS: INSULIN NovoLIN REGULAR SUPPLEMENTAL SCALE SQ SCH ×2 (08:36→21:00)
[2017-02-19] MEDS: MEMANTINE HCL 10 MG TAB G-TUBE SCH ×2 (08:36→22:00)
[2017-02-19] MEDS: HEPARIN SODIUM - SQ 10,000 UNITS/ML VIAL SQ SCH ×2 (08:36→22:00)
[2017-02-19] MEDS: NYSTATIN 100,000 U/GM PWD 15 GM BTL TOPICAL SCH ×2 (08:36→22:01)
[2017-02-19] MEDS: LEVOFLOXACIN 500 MG PREMIX INJ 100 ML IV SCH (12:30)
--- NOTE | 2017-02-19 12:36 | HHI.PR ---
Subjective Remarks Awake and on A/C rate 16, FIO2 40 %.On PEEP 10. Has trach secretions .No fever. 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 On Antibiotics per ID. Now on Levaquin. . Objective Vital Signs Date Time Temp Pulse Resp B/P (MAP) Pulse Ox O2 Delivery O2 Flow Rate FiO2 02/19/17 11:55 93 45 02/19/17 10:00 96 22 129/71 (90) 92 02/19/17 10:00 96 02/19/17 09:00 88 20 114/65 (81) 90 02/19/17 08:20 92 45 02/19/17 08:00 99.6 86 16 112/67 (82) 93 02/19/17 08:00 45 02/19/17 08:00 86 02/19/17 07:00 82 16 115/65 (82) 95 02/19/17 06:00 88 02/19/17 06:00 88 16 122/65 (84) 92 02/19/17 05:01 93 45 02/19/17 05:00 84 15 121/61 (81) 93 02/19/17 04:00 45 02/19/17 04:00 92 02/19/17 04:00 99.8 92 22 130/61 (84) 93 02/19/17 02:54 93 45 02/19/17 02:00 89 02/19/17 00:00 90 02/19/17 00:00 99.2 90 25 128/59 (82) 93 02/19/17 00:00 45 02/18/17 22:54 93 45 02/18/17 22:00 86 02/18/17 20:00 79 02/18/17 20:00 45 02/18/17 20:00 98.8 79 20 102/56 (71) 94 02/18/17 18:00 64 02/18/17 16:25 90 45 02/18/17 16:00 99.9 82 17 130/69 (89) 91 02/18/17 16:00 45 02/18/17 16:00 82 02/18/17 14:00 81 02/18/17 13:16 93 45 I/O 02/18/17 02/18/17 02/18/17 02/19/17 02/19/17 02/19/17 07:00 15:00 23:00 07:00 15:00 23:00 Intake Total 822 ml 200 ml 1068 ml 744 ml Output Total 400 ml 650 ml 450 ml Balance 422 ml 200 ml 418 ml 294 ml IV Total 100 ml 200 ml 100 ml 100 ml Tube Feeding 722 ml 768 ml 644 ml Other 200 ml Output Urine Total 400 ml 650 ml 450 ml # Voids 2 1 # Bowel Movements 1 3 4 Result Diagram: 02/19/1735 02/19/17634 Objective Remarks GENERAL: This is an elderly man, moderately obese, awake but does not respond to any commands. HEENT: Head is normocephalic. Pupils are reactive. Sclerae are clear. Tongue was dry. Throat clear. Nose and ears have no inflammation. NECK: Supple. No venous distension. Trach site clear No lymphadenopathy. CHEST: Decreased excursions with occasional wheeze.Few basal crackles. HEART: Heart sounds are regular, S1-S2. No murmur. No S3. ABDOMEN: The abdomen is obese, protuberant with a PEG tube in place. Bowel sounds are active. EXTREMITIES: Contracture of the extremities,no edema . Peripheral pulses are diminished. The patient does not move his extremities well.Has a Good test tube maker on both hands. RECTAL: Exam is deferred. Assessment and Plan Assessment and Plan IMPRESSION 1. Chronic respiratory failure. 2. Sepsis with pneumonia. 3. Acute kidney injury with dehydration. 4. Dementia. 5. History of myasthenia gravis. 6. History of MRSA and Pseudomonas pneumonias. 7. Status post tracheostomy and PEG tube placement. Plan : 1. Fio2 45 %, A/C at PEEP to +8, rate 16 2. Continue antibiotics for Sepsis. 3. Nebs qid , Duoneb. 4. Tube feeds at 55 CC. 5. BMP , CBC in am 6. CPAP trials daily. when PEEP <8. 7. PT evaluation. Carol Griffin MD Feb 19, 2017 12:36
[2017-02-19] MEDS: ACETAMINOPHEN 325 MG/10.15 ML UDC PEG PRN ×2 (12:59→21:59)
--- NOTE | 2017-02-19 13:35 | HHI.IDPN ---
Note Infectious Disease Note Patient on the vent. Awake, Non verbal. Temp lower. Copious yellow secretions Desquamating rash on the back - Bactrim stopped. No progression. 76-year-old white male with history of myasthenia gravis. The patient was seen in the emergency department after he was brought in with fever and tachycardia. He was intubated and is currently on the ventilator. The patient has a tracheostomy and also PEG. He had mild lactic acidemia on admission. Cultures of the sputum grew Pseudomonas aeruginosa and beta strep not group A on 02/03. PAST MEDICAL HISTORY Dementia, chronic respiratory failure. Myasthenia gravis, history of tracheostomy, history of hip repair. Multiple antibiotic allergies. Seizure disorder, history of tonsillectomy, history of hernia repair. ALLERGIES CIPROFLOXACIN, TOBRAMYCIN, DILANTIN, NEOMYCIN, LITHIUM, BOTULINUM TOXIN A, TIMOLOL, VANCOMYCIN, VERAPAMIL, RISPERIDONE, IOHEXOL, IODIXANOL, HALOPERIDOL, GADOTERIDOL, GADODIAMIDE, DIATRIZOATE MEGLUMINE, THIOPENTAL, HYDROCODONE, ACETAMINOPHEN IODINATED CONTRAST. ANTIBIOTICS: Zerbaxa. MEDICATIONS Current Medications Medications (Trade) Dose Ordered Sig/Maddie Route PRN Reason Start Time Stop Time Status Last Admin Dose Admin Heparin Sodium (Porcine) (Heparin Inj) 5,000 units Q12H SQ 02/03/17 08:00 02/19/17 08:36 Miscellaneous Information 1 Q361D XX 02/03/17 07:15 Chlorhexidine Gluconate (Chlorhexidine 2% Cloth) Taper DAILY@04 TOP 02/04/17 04:00 01/31/18 03:59 02/11/17 04:49 Chlorhexidine Gluconate (Chlorhexidine 2% Cloth) 3 pack UNSCH PRN [facility] 02/03/17 07:15 Dextrose (D50w (Vial) Inj) 50 ml UNSCH PRN IV PUSH HYPOGLYCEMIA-SEE COMMENTS 02/03/17 07:15 Glucagon (Glucagon Inj) 1 mg UNSCH PRN OTHER HYPOGLYCEMIA-SEE COMMENTS 02/03/17 07:15 Levothyroxine Sodium (Synthroid) 50 mcg DAILY@0600 G-TUBE 02/03/17 09:15 02/19/17 05:58 Memantine (Namenda) 10 mg BID G-TUBE 02/03/17 09:15 02/19/17 08:36 Pyridostigmine Commiskey (Mestinon) 60 mg Q6HR PO 02/03/17 12:00 02/19/17 12:30 Mycophenolate Mofetil (Cellcept Liq) 500 mg TID PO 02/04/17 10:00 Future Hold 02/13/17 17:24 Potassium Chloride 100 ml @ 50 mls/hr Q2H PRN IV-CENTRAL For Potassium 2.8 - 3.2 mEq/L 02/04/17 07:45 Potassium Chloride 100 ml @ 50 mls/hr Q2H PRN IV For Potassium 2.8 - 3.2 mEq/L 02/04/17 07:45 Potassium Bicarb/ Potassium Chloride (K-Lyte Cl Eff) 50 meq UNSCH PRN PO For Potassium 3.3 - 3.5 mEq/L 02/04/17 07:45 Potassium Chloride 100 ml @ 25 mls/hr UNSCH PRN IV-CENTRAL For Potassium 3.3 - 3.5 mEq/L 02/04/17 07:45 Potassium Chloride 100 ml @ 50 mls/hr Q2H PRN IV For Potassium 3.3 - 3.5 mEq/L 02/04/17 07:45 Magnesium Sulfate 4 gm/Sodium Chloride 100 ml @ 50 mls/hr UNSCH PRN IV For Magnesium 0.9 - 1.1 mg/dL 02/04/17 07:45 Magnesium Oxide (Mag-Ox) 800 mg UNSCH PRN PO For Magnesium 1.2 - 1.6 mg/dL 02/04/17 07:45 Magnesium Sulfate 2 gm/Sodium Chloride 100 ml @ 50 mls/hr UNSCH PRN IV For Magnesium 1.2 - 1.6 mg/dL 02/04/17 07:45 Potassium Phosphate (K-Phos) 2,000 mg Q4H PRN PO For Phosphorus < 2.5 mg/dL 02/04/17 07:45 Sodium Phosphate 30 mmol/Sodium Chloride 250 ml @ 42 mls/hr UNSCH PRN IV For Phosphorus < 2.5 mg/dL 02/04/17 07:45 02/15/17 18:15 Potassium Phosphate (K-Phos) 2,000 mg UNSCH PRN PO/TUBE SEE LABEL COMMENTS 02/04/17 07:45 Potassium Phosphate 30 mmol/ Sodium Chloride 260 ml @ 42 mls/hr UNSCH PRN IV SEE LABEL COMMENTS 02/04/17 07:45 02/05/17 09:29 Ceftolozane/ Tazobactam 1500 mg/Sodium Chloride 100 ml @ 100 mls/hr Q8H IV 02/12/17 21:00 02/19/17 12:30 Insulin Human Regular (NovoLIN R SUPPLEMENTAL SCALE) 1 BID SQ 02/13/17 21:00 Lansoprazole (Prevacid Odt) 30 mg DAILY NG 02/14/17 09:00 02/19/17 08:36 Albuterol Sulfate (Albuterol Neb) 2.5 mg Q2HR NEB PRN NEB DYSPNEA 02/13/17 16:45 02/19/17 08:20 Sodium Chloride (Sodium Chloride 3% Neb) 2 ml Q6HR NEB NEB 02/14/17 16:00 02/19/17 15:59 02/19/17 08:20 Acetaminophen (Tylenol 325 Mg/ 10 ml Liq) 325 mg Q4H PRN PEG FEVER 02/14/17 14:30 02/19/17 12:59 Levofloxacin/ Dextrose 100 ml @ 100 mls/hr Q24H IV 02/18/17 12:00 02/19/17 12:30 Nystatin (Mycostatin Powder) 1 applic Q12HR TOPICAL 02/18/17 21:00 02/19/17 08:36 SOCIAL HISTORY The patient is . No tobacco. No alcohol. No illicit drugs. OBJECTIVE: Vital Signs Date Time Temp Pulse Resp B/P (MAP) Pulse Ox O2 Delivery O2 Flow Rate FiO2 02/19/17 11:55 93 45 02/19/17 10:00 96 22 129/71 (90) 92 02/19/17 10:00 96 02/19/17 09:00 88 20 114/65 (81) 90 02/19/17 08:20 92 45 02/19/17 08:00 99.6 86 16 112/67 (82) 93 02/19/17 08:00 45 02/19/17 08:00 86 02/19/17 07:00 82 16 115/65 (82) 95 02/19/17 06:00 88 02/19/17 06:00 88 16 122/65 (84) 92 02/19/17 05:01 93 45 02/19/17 05:00 84 15 121/61 (81) 93 02/19/17 04:00 45 02/19/17 04:00 92 02/19/17 04:00 99.8 92 22 130/61 (84) 93 02/19/17 02:54 93 45 02/19/17 02:00 89 02/19/17 00:00 90 02/19/17 00:00 99.2 90 25 128/59 (82) 93 02/19/17 00:00 45 02/18/17 22:54 93 45 02/18/17 22:00 86 02/18/17 20:00 79 02/18/17 20:00 45 02/18/17 20:00 98.8 79 20 102/56 (71) 94 02/18/17 18:00 64 02/18/17 16:25 90 45 02/18/17 16:00 99.9 82 17 130/69 (89) 91 02/18/17 16:00 45 02/18/17 16:00 82 02/18/17 14:00 81 Laboratory Tests Test 02/19/17 06:35 White Blood Count 9.4 TH/MM3 Red Blood Count 3.91 MIL/MM3 Hemoglobin 10.4 GM/DL Hematocrit 32.0 % Mean Corpuscular Volume 81.9 FL Mean Corpuscular Hemoglobin 26.5 PG Mean Corpuscular Hemoglobin Concent 32.3 % Red Cell Distribution Width 18.3 % Platelet Count 250 TH/MM3 Mean Platelet Volume 10.0 FL Neutrophils (%) (Auto) 73.9 % Lymphocytes (%) (Auto) 11.6 % Monocytes (%) (Auto) 6.3 % Eosinophils (%) (Auto) 7.3 % Basophils (%) (Auto) 0.9 % Neutrophils # (Auto) 6.9 TH/MM3 Lymphocytes # (Auto) 1.1 TH/MM3 Monocytes # (Auto) 0.6 TH/MM3 Eosinophils # (Auto) 0.7 TH/MM3 Basophils # (Auto) 0.1 TH/MM3 CBC Comment DIFF FINAL Differential Comment Laboratory Tests Test 02/19/17 06:35 Blood Urea Nitrogen 16 MG/DL Creatinine 1.30 MG/DL Random Glucose 72 MG/DL Calcium Level 8.5 MG/DL Phosphorus Level 2.0 MG/DL Magnesium Level 2.1 MG/DL Sodium Level 140 MEQ/L Potassium Level 4.7 MEQ/L Chloride Level 108 MEQ/L Carbon Dioxide Level 27.1 MEQ/L Anion Gap 5 MEQ/L Estimat Glomerular Filtration Rate 54 ML/MIN Microbiology Date/Time Source Procedure Growth Status 02/16/17 14:30 Sputum Endotracheal Gram Stain - Final Resulted 02/16/17 14:30 Sputum Culture - Preliminary Pseudomonas Aeruginosa Pseudomonas Aeruginosa Isol. 2 Gram Negative Marcos Resulted Microbiology Date/Time Source Procedure Growth Status 02/16/17 14:30 Sputum Endotracheal Gram Stain - Final Resulted 02/16/17 14:30 Sputum Culture - Preliminary Pseudomonas Aeruginosa Pseudomonas Aeruginosa Isol. 2 Resulted IMAGING: Chest X-Ray 02/19/17 0600 Signed Impressions: Service Date/Time: February 04:05 - CONCLUSION: Mild patchy opacity remains at the left lung base. Franklin Vega MD Chest X-Ray 02/18/17 06 Signed Impressions: Service Date/Time: Saturday, February 18, 2017 04:17 - CONCLUSION: Midinspiratory exam with no acute cardiopulmonary disease. The left basilar airspace opacity appears improved. Franklin Vega MD Chest X-Ray 02/12/17 0600 Signed Impressions: Service Date/Time: January 03:57 - CONCLUSION: Left base consolidation or atelectasis. Gabo Davis MD Chest X-Ray 02/09/17 0000 Signed Impressions: Service Date/Time: Thursday, February 09, 2017 10:33 - CONCLUSION: Increasing consolidative changes left base. Jorje Chi MD FACR Chest Ultrasound 02/09/17 0000 Signed Impressions: Service Date/Time: Thursday, February 09, 2017 14:59 - CONCLUSION: There is no left pleural effusion. Mark Chi MD PHYSICAL EXAMINATION GENERAL: No acute distress. HEENT: No icterus. Oropharynx slightly dry mucosa without lesions. NECK: Supple. No adenopathy. Tracheostomy looks okay. HEART: Regular S1-S2 without murmurs. LUNGS: Coarse breath sounds same. ABDOMEN: (+) Bowel sounds, soft, no tenderness. EXTREMITIES: No clubbing or cyanosis or edema. SKIN: erythematous desquamating rash on the back. Fading. NEURO: Unable to fully assess. IMPRESSION 1. Pneumonia due to Pseudomonas. Fairly resistant organism. Also Stenotrophomonas. 2. Previous blood cultures with coag negative staph likely contaminant. 3. Myasthenia gravis. 4. Chronic respiratory failure. 5. Multiple antibiotic allergies. 6. Rash most likely due to Bactrim. Improved. Very difficult situation to treat infection in this patient because of the myasthenia and immunosuppression(also now on cellcept) and resistant bacteria with limitation for antibiotics. Now with new rash likely from antibiotic. Bactrim stopped yesterday. RECOMMENDATIONS 1. Continue Zerbaxa. 2. Continue Levaquin. 3. Monitor temperature. 4. Monitor clinical status. D/W . Christopher Livingston MD Feb 19, 2017 13:35
--- NOTE | 2017-02-19 17:43 | HHI.CCPN ---
Subjective Remarks/Hospital Course The patient is a 76 year old male with past medical history of myasthenia gravis , dementia, seizure disorder, chronic respiratory failure with previous tracheostomy and percutaneous endoscopic gastrostomy placement. The patient presented to [facility] from local nursing facility for tachycardia and fevers. On arrival he had a temperature of 102.8, in addition the patient was tachycardic and tachypneic. His laboratory data was significant for leukocytosis with a white blood count of 17.6 mild lactic acidemia, lactic acid level 2.6 and acute kidney injury with creatinine level of 1.65. Chest x-ray in the emergency room showed patchy pneumonia on the left. In the emergency department the patient was given three liters of crystalloids in addition to cefepime, Solu-Medrol, bronchodilator treatment. Arterial blood gas was preformed on TP's. Which showed a pH of 7.43, co2 39, pao2 63, bicarbonate 26-91%. He was placed on roller mechanic ventilation. Most of the history was obtained by reviewing the medical records as the patient is nonverbal. He also has history of methicillin-resistant Staphylococcus aureus and pseudomonas and pneumonia last year. The [facility] not [facility]. 02/04 No events overnight. On ventilator via trach. Afebrile. 02/05 Patient remains on ventilator via trach. Afebrile. On no sedation. 02/06 No events overnight. Afebrile. Tolerated CPAP all day yesterday. 02/07 No events overnight. Afebrile. 02/08 No events overnight. T;100.0 at 8 am. Having liquid stools. 02/09 Patient remains on ventilator via trach. T:100.0 yesterday 02/10 No events overnight. Afebrile. 02/11: On full vent support now. Low grade fever. On Avycaz per ID. at bedside 02/12: Clinically worsening with increasing oxygen requirement desaturating with 55% FiO2. I have increase PEEP to 10 and titrate oxygen as needed. The sputum Pseudomonas resistant to cefepime and Zosyn, ID has started Zerbaxa today 02/13: Currently appears comfortable. On FiO2 55%. PEEP of 10. Timing tube feeds. Positive BM off bowel regimen. Squeezes left hand to command. Tmax 100. Subjective 02/14: FiO2 up to 60%. PEEP of 10. Tube feeds at 50 Cc an hour. Positive BM. requesting holding mycophenolate as "Dr. Willis always holds this "while hospitalized. 02/15: Afebrile. No acute events overnight. still has PEEP 10, with FIO2 .60%. 02/16: Afebrile. No acute events overnight. PEEP overnight to 12. Now currently decreased to 10. 02/17: Afebrile. Patient tolerated PEEP of 10, O2 saturation 93-94% Noted desquamating rash over entire back today, questionable secondary to antibiotics. 02/18:TMax 101.0 Patient continues on Zerbaxa and Levaquin. Bactrim has been discontinued 2/ desquamating rash on back. 02/19: No acute events overnight. Plan for changing to Zora bed secondary to skin rash on back. Vimpat and Claritin medication reinstituted. Objective Vital Signs Date Time Temp Pulse Resp B/P (MAP) Pulse Ox O2 Delivery O2 Flow Rate FiO2 02/19/17 16:45 95 45 02/19/17 16:00 89 02/19/17 16:00 99.5 30 142/66 (91) 02/15/17 20:29 Ventilator Intake and Output 02/19/17 02/19/17 02/20/17 08:00 16:00 00:00 Intake Total 744 ml 587 ml Output Total 450 ml 300 ml Balance 294 ml 287 ml Result Diagram: 02/19/17 0635 02/19/17 0635 Imaging Last Impressions Chest X-Ray 02/14/17 0600 Signed Impressions: Service Date/Time: Tuesday, February 14, 2017 03:57 - CONCLUSION: Stable chest x-ray with left basilar airspace consolidation. Gabo Kirby MD Chest Ultrasound 02/09/17 0000 Signed Impressions: Service Date/Time: Thursday, February 09, 2017 14:59 - CONCLUSION: There is no left pleural effusion. Mark Chi MD Objective Remarks GENERAL: 36-year-old male, critically ill currently on ventilator via tracheostomy SKIN: Warm and dry. Noted desquamating rash entire back reddened HEAD: Normocephalic. EYES: No scleral icterus. No injection or drainage. NECK: Supple, trachea midline. No JVD or lymphadenopathy. Trach in place seen dry and intact CARDIOVASCULAR: Regular rate and rhythm without murmurs, gallops, or rubs. RESPIRATORY: Breath sounds equal bilaterally, diminished at the bases. No accessory muscle use. GASTROINTESTINAL: Abdomen soft, non-tender, nondistended. PEG tube is clean dry and intact.erythema MUSCULOSKELETAL: Trace bilateral lower extremity edema. Contracted Neuro: On no sedation. Doesn't follow commands. Squeezes hand especially left hand not to command A/P Assessment and Plan Neuro/Psych: Myasthenia gravis Dementia Seizure disorder NOS On Pyridostigmine 60 mg q six hours. memantine 10 mg twice a day, mycophenolate mofetil 500 mg 3 times Holding mycophenolate for 's request temporarily Monitor neuro status closely. Neuro is following- Dr. Uribe 02/19: Vimpat reinstituted Pulm: Acute on chronic respiratory failure. Left sided pneumonia with multidrug resistant Pseudomonas aeruginosa [facility] 16/550/1.2/ Ventilator bundle Albuterol/ipratropium aerosols every 6 hours with albuterol aerosols every 2 hours. Dyspnea No spontaneous breathing trials until PEEP decreased Follow-up on chest x-ray in a.m. revealed stable left lower lobe infiltrate 02/14 Dr. Griffin, pulmonology following PEEP decreased to 8 cm H20 CV: Mild-elevated troponin. Resolved lactic acidemia. Monitor HR and BP and maintain MAP > 65 mmHg. Initial Lactic acid level measured at 2.6. Echo showed EF 55-60% /FEN/RENAL: Monitor renal function, intake and output, avoid nephrotoxins. Electrolyte replacement as needed. GI: Hypoalbuminemia On lansoprazole 30 mg every 24 hour for Gl prophylaxis. Tube feeds via PEG tube- TF- Jevity 1.5 @ 65 ml per hour. Currently at 50 cc an hour at goal ID: Pseudomonas pneumonia Avycaz DCd and ceftolozane/tazobactam 1500 mg every 8 hours started per ID antibiogram C-diff PCR negative 02/08 Sputum cx 02/03 : Pseudomonas species, Beta strep not Group A. Sputum cx: 02/05: Pseudomonas - resistant org Sputum 02/10 Pseudomonas sensitivities pending BC 02/03 Staph Epi, Staph hominis. likely contaminant. 02/04 BC: NGTD Strep pneumonia and legionella urinary antigen negative Heme: Normocytic anemia Does not meet requirements for blood transfusion Monitor CBC. Endo: Hypothyroidism SSI with Accuchecks for glycemic control twice a day. On levothyroxine 50 mcg daily. TSH: 4.5 MSK History of spinal fracture/fracture of hip PT evaluate to for contractures 02/17 Desquamating skin rash, Bactrim antibiotic induced most likely GI prophylaxis with lansoprazole resolved 30 mg daily and DVT s prophylaxis with SCDs and heparin SQ. Level 2 follow-up Discussed with family at bedside and PERINATAL TECHNICIAN at bedside (Sincere) Possible plan for transfer to [facility] in the near future Physician Mattie Causey MD Feb 19, 2017 17:43
[2017-02-20] VITALS (15 sets, daily range): BP systolic 98–135; BP diastolic 52–84; PULSE 67–176; RESP 16–32; TEMP 99–99.9; O2SAT 90–98
[2017-02-20] MEDS: PYRIDOSTIGMINE BROMIDE 60 MG TAB PO SCH ×3 (01:16→12:27)
[2017-02-20] MEDS: CHLORHEXIDINE GLUCONATE 2 % 1 PACK (2 CLOTHS) TOP SCH (04:00)
[2017-02-20] MEDS: CEFTOLOZANE TAZOBACTAM IV SCH ×4 (05:05→12:27)
[2017-02-20] MEDS: LEVOTHYROXINE SODIUM 50 MCG TAB G-TUBE SCH (05:05)
[2017-02-20] MEDS: NS IV SCH ×4 (05:05→12:27)
[2017-02-20] MEDS: MEMANTINE HCL 10 MG TAB G-TUBE SCH (07:52)
[2017-02-20] MEDS: HEPARIN SODIUM - SQ 10,000 UNITS/ML VIAL SQ SCH (07:52)
[2017-02-20] MEDS: NYSTATIN 100,000 U/GM PWD 15 GM BTL TOPICAL SCH (07:53)
[2017-02-20] MEDS: INSULIN NovoLIN REGULAR SUPPLEMENTAL SCALE SQ SCH (07:53)
[2017-02-20] MEDS: LANSOPRAZOLE SOLUTAB 30 MG TAB NG SCH (07:53)
[2017-02-20] MEDS ORDERED: LORATADINE 10 MG TAB G-TUBE SCH (09:00)
[2017-02-20] MEDS ORDERED: LACOSAMIDE 100 MG TAB G-TUBE SCH (09:00)
--- NOTE | 2017-02-20 11:13 | HHI.IDPN ---
Note Infectious Disease Note Patient on the vent. Awake, looks comfortable. Non verbal. Afebrile. Copious yellow secretions Desquamating rash on the back - Bactrim stopped. Rash looks improved. 76-year-old white male with history of myasthenia gravis. The patient was seen in the emergency department after he was brought in with fever and tachycardia. He was intubated and is currently on the ventilator. The patient has a tracheostomy and also PEG. He had mild lactic acidemia on admission. PAST MEDICAL HISTORY Dementia, chronic respiratory failure. Myasthenia gravis, history of tracheostomy, history of hip repair. Multiple antibiotic allergies. Seizure disorder, history of tonsillectomy, history of hernia repair. ALLERGIES CIPROFLOXACIN, TOBRAMYCIN, DILANTIN, NEOMYCIN, LITHIUM, BOTULINUM TOXIN A, TIMOLOL, VANCOMYCIN, VERAPAMIL, RISPERIDONE, IOHEXOL, IODIXANOL, HALOPERIDOL, GADOTERIDOL, GADODIAMIDE, DIATRIZOATE MEGLUMINE, THIOPENTAL, HYDROCODONE, ACETAMINOPHEN IODINATED CONTRAST. ANTIBIOTICS: Zerbaxa. Levaquin. MEDICATIONS Current Medications Medications (Trade) Dose Ordered Sig/Maddie Route PRN Reason Start Time Stop Time Status Last Admin Dose Admin Heparin Sodium (Porcine) (Heparin Inj) 5,000 units Q12H SQ 02/03/17 08:00 02/20/17 07:52 Miscellaneous Information 1 Q361D XX 02/03/17 07:15 Chlorhexidine Gluconate (Chlorhexidine 2% Cloth) Taper DAILY@04 TOP 02/04/17 04:00 01/31/18 03:59 02/20/17 04:00 Chlorhexidine Gluconate (Chlorhexidine 2% Cloth) 3 pack UNSCH PRN [facility] 02/03/17 07:15 Dextrose (D50w (Vial) Inj) 50 ml UNSCH PRN IV PUSH HYPOGLYCEMIA-SEE COMMENTS 02/03/17 07:15 Glucagon (Glucagon Inj) 1 mg UNSCH PRN OTHER HYPOGLYCEMIA-SEE COMMENTS 02/03/17 07:15 Levothyroxine Sodium (Synthroid) 50 mcg DAILY@0600 G-TUBE 02/03/17 09:15 02/20/17 05:05 Memantine (Namenda) 10 mg BID G-TUBE 02/03/17 09:15 02/20/17 07:52 Pyridostigmine Carey (Mestinon) 60 mg Q6HR PO 02/03/17 12:00 02/20/17 05:05 Mycophenolate Mofetil (Cellcept Liq) 500 mg TID PO 02/04/17 10:00 Future Hold 02/13/17 17:24 Potassium Chloride 100 ml @ 50 mls/hr Q2H PRN IV-CENTRAL For Potassium 2.8 - 3.2 mEq/L 02/04/17 07:45 Potassium Chloride 100 ml @ 50 mls/hr Q2H PRN IV For Potassium 2.8 - 3.2 mEq/L 02/04/17 07:45 Potassium Bicarb/ Potassium Chloride (K-Lyte Cl Eff) 50 meq UNSCH PRN PO For Potassium 3.3 - 3.5 mEq/L 02/04/17 07:45 Potassium Chloride 100 ml @ 25 mls/hr UNSCH PRN IV-CENTRAL For Potassium 3.3 - 3.5 mEq/L 02/04/17 07:45 Potassium Chloride 100 ml @ 50 mls/hr Q2H PRN IV For Potassium 3.3 - 3.5 mEq/L 02/04/17 07:45 Magnesium Sulfate 4 gm/Sodium Chloride 100 ml @ 50 mls/hr UNSCH PRN IV For Magnesium 0.9 - 1.1 mg/dL 02/04/17 07:45 Magnesium Oxide (Mag-Ox) 800 mg UNSCH PRN PO For Magnesium 1.2 - 1.6 mg/dL 02/04/17 07:45 Magnesium Sulfate 2 gm/Sodium Chloride 100 ml @ 50 mls/hr UNSCH PRN IV For Magnesium 1.2 - 1.6 mg/dL 02/04/17 07:45 Potassium Phosphate (K-Phos) 2,000 mg Q4H PRN PO For Phosphorus < 2.5 mg/dL 02/04/17 07:45 Sodium Phosphate 30 mmol/Sodium Chloride 250 ml @ 42 mls/hr UNSCH PRN IV For Phosphorus < 2.5 mg/dL 02/04/17 07:45 02/15/17 18:15 Potassium Phosphate (K-Phos) 2,000 mg UNSCH PRN PO/TUBE SEE LABEL COMMENTS 02/04/17 07:45 Potassium Phosphate 30 mmol/ Sodium Chloride 260 ml @ 42 mls/hr UNSCH PRN IV SEE LABEL COMMENTS 02/04/17 07:45 02/05/17 09:29 Ceftolozane/ Tazobactam 1500 mg/Sodium Chloride 100 ml @ 100 mls/hr Q8H IV 02/12/17 21:00 02/20/17 05:05 Insulin Human Regular (NovoLIN R SUPPLEMENTAL SCALE) 1 BID SQ 02/13/17 21:00 Lansoprazole (Prevacid Odt) 30 mg DAILY NG 02/14/17 09:00 02/20/17 07:53 Albuterol Sulfate (Albuterol Neb) 2.5 mg Q2HR NEB PRN NEB DYSPNEA 02/13/17 16:45 02/19/17 08:20 Acetaminophen (Tylenol 325 Mg/ 10 ml Liq) 325 mg Q4H PRN PEG FEVER 02/14/17 14:30 02/19/17 21:59 Levofloxacin/ Dextrose 100 ml @ 100 mls/hr Q24H IV 02/18/17 12:00 02/19/17 12:30 Nystatin (Mycostatin Powder) 1 applic Q12HR TOPICAL 02/18/17 21:00 02/20/17 07:53 Lacosamide (Vimpat) 200 mg DAILY G-TUBE 02/20/17 09:00 02/20/17 07:52 Loratadine (Claritin) 10 mg DAILY G-TUBE 02/20/17 09:00 02/20/17 07:52 SOCIAL HISTORY The patient is . No tobacco. No alcohol. No illicit drugs. OBJECTIVE: Vital Signs Date Time Temp Pulse Resp B/P (MAP) Pulse Ox O2 Delivery O2 Flow Rate FiO2 02/20/17 10:08 96 45 02/20/17 08:26 98 45 02/20/17 06:00 76 02/20/17 06:00 76 16 116/58 (77) 93 02/20/17 04:00 85 02/20/17 04:00 99.2 85 16 114/57 (76) 90 02/20/17 04:00 45 02/20/17 02:22 93 45 02/20/17 02:00 68 02/20/17 00:00 99.0 96 20 128/63 (84) 93 02/20/17 00:00 45 02/20/17 00:00 96 02/19/17 22:05 96 45 02/19/17 22:00 85 02/19/17 20:00 98.9 79 16 108/59 (75) 92 02/19/17 20:00 45 02/19/17 20:00 79 02/19/17 18:00 82 02/19/17 16:45 95 45 02/19/17 16:00 45 02/19/17 16:00 89 02/19/17 16:00 99.5 89 30 142/66 (91) 92 02/19/17 15:00 75 16 105/59 (74) 93 02/19/17 14:00 79 16 104/59 (74) 91 02/19/17 14:00 79 02/19/17 13:00 83 18 124/65 (84) 91 02/19/17 12:00 84 02/19/17 12:00 45 02/19/17 12:00 84 23 120/66 (84) 90 02/19/17 11:55 93 45 Laboratory Tests Test 02/19/17 06:35 White Blood Count 9.4 TH/MM3 Red Blood Count 3.91 MIL/MM3 Hemoglobin 10.4 GM/DL Hematocrit 32.0 % Mean Corpuscular Volume 81.9 FL Mean Corpuscular Hemoglobin 26.5 PG Mean Corpuscular Hemoglobin Concent 32.3 % Red Cell Distribution Width 18.3 % Platelet Count 250 TH/MM3 Mean Platelet Volume 10.0 FL Neutrophils (%) (Auto) 73.9 % Lymphocytes (%) (Auto) 11.6 % Monocytes (%) (Auto) 6.3 % Eosinophils (%) (Auto) 7.3 % Basophils (%) (Auto) 0.9 % Neutrophils # (Auto) 6.9 TH/MM3 Lymphocytes # (Auto) 1.1 TH/MM3 Monocytes # (Auto) 0.6 TH/MM3 Eosinophils # (Auto) 0.7 TH/MM3 Basophils # (Auto) 0.1 TH/MM3 CBC Comment DIFF FINAL Differential Comment Laboratory Tests Test 02/19/17 06:35 Blood Urea Nitrogen 16 MG/DL Creatinine 1.30 MG/DL Random Glucose 72 MG/DL Calcium Level 8.5 MG/DL Phosphorus Level 2.0 MG/DL Magnesium Level 2.1 MG/DL Sodium Level 140 MEQ/L Potassium Level 4.7 MEQ/L Chloride Level 108 MEQ/L Carbon Dioxide Level 27.1 MEQ/L Anion Gap 5 MEQ/L Estimat Glomerular Filtration Rate 54 ML/MIN Microbiology Date/Time Source Procedure Growth Status 02/16/17 14:30 Sputum Endotracheal Gram Stain - Final Resulted 02/16/17 14:30 Sputum Culture - Preliminary Pseudomonas Aeruginosa Pseudomonas Aeruginosa Isol. 2 Gram Negative Marcos Resulted Microbiology Date/Time Source Procedure Growth Status 02/16/17 14:30 Sputum Endotracheal Gram Stain - Final Resulted 02/16/17 14:30 Sputum Culture - Preliminary Pseudomonas Aeruginosa Pseudomonas Aeruginosa Isol. 2 Resulted IMAGING: Chest X-Ray 02/19/17 0600 Signed Impressions: Service Date/Time: February 04:05 - CONCLUSION: Mild patchy opacity remains at the left lung base. Franklin Vega MD Chest X-Ray 02/18/17 06 Signed Impressions: Service Date/Time: Saturday, February 18, 2017 04:17 - CONCLUSION: Midinspiratory exam with no acute cardiopulmonary disease. The left basilar airspace opacity appears improved. Franklin Vega MD Chest X-Ray 02/12/17 0600 Signed Impressions: Service Date/Time: January 03:57 - CONCLUSION: Left base consolidation or atelectasis. Gabo Davis MD Chest X-Ray 02/09/17 0000 Signed Impressions: Service Date/Time: Thursday, February 09, 2017 10:33 - CONCLUSION: Increasing consolidative changes left base. Jorje Chi MD FACR Chest Ultrasound 02/09/17 0000 Signed Impressions: Service Date/Time: Thursday, February 09, 2017 14:59 - CONCLUSION: There is no left pleural effusion. Mark Chi MD PHYSICAL EXAMINATION GENERAL: No acute distress. Awake, eyes open. HEENT: No icterus. Oropharynx slightly dry mucosa without lesions. NECK: Supple. No adenopathy. Tracheostomy looks okay. HEART: Regular S1-S2 without murmurs. LUNGS: Coarse breath sounds at the left base. ABDOMEN: (+) Bowel sounds, soft, non tender. EXTREMITIES: No clubbing or cyanosis or edema. SKIN: Erythematous desquamating rash on the back continues to fade. NEURO: Unable to fully assess. IMPRESSION 1. Pneumonia due to Pseudomonas. Fairly resistant organism. Also Stenotrophomonas. 2. Previous blood cultures with coag negative staph likely contaminant. 3. Myasthenia gravis. 4. Chronic respiratory failure. 5. Multiple antibiotic allergies. 6. Rash most likely due to Bactrim. Improved. Very difficult situation to treat infection in this patient because of the myasthenia and immunosuppression (also now on cellcept) and resistant bacteria with limitation for antibiotics. Appears to be stable. RECOMMENDATIONS 1. Continue Zerbaxa. 2. Continue Levaquin. Tolerating. 3. Monitor temperature. 4. Monitor clinical status. May need another seven days of antibiotics. [facility]. D/W and RN. Christopher Livingston MD Feb 20, 2017 11:13
--- NOTE | 2017-02-20 11:35 | HHI.PR ---
Subjective Remarks Awake and on A/C rate 16, FIO2 45 %.On PEEP 8. Has trach secretions .No fever.Has nasal congestion Tolerates feeds. On Antibiotics per ID. Now on Levaquin. . Objective Vital Signs Date Time Temp Pulse Resp B/P (MAP) Pulse Ox O2 Delivery O2 Flow Rate FiO2 02/20/17 10:08 96 45 02/20/17 08:26 98 45 02/20/17 06:00 76 02/20/17 06:00 76 16 116/58 (77) 93 02/20/17 04:00 85 02/20/17 04:00 99.2 85 16 114/57 (76) 90 02/20/17 04:00 45 02/20/17 02:22 93 45 02/20/17 02:00 68 02/20/17 00:00 99.0 96 20 128/63 (84) 93 02/20/17 00:00 45 02/20/17 00:00 96 02/19/17 22:05 96 45 02/19/17 22:00 85 02/19/17 20:00 98.9 79 16 108/59 (75) 92 02/19/17 20:00 45 02/19/17 20:00 79 02/19/17 18:00 82 02/19/17 16:45 95 45 02/19/17 16:00 45 02/19/17 16:00 89 02/19/17 16:00 99.5 89 30 142/66 (91) 92 02/19/17 15:00 75 16 105/59 (74) 93 02/19/17 14:00 79 16 104/59 (74) 91 02/19/17 14:00 79 02/19/17 13:00 83 18 124/65 (84) 91 02/19/17 12:00 84 02/19/17 12:00 45 02/19/17 12:00 84 23 120/66 (84) 90 02/19/17 11:55 93 45 I/O 02/19/17 02/19/17 02/19/17 02/20/17 02/20/17 02/20/17 07:00 15:00 23:00 07:00 15:00 23:00 Intake Total 744 ml 587 ml 616 ml Output Total 450 ml 300 ml 600 ml Balance 294 ml 287 ml 16 ml Intake Oral 0 ml IV Total 100 ml Tube Feeding 644 ml 587 ml 616 ml Output Urine Total 450 ml 300 ml 600 ml # Voids 1 # Bowel Movements 4 2 2 Result Diagram: 02/19/1763402/19/17634 Objective Remarks GENERAL: This is an elderly man, moderately obese, awake but does not respond to any commands. HEENT: Head is normocephalic. Pupils are reactive. Sclerae are clear. Tongue was dry. Throat clear. Nose and ears have no inflammation. NECK: Supple. No venous distension. Trach site clear No lymphadenopathy. CHEST: Decreased excursions with Few basal crackles. HEART: Heart sounds are regular, S1-S2. No murmur. No S3. ABDOMEN: The abdomen is obese, protuberant with a PEG tube in place. Bowel sounds are active. EXTREMITIES: Contracture of the extremities,no edema . Peripheral pulses are diminished. 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 RECTAL: Exam is deferred. Assessment and Plan Assessment and Plan IMPRESSION 1. Chronic respiratory failure. 2. Sepsis with pneumonia. 3. Acute kidney injury with dehydration. 4. Dementia. 5. History of myasthenia gravis. 6. History of MRSA and Pseudomonas pneumonias. 7. Status post tracheostomy and PEG tube placement. Plan : 1. Fio2 45 %, A/C at PEEP to +8, rate 16 2. Continue antibiotics for Sepsis. 3. Nebs qid , Duoneb. 4. Tube feeds at 55 CC. 5. Transfer to [facility] 6. CPAP trials daily. when PEEP <8. 7. D/W here. Caorl Griffin MD Feb 20, 2017 11:35
[2017-02-20] MEDS: LEVOFLOXACIN 500 MG PREMIX INJ 100 ML IV SCH (12:27)
[2017-02-20] MEDS: ACETAMINOPHEN 325 MG/10.15 ML UDC PEG PRN (12:27)
--- NOTE | 2017-02-20 12:45 | HHI.CCPN ---
Subjective Remarks/Hospital Course The patient is a 76 year old male with past medical history of myasthenia gravis , dementia, seizure disorder, chronic respiratory failure with previous tracheostomy and percutaneous endoscopic gastrostomy placement. The patient presented to [facility] from local nursing facility for tachycardia and fevers. On arrival he had a temperature of 102.8, in addition the patient was tachycardic and tachypneic. His laboratory data was significant for leukocytosis with a white blood count of 17.6 mild lactic acidemia, lactic acid level 2.6 and acute kidney injury with creatinine level of 1.65. Chest x-ray in the emergency room showed patchy pneumonia on the left. In the emergency department the patient was given three liters of crystalloids in addition to cefepime, Solu-Medrol, bronchodilator treatment. Arterial blood gas was preformed on TP's. Which showed a pH of 7.43, co2 39, pao2 63, bicarbonate 26-91%. He was placed on plant maintenance mechanic ventilation. Most of the history was obtained by reviewing the medical records as the patient is nonverbal. He also has history of methicillin-resistant Staphylococcus aureus and pseudomonas and pneumonia last year. The patient was do not resuscitate from local half-way. 02/04 No events overnight. On ventilator via trach. Afebrile. 02/05 Patient remains on ventilator via trach. Afebrile. On no sedation. 02/06 No events overnight. Afebrile. Tolerated CPAP all day yesterday. 02/07 No events overnight. Afebrile. 02/08 No events overnight. T;100.0 at 8 am. Having liquid stools. 02/09 Patient remains on ventilator via trach. T:100.0 yesterday 02/10 No events overnight. Afebrile. 02/11: On full vent support now. Low grade fever. On Avycaz per ID. at bedside 02/12: Clinically worsening with increasing oxygen requirement desaturating with 55% FiO2. I have increase PEEP to 10 and titrate oxygen as needed. The sputum Pseudomonas resistant to cefepime and Zosyn, ID has started Zerbaxa today 02/13: Currently appears comfortable. On FiO2 55%. PEEP of 10. Timing tube feeds. Positive BM off bowel regimen. Squeezes left hand to command. Tmax 100. Subjective 02/14: FiO2 up to 60%. PEEP of 10. Tube feeds at 50 Cc an hour. Positive BM. requesting holding mycophenolate as "Dr. Willis always holds this "while hospitalized. 02/15: Afebrile. No acute events overnight. still has PEEP 10, with FIO2 .60%. 02/16: Afebrile. No acute events overnight. PEEP overnight to 12. Now currently decreased to 10. 02/17: Afebrile. Patient tolerated PEEP of 10, O2 saturation 93-94% Noted desquamating rash over entire back today, questionable secondary to antibiotics. 02/18:TMax 101.0 Patient continues on Zerbaxa and Levaquin. Bactrim has been discontinued 2/ desquamating rash on back. 02/19: No acute events overnight. Plan for changing to Zora bed secondary to skin rash on back. Vimpat and Claritin medication reinstituted. 02/20: Afebrile . No acute events. O2 requirements unchanged, PEEP at 8. [facility] Objective Vital Signs Date Time Temp Pulse Resp B/P (MAP) Pulse Ox O2 Delivery O2 Flow Rate FiO2 02/20/17 10:08 96 45 02/20/17 06:00 76 02/20/17 06:00 16 116/58 (77) 02/20/17 04:00 99.2 Intake and Output 02/20/17 02/20/17 02/21/17 08:00 16:00 00:00 Intake Total 616 ml Output Total 600 ml Balance 16 ml Result Diagram: 02/19/17 0635 02/19/17 0635 Imaging Last Impressions Chest X-Ray 02/14/17 0600 Signed Impressions: Service Date/Time: Tuesday, February 14, 2017 03:57 - CONCLUSION: Stable chest x-ray with left basilar airspace consolidation. Gabo Kirby MD Chest Ultrasound 02/09/17 0000 Signed Impressions: Service Date/Time: Thursday, February 09, 2017 14:59 - CONCLUSION: There is no left pleural effusion. Mark Chi MD Objective Remarks GENERAL: 36-year-old male, critically ill currently on ventilator via tracheostomy SKIN: Warm and dry. Noted desquamating rash entire back reddened HEAD: Normocephalic. EYES: No scleral icterus. No injection or drainage. NECK: Supple, trachea midline. No JVD or lymphadenopathy. Trach in place seen dry and intact CARDIOVASCULAR: Regular rate and rhythm without murmurs, gallops, or rubs. RESPIRATORY: Breath sounds equal bilaterally, diminished at the bases. No accessory muscle use. GASTROINTESTINAL: Abdomen soft, non-tender, nondistended. PEG tube is clean dry and intact.erythema MUSCULOSKELETAL: Trace bilateral lower extremity edema. Contracted Neuro: On no sedation. Doesn't follow commands. Squeezes hand especially left hand not to command A/P Assessment and Plan Neuro/Psych: Myasthenia gravis Dementia Seizure disorder NOS On Pyridostigmine 60 mg q six hours. memantine 10 mg twice a day, mycophenolate mofetil 500 mg 3 times Holding mycophenolate for 's request temporarily Monitor neuro status closely. Neuro is following- Dr. Uribe 02/19: Vimpat reinstituted Pulm: Acute on chronic respiratory failure. Left sided pneumonia with multidrug resistant Pseudomonas aeruginosa [facility] 16/550/1.2/ Ventilator bundle Albuterol/ipratropium aerosols every 6 hours with albuterol aerosols every 2 hours. Dyspnea No spontaneous breathing trials until PEEP decreased Follow-up on chest x-ray in a.m. revealed stable left lower lobe infiltrate 02/14 Dr. Griffin, pulmonology following PEEP decreased to 8 cm H20 CV: Mild-elevated troponin. Resolved lactic acidemia. Monitor HR and BP and maintain MAP > 65 mmHg. Initial Lactic acid level measured at 2.6. Echo showed EF 55-60% /FEN/RENAL: Monitor renal function, intake and output, avoid nephrotoxins. Electrolyte replacement as needed. GI: Hypoalbuminemia On lansoprazole 30 mg every 24 hour for Gl prophylaxis. Tube feeds via PEG tube- TF- Jevity 1.5 @ 65 ml per hour. Currently at 50 cc an hour at goal ID: Pseudomonas pneumonia Avycaz DCd and ceftolozane/tazobactam 1500 mg every 8 hours started per ID antibiogram C-diff PCR negative 02/08 Sputum cx 02/03 : Pseudomonas species, Beta strep not Group A. Sputum cx: 02/05: Pseudomonas - resistant org Sputum 02/10 Pseudomonas sensitivities pending BC 02/03 Staph Epi, Staph hominis. likely contaminant. 02/04 BC: NGTD Strep pneumonia and legionella urinary antigen negative Heme: Normocytic anemia Does not meet requirements for blood transfusion Monitor CBC. Endo: Hypothyroidism SSI with Accuchecks for glycemic control twice a day. On levothyroxine 50 mcg daily. TSH: 4.5 MSK History of spinal fracture/fracture of hip PT evaluate to for contractures 02/17 Desquamating skin rash, Bactrim antibiotic induced most likely GI prophylaxis with lansoprazole resolved 30 mg daily and DVT s prophylaxis with SCDs and heparin SQ. Level 2 follow-up Discussed with family at bedside and TECHNICAL SALES SUPPORT MANAGER at bedside (Sincere) Possible plan for transfer to [facility] today. Discussed with Dr. Goyal Physician Mattie Causey MD Feb 20, 2017 12:45
--- NOTE | 2017-02-20 13:30 | HHI.DS ---
Discharge Summary Admission Date Feb 03, 2017 at 07:08 Discharge Date: Feb 20, 2017 Admitting Diagnosis Severe Sepsis; PNA CBC/BMP: 02/19/17 0635 02/19/17 0635 Significant Findings Laboratory Tests Test 02/19/17 06:35 Red Blood Count 3.91 MIL/MM3 (4.50-5.90) Hemoglobin 10.4 GM/DL (13.0-17.0) Hematocrit 32.0 % (39.0-51.0) Mean Corpuscular Hemoglobin 26.5 PG (27.0-34.0) Red Cell Distribution Width 18.3 % (11.6-17.2) Neutrophils (%) (Auto) 73.9 % (16.0-70.0) Eosinophils (%) (Auto) 7.3 % (0.0-4.0) Eosinophils # (Auto) 0.7 TH/MM3 (0-0.4) Random Glucose 72 MG/DL (74-106) Phosphorus Level 2.0 MG/DL (2.5-4.9) Chloride Level 108 MEQ/L (98-107) Estimat Glomerular Filtration Rate 54 ML/MIN (>89) Imaging Last Impressions Chest X-Ray 02/19/17 0600 Signed Impressions: Service Date/Time: February 04:05 - CONCLUSION: Mild patchy opacity remains at the left lung base. Franklin Vega MD Lower Extremity Ultrasound 02/14/17 0000 Signed Impressions: Service Date/Time: Tuesday, February 14, 2017 19:44 - CONCLUSION: No venous thrombosis of either lower extremity. Gabo Meza MD Chest Ultrasound 02/09/17 0000 Signed Impressions: Service Date/Time: Thursday, February 09, 2017 14:59 - CONCLUSION: There is no left pleural effusion. Mark Chi MD Hospital Course The patient is a 76 year old male with past medical history of myasthenia gravis , dementia, seizure disorder, chronic respiratory failure with previous tracheostomy and percutaneous endoscopic gastrostomy placement. The patient presented to [facility] from local nursing facility for tachycardia and fevers. On arrival he had a temperature of 102.8, in addition the patient was tachycardic and tachypneic. His laboratory data was significant for leukocytosis with a white blood count of 17.6 mild lactic acidemia, lactic acid level 2.6 and acute kidney injury with creatinine level of 1.65. Chest x-ray in the emergency room showed patchy pneumonia on the left. In the emergency department the patient was given three liters of crystalloids in addition to cefepime, Solu-Medrol, bronchodilator treatment. Arterial blood gas was preformed on TP's. Which showed a pH of 7.43, co2 39, pao2 63, bicarbonate 26-91%. He was placed on jet mechanic ventilation. Most of the history was obtained by reviewing the medical records as the patient is nonverbal. He also has history of methicillin-resistant Staphylococcus aureus and pseudomonas and pneumonia last year. The patient was do not resuscitate from local detention. 02/04 No events overnight. On ventilator via trach. Afebrile. 02/05 Patient remains on ventilator via trach. Afebrile. On no sedation. 02/06 No events overnight. Afebrile. Tolerated CPAP all day yesterday. 02/07 No events overnight. Afebrile. 02/08 No events overnight. T;100.0 at 8 am. Having liquid stools. 02/09 Patient remains on ventilator via trach. T:100.0 yesterday 02/10 No events overnight. Afebrile. 02/11: On full vent support now. Low grade fever. On Avycaz per ID. at bedside 02/12: Clinically worsening with increasing oxygen requirement desaturating with 55% FiO2. I have increase PEEP to 10 and titrate oxygen as needed. The sputum Pseudomonas resistant to cefepime and Zosyn, ID has started Zerbaxa today 02/13: Currently appears comfortable. On FiO2 55%. PEEP of 10. Timing tube feeds. Positive BM off bowel regimen. Squeezes left hand to command. Tmax 100. Subjective 02/14: FiO2 up to 60%. PEEP of 10. Tube feeds at 50 Cc an hour. Positive BM. requesting holding mycophenolate as "Dr. Willis always holds this "while hospitalized. 02/15: Afebrile. No acute events overnight. still has PEEP 10, with FIO2 .60%. 02/16: Afebrile. No acute events overnight. PEEP overnight to 12. Now currently decreased to 10. 02/17: Afebrile. Patient tolerated PEEP of 10, O2 saturation 93-94% Noted desquamating rash over entire back today, questionable secondary to antibiotics. 02/18:TMax 101.0 Patient continues on Zerbaxa and Levaquin. Bactrim has been discontinued 2/2 desquamating rash on back. 02/19: No acute events overnight. Plan for changing to Zora bed secondary to skin rash on back. Vimpat and Claritin medication reinstituted. 02/20: Afebrile . No acute events. O2 requirements unchanged, PEEP at 8. Plan for discharge to [facility] this afternoon Pt Condition on Discharge: Stable Discharge Disposition: Trnsfr to Other Facility Discharge Instructions DIET: Follow Instructions for: On Tube Feeding Additional Diet Instructions: Jevity Activities you can perform: Continue Mattie Springer MD Feb 20, 2017 13:30
== END 2017-02-20 13:57 | DRG 870 ==
LOC: NEPE 05:20 → NEDA 07:08 → HIME 08:34
PROVIDERS: ADMIT Internal Medicine Critical Care Medicine; ATTEND Internal Medicine Critical Care Medicine
PROC: 5A1955Z Respiratory Ventilation, Greater than 96 Consecutive Hours (ICD-10-PCS; principal; 2017-02-03)
DX: A41.9 Sepsis, unspecified organism (principal); J96.21 Acute and chronic respiratory failure with hypoxia; J15.1 Pneumonia due to Pseudomonas; J15.6 Pneumonia due to other Gram-negative bacteria; N17.9 Acute kidney failure, unspecified; E87.2 Acidosis; E86.0 Dehydration; F03.90 Unspecified dementia, unspecified severity, without behavioral disturbance, psychotic disturbance, mood disturbance, and anxiety; R65.20 Severe sepsis without septic shock; G70.00 Myasthenia gravis without (acute) exacerbation; G40.909 Epilepsy, unspecified, not intractable, without status epilepticus; E88.09 Other disorders of plasma-protein metabolism, not elsewhere classified; D64.9 Anemia, unspecified; E03.9 Hypothyroidism, unspecified; L27.1 Localized skin eruption due to drugs and medicaments taken internally; T37.0X5A Adverse effect of sulfonamides, initial encounter; Z16.24 Resistance to multiple antibiotics; R74.8 Abnormal levels of other serum enzymes; I10 Essential (primary) hypertension; Z88.5 Allergy status to narcotic agent; Z88.8 Allergy status to other drugs, medicaments and biological substances; Z88.1 Allergy status to other antibiotic agents; Z91.041 Radiographic dye allergy status; Z86.14 Personal history of Methicillin resistant Staphylococcus aureus infection; Z93.0 Tracheostomy status; Z93.1 Gastrostomy status; Z74.01 Bed confinement status; Z66 Do not resuscitate; B95.5 Unspecified streptococcus as the cause of diseases classified elsewhere
CPT/HCPCS: 36600; 71010; 76604; 76937; 80048; 80053; 81001; 82550; 82552; 82805; 82948; 83605; 83735; 84100; 84132; 84443; 84484; 85025; 85610; 85730; 86403; 87040; 87070; 87077; 87184; 87186; 87205; 87449; 87493; 87641; 93005; 93306; 93308; 93970; 94002; 94003; 94640; 94664; 94667; 96365; 96375; J0456; J0692; J0695; J0714; J1644; J1940; J1956; J2020; J2543; J2930; J3010; J7030; J7042; J7050; J7070; J7517; J7613; P9612

== ENCOUNTER 2017-05-17 01:26 | Inpatient (IN) | payer MEDICARE ==
[~2017-05-17] VITALS: Ht 175.3 cm; Wt 78.0 kg
[2017-05-17] VITALS (30 sets, daily range): BP systolic 91–166; BP diastolic 55–85; PULSE 65–144; RESP 16–45; TEMP 98.4–102.1; O2SAT 91–99
[~2017-05-17 01:26] MED LIST changes: -ACET325S8 PEG; -ALBU0.63 NEB; -ARIC10TA G-TUBE; +ARIC23TA G-TUBE; +CHLO.12%30 SWISH-SPIT; -CLAR10TA7 GT; -ENOX30P SQ; +FAMO1TAB30 PO; +IPRASOL INH; +LEVO50TA4 G-TUBE; +LEVS0.124 SL; +LORA-650 G-TUBE; +MICO2CRE34 TOPICAL; +MULTTAB67 G-TUBE; -MUPI2%T TOP; +MYCO1SUS PO; -MYCO200S GT; +NAME10TA G-TUBE; -NAME10TA GT; -NYSTT TOPICAL; -PRED20 PO; -PROBCAP4 G-TUBE; -PYRI60 GT; +PYRI60 PO; -RANI150 GT; -RANI150UDC PO; -TAB-TAB G-TUBE; -TERB1%T TOP; +TRIAM.1%T TOPICAL; +TYLE325T G-TUBE; +TYLE325T PO; +VIMP200T G-TUBE; -VIMP200T PEG; -VITA500C G-TUBE; +WHIT15OI EACH EYE; +ZINC20OI
[2017-05-17] MEDS: RESP: ALBUTEROL 2.5 MG/IPRATROPIUM 0.5 MG NEB (SCH) INH ×2 (01:44→01:45)
[2017-05-17 01:52] LABS: AUTOMATED NEUTROPHIL # 12.9 TH/MM3 (1.8-7.7); BASOPHIL # 0.1 TH/MM3 (0-0.2); BASOPHIL % 0.7 % (0.0-2.0); EOSINOPHIL # 0.5 TH/MM3 (0-0.4); EOSINOPHIL % 3.2 % (0.0-4.0); HEMATOCRIT 41.8 % (39.0-51.0); HEMOGLOBIN 13.7 GM/DL (13.0-17.0); LYMPH % 8.7 % (9.0-44.0); LYMPHOCYTE # 1.4 TH/MM3 (1.0-4.8); MEAN CELL VOLUME 80.4 FL (80.0-100.0); MEAN CORPUSCULAR HEMOGLOBIN 26.3 PG (27.0-34.0); MEAN CORPUSCULAR HGB CONC 32.7 % (32.0-36.0); MEAN PLATELET VOLUME 9.3 FL (7.0-11.0); MONO % 6.8 % (0.0-8.0); MONOCYTE # 1.1 TH/MM3 (0-0.9); NEUT % 80.6 % (16.0-70.0); PLATELET COUNT 334 TH/MM3 (150-450); RED CELL DISTRIBUTION WIDTH 17.4 % (11.6-17.2); WHITE BLOOD COUNT 16.1 TH/MM3 (4.0-11.0)
--- NOTE | 2017-05-17 01:58 | PD ---
HPI Chief Complaint: Respiratory Distress Time Seen by Provider: 01:36 Travel History International Travel<30 days: No Contact w/Intl Traveler<30days: No Traveled to known affect area: No History of Present Illness HPI 76-year-old male was brought in by EMS from local half-way for respiratory distress. Patient has history myasthenia gravis, dementia, seizure disorder, chronic respiratory failure with previous tracheostomy and percutaneous endoscopy gastrostomy placement. long-term staff reported patient started having respiratory distress and possible aspiration this evening. O2 saturation was reportedly to be 71%. Patient is on 35% O2 at the facility. Patient was found to have moderate amount of feeding fluid around the tracheostomy. EMS personnel started bagging the patient and suction until arrival to the ED. Patient has a signed DNR. Patient nodding his head for yes and no. Patient unable to voice any complaint. PFSH Past Medical History Arthritis: Yes (back) Asthma: No Autoimmune Disease: Yes (MYASTHENIA GRAVIS) Anxiety: No Depression: No Heart Rhythm Problems: No Cancer: No Cardiovascular Problems: Yes High Cholesterol: No Chemotherapy: No Chest Pain: No Congestive Heart Failure: No COPD: No Cerebrovascular Accident: No Dementia: Yes (APHASIA DEMENTIA) Diabetes: No Diminished Hearing: No Endocrine: No GERD: Yes Genitourinary: Yes (RECURRENT UTI) Hiatal Hernia: Yes Hypertension: Yes Immune Disorder: No Implanted Vascular Access Dvce: No Kidney Stones: No Musculoskeletal: Yes (SPINAL FX-CHRONIC, BROKEN RIGHT FEMUR) Neurologic: Yes (MYASTHENIA GRAVIS, DEMENTIA, SEIZURES) Reproductive: No Respiratory: Yes (TRACH) Migraines: No Pneumonia: Yes Radiation Therapy: No Renal Failure: No Seizures: Yes Sickle Cell Disease: No Sleep Apnea: Yes Thyroid Disease: No Ulcer: No Tetanus Vaccination: Unknown Past Surgical History Abdominal Surgery: Yes (Hernia, PEG TUBE PLACEMENT) AICD: No Arteriovenous Shunt: No Body Medical Devices: PEG TUBE Cardiac Surgery: No Ear Surgery: No Endocrine Surgery: No Eye Surgery: No Genitourinary Surgery: No Insulin Pump: No Joint Replacement: No Oral Surgery: Yes (Tooth extractions) Pacemaker: No Thoracic Surgery: No Tonsillectomy: Yes Other Surgery: Yes (HIP REPAIR 2013, HERNIA REPAIR 1955, SKIN GRAFTING CHILD ) Social History Alcohol Use: No Tobacco Use: No Substance Use: No Allergies-Medications (Allergen,Severity, Reaction): Coded Allergies: hydrocodone (Unverified Allergy, Severe, SENDS PT INTO MYASTHNIA GRAVIS CRISIS, 05/17/17) thiopental (Unverified Allergy, Severe, Shortness of Breath, 05/17/17) SODIUM PENTOTHAL diatrizoate meglumine (Unverified Allergy, Unknown, 05/17/17) gadobenic acid (Unverified Allergy, Unknown, 05/17/17) gadodiamide (Unverified Allergy, Unknown, 05/17/17) gadoteridol (Unverified Allergy, Unknown, 05/17/17) haloperidol (Unverified Allergy, Unknown, 05/17/17) iodixanol (Unverified Allergy, Unknown, 05/17/17) iohexol (Unverified Allergy, Unknown, 05/17/17) onion (Unverified Allergy, Unknown, 05/17/17) risperidone (Unverified Allergy, Unknown, 05/17/17) Iodinated Contrast- Oral and IV Dye (Unverified Adverse Reaction, Severe, Anaphylaxis, 05/17/17) bee venom protein (honey bee) (Unverified Adverse Reaction, Severe, Anaphylaxis, 05/17/17) ciprofloxacin (Unverified Adverse Reaction, Severe, Anaphylaxis, 05/17/17) neomycin (Unverified Adverse Reaction, Severe, Anaphylaxis, 05/17/17) phenytoin (Unverified Adverse Reaction, Severe, Anaphylaxis, 05/17/17) tobramycin (Unverified Adverse Reaction, Severe, Respiratory Failure, ) acetaminophen (Unverified Adverse Reaction, Unknown, SENDS PT INTO MYASTHNIA GRAVIS CRISIS, 05/17/17) gentamicin (Unverified Adverse Reaction, Unknown, 05/17/17) lithium (Unverified Adverse Reaction, Unknown, 05/17/17) onabotulinumtoxinA (Unverified Adverse Reaction, Unknown, 05/17/17) timolol (Unverified Adverse Reaction, Unknown, 05/17/17) vancomycin (Unverified Adverse Reaction, Unknown, 05/17/17) verapamil (Unverified Adverse Reaction, Unknown, 05/17/17) Reported Meds & Prescriptions Reported Meds & Active Scripts Active Reported Prednisone 10 Mg Tab 10 Mg PO DAILY Levothyroxine (Levothyroxine Sodium) 75 Mcg Tab 75 Mcg PO DAILY Ala-Gunner Topical (Hydrocortisone (Topical)) 2.5% Cream 1 Applic TOPICAL DIRECTED Bactroban Topical (Mupirocin) 22 Gm Cream 1 Applic TOPICAL BID Jevity 1.5 Red (Nutritional Supplements) 0.06 Gram-1.5 Kcal/Ml Liq 50 Ml PEG Zinc Oxide (Zinc Oxide (Topical)) 20 % Oin 10 % Tylenol (Acetaminophen) 325 Mg Tab 650 Mg PO Q6H PRN Tylenol (Acetaminophen) 325 Mg Tab 650 Mg G-TUBE Q6H PRN Triamcinolone Topical (Triamcinolone Acetonide) 0.1 % Oint 1 Applic TOPICAL BID Pyridostigmine (Pyridostigmine [place]) 60 Mg Tab 60 Mg PO Q6HR Multiple Vitamin 1 Tab 1 Tab G-TUBE DAILY Namenda (Memantine) 10 Mg Tab 10 Mg G-TUBE BID Mycophenolate Liq (Mycophenolate Mofetil) 200 Mg/Ml Susp 500 Mg PO TID Miconazole Topical 2% Cream 1 Applic TOPICAL BID Allergy Relief (Loratadine) 10 Mg Tab 10 Mg G-TUBE DAILY Levsin-SL (Hyoscyamine Sulfate) 0.125 Mg Subl 0.125 Mg SL Q4H Vimpat (Lacosamide) 200 Mg Tab 200 Mg G-TUBE DAILY Duoneb (Ipratropium-Albuterol Neb) 0.5-2.5 Mg/3 Ml Neb 1 Nebule INH Q4HR NEB Famotidine 10 Mg Tab 10 Mg PO DAILY Duoneb (Ipratropium-Albuterol Neb) 0.5-2.5 Mg/3 Ml Neb 1 Nebule INH Q6HR NEB Chlorhexidine Gluconate (Mouth) Liq (Chlorhexidine Gluconate) 0.12% Soln 15 Ml SWISH-SPIT BID Artificial Tears Opth Oint (White Petrolatum-Mineral Oil Opth Oint 83-15%) 83-15 % Oint 1 Applic EACH EYE Q6HR Pull down lower eyelid & apply 1/4 inch to inside of eyelid. Aricept (Donepezil) 23 Mg Tab 10 Mg G-TUBE HS Do not split, crushed or chewed. Review of Systems General / Constitutional: No: Fever Eyes: No: Visual changes HENT: No: Headaches Cardiovascular: No: Chest Pain or Discomfort Respiratory: Positive: Shortness of Breath Gastrointestinal: No: Abdominal Pain Genitourinary: No: Dysuria Musculoskeletal: No: Pain Skin: No Rash Neurologic: No: Weakness Psychiatric: No: Depression Endocrine: No: Polydipsia Hematologic/Lymphatic: No: Easy Bruising Physical Exam Narrative GENERAL: A thin patient, with mild respiratory distress. SKIN: Focused skin assessment warm/dry. HEAD: Normocephalic. EYES: No scleral icterus. No injection or drainage. NECK: Supple, trachea midline. No JVD or lymphadenopathy. Tracheostomy in place. Balloon not inflated. CARDIOVASCULAR: Regular rate and rhythm without murmurs, gallops, or rubs. RESPIRATORY: Patient has mild to moderate expiratory wheezes bilaterally. Rhonchi at the bases. GASTROINTESTINAL: Abdomen soft, non-tender, nondistended. Gastrostomy tube in place. MUSCULOSKELETAL: No cyanosis, or edema. BACK: Nontender without obvious deformity. No CVA tenderness. Neurologic exam: Patient with contracture position lying in bed awake. Nodding his head to yes and no. Data Data Last Documented VS Vital Signs Date Time Temp Pulse Resp B/P (MAP) Pulse Ox O2 Delivery O2 Flow Rate FiO2 05/17/17 02:49 144 27 146/76 (99) 94 BiPAP 70 05/17/17 01:42 15.00 05/17/17 01:41 100.0 Orders Orders Electrocardiogram (05/17/17 01:36) Complete Blood Count With Diff (05/17/17 01:36) Comprehensive Metabolic Panel (05/17/17 01:36) Prothrombin Time / Inr (Pt) (05/17/17 01:36) Act Partial Throm Time (Ptt) (05/17/17 01:36) Blood Culture (05/17/17 01:36) Urinalysis - C+S If Indicated (05/17/17 01:36) Thyroid Stimulating Hormone (05/17/17 01:36) Chest, Single Ap (05/17/17 01:36) Iv Access Insert/Monitor (05/17/17 01:36) Ecg Monitoring (05/17/17 01:36) Oximetry (05/17/17 01:36) Albuterol-Ipratropium Neb (Duoneb Neb) (05/17/17 01:45) Lorazepam Inj (Ativan Inj) (05/17/17 02:30) Admit Order (Ed Use Only) (05/17/17 03:12) Labs Laboratory Tests Test 05/17/17 01:40 05/17/17 02:15 White Blood Count 16.1 TH/MM3 Red Blood Count 5.20 MIL/MM3 Hemoglobin 13.7 GM/DL Hematocrit 41.8 % Mean Corpuscular Volume 80.4 FL Mean Corpuscular Hemoglobin 26.3 PG Mean Corpuscular Hemoglobin Concent 32.7 % Red Cell Distribution Width 17.4 % Platelet Count 334 TH/MM3 Mean Platelet Volume 9.3 FL Neutrophils (%) (Auto) 80.6 % Lymphocytes (%) (Auto) 8.7 % Monocytes (%) (Auto) 6.8 % Eosinophils (%) (Auto) 3.2 % Basophils (%) (Auto) 0.7 % Neutrophils # (Auto) 12.9 TH/MM3 Lymphocytes # (Auto) 1.4 TH/MM3 Monocytes # (Auto) 1.1 TH/MM3 Eosinophils # (Auto) 0.5 TH/MM3 Basophils # (Auto) 0.1 TH/MM3 CBC Comment DIFF FINAL Differential Comment Prothrombin Time 11.0 SEC Prothromb Time International Ratio 1.1 RATIO Activated Partial Thromboplast Time 31.1 SEC Blood Urea Nitrogen 20 MG/DL Creatinine 1.39 MG/DL Random Glucose 99 MG/DL Total Protein 8.0 GM/DL Albumin 3.0 GM/DL Calcium Level 8.9 MG/DL Alkaline Phosphatase 149 U/L Aspartate Amino Transf (AST/SGOT) 46 U/L Alanine Aminotransferase (ALT/SGPT) 24 U/L Total Bilirubin 0.4 MG/DL Sodium Level 139 MEQ/L Potassium Level 5.0 MEQ/L Chloride Level 105 MEQ/L Carbon Dioxide Level 27.1 MEQ/L Anion Gap 7 MEQ/L Estimat Glomerular Filtration Rate 50 ML/MIN Thyroid Stimulating Hormone 3rd Gen 5.170 uIU/ML Urine Color YELLOW Urine Turbidity CLEAR Urine pH 6.[address] [place] 1.023 Urine Protein 30 mg/dL Urine Glucose (UA) NEG mg/dL Urine Ketones NEG mg/dL Urine Occult Blood NEG Urine Nitrite NEG Urine Bilirubin NEG Urine Urobilinogen LESS THAN 2.0 MG/DL Urine Leukocyte Esterase NEG Urine RBC LESS THAN 1 /hpf Urine WBC 5 /hpf Urine Hyaline Casts 1 /lpf Urine Mucus FEW /lpf Microscopic Urinalysis Comment CULT NOT INDICATED MDM Medical Decision Making Medical Screen Exam Complete: Yes Emergency Medical Condition: Yes Medical Record Reviewed: Yes Differential Diagnosis Differential diagnosis including aspiration pneumonia, reactive airway disease. Narrative Course 76-year-old male with respiratory distress, possible secondary to aspiration. Albuterol with Atrovent unit dose treatment 2. Patient had a trial on blow-by oxygen, BiPAP. Patient still tachycardic and tachypneic. Patient was connected to the ventilator. Discussed situation with . Diagnosis Primary Impression: Pneumonia Qualified Codes: J18.1 - Lobar pneumonia, unspecified organism Additional Impression: Acute respiratory failure Qualified Codes: J96.01 - Acute respiratory failure with hypoxia Admitting Information Admitting Physician Requests: Admit Rolando Pedraza MD May 17, 2017 01:58
[2017-05-17] MEDS ORDERED: MUPI2%T TOPICAL (01:59)
[2017-05-17] MEDS ORDERED: HYDR-4204 TOPICAL (01:59)
[2017-05-17] MEDS ORDERED: JEVILIQ12 PEG (01:59)
[2017-05-17] MEDS ORDERED: LEVO75TA3 PO (01:59)
[2017-05-17] MEDS ORDERED: PRED10 PO (01:59)
[2017-05-17 02:03] LABS: INTERNATIONAL NORMALIZED RATIO 1.1 RATIO
[2017-05-17 02:19] LABS: ALKALINE PHOSPHATASE 149 U/L (45-117); TOTAL BILIRUBIN ADULT 0.4 MG/DL (0.2-1.0)
[2017-05-17 02:22] LABS: ALT (GPT) 24 U/L (12-78); AST (GOT) 46 U/L (15-37); BICARBONATE 27.1 MEQ/L (21.0-32.0); BLOOD UREA NITROGEN 20 MG/DL (7-18); CALCIUM 8.9 MG/DL (8.5-10.1); CHLORIDE 105 MEQ/L (98-107); CREATININE 1.39 MG/DL (0.60-1.30); GLOMERULAR FILTRATION RATE 50 ML/MIN (>89); GLUCOSE,RANDOM 99 MG/DL (74-106); SODIUM (NA) 139 MEQ/L (136-145)
--- NOTE | 2017-05-17 02:22 | RADRPT ---
EXAM DATE/TIME: 05/17/2017 01:50 [facility] COMPARISON: CHEST SINGLE AP, February 19, 2017, 4:05. INDICATIONS : Short of breath. MEDICAL HISTORY : Hypertension. SURGICAL HISTORY : Tracheostomy. ENCOUNTER: Initial ACUITY: 1 day PAIN SCORE: 0/10 LOCATION: Bilateral chest FINDINGS: Tracheostomy in place. Persistent patchy and partially consolidative infiltrates in the left lower l radha with loss of delineation of the left hemidiaphragm. Right infrahilar infiltrates and peribronchi al thickening also stable. CONCLUSION: Persistent left lower lung consolidative infiltrate. Camilo Poe MD on May 17, 2017 at 2:20 Board Certified Radiologist. This report was verified electronically.
[2017-05-17] MEDS ORDERED: LORazepam 2 MG/ML VIAL IV PUSH ONE (02:30)
[2017-05-17 02:46] LABS: BILIRUBIN, URINE NEG (NEG); BLOOD, URINE NEG (NEG); GLUCOSE,URINE NEG (NEG); HYALINE CAST, URINE 1 /lpf (RARE); KETONE, URINE NEG (NEG); MUCUS URINE FEW /lpf (OCC); NITRITE,URINE NEG (NEG); PH, URINE 6.5 (5.0-8.5); URINE COLOR YELLOW (YELLW/STRAW); URINE LEUKOCYTE ESTERASE NEG (NEG)
--- NOTE | 2017-05-17 03:19 | HHI.HP ---
HPI Service Critical Care Medicine Primary Care Physician Unknown Admission Diagnosis Pneumonia. Respiratory failure. Diagnosis: Travel History International Travel<30 Days: No Contact w/Intl Traveler <30 Da: No Traveled to Known Affected Are: No History of Present Illness 76-year-old male with past medical history of myasthenia gravis ( on Mestinon and CellCept) and dementia in bedridden and deconditioned state, status post tracheostomy and PEG who is brought from [facility] due to respiratory distress. Reportedly sats were in the 70s at the care home on 35% trach collar. EVAC reported that patient was receiving bolus feed when they arrived and they noted tube feeds in the trach. Evidently patient has had respiratory symptoms earlier in the day as well because he had been started on prednisone for respiratory indication. He was febrile 102.1 and was tachypneic in 40s with heart rate 140s. Trach cuff was deflated upon arrival. Cuff has been inflated and patient was placed on CPAP via trach but remained in distress. Patient has a [facility] DNR but Dr. Pedraza discussed with patient's who stated she would want to place him on vent for respiratory failure. Patient previously hospitalized 02/02-02/20 and had MDR pseudomonas. He went to [facility]. is concerned that PEG was dislodged on 05/15/17 and was replaced in care home. Past Family Social History Allergies: Coded Allergies: hydrocodone (Unverified Allergy, Severe, SENDS PT INTO MYASTHNIA GRAVIS CRISIS, 05/17/17) thiopental (Unverified Allergy, Severe, Shortness of Breath, 05/17/17) SODIUM PENTOTHAL diatrizoate meglumine (Unverified Allergy, Unknown, 05/17/17) gadobenic acid (Unverified Allergy, Unknown, 05/17/17) gadodiamide (Unverified Allergy, Unknown, 05/17/17) gadoteridol (Unverified Allergy, Unknown, 05/17/17) haloperidol (Unverified Allergy, Unknown, 05/17/17) iodixanol (Unverified Allergy, Unknown, 05/17/17) iohexol (Unverified Allergy, Unknown, 05/17/17) onion (Unverified Allergy, Unknown, 05/17/17) risperidone (Unverified Allergy, Unknown, 05/17/17) Iodinated Contrast- Oral and IV Dye (Unverified Adverse Reaction, Severe, Anaphylaxis, 05/17/17) bee venom protein (honey bee) (Unverified Adverse Reaction, Severe, Anaphylaxis, 05/17/17) ciprofloxacin (Unverified Adverse Reaction, Severe, Anaphylaxis, 05/17/17) neomycin (Unverified Adverse Reaction, Severe, Anaphylaxis, 05/17/17) phenytoin (Unverified Adverse Reaction, Severe, Anaphylaxis, 05/17/17) tobramycin (Unverified Adverse Reaction, Severe, Respiratory Failure, ) gentamicin (Unverified Adverse Reaction, Unknown, 05/17/17) lithium (Unverified Adverse Reaction, Unknown, 05/17/17) onabotulinumtoxinA (Unverified Adverse Reaction, Unknown, 05/17/17) timolol (Unverified Adverse Reaction, Unknown, 05/17/17) verapamil (Unverified Adverse Reaction, Unknown, 05/17/17) Past Medical History Myasthenia gravis Dementia seizures Hypothyroidism GERD Past Surgical History Trach PEG Skin graft harvest from right thigh to his shoulder during childhood after a traumatic injury Reported Medications Loratadine 10 mg per tube daily Aricept 10 mg per 2 daily at bedtime Mestinon 60 mg by mouth every 6 hours Levsin 0.125 mg sublingual every 4 hours DuoNeb every 6 hours Tylenol 650 every 6 hours as needed for pain Vimpat 200 mg per tube daily Namenda 10 mg per tube twice a day Famotidine 10 mg per tube daily Levothyroxine 75 g by mouth daily Miconazole 2% topical twice a day Bactroban topical twice a day 10% CellCept 500 mg per tube 3 times a day Family History Unable to obtain from patient due to clinical condition. Social History Nonsmoker No alcohol or illicit drug use retirement resident Physical Exam Vital Signs Vital Signs Date Time Temp Pulse Resp B/P (MAP) Pulse Ox O2 Delivery O2 Flow Rate FiO2 05/17/17 02:49 144 27 146/76 (99) 94 BiPAP 70 05/17/17 02:15 95 70 05/17/17 01:42 96 Trach Collar 15.00 100 05/17/17 01:41 100.0 129 35 119/66 (83) 96 Trach Collar 15.00 100 05/17/17 01:35 92 T-piece 98 05/17/17 01:32 140 45 166/85 (112) 95 Trach Collar 100 Physical Exam GENERAL: Ill-appearing male who is trached on mechanical ventilation. SKIN: Warm to touch, dry. HEAD: Atraumatic. Normocephalic. EYES: Pupils 3 mm and reactive bilaterally.. No scleral icterus. No injection or drainage. ENT: No nasal bleeding or discharge. Mucous membranes pink and moist. NECK: Trachea midline. No JVD. CARDIOVASCULAR: Tachycardic, regular,. No murmurs rubs or gallops. [address] RESPIRATORY: Tachypneic with bilateral rhonchi. Yellow white respiratory secretions with suctioning. GASTROINTESTINAL: Abdomen soft, non-tender, nondistended. Bowel sounds present. DIGESTER OPERATOR HELPER is placing a Rosenthal. MUSCULOSKELETAL: Extremities without clubbing, cyanosis, or edema. NEUROLOGICAL: Eyes open but does not Laboratory Laboratory Tests Test 05/17/17 01:40 05/17/17 02:15 White Blood Count 16.1 Red Blood Count 5.20 Hemoglobin 13.7 Hematocrit 41.8 Mean Corpuscular Volume 80.4 Mean Corpuscular Hemoglobin 26.3 Mean Corpuscular Hemoglobin Concent 32.7 Red Cell Distribution Width 17.4 Platelet Count 334 Mean Platelet Volume 9.3 Neutrophils (%) (Auto) 80.6 Lymphocytes (%) (Auto) 8.7 Monocytes (%) (Auto) 6.8 Eosinophils (%) (Auto) 3.2 Basophils (%) (Auto) 0.7 Neutrophils # (Auto) 12.9 Lymphocytes # (Auto) 1.4 Monocytes # (Auto) 1.1 Eosinophils # (Auto) 0.5 Basophils # (Auto) 0.1 CBC Comment DIFF FINAL Differential Comment Prothrombin Time 11.0 Prothromb Time International Ratio 1.1 Activated Partial Thromboplast Time 31.1 Blood Urea Nitrogen 20 Creatinine 1.39 Random Glucose 99 Total Protein 8.0 Albumin 3.0 Calcium Level 8.9 Alkaline Phosphatase 149 Aspartate Amino Transf (AST/SGOT) 46 Alanine Aminotransferase (ALT/SGPT) 24 Total Bilirubin 0.4 Sodium Level 139 Potassium Level 5.0 Chloride Level 105 Carbon Dioxide Level 27.1 Anion Gap 7 Estimat Glomerular Filtration Rate 50 Thyroid Stimulating Hormone 3rd Gen 5.170 Urine Color YELLOW Urine Turbidity CLEAR Urine pH 6.5 Urine Specific [place] 1.023 Urine Protein 30 Urine Glucose (UA) NEG Urine Ketones NEG Urine Occult Blood NEG Urine Nitrite NEG Urine Bilirubin NEG Urine Urobilinogen LESS THAN 2.0 Urine Leukocyte Esterase NEG Urine RBC LESS THAN 1 Urine WBC 5 Urine Hyaline Casts 1 Urine Mucus FEW Microscopic Urinalysis Comment CULT NOT INDICATED Date/Time Source Procedure Growth Status 05/17/17 01:45 Blood Peripheral Aerobic Blood Culture Pending Received 05/17/17 01:45 Blood Peripheral Anaerobic Blood Culture Pending Received Result Diagram: 05/17/17 0140 05/17/17 0140 Septic Shock Reassessment Septic shock perfusion: reassessment completed Caprini VTE Risk Assessment Caprini VTE Risk Assessment: Mod/High Risk (score >= 2) Caprini Risk Assessment Model Point Value = 1 Point Value = 2 Point Value = 3 Point Value = 5 Age 41-60 Minor surgery BMI > 25 kg/m2 Swollen legs Varicose veins or History of unexplained or recurrent spontaneous Oral contraceptives or hormone replacement Sepsis (< 1 month) Serious lung disease, including pneumonia (< 1 month) Abnormal pulmonary function Acute myocardial infarction Congestive heart failure (< 1 month) History of inflammatory bowel disease Medical patient at bed rest Age 61-74 Arthroscopic surgery Major open surgery (> 45 min) Laparoscopic surgery (> 45 min) Malignancy Confined to bed (> 72 hours) Immobilizing plaster cast Central venous access Age >= 75 History of VTE Family history of VTE Factor V Leiden Prothrombin [id number] Lupus anticoagulant Anticardiolipin antibodies Elevated serum homocysteine Heparin-induced thrombocytopenia Other congenital or acquired thrombophilia Stroke (< 1 month) Elective arthroplasty Hip, pelvis, or leg fracture Acute spinal cord injury (< 1 month) Prophylaxis Regimen Total Risk Factor Score Risk Level Prophylaxis Regimen 0-1 Low Early ambulation 2 Moderate Order ONE of the following: *Sequential Compression Device (SCD) *Heparin 5000 units SQ BID 3-4 Higher Order ONE of the following medications: *Heparin 5000 units SQ TID *Enoxaparin/Lovenox 40 mg SQ daily (WT < 150 kg, CrCl > 30 mL/min) *Enoxaparin/Lovenox 30 mg SQ daily (WT < 150 kg, CrCl > 10-29 mL/min) *Enoxaparin/Lovenox 30 mg SQ BID (WT < 150 kg, CrCl > 30 mL/min) AND/OR *Sequential Compression Device (SCD) 5 or more Highest Order ONE of the following medications: *Heparin 5000 units SQ TID (Preferred with Epidurals) *Enoxaparin/Lovenox 40 mg SQ daily (WT < 150 kg, CrCl > 30 mL/min) *Enoxaparin/Lovenox 30 mg SQ daily (WT < 150 kg, CrCl > 10-29 mL/min) *Enoxaparin/Lovenox 30 mg SQ BID (WT < 150 kg, CrCl > 30 mL/min) AND *Sequential Compression Device (SCD) Assessment and Plan Assessment and Plan NEURO: Myasthenia gravis Seizures Dementia Propofol for sedation to facilitate vent synchrony. Target RASS -2 Continue Mestinon 60 mg q6. On cellcept for MG but will hold now due to sepsis. Discussed with who understands this. Has been seen by neurology last admission and hospice recommended per Dr. Stuart. asked about IVIG and Dr. Uribe advised would not help. Pt typically followed by Dr. Willis Continue Vimpat 200 per tube daily Continue Aricept 10 mg daily, Namenda 10 twice daily RESP: Acute on chronic hypoxemic respiratory failure Aspiration vs HCAP pneumonia Tracheostomy in place Trach cuff inflated and patient was placed on PRVC. Duoneb q4 hours and albuterol q2 prn. CV: Monitor hemodynamics. Check lactic acid and trend if abnormal. GI: Dysphagia PEG concerned PEG was dislodged and replaced 3/2 and she is concerned was not replaced properly. Unlikely given duration PEG is in place but will obtain KUB with gastrograffin which demonstrated satisfactory position. Jevity 1.5 goal rate 50 ml/hr and follow up nutrition recommendations. Bowel regimen FEN/RENAL: Insert Rosenthal to monitor intake and output. Monitor electrolytes and replace as indicated. ID: Aspiration vs HCAP Chest x-ray shows persistent left lower lobe pneumonia, present previously. While this may have initially represented a chemical aspiration pneumonitis, patient is significantly ill with leukocytosis, fever, respiratory distress and immunocompromised state therefore will treat with antimicrobials. 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 We will cover empirically with vancomycin and Zerbaxa. Consult ID. He has h/o stenotrophomonas but had rash on bactrim. Apparently was previously on levaquin despite reported cipro allergy. states he was on amikacin at [facility]. HEME: LUE DVT in February per , PICC related. Was on anticoagulation at [facility], now no longer. Has persistent swelling, will obtain upper extremity u/s. ENDO: Hypothyroidism Synthroid 75 mcg per tube daily PROPH: SCDs Lovenox 40 mg subcu daily for DVT prophylaxis. Famotidine for stress ulcer prophylaxis. ACCESS: Peripheral IV. Placed intravenous line if needed. updated at bedside and she is agreeable with plan of care. Patient's prognosis and quality of life is poor and has been for several years now. He has a [facility] DNR but his states he would want mechanical ventilation for respiratory failure therefore he is back on mechanical ventilation via trach. states she refuses palliative care or hospice consultation. Patient is critically ill with respiratory distress and pneumonia requiring placement on mechanical ventilation and treatment of sepsis Critical care time 45 minutes exclusive of separately billable procedures. Edith Mcfarlane MD May 17, 2017 03:18
[2017-05-17] MEDS: PROPOFOL 1000 MG/100 ML INJ 100 ML IV PRN ×2 (03:54→21:24)
[2017-05-17] MEDS: SODIUM CHLOR 0.9% 1000 ML INJ 1,000 ML IV SCH ×3 (04:28→21:31)
[2017-05-17] MEDS ORDERED: SODIUM CHLORIDE 0.9% FLUSH 10 ML FLUSH IV FLUSH PRN (04:30)
[2017-05-17] MEDS ORDERED: Vancomycin Consult Pharmacy 1 EA OTHER SCH (04:30)
[2017-05-17] MEDS ORDERED: SENNOSIDES 8.6 MG TAB PO PRN (04:30)
[2017-05-17] MEDS ORDERED: MISCELLANEOUS NURSING INFORMATION XX SCH (04:30)
[2017-05-17] MEDS ORDERED: MAGNESIUM HYDROXIDE SUSP 30 ML CUP PO PRN (04:30)
[2017-05-17] MEDS ORDERED: RESP: ALBUTEROL 2.5 MG/3 ML NEB (PRN) INH (04:30)
[2017-05-17] MEDS ORDERED: ONDANSETRON HCL 4 MG/2 ML VIAL IV PUSH PRN (04:30)
[2017-05-17] MEDS ORDERED: RESP: ALBUTEROL 2.5 MG/IPRATROPIUM 0.5 MG NEB (PRN) INH (04:30)
[2017-05-17] MEDS ORDERED: LACTULOSE SYRUP 20 GM/30 ML CUP PO PRN (04:30)
[2017-05-17] MEDS ORDERED: BISACODYL 10 MG SUPP RECTAL PRN (04:30)
--- NOTE | 2017-05-17 04:57 | RADRPT ---
EXAM DATE/TIME: 05/17/2017 03:43 [facility] COMPARISON: No previous studies available for comparison. INDICATIONS : Evaluate placement of PEG tube. MEDICAL HISTORY : Hypertension. SURGICAL HISTORY : Tracheostomy, PEG tube ENCOUNTER: Initial ACUITY: 1 day PAIN SCORE: Non-responsive. LOCATION: Bilateral Abdomen FINDINGS: Contrast has been injected through the percutaneous gastrostomy tube and KUB performed. Contrast is seen within the gastric lumen and then the duodenum suggesting adequate position of the PEG tube. CONCLUSION: Contrast is seen in the stomach and proximal small bowel. Camilo Poe MD on May 17, 2017 at 4:55 Board Certified Radiologist. This report was verified electronically.
[2017-05-17] MEDS ORDERED: VANCOMYCIN 1,500 MG/NS 500 ML IV ONE ×2 (05:00)
[2017-05-17] MEDS: ENOXAPARIN SODIUM 40 MG/0.4 ML SYRINGE SQ SCH (05:23)
[2017-05-17] MEDS ORDERED: ACETAMINOPHEN 650 MG/20.3 ML UDC PO PRN (07:15)
[2017-05-17] MEDS ORDERED: CEFTOLOZANE-TAZOBACTAM INJ 1,500 MG in SODIUM CHLORIDE 0.9% INJ 100 ML IV SCH (08:00)
[2017-05-17] MEDS: DOCUSATE SODIUM 50 MG/SENNA 8.6 MG TAB PO SCH ×2 (08:59→21:00)
[2017-05-17] MEDS: FAMOTIDINE 20 MG/2 ML VIAL IV PUSH SCH ×2 (08:59→21:19)
[2017-05-17] MEDS: FAMOTIDINE 20 MG TAB PO SCH ×2 (08:59→21:00)
[2017-05-17] MEDS: SODIUM CHLORIDE 0.9% FLUSH 10 ML FLUSH IV FLUSH SCH ×2 (08:59→21:19)
[2017-05-17] MEDS: CEFTOLOZANE-TAZOBACTAM INJ 1,500 MG in SODIUM CHLORIDE 0.9% INJ 100 ML IV SCH ×2 (09:00→18:24)
--- NOTE | 2017-05-17 09:05 | EKG ---
Date Performed: 05/17/2017 Time Performed: 02:06:49 PTAGE: 76 years EKG: SINUS TACHYCARDIA, POSSIBLE ATRIAL FLUTTER POSSIBLE ANTERIOR MYOCARDIAL INFARCTION ABNORMAL RHYTHM ECG PREVIOUS TRACING : 02/03/2017 05.32 DOCTOR: Roldan Bolden Interpretating Date/Time 05/17/2017 09:03:16
--- NOTE | 2017-05-17 11:47 | PD.ID.CON ---
History of Present Illness Service Infectious disease Consult Requested By Dr. Edith Mcfarlane Reason for Consult Evaluation and management of sepsis, and MDRO pneumonia in a patient with myasthenia gravis Primary Care Physician No Primary Care Physician Diagnoses: History of Present Illness is a 76 y/o CM known to me from past admissions. His PMHx is significant for myasthenia gravis ( on Mestinon and CellCept), dementia with h/ o MDRO pneumonia in past. During his multiple admissions I have known him to be bedridden in a deconditioned state. He is s/p tracheostomy and PEG who resides at [facility]. Patient was reportedly transferred to [facility] due to respiratory distress.Per records his sats were in the 70s at the [facility] on 35% trach collar. Per records reportedly [facility] notes say the patient was receiving bolus feed when they arrived and they noted tube feeds in the trach. Reportedly, the patient has had respiratory symptoms even prior to EMS arrival. He was febrile 102.1 and was tachypneic in 40s with heart rate 140s. Trach cuff was deflated upon arrival. Cuff has been inflated and patient was placed on CPAP via trach but remained in distress. Patient has a [facility] DNR but Dr. Pedraza discussed with patient's who stated she would want to place him on vent for respiratory failure. Patient has been at [facility] previously hospitalized 02/02-02/20 and had very MDR pseudomonas. He was discharged to [facility] and then to [facility] per records. Patient was seen by Bag Loader and started on empiric Zerbaxa IV and Vanco IV. At time of my evaluation patient is in IMC not on pressors, on vent thru Trach. PEG tube in place, sin in place. Infectious disease consulted for evaluation and Mment of Pneumonia in a patient with very MDR PSAE. Review of Systems ROS Limitations: Clinical Condition Past Family Social History Allergies: Coded Allergies: hydrocodone (Unverified Allergy, Severe, SENDS PT INTO MYASTHNIA GRAVIS CRISIS, 05/17/17) thiopental (Unverified Allergy, Severe, Shortness of Breath, 05/17/17) SODIUM PENTOTHAL diatrizoate meglumine (Unverified Allergy, Unknown, 05/17/17) gadobenic acid (Unverified Allergy, Unknown, 05/17/17) gadodiamide (Unverified Allergy, Unknown, 05/17/17) gadoteridol (Unverified Allergy, Unknown, 05/17/17) haloperidol (Unverified Allergy, Unknown, 05/17/17) iodixanol (Unverified Allergy, Unknown, 05/17/17) iohexol (Unverified Allergy, Unknown, 05/17/17) onion (Unverified Allergy, Unknown, 05/17/17) risperidone (Unverified Allergy, Unknown, 05/17/17) Iodinated Contrast- Oral and IV Dye (Unverified Adverse Reaction, Severe, Anaphylaxis, 05/17/17) bee venom protein (honey bee) (Unverified Adverse Reaction, Severe, Anaphylaxis, 05/17/17) ciprofloxacin (Unverified Adverse Reaction, Severe, Anaphylaxis, 05/17/17) neomycin (Unverified Adverse Reaction, Severe, Anaphylaxis, 05/17/17) phenytoin (Unverified Adverse Reaction, Severe, Anaphylaxis, 05/17/17) tobramycin (Unverified Adverse Reaction, Severe, Respiratory Failure, ) gentamicin (Unverified Adverse Reaction, Unknown, 05/17/17) lithium (Unverified Adverse Reaction, Unknown, 05/17/17) onabotulinumtoxinA (Unverified Adverse Reaction, Unknown, 05/17/17) timolol (Unverified Adverse Reaction, Unknown, 05/17/17) verapamil (Unverified Adverse Reaction, Unknown, 05/17/17) Past Medical History Myasthenia gravis Dementia seizures Hypothyroidism GERD Past Surgical History Trach PEG Skin graft harvest from right thigh to his shoulder during childhood after a traumatic injury Reported Medications Reported Meds & Active Scripts Active Reported Prednisone 10 Mg Tab 10 Mg PO DAILY Levothyroxine (Levothyroxine Sodium) 75 Mcg Tab 75 Mcg PO DAILY Ala-Gunner Topical (Hydrocortisone (Topical)) 2.5% Cream 1 Applic TOPICAL DIRECTED Bactroban Topical (Mupirocin) 22 Gm Cream 1 Applic TOPICAL BID Jevity 1.5 Red (Nutritional Supplements) 0.06 Gram-1.5 Kcal/Ml Liq 50 Ml PEG Zinc Oxide (Zinc Oxide (Topical)) 20 % Oin 10 % Tylenol (Acetaminophen) 325 Mg Tab 650 Mg PO Q6H PRN Tylenol (Acetaminophen) 325 Mg Tab 650 Mg G-TUBE Q6H PRN Triamcinolone Topical (Triamcinolone Acetonide) 0.1 % Oint 1 Applic TOPICAL BID Pyridostigmine (Pyridostigmine [place]) 60 Mg Tab 60 Mg PO Q6HR Multiple Vitamin 1 Tab 1 Tab G-TUBE DAILY Namenda (Memantine) 10 Mg Tab 10 Mg G-TUBE BID Mycophenolate Liq (Mycophenolate Mofetil) 200 Mg/Ml Susp 500 Mg PO TID Miconazole Topical 2% Cream 1 Applic TOPICAL BID Allergy Relief (Loratadine) 10 Mg Tab 10 Mg G-TUBE DAILY Levsin-SL (Hyoscyamine Sulfate) 0.125 Mg Subl 0.125 Mg SL Q4H Vimpat (Lacosamide) 200 Mg Tab 200 Mg G-TUBE DAILY Duoneb (Ipratropium-Albuterol Neb) 0.5-2.5 Mg/3 Ml Neb 1 Nebule INH Q4HR NEB Famotidine 10 Mg Tab 10 Mg PO DAILY Duoneb (Ipratropium-Albuterol Neb) 0.5-2.5 Mg/3 Ml Neb 1 Nebule INH Q6HR NEB Chlorhexidine Gluconate (Mouth) Liq (Chlorhexidine Gluconate) 0.12% Soln 15 Ml SWISH-SPIT BID Artificial Tears Opth Oint (White Petrolatum-Mineral Oil Opth Oint 83-15%) 83-15 % Oint 1 Applic EACH EYE Q6HR Pull down lower eyelid & apply 1/4 inch to inside of eyelid. Aricept (Donepezil) 23 Mg Tab 10 Mg G-TUBE HS Do not split, crushed or chewed. Active Ordered Medications Current Medications Medications (Trade) Dose Ordered Sig/Maddie Route Start Time Stop Time Status Last Admin (Peridex 0.12% Liq) 15 ml BID@08,20 MT 05/17/17 08:00 05/17/17 21:25 Propofol 100 ml @ 2.55 mls/hr TITRATE PRN IV 05/17/17 03:45 05/17/17 21:24 Pharmacy Profile Note 0 ml @ 0 mls/hr UNSCH OTHER 05/17/17 04:30 Sodium Chloride 1,000 ml @ 100 mls/hr Q10H IV 05/17/17 04:28 05/17/17 21:31 (NS Flush) 2 ml UNSCH PRN IV FLUSH 05/17/17 04:30 (NS Flush) 2 ml BID IV FLUSH 05/17/17 09:00 05/17/17 21:19 (Pepcid Inj) 20 mg Q12HR IV PUSH 05/17/17 09:00 05/17/17 21:19 (Pepcid) 20 mg Q12HR PO 05/17/17 09:00 05/17/17 08:59 (Zofran Inj) 4 mg Q6H PRN IV PUSH 05/17/17 04:30 (Duoneb Neb) 1 ampule Q4HR NEB PRN INH 05/17/17 04:30 (Albuterol Neb) 2.5 mg Q2HR NEB PRN INH 05/17/17 04:30 (Lovenox Inj) 40 mg Q24H SQ 05/17/17 06:00 05/17/17 05:23 Miscellaneous Information 1 Q361D XX 05/17/17 04:30 05/17/17 04:30 (Trupti-Colace) 1 tab BID PO 05/17/17 09:00 05/17/17 08:59 (Milk Of Magnesia Liq) 30 ml Q12H PRN PO 05/17/17 04:30 (Senokot) 17.2 mg Q12H PRN PO 05/17/17 04:30 (Dulcolax Supp) 10 mg DAILY PRN RECTAL 05/17/17 04:30 (Lactulose Liq) 30 ml DAILY PRN PO 05/17/17 04:30 (Tylenol 650 Mg/ 20 ml Liq) 650 mg Q6H PRN PO 05/17/17 07:15 Ceftolozane/ Tazobactam 1500 mg/Sodium Chloride 100 ml @ 100 mls/hr Q8H IV 05/17/17 09:00 05/17/17 18:24 (Synthroid) 75 mcg DAILY@0600 PO 05/18/17 06:00 (Aricept) 10 mg HS PO 05/17/17 21:00 05/17/17 21:00 (Eldecort 2.5% Cream) 1 applic BID TOPICAL 05/17/17 21:00 05/17/17 21:20 (Vimpat) 200 mg DAILY G-TUBE 05/18/17 09:00 (Synthroid) 75 mcg DAILY@0630 PO 05/18/17 06:30 (Namenda) 10 mg BID G-TUBE 05/17/17 21:00 05/17/17 21:18 (Micatin 2% Cream) 1 applic BID TOPICAL 05/17/17 21:00 05/17/17 21:21 (Bactroban 2% Cream) 1 applic BID TOPICAL 05/17/17 21:00 05/17/17 21:20 (Mestinon) 60 mg Q6HR PO 05/17/17 12:00 05/17/17 18:23 (Aristocort 0.1% Oint) 1 applic BID TOPICAL 05/17/17 21:00 05/17/17 21:20 (Levsin) 0.125 mg Q4H SL 05/17/17 12:00 05/17/17 21:23 (Theragran) 1 tab DAILY G-TUBE 05/18/17 09:00 (Flagyl) 500 mg Q8H PEG 05/17/17 12:00 05/17/17 21:19 Family History Reviewed noncontributory to current infectious disease problems. Social History Nonsmoker No alcohol or illicit drug use [facility] Physical Exam Vital Signs Vital Signs Date Time Temp Pulse Resp B/P (MAP) Pulse Ox O2 Delivery O2 Flow Rate FiO2 05/17/17 11:17 96 55 05/17/17 07:52 97 70 05/17/17 06:00 113 05/17/17 05:14 05/17/17 05:11 101.3 126 20 125/76 (92) 99 05/17/17 05:00 97 100 05/17/17 04:19 136 26 144/83 (103) 96 Ventilator 80 05/17/17 04:15 96 80 05/17/17 04:11 80 05/17/17 03:56 139 24 134/76 (95) 91 Ventilator 60 05/17/17 03:34 102.1 05/17/17 03:15 60 05/17/17 03:10 96 60 05/17/17 02:49 144 27 146/76 (99) 94 BiPAP 70 05/17/17 02:15 95 70 05/17/17 01:42 96 Trach Collar 15.00 100 05/17/17 01:41 100.0 129 35 119/66 (83) 96 Trach Collar 15.00 100 05/17/17 01:35 92 T-piece 98 05/17/17 01:32 140 45 166/85 (112) 95 Trach Collar 100 Physical Exam GENERAL: Chronically ill-appearing SKIN: No generalized rashes. No ecchymosis. HEAD: Atraumatic. Normocephalic. No temporal or scalp tenderness. EYES: Pupils equal round and reactive. No scleral icterus. No injection or drainage. ENT: Nose without bleeding, purulent drainage or septal hematoma. Throat without erythema, tonsillar hypertrophy or exudate. Uvula midline. Airway patent. NECK: Trach site with no evidence of infection. Supple, nontender, no meningeal signs. CARDIOVASCULAR: Heart sounds audible. RESPIRATORY: Clear to auscultation. Breath sounds equal bilaterally. No wheezes , rales, or rhonchi. GASTROINTESTINAL: Abdomen soft, non-tender, nondistended. PEG tube site with no evidence of infection. MUSCULOSKELETAL: Extremities without clubbing, cyanosis, or edema. NEUROLOGICAL: Opens eyes spontaneously. Does not track for me. Has contractures in the upper extremities. No verbalization. Psych could not be assessed. IV line sites with no evidence of infection. Laboratory Laboratory Tests Test 05/17/17 01:40 05/17/17 02:15 05/17/17 04:00 05/17/17 04:44 White Blood Count 16.1 Red Blood Count 5.20 Hemoglobin 13.7 Hematocrit 41.8 Mean Corpuscular Volume 80.4 Mean Corpuscular Hemoglobin 26.3 Mean Corpuscular Hemoglobin Concent 32.7 Red Cell Distribution Width 17.4 Platelet Count 334 Mean Platelet Volume 9.3 Neutrophils (%) (Auto) 80.6 Lymphocytes (%) (Auto) 8.7 Monocytes (%) (Auto) 6.8 Eosinophils (%) (Auto) 3.2 Basophils (%) (Auto) 0.7 Neutrophils # (Auto) 12.9 Lymphocytes # (Auto) 1.4 Monocytes # (Auto) 1.1 Eosinophils # (Auto) 0.5 Basophils # (Auto) 0.1 CBC Comment DIFF FINAL Differential Comment Prothrombin Time 11.0 Prothromb Time International Ratio 1.1 Activated Partial Thromboplast Time 31.1 Blood Urea Nitrogen 20 Creatinine 1.39 Random Glucose 99 Total Protein 8.0 Albumin 3.0 Calcium Level 8.9 Alkaline Phosphatase 149 Aspartate Amino Transf (AST/SGOT) 46 Alanine Aminotransferase (ALT/SGPT) 24 Total Bilirubin 0.4 Sodium Level 139 Potassium Level 5.0 Chloride Level 105 Carbon Dioxide Level 27.1 Anion Gap 7 Estimat Glomerular Filtration Rate 50 Thyroid Stimulating Hormone 3rd Gen 5.170 Urine Color YELLOW Urine Turbidity CLEAR Urine pH 6.5 Urine Specific [place] 1.023 Urine Protein 30 Urine Glucose (UA) NEG Urine Ketones NEG Urine Occult Blood NEG Urine Nitrite NEG Urine Bilirubin NEG Urine Urobilinogen LESS THAN 2.0 Urine Leukocyte Esterase NEG Urine RBC LESS THAN 1 Urine WBC 5 Urine Hyaline Casts 1 Urine Mucus FEW Microscopic Urinalysis Comment CULT NOT INDICATED Blood Gas Puncture Site RT RADIAL Blood Gas Patient Temperature 98.6 Blood Gas HCO3 28 Blood Gas Base Excess 4.5 Blood Gas Oxygen Saturation 90 Arterial Blood pH 7.49 Arterial Blood Partial Pressure CO2 38 Arterial Blood Partial Pressure O2 59 Arterial Blood Oxygen Content 17.0 Arterial Blood Carboxyhemoglobin 1.6 Arterial Blood Methemoglobin 0.4 Blood Gas Hemoglobin 13.4 Oxygen Delivery Device VENTILATOR Blood Gas Ventilator Setting Blood Gas Inspired Oxygen 60 Lactic Acid Level 2.8 Test 05/17/17 05:10 Nasal Screen MRSA (PCR) MRSA DETECTED Date/Time Source Procedure Growth Status 05/17/17 01:45 Blood Peripheral Aerobic Blood Culture Pending Received 05/17/17 01:45 Blood Peripheral Anaerobic Blood Culture Pending Received 05/17/17 04:45 Sputum Endotracheal Gram Stain - Final Resulted 05/17/17 04:45 Sputum Endotracheal Sputum Culture Pending Resulted Result Diagram: 05/17/17 0140 05/17/17 0140 Imaging Last Impressions Chest X-Ray 05/17/17 0136 Signed Impressions: Service Date/Time: Wednesday, May 17, 2017 01:50 - CONCLUSION: Persistent left lower lung consolidative infiltrate. Camilo Poe MD Upper Extremity Ultrasound 05/17/17 0000 Signed Impressions: Service Date/Time: Wednesday, May 17, 2017 14:16 - CONCLUSION: Normal examination. Lopez Garza MD Abdomen X-Ray 05/17/17 0000 Signed Impressions: Service Date/Time: Wednesday, May 17, 2017 03:43 - CONCLUSION: Contrast is seen in the stomach and proximal small bowel. Camilo J. Yuschok, MD Assessment and Plan Assessment and Plan Sepsis present on admission. Left lower lobe pneumonia PEG tube dislodged Possible history of aspiration prior to admission. Myasthenia gravis on immune suppressants Immune compromised host Diarrhea check stool for C. difficile Recommendations Sputum culture and Gram stain Respiratory panel for influenza PCR Check stool for C. difficile Continue Zerbaxa IV Start Flagyl oral Continue vancomycin IV target trough 15-20 Follow cultures Follow clinically Discussed with RN Discussed with Cielo Pinto MD May 17, 2017 11:47
--- NOTE | 2017-05-17 15:26 | RADRPT ---
EXAM DATE/TIME: 05/17/2017 14:16 [facility] COMPARISON: No previous studies available for comparison. INDICATIONS : Bilateral arm swelling. MEDICAL HISTORY : Gastroesophageal reflux disease. Seizures. Dementia. Head trauma. Syncope. Myasthenia gravis. Hyperte nsion. Pneumonia. Hiatal hernia. Spinal fractures. Right femur fracture. Arthritis. Measles. Blood tr ansfusion. Cdiff. MRSA. SURGICAL HISTORY : Tonsillectomy. Hernia repair. PEG tube placement. Tracheostomy. Hip repair. Skin graft. ENCOUNTER: Initial ACUITY: 1 day PAIN SCORE: Non-responsive LOCATION: Bilateral arms. FINDINGS: RIGHT UPPER EXTREMITY: There is spontaneous flow documented in the brachial, basilic, cephalic, axillary, and subclavian vei ns. The vessels are compressible and augmentation response is documented. No filling defects are se en. The flow is phasic with respiration. Direction of flow in the jugular vein is caudal. LEFT UPPER EXTREMITY: There is spontaneous flow documented in the brachial, basilic, cephalic, axillary, and subclavian vei ns. The vessels are compressible and augmentation response is documented. No filling defects are se en. The flow is phasic with respiration. Direction of flow in the jugular vein is caudal. CONCLUSION: Normal examination. Lopez Garza MD on May 17, 2017 at 15:24 Board Certified Radiologist. This report was verified electronically.
[2017-05-17] MEDS: metroNIDAZOLE 500 MG TAB PEG SCH ×2 (16:22→21:19)
[2017-05-17] MEDS: PYRIDOSTIGMINE BROMIDE 60 MG TAB PO SCH ×3 (16:22→23:21)
[2017-05-17] MEDS: HYOSCYAMINE 0.125 MG TAB SL SCH ×4 (18:23→23:22)
[2017-05-17] MEDS: DONEPEZIL HCL 5 MG TAB PO SCH (21:00)
[2017-05-17] MEDS: MEMANTINE HCL 10 MG TAB G-TUBE SCH (21:18)
[2017-05-17] MEDS: HYDROCORTISONE 2.5% CREAM 30 GM TOPICAL SCH (21:20)
[2017-05-17] MEDS: MUPIROCIN 2% CREAM 15 GM TOPICAL SCH (21:20)
[2017-05-17] MEDS: TRIAMCINOLONE ACETONIDE 0.1% OINT 15 GM TUBE TOPICAL SCH (21:20)
[2017-05-17] MEDS: MICONAZOLE NITRATE 2% CREAM 15 GM TOPICAL SCH (21:21)
[2017-05-17] MEDS: CHLORHEXIDINE 0.12% (ORAL KIT) 15 ML CUP MT SCH ×2 (21:22→21:25)
[2017-05-17] MEDS: LEVOTHYROXINE SODIUM 75 MCG TAB PO SCH (22:30)
[2017-05-18] VITALS (18 sets, daily range): BP systolic 94–110; BP diastolic 52–63; PULSE 56–91; RESP 16–20; TEMP 97.9–99.1; O2SAT 94–100
[2017-05-18] MEDS: CEFTOLOZANE-TAZOBACTAM INJ 1,500 MG in SODIUM CHLORIDE 0.9% INJ 100 ML IV SCH ×3 (02:31→16:12)
[2017-05-18] MEDS: HYOSCYAMINE 0.125 MG TAB SL SCH ×6 (03:02→23:18)
[2017-05-18] MEDS: metroNIDAZOLE 500 MG TAB PEG SCH ×3 (03:02→20:20)
[2017-05-18 04:20] LABS: AUTOMATED NEUTROPHIL # 5.3 TH/MM3 (1.8-7.7); BASOPHIL # 0.1 TH/MM3 (0-0.2); BASOPHIL % 0.8 % (0.0-2.0); EOSINOPHIL # 0.5 TH/MM3 (0-0.4); EOSINOPHIL % 6.2 % (0.0-4.0); HEMATOCRIT 35.5 % (39.0-51.0); HEMOGLOBIN 11.4 GM/DL (13.0-17.0); LYMPH % 16.8 % (9.0-44.0); LYMPHOCYTE # 1.3 TH/MM3 (1.0-4.8); MEAN CELL VOLUME 80.8 FL (80.0-100.0); MEAN CORPUSCULAR HGB CONC 32.1 % (32.0-36.0); MEAN PLATELET VOLUME 8.8 FL (7.0-11.0); MONO % 8.2 % (0.0-8.0); MONOCYTE # 0.6 TH/MM3 (0-0.9); PLATELET COUNT 237 TH/MM3 (150-450); RED BLOOD COUNT 4.39 MIL/MM3 (4.50-5.90); RED CELL DISTRIBUTION WIDTH 17.6 % (11.6-17.2); WHITE BLOOD COUNT 7.8 TH/MM3 (4.0-11.0)
[2017-05-18 04:52] LABS: ALBUMIN 2.6 GM/DL (3.4-5.0); ALKALINE PHOSPHATASE 128 U/L (45-117); ALT (GPT) 16 U/L (12-78); AST (GOT) 10 U/L (15-37); BICARBONATE 27.7 MEQ/L (21.0-32.0); BLOOD UREA NITROGEN 18 MG/DL (7-18); CHLORIDE 112 MEQ/L (98-107); CREATININE 1.34 MG/DL (0.60-1.30); GLOMERULAR FILTRATION RATE 52 ML/MIN (>89); GLUCOSE,RANDOM 80 MG/DL (74-106); MAGNESIUM 2.2 MG/DL (1.5-2.5); PHOSPHORUS 2.1 MG/DL (2.5-4.9); SODIUM (NA) 147 MEQ/L (136-145); TOTAL BILIRUBIN ADULT 0.3 MG/DL (0.2-1.0); TOTAL PROTEIN 6.3 GM/DL (6.4-8.2)
[2017-05-18] MEDS: PYRIDOSTIGMINE BROMIDE 60 MG TAB PO SCH ×4 (05:14→23:18)
[2017-05-18] MEDS: ENOXAPARIN SODIUM 40 MG/0.4 ML SYRINGE SQ SCH (05:14)
[2017-05-18] MEDS: LEVOTHYROXINE SODIUM 75 MCG TAB PO SCH (05:14)
--- NOTE | 2017-05-18 05:16 | RADRPT ---
EXAM DATE/TIME: 05/18/2017 04:18 [facility] COMPARISON: CHEST SINGLE AP, May 17, 2017, 1:50. INDICATIONS : Shortness of breath, possible pulmonary. MEDICAL HISTORY : Hypertension. SURGICAL HISTORY : Tracheostomy ENCOUNTER: Subsequent ACUITY: 2 days PAIN SCORE: Non-responsive. LOCATION: Bilateral chest FINDINGS: Underinflated AP view of the chest demonstrates a normal-sized cardiac silhouette. Tracheostomy remai ns present. Lungs are very underinflated with mild bibasilar opacity. No pneumothorax or definite eff usion is seen. EKG lines overlie the patient. CONCLUSION: Underinflation with atelectasis at the right lung base and atelectasis versus consolidation at the le ft lung base. Gabo Kirby MD on May 18, 2017 at 5:12 Board Certified Radiologist. This report was verified electronically.
[2017-05-18] MEDS: CHLORHEXIDINE 0.12% (ORAL KIT) 15 ML CUP MT SCH ×2 (08:00→20:00)
[2017-05-18] MEDS: DOCUSATE SODIUM 50 MG/SENNA 8.6 MG TAB PO SCH ×2 (09:00→20:21)
[2017-05-18] MEDS: FAMOTIDINE 20 MG TAB PO SCH ×2 (09:00→20:21)
--- NOTE | 2017-05-18 09:22 | HHI.CCPN ---
Subjective Remarks/Hospital Course 76-year-old male with past medical history of myasthenia gravis ( on Mestinon and CellCept) and dementia in bedridden and deconditioned state, status post tracheostomy and PEG who is brought from [facility] due to respiratory distress. Reportedly sats were in the 70s at the care home on 35% trach collar. [facility] reported that patient was receiving bolus feed when they arrived and they noted tube feeds in the trach. Evidently patient has had respiratory symptoms earlier in the day as well because he had been started on prednisone for respiratory indication. He was febrile 102.1 and was tachypneic in 40s with heart rate 140s. Trach cuff was deflated upon arrival. Cuff has been inflated and patient was placed on CPAP via trach but remained in distress. Patient has a [facility] DNR but Dr. Pedraza discussed with patient's who stated she would want to place him on vent for respiratory failure. Patient previously hospitalized 02/02-02/20 and had MDR pseudomonas. He went to [facility]. is concerned that PEG was dislodged on 05/15/17 and was replaced in care home. Subjective: 05/18: Afebrile. Lab results revealed C. difficile PCR positive, influenza antigen A/B still pending, nurse to obtain nasal wash. Patient tolerating tube feeds. Objective Vital Signs Date Time Temp Pulse Resp B/P (MAP) Pulse Ox O2 Delivery O2 Flow Rate FiO2 05/18/17 08:00 100 45 05/18/17 06:00 63 05/18/17 04:00 97.9 16 99/60 (73) 05/17/17 04:19 Ventilator 05/17/17 01:42 15.00 Intake and Output 05/18/17 05/18/17 05/19/17 08:00 16:00 00:00 Intake Total 858 ml 359 ml Output Total 475 ml Balance 383 ml 359 ml Result Diagram: 05/18/17 0410 05/18/17 0410 Other Results Laboratory Tests Test 05/17/17 12:00 Blood Gas Puncture Site RT RADIAL Blood Gas Patient Temperature 98.6 Blood Gas HCO3 27 mmol/L (22-26) Blood Gas Base Excess 3.9 mmol/L (-2-2) Blood Gas Oxygen Saturation 95 % (90-100) Arterial Blood pH 7.50 (7.380-7.420) Arterial Blood Partial Pressure CO2 36 mmHg (38-42) Arterial Blood Partial Pressure O2 83 mmHg (61-120) Arterial Blood Oxygen Content 15.5 Vol % (12.0-20.0) Arterial Blood Carboxyhemoglobin 1.2 % (0-4) Arterial Blood Methemoglobin 1.0 % (0-2) Blood Gas Hemoglobin 11.5 G/DL (12.0-16.0) Oxygen Delivery Device VENTILATOR Blood Gas Ventilator Setting Blood Gas Inspired Oxygen 55 % Imaging Last Impressions Chest X-Ray 05/18/17 0000 Signed Impressions: Service Date/Time: Thursday, May 18, 2017 04:18 - CONCLUSION: Underinflation with atelectasis at the right lung base and atelectasis versus consolidation at the left lung base. Gabo Kirby MD Upper Extremity Ultrasound 05/17/17 0000 Signed Impressions: Service Date/Time: Wednesday, May 17, 2017 14:16 - CONCLUSION: Normal examination. Lopez Garza MD Abdomen X-Ray 05/17/17 0000 Signed Impressions: Service Date/Time: Wednesday, May 17, 2017 03:43 - CONCLUSION: Contrast is seen in the stomach and proximal small bowel. Camilo Poe MD Objective Remarks GENERAL: Chronically Ill-appearing male who is trached on mechanical ventilation, currently on low-dose propofol infusion SKIN: Warm to touch, dry. HEAD: Atraumatic. Normocephalic. EYES: Pupils 3 mm and reactive bilaterally.. No scleral icterus. No injection or drainage. ENT: No nasal bleeding or discharge. Mucous membranes pink and moist. NECK: Trachea midline. No JVD. CARDIOVASCULAR: Tachycardic, regular,. No murmurs rubs or gallops. [address] RESPIRATORY: Mild expiratory wheezing noted. Yellow white respiratory secretions with suctioning. GASTROINTESTINAL: Abdomen soft, non-tender, nondistended. Bowel sounds present. EQUIPMENT ENGINEER is placing a Rosenthal. MUSCULOSKELETAL: Extremities without clubbing, cyanosis, or edema. NEUROLOGICAL: Spontaneous eye-opening, ability to move extremities A/P Assessment and Plan NEURO: Myasthenia gravis Seizures Dementia Propofol currently at 5 mcgs for sedation to facilitate vent synchrony. Target RASS -2 Continue Mestinon 60 mg q6. On cellcept for MG but will hold now due to sepsis. Discussed with who understands this. Has been seen by neurology last admission and hospice recommended per Dr. Stuart. asked about IVIG and Dr. Uribe advised would not help. Pt typically followed by Dr. Willis Continue Vimpat 200 per tube daily Continue Aricept 10 mg daily, Namenda 10 twice daily RESP: Acute on chronic hypoxemic respiratory failure Aspiration vs HCAP pneumonia Tracheostomy in place Trach cuff inflated and patient was placed on PRVC. Duoneb q4 hours and albuterol q2 prn. CV: Monitor hemodynamics. Check lactic acid and trend if abnormal. GI: Dysphagia PEG concerned PEG was dislodged and replaced 3/2 and she is concerned was not replaced properly. Unlikely given duration PEG is in place but will obtain KUB with gastrograffin which demonstrated satisfactory position. Jevity 1.5 goal rate 50 ml/hr and follow up nutrition recommendations. Bowel regimen FEN/RENAL: Insert Rosenthal to monitor intake and output. Monitor electrolytes and replace as indicated. ID: Aspiration vs HCAP Chest x-ray shows persistent left lower lobe pneumonia, present previously. While this may have initially represented a chemical aspiration pneumonitis, patient is significantly ill with leukocytosis, fever, respiratory distress and immunocompromised state therefore will treat with antimicrobials. 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 We will cover empirically with vancomycin and Zerbaxa. He has h/o stenotrophomonas but had rash on bactrim. Apparently was previously on levaquin despite reported cipro allergy. states he was on amikacin at [facility]. Obtain Influenza A/B antigens ID following HEME: LUE DVT in February per , PICC related. Was on anticoagulation at [facility], now no longer. Has persistent swelling, will obtain upper extremity u/s. ENDO: Hypothyroidism Synthroid 75 mcg per tube daily PROPH: SCDs Lovenox 40 mg subcu daily for DVT prophylaxis. Famotidine for stress ulcer prophylaxis. ACCESS: Peripheral IV. Placed intravenous line if needed. 05/17 updated at bedside and she is agreeable with plan of care. Patient's prognosis and quality of life is poor and has been for several years now. He has a [facility] DNR but his states he would want mechanical ventilation for respiratory failure therefore he is back on mechanical ventilation via trach. states she refuses palliative care or hospice consultation. 05/18 D/W ASSISTANT THERAPY AIDE at bedside (Sincere) Patient is critically ill with respiratory distress and pneumonia requiring placement on mechanical ventilation and treatment of sepsis my billing statement This patient remains critically ill with one or more organ systems which are or may become a threat to life. I have spent in excess of 31 minutes discontinuously in the care and management of this patient. This time is exclusive of procedures, and includes, but is not limited to, evaluation of the patient, review of the medical record, discussions with family, consultants, nursing staff, or respiratory therapy, and documentation in the medical record. Physician Mattie Causey MD May 18, 2017 09:22
[2017-05-18] MEDS: LACOSAMIDE 100 MG TAB G-TUBE SCH (09:29)
[2017-05-18] MEDS: MEMANTINE HCL 10 MG TAB G-TUBE SCH ×2 (09:29→20:20)
[2017-05-18] MEDS: MULTIVITAMIN TAB G-TUBE SCH (09:29)
[2017-05-18] MEDS: FAMOTIDINE 20 MG/2 ML VIAL IV PUSH SCH ×2 (09:29→20:21)
[2017-05-18] MEDS: SODIUM CHLORIDE 0.9% FLUSH 10 ML FLUSH IV FLUSH SCH ×2 (09:30→20:20)
[2017-05-18] MEDS: RESP: ALBUTEROL 2.5 MG/IPRATROPIUM 0.5 MG NEB (SCH) INH ×3 (10:22→20:41)
[2017-05-18] MEDS: VANCOMYCIN INJ 1,250 MG in SODIUM CHLOR 0.9% 250 ML INJ 250 ML IV SCH (12:44)
[2017-05-18] MEDS: TRIAMCINOLONE ACETONIDE 0.1% OINT 15 GM TUBE TOPICAL SCH ×2 (12:46→20:22)
[2017-05-18] MEDS: MUPIROCIN 2% CREAM 15 GM TOPICAL SCH ×2 (12:46→20:22)
[2017-05-18] MEDS: HYDROCORTISONE 2.5% CREAM 30 GM TOPICAL SCH ×2 (12:46→20:22)
[2017-05-18] MEDS: MICONAZOLE NITRATE 2% CREAM 15 GM TOPICAL SCH ×2 (12:46→20:22)
[2017-05-18] MEDS ORDERED: VANCOMYCIN INJ 1,500 MG in SODIUM CHLORID 0.9% 500 ML INJ 500 ML IV SCH (13:00)
[2017-05-18] MEDS: PROPOFOL 1000 MG/100 ML INJ 100 ML IV PRN (17:52)
[2017-05-18] MEDS: DONEPEZIL HCL 5 MG TAB PO SCH (20:21)
[2017-05-19] VITALS (24 sets, daily range): BP systolic 87–123; BP diastolic 50–70; PULSE 53–89; RESP 16–25; TEMP 98.7–99.9; O2SAT 94–99
[2017-05-19] MEDS: CEFTOLOZANE-TAZOBACTAM INJ 1,500 MG in SODIUM CHLORIDE 0.9% INJ 100 ML IV SCH ×3 (01:13→16:32)
[2017-05-19] MEDS: RESP: ALBUTEROL 2.5 MG/IPRATROPIUM 0.5 MG NEB (SCH) INH ×4 (03:24→20:17)
[2017-05-19] MEDS: metroNIDAZOLE 500 MG TAB PEG SCH ×3 (04:45→21:17)
[2017-05-19] MEDS: HYOSCYAMINE 0.125 MG TAB SL SCH ×5 (04:45→21:18)
[2017-05-19] MEDS: PYRIDOSTIGMINE BROMIDE 60 MG TAB PO SCH ×3 (05:55→18:03)
[2017-05-19] MEDS: ENOXAPARIN SODIUM 40 MG/0.4 ML SYRINGE SQ SCH (05:55)
[2017-05-19] MEDS: LEVOTHYROXINE SODIUM 75 MCG TAB PO SCH ×2 (05:55)
[2017-05-19] MEDS: CHLORHEXIDINE 0.12% (ORAL KIT) 15 ML CUP MT SCH ×2 (08:00→20:00)
[2017-05-19] MEDS: FAMOTIDINE 20 MG TAB PO SCH ×2 (09:00→21:00)
[2017-05-19] MEDS: SODIUM CHLORIDE 0.9% FLUSH 10 ML FLUSH IV FLUSH SCH ×2 (09:44→21:18)
[2017-05-19] MEDS: FAMOTIDINE 20 MG/2 ML VIAL IV PUSH SCH ×2 (09:45→21:18)
[2017-05-19] MEDS: LACOSAMIDE 100 MG TAB G-TUBE SCH (09:45)
[2017-05-19] MEDS: DOCUSATE SODIUM 50 MG/SENNA 8.6 MG TAB PO SCH ×2 (09:45→21:00)
[2017-05-19] MEDS: MEMANTINE HCL 10 MG TAB G-TUBE SCH ×2 (09:45→21:18)
[2017-05-19] MEDS: MULTIVITAMIN TAB G-TUBE SCH (09:45)
[2017-05-19] MEDS: HYDROCORTISONE 2.5% CREAM 30 GM TOPICAL SCH ×2 (09:47→21:19)
[2017-05-19] MEDS: MICONAZOLE NITRATE 2% CREAM 15 GM TOPICAL SCH ×2 (09:47→21:20)
[2017-05-19] MEDS: MUPIROCIN 2% CREAM 15 GM TOPICAL SCH ×2 (09:47→21:20)
[2017-05-19] MEDS: TRIAMCINOLONE ACETONIDE 0.1% OINT 15 GM TUBE TOPICAL SCH ×2 (09:47→21:20)
[2017-05-19] MEDS: VANCOMYCIN INJ 1,250 MG in SODIUM CHLOR 0.9% 250 ML INJ 250 ML IV SCH (12:57)
--- NOTE | 2017-05-19 13:56 | HHI.IDPN ---
Subjective Subjective Remarks is a 76 y/o CM known to me from past admissions. His PMHx is significant for myasthenia gravis ( on Mestinon and CellCept), dementia with h/ o MDRO pneumonia in past. During his multiple admissions I have known him to be bedridden in a deconditioned state. He is s/p tracheostomy and PEG who resides at [facility]. Patient was reportedly transferred to [facility] due to respiratory distress.Per records his sats were in the 70s at the [facility] on 35% trach collar. Per records reportedly [facility] notes say the patient was receiving bolus feed when they arrived and they noted tube feeds in the trach. Reportedly, the patient has had respiratory symptoms even prior to EMS arrival. He was febrile 102.1 and was tachypneic in 40s with heart rate 140s. Trach cuff was deflated upon arrival. Cuff has been inflated and patient was placed on CPAP via trach but remained in distress. Patient has a [facility] DNR but Dr. Pedraza discussed with patient's who stated she would want to place him on vent for respiratory failure. Patient has been at [facility] previously hospitalized 02/02-02/20 and had very MDR pseudomonas. He was discharged to [facility] and then to [facility] per records. Patient was seen by [facility] Director and started on empiric Zerbaxa IV and Vanco IV. At time of my evaluation patient is in IMC not on pressors, on vent thru Trach. PEG tube in place, sin in place. Infectious disease consulted for evaluation and Mment of Pneumonia in a patient with very MDR PSAE. Overnight events reviewed No fevers Erythema noted on cheeks. No rash anywhere else on his body. No lip or facial swelling noted. Has diarrhea., Cdiff positive. BP on lower side but patient on Propofol. WBC normalized. Antibiotics Zerbaxa IV Vanco IV Flagyl oral. Lines Line sites with no e.o infection. Past Medical History Past Medical History Myasthenia gravis Dementia seizures Hypothyroidism GERD Past Surgical History Trach PEG Skin graft harvest from right thigh to his shoulder during childhood after a traumatic injury Allergies: Coded Allergies: hydrocodone (Unverified Allergy, Severe, SENDS PT INTO MYASTHNIA GRAVIS CRISIS, 05/17/17) thiopental (Unverified Allergy, Severe, Shortness of Breath, 05/17/17) SODIUM PENTOTHAL diatrizoate meglumine (Unverified Allergy, Unknown, 05/17/17) gadobenic acid (Unverified Allergy, Unknown, 05/17/17) gadodiamide (Unverified Allergy, Unknown, 05/17/17) gadoteridol (Unverified Allergy, Unknown, 05/17/17) haloperidol (Unverified Allergy, Unknown, 05/17/17) iodixanol (Unverified Allergy, Unknown, 05/17/17) iohexol (Unverified Allergy, Unknown, 05/17/17) onion (Unverified Allergy, Unknown, 05/17/17) risperidone (Unverified Allergy, Unknown, 05/17/17) Iodinated Contrast- Oral and IV Dye (Unverified Adverse Reaction, Severe, Anaphylaxis, 05/17/17) bee venom protein (honey bee) (Unverified Adverse Reaction, Severe, Anaphylaxis, 05/17/17) ciprofloxacin (Unverified Adverse Reaction, Severe, Anaphylaxis, 05/17/17) neomycin (Unverified Adverse Reaction, Severe, Anaphylaxis, 05/17/17) phenytoin (Unverified Adverse Reaction, Severe, Anaphylaxis, 05/17/17) tobramycin (Unverified Adverse Reaction, Severe, Respiratory Failure, ) gentamicin (Unverified Adverse Reaction, Unknown, 05/17/17) lithium (Unverified Adverse Reaction, Unknown, 05/17/17) onabotulinumtoxinA (Unverified Adverse Reaction, Unknown, 05/17/17) timolol (Unverified Adverse Reaction, Unknown, 05/17/17) verapamil (Unverified Adverse Reaction, Unknown, 05/17/17) Objective . Vital Signs Date Time Temp Pulse Resp B/P (MAP) Pulse Ox O2 Delivery O2 Flow Rate FiO2 05/19/17 11:00 80 05/19/17 11:00 80 24 123/60 (81) 97 05/19/17 10:29 97 40 05/19/17 10:00 58 16 96/54 (68) 96 05/19/17 10:00 58 05/19/17 09:00 55 05/19/17 09:00 55 16 93/52 (66) 94 05/19/17 08:00 40 05/19/17 08:00 98.9 71 24 121/56 (77) 99 05/19/17 08:00 81 05/19/17 07:29 96 40 05/19/17 07:00 69 05/19/17 07:00 69 17 101/59 (73) 96 05/19/17 06:00 71 05/19/17 04:06 98 45 05/19/17 04:00 99.0 64 16 111/58 (75) 95 05/19/17 04:00 64 05/19/17 04:00 45 05/19/17 02:00 61 05/19/17 00:46 97 45 05/19/17 00:00 59 05/19/17 00:00 45 05/19/17 00:00 99.2 59 16 97/52 (67) 98 05/18/17 22:00 72 05/18/17 20:41 99 45 05/18/17 20:00 98.9 72 18 104/56 (72) 99 05/18/17 20:00 45 05/18/17 20:00 72 05/18/17 18:00 74 05/18/17 16:32 96 50 05/18/17 16:00 66 05/18/17 16:00 45 05/18/17 16:00 99.1 66 16 94/52 (66) 94 05/18/17 14:00 72 . Laboratory Tests Test 05/18/17 04:10 White Blood Count 7.8 TH/MM3 Red Blood Count 4.39 MIL/MM3 Hemoglobin 11.4 GM/DL Hematocrit 35.5 % Mean Corpuscular Volume 80.8 FL Mean Corpuscular Hemoglobin 26.0 PG Mean Corpuscular Hemoglobin Concent 32.1 % Red Cell Distribution Width 17.6 % Platelet Count 237 TH/MM3 Mean Platelet Volume 8.8 FL Neutrophils (%) (Auto) 68.0 % Lymphocytes (%) (Auto) 16.8 % Monocytes (%) (Auto) 8.2 % Eosinophils (%) (Auto) 6.2 % Basophils (%) (Auto) 0.8 % Neutrophils # (Auto) 5.3 TH/MM3 Lymphocytes # (Auto) 1.3 TH/MM3 Monocytes # (Auto) 0.6 TH/MM3 Eosinophils # (Auto) 0.5 TH/MM3 Basophils # (Auto) 0.1 TH/MM3 CBC Comment DIFF FINAL Differential Comment Laboratory Tests Test 05/17/17 14:40 05/18/17 04:10 Lactic Acid Level 1.3 mmol/L 2.1 mmol/L Blood Urea Nitrogen 18 MG/DL Creatinine 1.34 MG/DL Random Glucose 80 MG/DL Total Protein 6.3 GM/DL Albumin 2.6 GM/DL Calcium Level 8.0 MG/DL Phosphorus Level 2.1 MG/DL Magnesium Level 2.2 MG/DL Alkaline Phosphatase 128 U/L Aspartate Amino Transf (AST/SGOT) 10 U/L Alanine Aminotransferase (ALT/SGPT) 16 U/L Total Bilirubin 0.3 MG/DL Sodium Level 147 MEQ/L Potassium Level 3.9 MEQ/L Chloride Level 112 MEQ/L Carbon Dioxide Level 27.7 MEQ/L Anion Gap 7 MEQ/L Estimat Glomerular Filtration Rate 52 ML/MIN Microbiology Date/Time Source Procedure Growth Status 05/17/17 01:45 Blood Peripheral Aerobic Blood Culture - Preliminary NO GROWTH IN 2 DAYS Resulted 05/17/17 01:45 Blood Peripheral Anaerobic Blood Culture - Preliminary NO GROWTH IN 2 DAYS Resulted 05/17/17 01:40 Blood Peripheral Aerobic Blood Culture - Preliminary NO GROWTH IN 2 DAYS Resulted 05/17/17 01:40 Blood Peripheral Anaerobic Blood Culture - Preliminary NO GROWTH IN 2 DAYS Resulted 05/18/17 09:35 Nasal Aspirate Influenza Types A,B Antigen (ADRAIN) - Final NEGATIVE FOR FLU A AND B ANTIGEN.... Complete 05/17/17 04:45 Sputum Endotracheal Gram Stain - Final Resulted 05/17/17 04:45 Sputum Culture - Preliminary Pseudomonas Aeruginosa Multi-Drug Resistant Proteus Mirabilis Resulted Imaging Last Impressions Chest X-Ray 05/18/17 0000 Signed Impressions: Service Date/Time: Thursday, May 18, 2017 04:18 - CONCLUSION: Underinflation with atelectasis at the right lung base and atelectasis versus consolidation at the left lung base. Gabo Kirby MD Upper Extremity Ultrasound 05/17/17 0000 Signed Impressions: Service Date/Time: Wednesday, May 17, 2017 14:16 - CONCLUSION: Normal examination. Lopez Garza MD Abdomen X-Ray 05/17/17 0000 Signed Impressions: Service Date/Time: Wednesday, May 17, 2017 03:43 - CONCLUSION: Contrast is seen in the stomach and proximal small bowel. Camilo Poe MD Physical Exam GENERAL: Chronically ill-appearing SKIN: No generalized rashes. No ecchymosis. HEAD: Atraumatic. Normocephalic. No temporal or scalp tenderness. EYES: Pupils equal round and reactive. No scleral icterus. No injection or drainage. ENT: Nose without bleeding, purulent drainage or septal hematoma. Throat without erythema, tonsillar hypertrophy or exudate. Uvula midline. Airway patent. NECK: Trach site with no evidence of infection. Supple, nontender, no meningeal signs. CARDIOVASCULAR: Heart sounds audible. RESPIRATORY: Clear to auscultation. Breath sounds equal bilaterally. No wheezes , rales, or rhonchi. GASTROINTESTINAL: Abdomen soft, non-tender, nondistended. PEG tube site with no evidence of infection. MUSCULOSKELETAL: Extremities without clubbing, cyanosis, or edema. NEUROLOGICAL: Opens eyes spontaneously. Does not track for me. Has contractures in the upper extremities. No verbalization. Psych could not be assessed. IV line sites with no evidence of infection. Assessment & Plan Remarks Sepsis present on admission. Left lower lobe pneumonia Very MDR PSAE. PEG tube in place. Possible history of aspiration prior to admission. Myasthenia gravis on immune suppressants Immune compromised host Diarrhea positive for C. difficile Recommendations Continue Zerbaxa IV Continue Flagyl oral DC vancomycin IV. Follow cultures Follow clinically Discussed with RN Rash on face does not appear to be antibiotic induced. Will follow. Cielo Fall MD May 19, 2017 13:56
--- NOTE | 2017-05-19 18:45 | HHI.CCPN ---
Subjective Remarks/Hospital Course 76-year-old male with past medical history of myasthenia gravis ( on Mestinon and CellCept) and dementia in bedridden and deconditioned state, status post tracheostomy and PEG who is brought from [facility] due to respiratory distress. Reportedly sats were in the 70s at the care home on 35% trach collar. [facility] reported that patient was receiving bolus feed when they arrived and they noted tube feeds in the trach. Evidently patient has had respiratory symptoms earlier in the day as well because he had been started on prednisone for respiratory indication. He was febrile 102.1 and was tachypneic in 40s with heart rate 140s. Trach cuff was deflated upon arrival. Cuff has been inflated and patient was placed on CPAP via trach but remained in distress. Patient has a [facility] DNR but Dr. Pedraza discussed with patient's who stated she would want to place him on vent for respiratory failure. Patient previously hospitalized 02/02-02/20 and had MDR pseudomonas. He went to [facility]. is concerned that PEG was dislodged on 05/15/17 and was replaced in care home. Subjective: 05/18: Afebrile. Lab results revealed C. difficile PCR positive, influenza antigen A/B still pending, nurse to obtain nasal wash. Patient tolerating tube feeds. 05/19: Late entry note-afebrile patient hypotensive this afternoon, currently bolused with normal saline 250 cc. Sputum results Pseudomonas(MDR) and Proteus , leukocytosis resolved. Objective Vital Signs Date Time Temp Pulse Resp B/P (MAP) Pulse Ox O2 Delivery O2 Flow Rate FiO2 05/19/17 18:00 71 05/19/17 17:00 19 87/50 (62) 94 05/19/17 16:00 40 05/19/17 16:00 98.7 05/17/17 04:19 Ventilator 05/17/17 01:42 15.00 Intake and Output 05/19/17 05/19/17 05/20/17 08:00 16:00 00:00 Intake Total 495.8 ml 350 ml 500 ml Output Total 300 ml 200 ml Balance 195.8 ml 350 ml 300 ml Result Diagram: 05/18/17 0410 05/18/17 0410 Other Results Microbiology Date/Time Source Procedure Growth Status 05/18/17 09:35 Nasal Aspirate Influenza Types A,B Antigen (ADRIAN) - Final NEGATIVE FOR FLU A AND B ANTIGEN.... Complete Imaging Last Impressions Chest X-Ray 05/18/17 0000 Signed Impressions: Service Date/Time: Thursday, May 18, 2017 04:18 - CONCLUSION: Underinflation with atelectasis at the right lung base and atelectasis versus consolidation at the left lung base. Gabo Kirby MD Upper Extremity Ultrasound 05/17/17 0000 Signed Impressions: Service Date/Time: Wednesday, May 17, 2017 14:16 - CONCLUSION: Normal examination. Lopez Garza MD Abdomen X-Ray 05/17/17 0000 Signed Impressions: Service Date/Time: Wednesday, May 17, 2017 03:43 - CONCLUSION: Contrast is seen in the stomach and proximal small bowel. Camilo Poe MD Objective Remarks GENERAL: Chronically Ill-appearing male who is trached on mechanical ventilation SKIN: Warm to touch, dry. HEAD: Atraumatic. Normocephalic. EYES: Pupils 3 mm and reactive bilaterally.. No scleral icterus. No injection or drainage. ENT: No nasal bleeding or discharge. Mucous membranes pink and moist. NECK: Trachea midline. No JVD. CARDIOVASCULAR: Tachycardic, regular,. No murmurs rubs or gallops. [address] RESPIRATORY: Mild expiratory wheezing noted. Yellow white respiratory secretions with suctioning. GASTROINTESTINAL: Abdomen soft, non-tender, nondistended. Bowel sounds present. SANITATION TANK WASHER is placing a Rosenthal. MUSCULOSKELETAL: Extremities without clubbing, cyanosis, or edema. NEUROLOGICAL: Spontaneous eye-opening, ability to move extremities A/P Assessment and Plan NEURO: Myasthenia gravis Seizures Dementia Propofol currently at 5 mcgs for sedation to facilitate vent synchrony. Target RASS -2 Continue Mestinon 60 mg q6. On cellcept for MG but will hold now due to sepsis. Discussed with who understands this. Has been seen by neurology last admission and hospice recommended per Dr. Stuart. asked about IVIG and Dr. Uribe advised would not help. Pt typically followed by Dr. Willis Continue Vimpat 200 per tube daily Continue Aricept 10 mg daily, Namenda 10 twice daily RESP: Acute on chronic hypoxemic respiratory failure Aspiration vs HCAP pneumonia Tracheostomy in place Trach cuff inflated and patient was placed on PRVC. Duoneb q4 hours and albuterol q2 prn. CV: Monitor hemodynamics. Check lactic acid and trend if abnormal. GI: Dysphagia PEG concerned PEG was dislodged and replaced 3/2 and she is concerned was not replaced properly. Unlikely given duration PEG is in place but will obtain KUB with gastrograffin which demonstrated satisfactory position. Jevity 1.5 goal rate 50 ml/hr and follow up nutrition recommendations. Bowel regimen FEN/RENAL: Insert Rosenthal to monitor intake and output. Monitor electrolytes and replace as indicated. ID: Aspiration vs HCAP Chest x-ray shows persistent left lower lobe pneumonia, present previously. While this may have initially represented a chemical aspiration pneumonitis, patient is significantly ill with leukocytosis, fever, respiratory distress and immunocompromised state therefore will treat with antimicrobials. 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 We will cover empirically with vancomycin and Zerbaxa. He has h/o stenotrophomonas but had rash on bactrim. Apparently was previously on levaquin despite reported cipro allergy. states he was on amikacin at [facility]. Influenza A/B antigens-negative ID following- Dr Fall 05/18 sputum culture-pseudomonas aeruginosa (MDR), Proteus HEME: LUE DVT in February per , PICC related. Was on anticoagulation at [facility], now no longer. Has persistent swelling, will obtain upper extremity u/s. ENDO: Hypothyroidism Synthroid 75 mcg per tube daily PROPH: SCDs Lovenox 40 mg subcu daily for DVT prophylaxis. Famotidine for stress ulcer prophylaxis. ACCESS: Peripheral IV. Placed intravenous line if needed. / updated at bedside and she is agreeable with plan of care. Patient's prognosis and quality of life is poor and has been for several years now. He has a [facility] DNR but his states he would want mechanical ventilation for respiratory failure therefore he is back on mechanical ventilation via trach. states she refuses palliative care or hospice consultation. / D/W PIECE MEAT TRIMMER at bedside Patient is critically ill with respiratory distress and pneumonia requiring placement on mechanical ventilation and treatment of sepsis Level 3 follow up Physician Mattie Causey MD May 19, 2017 18:45
[2017-05-19] MEDS: DONEPEZIL HCL 5 MG TAB PO SCH (21:18)
[2017-05-20] VITALS (18 sets, daily range): BP systolic 112–135; BP diastolic 53–94; PULSE 54–135; RESP 16–27; TEMP 98.5–99.4; O2SAT 94–100
[2017-05-20] MEDS: HYOSCYAMINE 0.125 MG TAB SL SCH ×6 (01:26→22:44)
[2017-05-20] MEDS: PYRIDOSTIGMINE BROMIDE 60 MG TAB PO SCH ×5 (01:26→22:45)
[2017-05-20] MEDS: CEFTOLOZANE-TAZOBACTAM INJ 1,500 MG in SODIUM CHLORIDE 0.9% INJ 100 ML IV SCH ×3 (01:26→17:07)
[2017-05-20] MEDS: RESP: ALBUTEROL 2.5 MG/IPRATROPIUM 0.5 MG NEB (SCH) INH ×4 (04:00→19:32)
[2017-05-20] MEDS: metroNIDAZOLE 500 MG TAB PEG SCH ×3 (04:00→22:51)
--- NOTE | 2017-05-20 04:54 | RADRPT ---
EXAM DATE/TIME: 05/20/2017 03:48 [facility] COMPARISON: CHEST SINGLE AP, May 18, 2017, 4:18. INDICATIONS : Short of breath. MEDICAL HISTORY : Hypertension. SURGICAL HISTORY : Tracheostomy. ENCOUNTER: Subsequent ACUITY: 1 week PAIN SCORE: 0/10 LOCATION: Bilateral chest FINDINGS: Underinflated AP view of the chest demonstrates a normal-sized cardiac silhouette. Tracheostomy remai ns present. Lungs are underinflated and there are perihilar and lower lungs opacities bilaterally. No pleural effusion or pneumothorax is identified. Bones and soft tissues demonstrate no acute finding. CONCLUSION: Underinflation with perihilar and lower lung zone opacities. This finding could represent pulmonary e nyasia in the appropriate clinical setting but changes could also be related to atelectasis given the m arked underinflation. Gabo Kirby MD on May 20, 2017 at 4:52 Board Certified Radiologist. This report was verified electronically.
[2017-05-20 05:36] LABS: AUTOMATED NEUTROPHIL # 4.8 TH/MM3 (1.8-7.7); BASOPHIL % 0.5 % (0.0-2.0); EOSINOPHIL # 0.4 TH/MM3 (0-0.4); EOSINOPHIL % 5.3 % (0.0-4.0); HEMATOCRIT 32.6 % (39.0-51.0); HEMOGLOBIN 10.5 GM/DL (13.0-17.0); LYMPH % 15.5 % (9.0-44.0); LYMPHOCYTE # 1.1 TH/MM3 (1.0-4.8); MEAN CORPUSCULAR HEMOGLOBIN 25.7 PG (27.0-34.0); MEAN CORPUSCULAR HGB CONC 32.1 % (32.0-36.0); MEAN PLATELET VOLUME 9.4 FL (7.0-11.0); MONO % 9.1 % (0.0-8.0); MONOCYTE # 0.6 TH/MM3 (0-0.9); NEUT % 69.6 % (16.0-70.0); PLATELET COUNT 242 TH/MM3 (150-450); RED BLOOD COUNT 4.07 MIL/MM3 (4.50-5.90); RED CELL DISTRIBUTION WIDTH 17.3 % (11.6-17.2); WHITE BLOOD COUNT 6.9 TH/MM3 (4.0-11.0)
[2017-05-20] MEDS: ENOXAPARIN SODIUM 40 MG/0.4 ML SYRINGE SQ SCH (05:49)
[2017-05-20] MEDS: LEVOTHYROXINE SODIUM 75 MCG TAB PO SCH ×2 (05:49)
[2017-05-20 06:06] LABS: BICARBONATE 28.3 MEQ/L (21.0-32.0); CALCIUM 8.1 MG/DL (8.5-10.1); CREATININE 1.18 MG/DL (0.60-1.30); MAGNESIUM 2.3 MG/DL (1.5-2.5); PHOSPHORUS 1.6 MG/DL (2.5-4.9)
[2017-05-20] MEDS: FAMOTIDINE 20 MG TAB PO SCH ×2 (09:00→22:44)
[2017-05-20] MEDS: SODIUM CHLORIDE 0.9% FLUSH 10 ML FLUSH IV FLUSH SCH ×2 (09:40→22:45)
[2017-05-20] MEDS: MEMANTINE HCL 10 MG TAB G-TUBE SCH ×2 (09:40→22:51)
[2017-05-20] MEDS: LACOSAMIDE 100 MG TAB G-TUBE SCH (09:40)
[2017-05-20] MEDS: MULTIVITAMIN TAB G-TUBE SCH (09:40)
[2017-05-20] MEDS: FAMOTIDINE 20 MG/2 ML VIAL IV PUSH SCH ×2 (09:40→22:44)
[2017-05-20] MEDS: DOCUSATE SODIUM 50 MG/SENNA 8.6 MG TAB PO SCH ×2 (09:40→22:44)
[2017-05-20] MEDS: MUPIROCIN 2% CREAM 15 GM TOPICAL SCH ×2 (09:42→22:45)
[2017-05-20] MEDS: HYDROCORTISONE 2.5% CREAM 30 GM TOPICAL SCH ×2 (09:42→22:45)
[2017-05-20] MEDS: MICONAZOLE NITRATE 2% CREAM 15 GM TOPICAL SCH ×2 (09:42→22:45)
[2017-05-20] MEDS: TRIAMCINOLONE ACETONIDE 0.1% OINT 15 GM TUBE TOPICAL SCH ×2 (09:42→22:45)
[2017-05-20] MEDS: CHLORHEXIDINE 0.12% (ORAL KIT) 15 ML CUP MT SCH ×2 (09:43→22:43)
[2017-05-20] MEDS ORDERED: ICU - D/C ICU ELECTROLYTE ORDERS PRN (12:30)
[2017-05-20] MEDS ORDERED: ICU - POTASSIUM PHOSPHATE 30 MMOL/NS 250 ML IV PRN ×2 (12:30)
[2017-05-20] MEDS ORDERED: ICU - CALL ORDERING PHYSICIAN PRN (12:30)
[2017-05-20] MEDS ORDERED: ICU - MAGNESIUM OXIDE 400 MG TAB PO PRN (12:30)
[2017-05-20] MEDS ORDERED: ICU - MAGNESIUM SULFATE 2 GM/NS 100 ML IV PRN ×2 (12:30)
[2017-05-20] MEDS ORDERED: ICU - POTASSIUM CHLORIDE/AQUEOUS SOLN 20 MEQ/100 ML IVPB IV PRN (12:30)
[2017-05-20] MEDS ORDERED: ICU - POTASSIUM CHLORIDE/AQUEOUS SOLN 40 MEQ/100 ML IVPB IV PRN (12:30)
[2017-05-20] MEDS ORDERED: ICU - MAGNESIUM SULFATE 4 GM/NS 100 ML IV PRN ×2 (12:30)
[2017-05-20] MEDS ORDERED: ICU - SODIUM PHOSPHATE 30 MMOL/NS 250 ML IV PRN ×2 (12:30)
[2017-05-20] MEDS ORDERED: POTASSIUM CHLORIDE 25 MEQ EFFERVESCENT TAB PO PRN (12:30)
[2017-05-20] MEDS ORDERED: PHARMACY ORDERED LAB ONE (12:45)
[2017-05-20] MEDS: ICU - POTASSIUM PHOSPHATE MONOBASIC 500 MG TAB PO PRN (13:32)
--- NOTE | 2017-05-20 20:45 | HHI.CCPN ---
Subjective Remarks/Hospital Course 76-year-old male with past medical history of myasthenia gravis ( on Mestinon and CellCept) and dementia in bedridden and deconditioned state, status post tracheostomy and PEG who is brought from [facility] due to respiratory distress. Reportedly sats were in the 70s at the [facility] on 35% trach collar. [facility] reported that patient was receiving bolus feed when they arrived and they noted tube feeds in the trach. Evidently patient has had respiratory symptoms earlier in the day as well because he had been started on prednisone for respiratory indication. He was febrile 102.1 and was tachypneic in 40s with heart rate 140s. Trach cuff was deflated upon arrival. Cuff has been inflated and patient was placed on CPAP via trach but remained in distress. Patient has a [facility] DNR but Dr. Pedraza discussed with patient's who stated she would want to place him on vent for respiratory failure. Patient previously hospitalized 02/02-02/20 and had MDR pseudomonas. He went to [facility] [place]. is concerned that PEG was dislodged on 05/15/17 and was replaced in [facility]. Subjective: 05/18: Afebrile. Lab results revealed C. difficile PCR positive, influenza antigen A/B still pending, nurse to obtain nasal wash. Patient tolerating tube feeds. 05/19: Late entry note-afebrile patient hypotensive this afternoon, currently bolused with normal saline 250 cc. Sputum results Pseudomonas(MDR) and Proteus , leukocytosis resolved. 05/20: Late entry note. Electrolytes derangement noted. Repletion of phosphorus. Sedation remains off . Hemodynamically stable. Objective Vital Signs Date Time Temp Pulse Resp B/P (MAP) Pulse Ox O2 Delivery O2 Flow Rate FiO2 05/20/17 18:00 80 05/20/17 16:00 98.6 27 112/59 (76) 97 05/20/17 14:59 40 05/17/17 04:19 Ventilator 05/17/17 01:42 15.00 Intake and Output 05/20/17 05/20/17 05/21/17 08:00 16:00 00:00 Intake Total 639 ml 449 ml Output Total 425 ml Balance 214 ml 449 ml Result Diagram: 05/20/17 0436 05/20/17 0436 Other Results Microbiology Date/Time Source Procedure Growth Status 05/18/17 09:35 Nasal Aspirate Influenza Types A,B Antigen (ADRIAN) - Final NEGATIVE FOR FLU A AND B ANTIGEN.... Complete Imaging Last Impressions Chest X-Ray 05/18/17 0000 Signed Impressions: Service Date/Time: Thursday, May 18, 2017 04:18 - CONCLUSION: Underinflation with atelectasis at the right lung base and atelectasis versus consolidation at the left lung base. Gabo Kirby MD Upper Extremity Ultrasound 05/17/17 0000 Signed Impressions: Service Date/Time: Wednesday, May 17, 2017 14:16 - CONCLUSION: Normal examination. Lopez Garza MD Abdomen X-Ray 05/17/17 0000 Signed Impressions: Service Date/Time: Wednesday, May 17, 2017 03:43 - CONCLUSION: Contrast is seen in the stomach and proximal small bowel. Camilo Poe MD Objective Remarks GENERAL: Chronically Ill-appearing male who is trached on mechanical ventilation SKIN: Warm to touch, dry. HEAD: Atraumatic. Normocephalic. EYES: Pupils 3 mm and reactive bilaterally.. No scleral icterus. No injection or drainage. ENT: No nasal bleeding or discharge. Mucous membranes pink and moist. NECK: Trachea midline. No JVD. CARDIOVASCULAR: Tachycardic, regular,. No murmurs rubs or gallops. [address] RESPIRATORY: Mild expiratory wheezing noted. Yellow white respiratory secretions with suctioning. GASTROINTESTINAL: Abdomen soft, non-tender, nondistended. Bowel sounds present. EVAPORATOR REPAIRER is placing a Rosenthal. MUSCULOSKELETAL: Extremities without clubbing, cyanosis, or edema. NEUROLOGICAL: Spontaneous eye-opening, ability to move extremities A/P Assessment and Plan NEURO: Myasthenia gravis Seizures Dementia Propofol currently at 5 mcgs for sedation to facilitate vent synchrony. Target RASS -2 Continue Mestinon 60 mg q6. On cellcept for MG but will hold now due to sepsis. Discussed with who understands this. Has been seen by neurology last admission and hospice recommended per Dr. Stuart. asked about IVIG and Dr. Uribe advised would not help. Pt typically followed by Dr. Willis Continue Vimpat 200 per tube daily Continue Aricept 10 mg daily, Namenda 10 twice daily RESP: Acute on chronic hypoxemic respiratory failure Aspiration vs HCAP pneumonia Tracheostomy in place Trach cuff inflated and patient was placed on PRVC. Duoneb q4 hours and albuterol q2 prn. CV: Monitor hemodynamics. Check lactic acid and trend if abnormal. GI: Dysphagia PEG concerned PEG was dislodged and replaced 3/2 and she is concerned was not replaced properly. Unlikely given duration PEG is in place but will obtain KUB with gastrograffin which demonstrated satisfactory position. Jevity 1.5 goal rate 50 ml/hr and follow up nutrition recommendations. Bowel regimen FEN/RENAL: Insert Rosenthal to monitor intake and output. Monitor electrolytes and replace as indicated. ID: Aspiration vs HCAP Chest x-ray shows persistent left lower lobe pneumonia, present previously. While this may have initially represented a chemical aspiration pneumonitis, patient is significantly ill with leukocytosis, fever, respiratory distress and immunocompromised state therefore will treat with antimicrobials. 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 We will cover empirically with vancomycin and Zerbaxa. He has h/o stenotrophomonas but had rash on bactrim. Apparently was previously on levaquin despite reported cipro allergy. states he was on amikacin at [facility] [place]. Influenza A/B antigens-negative ID following- Dr Fall 05/18 sputum culture-pseudomonas aeruginosa (MDR), Proteus HEME: LUE DVT in February per , PICC related. Was on anticoagulation at [facility] [place], now no longer. upper extremity u/s- Normal exam ENDO: Hypothyroidism Synthroid 75 mcg per tube daily PROPH: SCDs Lovenox 40 mg subcu daily for DVT prophylaxis. Famotidine for stress ulcer prophylaxis. ACCESS: Peripheral IV. Placed intravenous line if needed. 3/ updated at bedside and she is agreeable with plan of care. Patient's prognosis and quality of life is poor and has been for several years now. He has a [facility] DNR but his states he would want mechanical ventilation for respiratory failure therefore he is back on mechanical ventilation via trach. states she refuses palliative care or hospice consultation. 3/6 D/W PHARMACEUTICAL OFFICER at bedside Patient is critically ill with respiratory distress and pneumonia requiring placement on mechanical ventilation and treatment of sepsis Level 3 follow up Physician Mattie Causey MD May 20, 2017 20:45
[2017-05-20] MEDS: DONEPEZIL HCL 5 MG TAB PO SCH (22:44)
[2017-05-21] VITALS (22 sets, daily range): BP systolic 104–125; BP diastolic 55–70; PULSE 62–96; RESP 19–27; TEMP 98.4–99.1; O2SAT 94–100
[2017-05-21] MEDS: CEFTOLOZANE-TAZOBACTAM INJ 1,500 MG in SODIUM CHLORIDE 0.9% INJ 100 ML IV SCH ×4 (01:22→23:21)
[2017-05-21] MEDS: HYOSCYAMINE 0.125 MG TAB SL SCH ×7 (01:22→23:20)
[2017-05-21] MEDS: RESP: ALBUTEROL 2.5 MG/IPRATROPIUM 0.5 MG NEB (SCH) INH ×4 (01:51→21:29)
--- NOTE | 2017-05-21 04:49 | RADRPT ---
EXAM DATE/TIME: 05/21/2017 04:03 [facility] COMPARISON: CHEST SINGLE AP, May 20, 2017, 3:48. INDICATIONS : Shortness of breath, possible pulmonary disease. MEDICAL HISTORY : Hypertension. SURGICAL HISTORY : Tracheostomy ENCOUNTER: Subsequent ACUITY: 1 week PAIN SCORE: Non-responsive. LOCATION: Bilateral chest FINDINGS: Portable AP view of the chest demonstrates a normal-sized cardiac silhouette. Tracheostomy rings pres ent. Lungs are underinflated with bibasilar opacity in a pattern characteristic of atelectasis. No pl eural effusion or pneumothorax is identified. The bones and soft tissues demonstrate no acute finding . CONCLUSION: Underinflation with mild bibasilar opacity in a pattern suggesting atelectasis. Gabo Kirby MD on May 21, 2017 at 4:46 Board Certified Radiologist. This report was verified electronically.
[2017-05-21 05:17] LABS: MEAN CELL VOLUME 80.4 FL (80.0-100.0); MEAN CORPUSCULAR HEMOGLOBIN 26.1 PG (27.0-34.0); MEAN CORPUSCULAR HGB CONC 32.4 % (32.0-36.0); MEAN PLATELET VOLUME 9.4 FL (7.0-11.0); PLATELET COUNT 259 TH/MM3 (150-450); RED BLOOD COUNT 4.23 MIL/MM3 (4.50-5.90); RED CELL DISTRIBUTION WIDTH 17.7 % (11.6-17.2); WHITE BLOOD COUNT 10.7 TH/MM3 (4.0-11.0)
[2017-05-21] MEDS: ENOXAPARIN SODIUM 40 MG/0.4 ML SYRINGE SQ SCH (05:32)
[2017-05-21] MEDS: metroNIDAZOLE 500 MG TAB PEG SCH ×3 (05:32→21:54)
[2017-05-21] MEDS: LEVOTHYROXINE SODIUM 75 MCG TAB PO SCH (05:32)
[2017-05-21] MEDS: PYRIDOSTIGMINE BROMIDE 60 MG TAB PO SCH ×4 (05:32→23:20)
[2017-05-21 05:40] LABS: BICARBONATE 25.6 MEQ/L (21.0-32.0); CALCIUM 8.2 MG/DL (8.5-10.1); CREATININE 1.07 MG/DL (0.60-1.30); MAGNESIUM 2.2 MG/DL (1.5-2.5); PHOSPHORUS 1.4 MG/DL (2.5-4.9)
[2017-05-21] MEDS: DOCUSATE SODIUM 50 MG/SENNA 8.6 MG TAB PO SCH ×2 (07:59→21:00)
[2017-05-21] MEDS: ICU - POTASSIUM PHOSPHATE MONOBASIC 500 MG TAB PO PRN (07:59)
[2017-05-21] MEDS: LACOSAMIDE 100 MG TAB G-TUBE SCH (07:59)
[2017-05-21] MEDS: FAMOTIDINE 20 MG/2 ML VIAL IV PUSH SCH ×2 (08:00→21:00)
[2017-05-21] MEDS: MULTIVITAMIN TAB G-TUBE SCH (08:00)
[2017-05-21] MEDS: SODIUM CHLORIDE 0.9% FLUSH 10 ML FLUSH IV FLUSH SCH ×2 (08:00→21:55)
[2017-05-21] MEDS: MEMANTINE HCL 10 MG TAB G-TUBE SCH ×2 (08:00→21:54)
[2017-05-21] MEDS: FAMOTIDINE 20 MG TAB PO SCH ×2 (08:00→21:54)
[2017-05-21] MEDS: CHLORHEXIDINE 0.12% (ORAL KIT) 15 ML CUP MT SCH ×2 (08:00→21:54)
[2017-05-21] MEDS: HYDROCORTISONE 2.5% CREAM 30 GM TOPICAL SCH ×2 (08:01→21:56)
[2017-05-21] MEDS: TRIAMCINOLONE ACETONIDE 0.1% OINT 15 GM TUBE TOPICAL SCH ×2 (08:01→21:56)
[2017-05-21] MEDS: MUPIROCIN 2% CREAM 15 GM TOPICAL SCH ×2 (08:01→21:00)
[2017-05-21] MEDS: MICONAZOLE NITRATE 2% CREAM 15 GM TOPICAL SCH ×2 (08:01→21:56)
--- NOTE | 2017-05-21 11:31 | HHI.IDPN ---
Subjective Subjective Remarks is a 76 y/o CM known to me from past admissions. His PMHx is significant for myasthenia gravis ( on Mestinon and CellCept), dementia with h/ o MDRO pneumonia in past. During his multiple admissions I have known him to be bedridden in a deconditioned state. He is s/p tracheostomy and PEG who resides at [facility]. Patient was reportedly transferred to [facility] due to respiratory distress.Per records his sats were in the 70s at the detention on 35% trach collar. Per records reportedly [facility] notes say the patient was receiving bolus feed when they arrived and they noted tube feeds in the trach. Reportedly, the patient has had respiratory symptoms even prior to EMS arrival. He was febrile 102.1 and was tachypneic in 40s with heart rate 140s. Trach cuff was deflated upon arrival. Cuff has been inflated and patient was placed on CPAP via trach but remained in distress. Patient has a [facility] DNR but Dr. Pedraza discussed with patient's who stated she would want to place him on vent for respiratory failure. Patient has been at [facility] previously hospitalized 02/02-02/20 and had very MDR pseudomonas. He was discharged to [facility] and then to [facility] per records. Patient was seen by [facility] and started on empiric Zerbaxa IV and Vanco IV. At time of my evaluation patient is in IMC not on pressors, on vent thru Trach. PEG tube in place, sin in place. Infectious disease consulted for evaluation and Mment of Pneumonia in a patient with very MDR PSAE. Overnight events reviewed No fevers Erythema noted on cheeks. No rash anywhere else on his body. No lip or facial swelling noted. Has diarrhea., Cdiff positive. BP on lower side but patient on Propofol. WBC normalized. Antibiotics Zerbaxa IV Vanco IV Flagyl oral. Lines Line sites with no e.o infection. Past Medical History Past Medical History Myasthenia gravis Dementia seizures Hypothyroidism GERD Past Surgical History Trach PEG Skin graft harvest from right thigh to his shoulder during childhood after a traumatic injury Allergies: Coded Allergies: hydrocodone (Unverified Allergy, Severe, SENDS PT INTO MYASTHNIA GRAVIS CRISIS, 05/17/17) thiopental (Unverified Allergy, Severe, Shortness of Breath, 05/17/17) SODIUM PENTOTHAL diatrizoate meglumine (Unverified Allergy, Unknown, 05/17/17) gadobenic acid (Unverified Allergy, Unknown, 05/17/17) gadodiamide (Unverified Allergy, Unknown, 05/17/17) gadoteridol (Unverified Allergy, Unknown, 05/17/17) haloperidol (Unverified Allergy, Unknown, 05/17/17) iodixanol (Unverified Allergy, Unknown, 05/17/17) iohexol (Unverified Allergy, Unknown, 05/17/17) onion (Unverified Allergy, Unknown, 05/17/17) risperidone (Unverified Allergy, Unknown, 05/17/17) Iodinated Contrast- Oral and IV Dye (Unverified Adverse Reaction, Severe, Anaphylaxis, 05/17/17) bee venom protein (honey bee) (Unverified Adverse Reaction, Severe, Anaphylaxis, 05/17/17) ciprofloxacin (Unverified Adverse Reaction, Severe, Anaphylaxis, 05/17/17) neomycin (Unverified Adverse Reaction, Severe, Anaphylaxis, 05/17/17) phenytoin (Unverified Adverse Reaction, Severe, Anaphylaxis, 05/17/17) tobramycin (Unverified Adverse Reaction, Severe, Respiratory Failure, ) gentamicin (Unverified Adverse Reaction, Unknown, 05/17/17) lithium (Unverified Adverse Reaction, Unknown, 05/17/17) onabotulinumtoxinA (Unverified Adverse Reaction, Unknown, 05/17/17) timolol (Unverified Adverse Reaction, Unknown, 05/17/17) verapamil (Unverified Adverse Reaction, Unknown, 05/17/17) Objective . Vital Signs Date Time Temp Pulse Resp B/P (MAP) Pulse Ox O2 Delivery O2 Flow Rate FiO2 05/21/17 10:00 90 05/21/17 08:59 97 40 05/21/17 08:00 84 05/21/17 08:00 99.0 84 22 110/62 (78) 97 05/21/17 07:47 95 40 05/21/17 06:00 91 05/21/17 04:02 95 40 05/21/17 04:00 96 05/21/17 04:00 98.6 96 19 125/58 (80) 96 05/21/17 04:00 40 05/21/17 02:00 82 05/21/17 01:30 40 05/21/17 01:30 98 40 05/21/17 00:12 98 40 05/21/17 00:00 40 05/21/17 00:00 87 05/21/17 00:00 98.7 86 27 122/63 (82) 96 05/20/17 22:00 79 05/20/17 20:10 96 40 05/20/17 20:00 98.9 72 23 116/58 (77) 94 05/20/17 20:00 40 05/20/17 20:00 72 05/20/17 18:00 80 05/20/17 16:00 61 05/20/17 16:00 98.6 81 27 112/59 (76) 97 05/20/17 14:59 98 40 05/20/17 14:00 88 05/20/17 12:00 81 05/20/17 12:00 99.0 81 18 112/76 (88) 100 05/20/17 11:50 95 40 . Laboratory Tests Test 05/20/17 04:36 05/21/17 04:20 White Blood Count 6.9 TH/MM3 10.7 TH/MM3 Red Blood Count 4.07 MIL/MM3 4.23 MIL/MM3 Hemoglobin 10.5 GM/DL 11.0 GM/DL Hematocrit 32.6 % 34.0 % Mean Corpuscular Volume 80.0 FL 80.4 FL Mean Corpuscular Hemoglobin 25.7 PG 26.1 PG Mean Corpuscular Hemoglobin Concent 32.1 % 32.4 % Red Cell Distribution Width 17.3 % 17.7 % Platelet Count 242 TH/MM3 259 TH/MM3 Mean Platelet Volume 9.4 FL 9.4 FL Neutrophils (%) (Auto) 69.6 % Lymphocytes (%) (Auto) 15.5 % Monocytes (%) (Auto) 9.1 % Eosinophils (%) (Auto) 5.3 % Basophils (%) (Auto) 0.5 % Neutrophils # (Auto) 4.8 TH/MM3 Lymphocytes # (Auto) 1.1 TH/MM3 Monocytes # (Auto) 0.6 TH/MM3 Eosinophils # (Auto) 0.4 TH/MM3 Basophils # (Auto) 0.0 TH/MM3 CBC Comment DIFF FINAL Differential Comment Laboratory Tests Test 05/20/17 04:36 05/20/17 14:51 05/21/17 04:20 Blood Urea Nitrogen 17 MG/DL 15 MG/DL Creatinine 1.18 MG/DL 1.07 MG/DL Random Glucose 101 MG/DL 111 MG/DL Calcium Level 8.1 MG/DL 8.2 MG/DL Phosphorus Level 1.6 MG/DL 1.7 MG/DL 1.4 MG/DL Magnesium Level 2.3 MG/DL 2.2 MG/DL Sodium Level 149 MEQ/L 149 MEQ/L Potassium Level 3.5 MEQ/L 4.0 MEQ/L Chloride Level 118 MEQ/L 116 MEQ/L Carbon Dioxide Level 28.3 MEQ/L 25.6 MEQ/L Anion Gap 3 MEQ/L 7 MEQ/L Estimat Glomerular Filtration Rate 60 ML/MIN 67 ML/MIN Imaging Last Impressions Chest X-Ray 05/18/17 0000 Signed Impressions: Service Date/Time: Thursday, May 18, 2017 04:18 - CONCLUSION: Underinflation with atelectasis at the right lung base and atelectasis versus consolidation at the left lung base. Gabo Kirby MD Upper Extremity Ultrasound 05/17/17 0000 Signed Impressions: Service Date/Time: Wednesday, May 17, 2017 14:16 - CONCLUSION: Normal examination. Lopez Garza MD Abdomen X-Ray 05/17/17 0000 Signed Impressions: Service Date/Time: Wednesday, May 17, 2017 03:43 - CONCLUSION: Contrast is seen in the stomach and proximal small bowel. Camilo Poe MD Physical Exam GENERAL: Chronically ill-appearing SKIN: No generalized rashes. No ecchymosis. HEAD: Atraumatic. Normocephalic. No temporal or scalp tenderness. EYES: Pupils equal round and reactive. No scleral icterus. No injection or drainage. ENT: Nose without bleeding, purulent drainage or septal hematoma. Throat without erythema, tonsillar hypertrophy or exudate. Uvula midline. Airway patent. NECK: Trach site with no evidence of infection. Supple, nontender, no meningeal signs. CARDIOVASCULAR: Heart sounds audible. RESPIRATORY: Clear to auscultation. Breath sounds equal bilaterally. No wheezes , rales, or rhonchi. GASTROINTESTINAL: Abdomen soft, non-tender, nondistended. PEG tube site with no evidence of infection. MUSCULOSKELETAL: Extremities without clubbing, cyanosis, or edema. NEUROLOGICAL: Opens eyes spontaneously. Does not track for me. Has contractures in the upper extremities. No verbalization. Psych could not be assessed. IV line sites with no evidence of infection. Assessment & Plan Remarks Sepsis present on admission. Left lower lobe pneumonia Very MDR PSAE. PEG tube in place. Possible history of aspiration prior to admission. Myasthenia gravis on immune suppressants Immune compromised host Diarrhea positive for C. difficile Recommendations Continue Zerbaxa IV (plan on 5 more days for tracheobronchitis and residual pneumonia) Continue Flagyl oral (anaerobes and Cdiff) Follow cultures Follow clinically Discussed with RN, Rash on face does not appear to be antibiotic induced. Will follow. to cover for me 05/22/2017 to 05/24/2017. Cielo Fall MD May 21, 2017 11:31
--- NOTE | 2017-05-21 16:59 | HHI.CCPN ---
Subjective Remarks/Hospital Course 76-year-old male with past medical history of myasthenia gravis ( on Mestinon and CellCept) and dementia in bedridden and deconditioned state, status post tracheostomy and PEG who is brought from [facility] due to respiratory distress. Reportedly sats were in the 70s at the [facility] on 35% trach collar. [facility] reported that patient was receiving bolus feed when they arrived and they noted tube feeds in the trach. Evidently patient has had respiratory symptoms earlier in the day as well because he had been started on prednisone for respiratory indication. He was febrile 102.1 and was tachypneic in 40s with heart rate 140s. Trach cuff was deflated upon arrival. Cuff has been inflated and patient was placed on CPAP via trach but remained in distress. Patient has a [facility] DNR but Dr. Pedraza discussed with patient's who stated she would want to place him on vent for respiratory failure. Patient previously hospitalized 02/02-02/20 and had MDR pseudomonas. He went to [facility]. is concerned that PEG was dislodged on 05/15/17 and was replaced in [facility]. Subjective: 05/18: Afebrile. Lab results revealed C. difficile PCR positive, influenza antigen A/B still pending, nurse to obtain nasal wash. Patient tolerating tube feeds. 05/19: Late entry note-afebrile patient hypotensive this afternoon, currently bolused with normal saline 250 cc. Sputum results Pseudomonas(MDR) and Proteus , leukocytosis resolved. 05/20: Late entry note. Electrolytes derangement noted. Repletion of phosphorus. Sedation remains off . Hemodynamically stable. 05/21: No acute changes overnight. The patient tolerated CPAP for most of the evening and then was placed back on the ventilator by respiratory therapy. Patient continues on CPAP trials throughout the day . Objective Vital Signs Date Time Temp Pulse Resp B/P (MAP) Pulse Ox O2 Delivery O2 Flow Rate FiO2 05/21/17 16:09 95 40 05/21/17 14:00 62 05/21/17 12:00 98.4 22 122/70 (87) Intake and Output 05/21/17 05/21/17 05/22/17 08:00 16:00 00:00 Intake Total 1308 ml Output Total 1125 ml Balance 183 ml Result Diagram: 05/21/17 04205/21/17 0420 Imaging Last Impressions Chest X-Ray 05/21/17 0600 Signed Impressions: Service Date/Time: May 04:03 - CONCLUSION: Underinflation with mild bibasilar opacity in a pattern suggesting atelectasis. Gabo Kirby MD Upper Extremity Ultrasound 05/17/17 0000 Signed Impressions: Service Date/Time: Wednesday, May 17, 2017 14:16 - CONCLUSION: Normal examination. Lopez Garza MD Abdomen X-Ray 05/17/17 0000 Signed Impressions: Service Date/Time: Wednesday, May 17, 2017 03:43 - CONCLUSION: Contrast is seen in the stomach and proximal small bowel. Camilo Poe MD Last Impressions Chest X-Ray 05/18/17 0000 Signed Impressions: Service Date/Time: Thursday, May 18, 2017 04:18 - CONCLUSION: Underinflation with atelectasis at the right lung base and atelectasis versus consolidation at the left lung base. Gabo Kirby MD Upper Extremity Ultrasound 05/17/17 0000 Signed Impressions: Service Date/Time: Wednesday, May 17, 2017 14:16 - CONCLUSION: Normal examination. Lopez Garza MD Abdomen X-Ray 05/17/17 0000 Signed Impressions: Service Date/Time: Wednesday, May 17, 2017 03:43 - CONCLUSION: Contrast is seen in the stomach and proximal small bowel. Camilo Poe MD Objective Remarks GENERAL: Chronically Ill-appearing male who is trached on mechanical ventilation SKIN: Warm to touch, dry. HEAD: Atraumatic. Normocephalic. EYES: Pupils 3 mm and reactive bilaterally.. No scleral icterus. No injection or drainage. ENT: No nasal bleeding or discharge. Mucous membranes pink and moist. NECK: Trachea midline. No JVD. CARDIOVASCULAR: Tachycardic, regular,. No murmurs rubs or gallops. [address] RESPIRATORY: Mild expiratory wheezing noted. Yellow white respiratory secretions with suctioning. GASTROINTESTINAL: Abdomen soft, non-tender, nondistended. Bowel sounds present. BED OPERATOR is placing a Rosenthal. MUSCULOSKELETAL: Extremities without clubbing, cyanosis, or edema. NEUROLOGICAL: Spontaneous eye-opening, ability to move extremities A/P Assessment and Plan NEURO: Myasthenia gravis Seizures Dementia Propofol currently at 5 mcgs for sedation to facilitate vent synchrony. Target RASS -2 Continue Mestinon 60 mg q6. On cellcept for MG but will hold now due to sepsis. Discussed with who understands this. Has been seen by neurology last admission and hospice recommended per Dr. Stuart. asked about IVIG and Dr. Uribe advised would not help. Pt typically followed by Dr. Willis Continue Vimpat 200 per tube daily Continue Aricept 10 mg daily, Namenda 10 twice daily RESP: Acute on chronic hypoxemic respiratory failure Aspiration vs HCAP pneumonia Tracheostomy in place Trach cuff inflated and patient was placed on PRVC. Duoneb q4 hours and albuterol q2 prn. Pulmonology consulted- Dr Vaz CV: Monitor hemodynamics. GI: Dysphagia PEG concerned PEG was dislodged and replaced 3/2 and she is concerned was not replaced properly. Unlikely given duration PEG is in place but will obtain KUB with gastrograffin which demonstrated satisfactory position. Jevity 1.5 goal rate 50 ml/hr Bowel regimen FEN/RENAL: Insert Rosenthal to monitor intake and output. Monitor electrolytes and replace as indicated. ID: Aspiration vs HCAP Chest x-ray shows persistent left lower lobe pneumonia, present previously. While this may have initially represented a chemical aspiration pneumonitis, patient is significantly ill with leukocytosis, fever, respiratory distress and immunocompromised state therefore will treat with antimicrobials. 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 We will cover empirically with vancomycin and Zerbaxa. He has h/o stenotrophomonas but had rash on bactrim. Apparently was previously on levaquin despite reported cipro allergy. states he was on amikacin at [facility]. Influenza A/B antigens-negative ID following- Dr Fall 05/18 sputum culture-pseudomonas aeruginosa (MDR), Proteus HEME: LUE DVT in February per , PICC related. Was on anticoagulation at [facility], now no longer. US B/L upper extremities- Normal exam ENDO: Hypothyroidism Synthroid 75 mcg per tube daily PROPH: SCDs Lovenox 40 mg subcu daily for DVT prophylaxis. Famotidine for stress ulcer prophylaxis. ACCESS: Peripheral IV. Placed intravenous line if needed. 05/17 updated at bedside and she is agreeable with plan of care. Patient's prognosis and quality of life is poor and has been for several years now. He has a [facility] DNR but his states he would want mechanical ventilation for respiratory failure therefore he is back on mechanical ventilation via trach. states she refuses palliative care or hospice consultation. Level 2 follow up D/W TUBE ROOM SUPERVISOR at bedside, Dr. Fall, and Case Management [facility] Physician Mattie Causey MD May 21, 2017 16:59
[2017-05-21] MEDS: DONEPEZIL HCL 5 MG TAB PO SCH (21:54)
[2017-05-22] VITALS (11 sets, daily range): BP systolic 99–120; BP diastolic 54–58; PULSE 71–81; RESP 16–26; TEMP 98–99.7; O2SAT 92–98
[2017-05-22] MEDS: RESP: ALBUTEROL 2.5 MG/IPRATROPIUM 0.5 MG NEB (SCH) INH ×2 (03:44→07:37)
[2017-05-22 04:28] LABS: HEMATOCRIT 34.5 % (39.0-51.0); HEMOGLOBIN 11.1 GM/DL (13.0-17.0); MEAN CELL VOLUME 80.5 FL (80.0-100.0); MEAN CORPUSCULAR HEMOGLOBIN 25.8 PG (27.0-34.0); MEAN CORPUSCULAR HGB CONC 32.1 % (32.0-36.0); PLATELET COUNT 248 TH/MM3 (150-450); RED BLOOD COUNT 4.29 MIL/MM3 (4.50-5.90); RED CELL DISTRIBUTION WIDTH 17.4 % (11.6-17.2); WHITE BLOOD COUNT 9.3 TH/MM3 (4.0-11.0)
[2017-05-22] MEDS: metroNIDAZOLE 500 MG TAB PEG SCH ×2 (04:29→13:05)
[2017-05-22] MEDS: HYOSCYAMINE 0.125 MG TAB SL SCH ×3 (04:29→13:05)
[2017-05-22] MEDS: LEVOTHYROXINE SODIUM 75 MCG TAB PO SCH (04:29)
[2017-05-22] MEDS: ENOXAPARIN SODIUM 40 MG/0.4 ML SYRINGE SQ SCH (04:29)
[2017-05-22] MEDS: PYRIDOSTIGMINE BROMIDE 60 MG TAB PO SCH ×2 (04:29→13:05)
[2017-05-22 04:50] LABS: BICARBONATE 25.8 MEQ/L (21.0-32.0); CALCIUM 8.1 MG/DL (8.5-10.1); CREATININE 1.05 MG/DL (0.60-1.30); MAGNESIUM 2.2 MG/DL (1.5-2.5); PHOSPHORUS 1.9 MG/DL (2.5-4.9)
--- NOTE | 2017-05-22 06:27 | RADRPT ---
EXAM DATE/TIME: 05/22/2017 05:00 [place] COMPARISON: CHEST SINGLE AP, May 21, 2017, 4:03. INDICATIONS : Evalaute for respiratory failure. MEDICAL HISTORY : Hypertension. SURGICAL HISTORY : Tracheostomy ENCOUNTER: Subsequent ACUITY: 4 - 6 days PAIN SCORE: Non-responsive. LOCATION: chest FINDINGS: Bilateral airspace opacities persist, perihilar predominant on the right and basilar predominant on t he left. A small left pleural effusion is likely. No pneumothorax seen. Mild cardiomegaly unchanged. Tracheostomy tube again seen. CONCLUSION: No significant change bilateral airspace opacities and small left pleural effusion. Gabo Meza MD on May 22, 2017 at 6:25 Board Certified Radiologist. This report was verified electronically.
[2017-05-22] MEDS: MULTIVITAMIN TAB G-TUBE SCH (10:01)
[2017-05-22] MEDS: DOCUSATE SODIUM 50 MG/SENNA 8.6 MG TAB PO SCH (10:01)
[2017-05-22] MEDS: LACOSAMIDE 100 MG TAB G-TUBE SCH (10:01)
[2017-05-22] MEDS: MEMANTINE HCL 10 MG TAB G-TUBE SCH (10:01)
[2017-05-22] MEDS: CEFTOLOZANE-TAZOBACTAM INJ 1,500 MG in SODIUM CHLORIDE 0.9% INJ 100 ML IV SCH (10:02)
[2017-05-22] MEDS: CHLORHEXIDINE 0.12% (ORAL KIT) 15 ML CUP MT SCH (10:02)
[2017-05-22] MEDS: SODIUM CHLORIDE 0.9% FLUSH 10 ML FLUSH IV FLUSH SCH (10:02)
--- NOTE | 2017-05-22 10:03 | HHI.CCPN ---
Subjective Remarks/Hospital Course 76-year-old male with past medical history of myasthenia gravis ( on Mestinon and CellCept) and dementia in bedridden and deconditioned state, status post tracheostomy and PEG who is brought from [facility] due to respiratory distress. Reportedly sats were in the 70s at the [facility] on 35% trach collar. [facility] reported that patient was receiving bolus feed when they arrived and they noted tube feeds in the trach. Evidently patient has had respiratory symptoms earlier in the day as well because he had been started on prednisone for respiratory indication. He was febrile 102.1 and was tachypneic in 40s with heart rate 140s. Trach cuff was deflated upon arrival. Cuff has been inflated and patient was placed on CPAP via trach but remained in distress. Patient has a [facility] DNR but Dr. Pedraza discussed with patient's who stated she would want to place him on vent for respiratory failure. Patient previously hospitalized 02/02-02/20 and had MDR pseudomonas. He went to [facility]. is concerned that PEG was dislodged on 05/15/17 and was replaced in [facility]. Subjective: 05/18: Afebrile. Lab results revealed C. difficile PCR positive, influenza antigen A/B still pending, nurse to obtain nasal wash. Patient tolerating tube feeds. 05/19: Late entry note-afebrile patient hypotensive this afternoon, currently bolused with normal saline 250 cc. Sputum results Pseudomonas(MDR) and Proteus , leukocytosis resolved. 05/20: Late entry note. Electrolytes derangement noted. Repletion of phosphorus. Sedation remains off . Hemodynamically stable. 05/21: No acute changes overnight. The patient tolerated CPAP for most of the evening and then was placed back on the ventilator by respiratory therapy. Patient continues on CPAP trials throughout the day . 05/22: Tmax 99.7. Hemodynamically stable. Discussed with (ID) patient is okay for transfer/ return to SNF, however patient remains on CPAP trials, so unable to be transferred. [facility] notified for evaluation for possible transfer. We will begin T piece trials, if clinically tolerated this a.m. Objective Vital Signs Date Time Temp Pulse Resp B/P (MAP) Pulse Ox O2 Delivery O2 Flow Rate FiO2 05/22/17 07:38 98 40 05/22/17 06:00 71 3/9/18 04:00 98.6 23 120/58 (78) Intake and Output 05/22/17 05/22/17 05/23/17 08:00 16:00 00:00 Intake Total 700 ml Output Total 1050 ml Balance -350 ml Result Diagram: 05/22/175 05/22/17 0415 Imaging Last Impressions Chest X-Ray 05/22/17 06 Signed Impressions: Service Date/Time: Monday, May 22, 2017 05:00 - CONCLUSION: No significant change bilateral airspace opacities and small left pleural effusion. Gabo Meza MD Upper Extremity Ultrasound 05/17/17 0000 Signed Impressions: Service Date/Time: Wednesday, May 17, 2017 14:16 - CONCLUSION: Normal examination. Lopez Garza MD Abdomen X-Ray 05/17/17 0000 Signed Impressions: Service Date/Time: Wednesday, May 17, 2017 03:43 - CONCLUSION: Contrast is seen in the stomach and proximal small bowel. Camilo Poe MD Last Impressions Chest X-Ray 05/21/17 0600 Signed Impressions: Service Date/Time: May 04:03 - CONCLUSION: Underinflation with mild bibasilar opacity in a pattern suggesting atelectasis. Gabo Kirby MD Upper Extremity Ultrasound 05/17/17 0000 Signed Impressions: Service Date/Time: Wednesday, May 17, 2017 14:16 - CONCLUSION: Normal examination. Lopez Garza MD Abdomen X-Ray 05/17/17 0000 Signed Impressions: Service Date/Time: Wednesday, May 17, 2017 03:43 - CONCLUSION: Contrast is seen in the stomach and proximal small bowel. Camilo Poe MD Last Impressions Chest X-Ray 05/18/17 0000 Signed Impressions: Service Date/Time: Thursday, May 18, 2017 04:18 - CONCLUSION: Underinflation with atelectasis at the right lung base and atelectasis versus consolidation at the left lung base. Gabo Kirby MD Upper Extremity Ultrasound 05/17/17 0000 Signed Impressions: Service Date/Time: Wednesday, May 17, 2017 14:16 - CONCLUSION: Normal examination. Lopez Garza MD Abdomen X-Ray 05/17/17 0000 Signed Impressions: Service Date/Time: Wednesday, May 17, 2017 03:43 - CONCLUSION: Contrast is seen in the stomach and proximal small bowel. Camilo Poe MD Objective Remarks GENERAL: Chronically Ill-appearing male who is trached on mechanical ventilation SKIN: Warm to touch, dry. HEAD: Atraumatic. Normocephalic. EYES: Pupils 3 mm and reactive bilaterally.. No scleral icterus. No injection or drainage. ENT: No nasal bleeding or discharge. Mucous membranes pink and moist. NECK: Trachea midline. No JVD. CARDIOVASCULAR: Tachycardic, regular,. No murmurs rubs or gallops. [address] RESPIRATORY: Mild expiratory wheezing noted. Yellow white respiratory secretions with suctioning. GASTROINTESTINAL: Abdomen soft, non-tender, nondistended. Bowel sounds present. PRODUCTION MINER is placing a Rosenthal. MUSCULOSKELETAL: Extremities without clubbing, cyanosis, or edema. NEUROLOGICAL: Spontaneous eye-opening, ability to move extremities A/P Assessment and Plan NEURO: Myasthenia gravis Seizures Dementia Propofol currently at 5 mcgs for sedation to facilitate vent synchrony. Target RASS -2 Continue Mestinon 60 mg q6. On cellcept for MG but will hold now due to sepsis. Discussed with who understands this. Has been seen by neurology last admission and hospice recommended per Dr. Stuart. asked about IVIG and Dr. Uribe advised would not help. Pt typically followed by Dr. Willis Continue Vimpat 200 per tube daily Continue Aricept 10 mg daily, Namenda 10 twice daily RESP: Acute on chronic hypoxemic respiratory failure Aspiration vs HCAP pneumonia Tracheostomy in place Continues on CPAP trials greater than 24 hours, will initiate T piece trials Duoneb q4 hours and albuterol q2 prn. Pulmonology consulted- Dr Griffin CV: Monitor hemodynamics. Check lactic acid and trend if abnormal. GI: Dysphagia PEG concerned PEG was dislodged and replaced 3/2 and she is concerned was not replaced properly. Unlikely given duration PEG is in place but will obtain KUB with gastrograffin which demonstrated satisfactory position. Jevity 1.5 goal rate 50 ml/hr, minimal residuals Bowel regimen FEN/RENAL: Insert Rosenthal to monitor intake and output. Monitor electrolytes and replace as indicated. ID: Aspiration vs HCAP Chest x-ray shows persistent left lower lobe pneumonia, present previously. While this may have initially represented a chemical aspiration pneumonitis, patient is significantly ill with leukocytosis, fever, respiratory distress and immunocompromised state therefore will treat with antimicrobials. 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 We will cover empirically with vancomycin and Zerbaxa. He has h/o stenotrophomonas but had rash on bactrim. Apparently was previously on levaquin despite reported cipro allergy. states he was on amikacin at [facility]. Influenza A/B antigens-negative ID following- Dr Fall 05/18 sputum culture-pseudomonas aeruginosa (MDR), Proteus HEME: LUE DVT in February per , PICC related. Was on anticoagulation at [facility], now no longer. ENDO: Hypothyroidism Synthroid 75 mcg per tube daily PROPH: SCDs Lovenox 40 mg subcu daily for DVT prophylaxis. Famotidine for stress ulcer prophylaxis. ACCESS: Peripheral IV. Placed intravenous line if needed. 05/17 updated at bedside and she is agreeable with plan of care. Patient's prognosis and quality of life is poor and has been for several years now. He has a [facility] DNR but his states he would want mechanical ventilation for respiratory failure therefore he is back on mechanical ventilation via trach. states she refuses palliative care or hospice consultation. Level 2 follow up D/W Mrs. Dale , COOK TACO at bedside, and Case Management possible transfer to [facility]. T piece trials also initiated this morning, when tolerated tentative plan to return to SNF. Physician Mattie Causey MD May 22, 2017 10:03
[2017-05-22] MEDS: FAMOTIDINE 20 MG TAB PO SCH (10:05)
[2017-05-22] MEDS: FAMOTIDINE 20 MG/2 ML VIAL IV PUSH SCH (10:05)
[2017-05-22] MEDS: TRIAMCINOLONE ACETONIDE 0.1% OINT 15 GM TUBE TOPICAL SCH (10:06)
[2017-05-22] MEDS: MUPIROCIN 2% CREAM 15 GM TOPICAL SCH (10:06)
[2017-05-22] MEDS: MICONAZOLE NITRATE 2% CREAM 15 GM TOPICAL SCH (10:06)
[2017-05-22] MEDS: HYDROCORTISONE 2.5% CREAM 30 GM TOPICAL SCH (10:07)
--- NOTE | 2017-05-22 10:50 | HHI.IDPN ---
Subjective Subjective Remarks ID COVERAGE is a 76 y/o CM known to me from past admissions. His PMHx is significant for myasthenia gravis ( on Mestinon and CellCept), dementia with h/ o MDRO pneumonia in past. During his multiple admissions I have known him to be bedridden in a deconditioned state. He is s/p tracheostomy and PEG who resides at [facility]. Patient was reportedly transferred to [facility] due to respiratory distress.Per records his sats were in the 70s at the alf on 35% trach collar. Per records reportedly [facility] notes say the patient was receiving bolus feed when they arrived and they noted tube feeds in the trach. Reportedly, the patient has had respiratory symptoms even prior to EMS arrival. He was febrile 102.1 and was tachypneic in 40s with heart rate 140s. Trach cuff was deflated upon arrival. Cuff has been inflated and patient was placed on CPAP via trach but remained in distress. Patient has a [facility] DNR but Dr. Pedraza discussed with patient's who stated she would want to place him on vent for respiratory failure. Patient has been at [facility] previously hospitalized 02/02-02/20 and had very MDR pseudomonas. He was discharged to [facility] and then to [facility] per records. Patient was seen by Dr.In Store Marketer and started on empiric Zerbaxa IV and Vanco IV. At time of my evaluation patient is in IMC not on pressors, on vent thru Trach. PEG tube in place, sin in place. Infectious disease consulted for evaluation and Mment of Pneumonia in a patient with very MDR PSAE. Notes reviewed D/W RN No fevers On CPAP this morning To be tried on trach collar Has diarrhea., Cdiff positive. WBC normal Antibiotics Current Medications Zerbaxa Flagyl po Medications (Trade) Dose Ordered Sig/Maddie Route Start Time Stop Time Status Last Admin (Peridex 0.12% Liq) 15 ml BID@08,20 MT 05/17/17 08:00 05/22/17 10:02 Propofol 100 ml @ 2.55 mls/hr TITRATE PRN IV 05/17/17 03:45 05/18/17 17:52 (NS Flush) 2 ml UNSCH PRN IV FLUSH 05/17/17 04:30 (NS Flush) 2 ml BID IV FLUSH 05/17/17 09:00 05/22/17 10:02 (Pepcid Inj) 20 mg Q12HR IV PUSH 05/17/17 09:00 05/22/17 10:05 (Pepcid) 20 mg Q12HR PO 05/17/17 09:00 05/22/17 10:05 (Zofran Inj) 4 mg Q6H PRN IV PUSH 05/17/17 04:30 (Albuterol Neb) 2.5 mg Q2HR NEB PRN INH 05/17/17 04:30 (Lovenox Inj) 40 mg Q24H SQ 05/17/17 06:00 05/22/17 04:29 Miscellaneous Information 1 Q361D XX 05/17/17 04:30 05/17/17 04:30 (Trupti-Colace) 1 tab BID PO 05/17/17 09:00 05/22/17 10:01 (Milk Of Magnesia Liq) 30 ml Q12H PRN PO 05/17/17 04:30 (Senokot) 17.2 mg Q12H PRN PO 05/17/17 04:30 (Dulcolax Supp) 10 mg DAILY PRN RECTAL 05/17/17 04:30 (Lactulose Liq) 30 ml DAILY PRN PO 05/17/17 04:30 (Tylenol 650 Mg/ 20 ml Liq) 650 mg Q6H PRN PO 05/17/17 07:15 Ceftolozane/ Tazobactam 1500 mg/Sodium Chloride 100 ml @ 100 mls/hr Q8H IV 05/17/17 09:00 05/22/17 10:02 (Synthroid) 75 mcg DAILY@0600 PO 05/18/17 06:00 05/22/17 04:29 (Aricept) 10 mg HS PO 05/17/17 21:00 05/21/17 21:54 (Eldecort 2.5% Cream) 1 applic BID TOPICAL 05/17/17 21:00 05/22/17 10:07 (Vimpat) 200 mg DAILY G-TUBE 05/18/17 09:00 05/22/17 10:01 (Namenda) 10 mg BID G-TUBE 05/17/17 21:00 05/22/17 10:01 (Micatin 2% Cream) 1 applic BID TOPICAL 05/17/17 21:00 05/22/17 10:06 (Bactroban 2% Cream) 1 applic BID TOPICAL 05/17/17 21:00 05/22/17 10:06 (Mestinon) 60 mg Q6HR PO 05/17/17 12:00 05/22/17 04:29 (Aristocort 0.1% Oint) 1 applic BID TOPICAL 05/17/17 21:00 05/22/17 10:06 (Levsin) 0.125 mg Q4H SL 05/17/17 12:00 05/22/17 10:02 (Theragran) 1 tab DAILY G-TUBE 05/18/17 09:00 05/22/17 10:01 (Flagyl) 500 mg Q8H PEG 05/17/17 12:00 05/22/17 04:29 Miscellaneous Information D/C ICU ELECTROLYTE ORDERS... UNSCH PRN .XX 05/20/17 12:30 Miscellaneous Information ICU - CALL ORDERING PHYSIC... UNSCH PRN .XX 05/20/17 12:30 Potassium Chloride 100 ml @ 25 mls/hr UNSCH PRN IV 05/20/17 12:30 (K-Lyte Cl Eff) 50 meq UNSCH PRN PO 05/20/17 12:30 05/20/17 13:31 Potassium Chloride 100 ml @ 50 mls/hr UNSCH PRN IV 05/20/17 12:30 Magnesium Sulfate 4 gm/Sodium Chloride 108 ml @ 54 mls/hr UNSCH PRN IV 05/20/17 12:30 Magnesium Sulfate 2 gm/Sodium Chloride 104 ml @ 52 mls/hr UNSCH PRN IV 05/20/17 12:30 (Mag-Ox) 800 mg UNSCH PRN PO 05/20/17 12:30 Sodium Phosphate 30 mmol/Sodium Chloride 260 ml @ 43.333 mls/ hr UNSCH PRN IV 05/20/17 12:30 (K-Phos) 2,000 mg UNSCH PRN PO 05/20/17 12:30 05/21/17 07:59 Potassium Phosphate 30 mmol/ Sodium Chloride 260 ml @ 43.333 mls/ hr UNSCH PRN IV 05/20/17 12:30 Sodium Phosphate 15 mmol/Sodium Chloride 155 ml @ 38.75 mls/ hr ONCE ONCE IV 05/22/17 11:00 05/22/17 14:59 Lines Line sites with no e.o infection. Past Medical History Past Medical History Myasthenia gravis Dementia seizures Hypothyroidism GERD Past Surgical History Trach PEG Skin graft harvest from right thigh to his shoulder during childhood after a traumatic injury Allergies: Coded Allergies: hydrocodone (Unverified Allergy, Severe, SENDS PT INTO MYASTHNIA GRAVIS CRISIS, 05/17/17) thiopental (Unverified Allergy, Severe, Shortness of Breath, 05/17/17) SODIUM PENTOTHAL diatrizoate meglumine (Unverified Allergy, Unknown, 05/17/17) gadobenic acid (Unverified Allergy, Unknown, 05/17/17) gadodiamide (Unverified Allergy, Unknown, 05/17/17) gadoteridol (Unverified Allergy, Unknown, 05/17/17) haloperidol (Unverified Allergy, Unknown, 05/17/17) iodixanol (Unverified Allergy, Unknown, 05/17/17) iohexol (Unverified Allergy, Unknown, 05/17/17) onion (Unverified Allergy, Unknown, 05/17/17) risperidone (Unverified Allergy, Unknown, 05/17/17) Iodinated Contrast- Oral and IV Dye (Unverified Adverse Reaction, Severe, Anaphylaxis, 05/17/17) bee venom protein (honey bee) (Unverified Adverse Reaction, Severe, Anaphylaxis, 05/17/17) ciprofloxacin (Unverified Adverse Reaction, Severe, Anaphylaxis, 05/17/17) neomycin (Unverified Adverse Reaction, Severe, Anaphylaxis, 05/17/17) phenytoin (Unverified Adverse Reaction, Severe, Anaphylaxis, 05/17/17) tobramycin (Unverified Adverse Reaction, Severe, Respiratory Failure, ) gentamicin (Unverified Adverse Reaction, Unknown, 05/17/17) lithium (Unverified Adverse Reaction, Unknown, 05/17/17) onabotulinumtoxinA (Unverified Adverse Reaction, Unknown, 05/17/17) timolol (Unverified Adverse Reaction, Unknown, 05/17/17) verapamil (Unverified Adverse Reaction, Unknown, 05/17/17) Objective . Vital Signs Date Time Temp Pulse Resp B/P (MAP) Pulse Ox O2 Delivery O2 Flow Rate FiO2 05/22/17 07:38 98 40 05/22/17 06:00 71 05/22/17 04:00 98.6 78 23 120/58 (78) 96 05/22/17 04:00 78 05/22/17 04:00 40 05/22/17 03:44 95 40 05/22/17 02:00 71 05/22/17 00:43 95 40 05/22/17 00:00 40 05/22/17 00:00 81 05/22/17 00:00 99.7 81 16 101/58 (72) 92 05/21/17 22:00 93 05/21/17 21:28 94 40 05/21/17 20:03 96 40 05/21/17 20:00 99.1 82 27 121/57 (78) 96 05/21/17 20:00 82 05/21/17 20:00 40 05/21/17 18:00 66 05/21/17 16:09 95 40 05/21/17 16:00 63 05/21/17 16:00 98.8 83 26 104/55 (71) 100 05/21/17 14:00 62 05/21/17 13:08 94 35 05/21/17 12:00 83 05/21/17 12:00 98.4 82 22 122/70 (87) 97 . Laboratory Tests Test 05/21/17 04:20 05/22/17 04:15 White Blood Count 10.7 TH/MM3 9.3 TH/MM3 Red Blood Count 4.23 MIL/MM3 4.29 MIL/MM3 Hemoglobin 11.0 GM/DL 11.1 GM/DL Hematocrit 34.0 % 34.5 % Mean Corpuscular Volume 80.4 FL 80.5 FL Mean Corpuscular Hemoglobin 26.1 PG 25.8 PG Mean Corpuscular Hemoglobin Concent 32.4 % 32.1 % Red Cell Distribution Width 17.7 % 17.4 % Platelet Count 259 TH/MM3 248 TH/MM3 Mean Platelet Volume 9.4 FL 9.0 FL Laboratory Tests Test 05/20/17 14:51 05/21/17 04:20 05/22/17 04:15 Phosphorus Level 1.7 MG/DL 1.4 MG/DL 1.9 MG/DL Blood Urea Nitrogen 15 MG/DL 15 MG/DL Creatinine 1.07 MG/DL 1.05 MG/DL Random Glucose 111 MG/DL 82 MG/DL Calcium Level 8.2 MG/DL 8.1 MG/DL Magnesium Level 2.2 MG/DL 2.2 MG/DL Sodium Level 149 MEQ/L 146 MEQ/L Potassium Level 4.0 MEQ/L 4.2 MEQ/L Chloride Level 116 MEQ/L 114 MEQ/L Carbon Dioxide Level 25.6 MEQ/L 25.8 MEQ/L Anion Gap 7 MEQ/L 6 MEQ/L Estimat Glomerular Filtration Rate 67 ML/MIN 69 ML/MIN Imaging Last Impressions Chest X-Ray 05/18/17 0000 Signed Impressions: Service Date/Time: Thursday, May 18, 2017 04:18 - CONCLUSION: Underinflation with atelectasis at the right lung base and atelectasis versus consolidation at the left lung base. Gabo Kirby MD Upper Extremity Ultrasound 05/17/17 0000 Signed Impressions: Service Date/Time: Wednesday, May 17, 2017 14:16 - CONCLUSION: Normal examination. Lopez Garza MD Abdomen X-Ray 05/17/17 0000 Signed Impressions: Service Date/Time: Wednesday, May 17, 2017 03:43 - CONCLUSION: Contrast is seen in the stomach and proximal small bowel. Camilo Poe MD Physical Exam GENERAL: Chronically ill-appearing, on CPAP, NAD SKIN: No generalized rashes. No ecchymosis. HEAD: Atraumatic. Normocephalic. No temporal or scalp tenderness. EYES: Pupils equal round and reactive. No scleral icterus. No injection or drainage. ENT: Nose without bleeding, purulent drainage or septal hematoma. Throat without erythema, tonsillar hypertrophy or exudate. Uvula midline. Airway patent. NECK: Trach site with no evidence of infection. Supple, nontender, no meningeal signs. CARDIOVASCULAR: Heart sounds audible. RESPIRATORY: Clear to auscultation. Breath sounds equal bilaterally. No wheezes , rales, or rhonchi. GASTROINTESTINAL: Abdomen soft, non-tender, nondistended. PEG tube site with no evidence of infection. MUSCULOSKELETAL: Extremities without clubbing, cyanosis, or edema. NEUROLOGICAL: Opens eyes spontaneously. Does not track for me. Has contractures in the upper extremities. No verbalization. Psych could not be assessed. IV line sites with no evidence of infection. Assessment & Plan Remarks Sepsis present on admission. Left lower lobe pneumonia Very MDR PSAE. PEG tube in place. Possible history of aspiration prior to admission. Myasthenia gravis on immune suppressants Immune compromised host Diarrhea positive for C. difficile Recommendations Continue Zerbaxa IV (plan on 5 more days for tracheobronchitis and residual pneumonia) Continue Flagyl oral (anaerobes and Cdiff) Follow cultures Follow clinically Weaning per CCM D/W Maria Whitt MD May 22, 2017 10:50
[2017-05-22] MEDS ORDERED: SODIUM PHOSPHATE INJ 15 MMOL in SODIUM CHLORIDE 0.9% INJ 150 ML IV ONE (11:00)
--- NOTE | 2017-05-22 15:19 | HHI.DS ---
Discharge Summary Admission Date May 17, 2017 at 03:14 Admitting Diagnosis Pneumonia. Respiratory failure. Brief History 76-year-old male with past medical history of myasthenia gravis ( on Mestinon and CellCept) and dementia in bedridden and deconditioned state, status post tracheostomy and PEG who is brought from [facility] due to respiratory distress. Reportedly sats were in the 70s at the correction on 35% trach collar. [facility] reported that patient was receiving bolus feed when they arrived and they noted tube feeds in the trach. Evidently patient has had respiratory symptoms earlier in the day as well because he had been started on prednisone for respiratory indication. He was febrile 102.1 and was tachypneic in 40s with heart rate 140s. Trach cuff was deflated upon arrival. Cuff has been inflated and patient was placed on CPAP via trach but remained in distress. Patient has a [facility] DNR but Dr. Pedraza discussed with patient's who stated she would want to place him on vent for respiratory failure. Patient previously hospitalized 02/02-02/20 and had MDR pseudomonas. He went to [facility] is concerned that PEG was dislodged on 05/15/17 and was replaced in correction. CBC/BMP: 05/22/17 0415 05/22/17 0415 Significant Findings Laboratory Tests Test 05/20/17 04:36 05/20/17 14:51 05/21/17 04:20 05/22/17 04:15 Red Blood Count 4.07 MIL/MM3 (4.50-5.90) 4.23 MIL/MM3 (4.50-5.90) 4.29 MIL/MM3 (4.50-5.90) Hemoglobin 10.5 GM/DL (13.0-17.0) 11.0 GM/DL (13.0-17.0) 11.1 GM/DL (13.0-17.0) Hematocrit 32.6 % (39.0-51.0) 34.0 % (39.0-51.0) 34.5 % (39.0-51.0) Mean Corpuscular Hemoglobin 25.7 PG (27.0-34.0) 26.1 PG (27.0-34.0) 25.8 PG (27.0-34.0) Red Cell Distribution Width 17.3 % (11.6-17.2) 17.7 % (11.6-17.2) 17.4 % (11.6-17.2) Monocytes (%) (Auto) 9.1 % (0.0-8.0) Eosinophils (%) (Auto) 5.3 % (0.0-4.0) Calcium Level 8.1 MG/DL (8.5-10.1) 8.2 MG/DL (8.5-10.1) 8.1 MG/DL (8.5-10.1) Phosphorus Level 1.6 MG/DL (2.5-4.9) 1.7 MG/DL (2.5-4.9) 1.4 MG/DL (2.5-4.9) 1.9 MG/DL (2.5-4.9) Sodium Level 149 MEQ/L (136-145) 149 MEQ/L (136-145) 146 MEQ/L (136-145) Chloride Level 118 MEQ/L (98-107) 116 MEQ/L (98-107) 114 MEQ/L (98-107) Anion Gap 3 MEQ/L (5-15) Estimat Glomerular Filtration Rate 60 ML/MIN (>89) 67 ML/MIN (>89) 69 ML/MIN (>89) Random Glucose 111 MG/DL (74-106) Hospital Course 76-year-old male with past medical history of myasthenia gravis ( on Mestinon and CellCept) and dementia in bedridden and deconditioned state, status post tracheostomy and PEG who is brought from [facility] due to respiratory distress. Reportedly sats were in the 70s at the correction on 35% trach collar. [facility] reported that patient was receiving bolus feed when they arrived and they noted tube feeds in the trach. Evidently patient has had respiratory symptoms earlier in the day as well because he had been started on prednisone for respiratory indication. He was febrile 102.1 and was tachypneic in 40s with heart rate 140s. Trach cuff was deflated upon arrival. Cuff has been inflated and patient was placed on CPAP via trach but remained in distress. Patient has a [facility] DNR but Dr. Pedraza discussed with patient's who stated she would want to place him on vent for respiratory failure. Patient previously hospitalized 02/02-02/20 and had MDR pseudomonas. He went to [facility] is concerned that PEG was dislodged on 05/15/17 and was replaced in correction. Subjective: 05/18: Afebrile. Lab results revealed C. difficile PCR positive, influenza antigen A/B still pending, nurse to obtain nasal wash. Patient tolerating tube feeds. 05/19: Late entry note-afebrile patient hypotensive this afternoon, currently bolused with normal saline 250 cc. Sputum results Pseudomonas(MDR) and Proteus , leukocytosis resolved. 05/20: Late entry note. Electrolytes derangement noted. Repletion of phosphorus. Sedation remains off . Hemodynamically stable. 05/21: No acute changes overnight. The patient tolerated CPAP for most of the evening and then was placed back on the ventilator by respiratory therapy. Patient continues on CPAP trials throughout the day . 05/22: Tmax 99.7. Hemodynamically stable. Discussed with (ID) patient is okay for transfer/ return to SNF, however patient remains on CPAP trials, so unable to be transferred. [facility] has been notified for evaluation for possible transfer. We will begin T piece trials, if clinically tolerated this a.m. 05/22: Pt transferred to [facility] Pt Condition on Discharge: Stable Discharge Disposition: Trnsfr to Other Facility Discharge Instructions DIET: Follow Instructions for: On Tube Feeding Activities you can perform: Continue Mattie Springer MD May 22, 2017 15:19
[2017-05-22] MEDS ORDERED: RESP: ALBUTEROL 2.5 MG/IPRATROPIUM 0.5 MG NEB (SCH) NEB (16:00)
--- NOTE | 2017-05-23 16:31 | MB ---
cc: Carol Griffin MD DATE OF CONSULT: 05/22/2017 REASON FOR CONSULTATION: Respiratory failure and tracheostomy management. 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 The patient dwells at the [facility] and apparently was receiving bolus feedings, noted to have tube feeds in his tracheal aspirate. The patient has been on a trach collar at FiO2 of 30% at the usp. He was also noted to be febrile and tachypneic and his heart rates were over 130 and he thus was brought to the emergency room. Upon arrival, the patient was placed on CPAP via the ventilator and the patient also placed on ventilator support and subsequently admitted to the intensive care unit and started on antibiotic therapy. The patient had his PEG tube replaced recently. His chest x-ray showed basilar pulmonary infiltrates consistent with some pneumonia. The patient is poorly responsive and also has severe dementia and deconditioned. PAST MEDICAL HISTORY: Significant for multiple episodes of pneumonia and aspiration and respiratory failure with tracheostomy tube placement. He has had myasthenia gravis advanced, end-stage and history of dementia as well as seizures and hypothyroidism and gastroesophageal reflux. He has had skin grafts from the right thigh to the shoulder after a traumatic injury in the past. MEDICATION LIST: Included Aricept 10 mg b.i.d., Mestinon 60 mg every 6 hours, Levsin 0.125 mg q.4 hours, Vimpat 200 mg via tube daily, Namenda 10 mg b.i.d., levothyroxine 75 mcg a day, famotidine 10 mg daily and CellCept 500 mg t.i.d., nebulized albuterol and Atrovent t.i.d. FAMILY HISTORY: Noncontributory. HABITS: The patient is a nonsmoker, no alcohol use. alf resident. REVIEW OF SYSTEMS: Unable to obtain as demented and on ventilator support. PHYSICAL EXAMINATION: GENERAL: This is an elderly man who is appearing chronically ill with contractures of the extremities, in bed. Eyes are open. He moves his arms sluggishly. VITAL SIGNS: Blood pressure is 140/70, pulse is 110, respirations 18-24, temperature 98.5. HEENT: Head normocephalic. Pupils are reactive. Sclerae were clear. Throat was clear. Nasal mucosa intact. He has no inflammation. NECK: Supple without venous distention. Tracheostomy tube in place. No bruits. CHEST: Equal movements with course wheezes bilaterally and few bibasilar crackles. CARDIOVASCULAR: The heart sounds are regular. S1 and S2 with no murmur. ABDOMEN: Soft, protuberant with a PEG tube in place. Bowel sounds are active. EXTREMITIES: Contractures with decreased peripheral pulses. Mild peripheral edema at the ankles. Reflexes not elicited. The patient does withdraw to some stimuli. SKIN: Dry and cool. IMPRESSION: 1. Hypoxemic respiratory failure, acute on chronic. 2. Aspiration pneumonia. 3. Myasthenia gravis, end-stage. 4. History of seizures. 5. Dementia and deconditioning. PLAN: The patient has been has been placed on antibiotic coverage per infectious disease service which we will continue. Tracheal suctioning and toilet to be done frequently. Nebulized Duoneb solution added q.6 hours and Levsin continued 0.125 mg q.6 hours p.r.n. for copious trach secretions. The patient will have aspiration precautions with cuff inflated and tube feedings via PEG on a continuous basis at 50 mL. We will get a followup chest x-ray this week. The patient will be tried on T-collar at 30% FiO2 if possible and I will follow and discuss the case with Dr. Zuleta. Thank you for this consultation. Carol Griffin MD VJD/JANEL , 10:32 AM , 04:30 PM
== END 2017-05-22 17:20 | DRG 870 ==
LOC: NEPE 01:26 → NEDH 03:14 → HIMN 05:00
PROVIDERS: ADMIT Emergency Medicine; ATTEND Emergency Medicine
PROC: 5A1955Z Respiratory Ventilation, Greater than 96 Consecutive Hours (ICD-10-PCS; principal; 2017-05-17)
DX: A41.9 Sepsis, unspecified organism (principal); J69.0 Pneumonitis due to inhalation of food and vomit; J96.21 Acute and chronic respiratory failure with hypoxia; R40.3 Persistent vegetative state; G93.40 Encephalopathy, unspecified; I82.622 Acute embolism and thrombosis of deep veins of left upper extremity; A04.72 Enterocolitis due to Clostridium difficile, not specified as recurrent; R47.01 Aphasia; Z93.0 Tracheostomy status; R13.10 Dysphagia, unspecified; F03.90 Unspecified dementia, unspecified severity, without behavioral disturbance, psychotic disturbance, mood disturbance, and anxiety; G70.00 Myasthenia gravis without (acute) exacerbation; G40.909 Epilepsy, unspecified, not intractable, without status epilepticus; K21.9 Gastro-esophageal reflux disease without esophagitis; I10 Essential (primary) hypertension; G47.30 Sleep apnea, unspecified; E03.9 Hypothyroidism, unspecified; R21 Rash and other nonspecific skin eruption; Z22.39 Carrier of other specified bacterial diseases; Z66 Do not resuscitate; Z74.01 Bed confinement status; Z88.1 Allergy status to other antibiotic agents; Z88.5 Allergy status to narcotic agent; Z88.6 Allergy status to analgesic agent; Z91.030 Bee allergy status; Z93.1 Gastrostomy status
CPT/HCPCS: 36600; 51702; 71045; 74018; 80048; 80053; 80202; 81001; 82805; 83605; 83735; 84100; 84443; 85025; 85027; 85610; 85730; 87040; 87070; 87077; 87147; 87186; 87205; 87493; 87641; 87804; 93005; 93970; 94002; 94003; 94640; 94664; 96374; A7521; J0695; J1650; J2060; J3370; J7030; J7040; J7050; J7613